=== PATIENT | female | born 2000 | race Caucasian/White ===

== ENCOUNTER 2023-08-15 10:13 | Outpatient (RCR) | payer OTHER, SELFPAY ==
[2023-08-15 11:24] LABS: HCG Quantitative 1177 mIU/mL
[2023-08-17 12:42] LABS: HCG Quantitative 2185 mIU/mL
== END 2023-08-19 08:01 | disposition home or self-care (01) ==
LOC: LAB 10:13
PROVIDERS: PCP Family Medicine; Visit Provider Obstetrics & Gynecology
DX: N92.6 Irregular menstruation, unspecified (principal)
CPT/HCPCS: 36415; 84702

== ENCOUNTER 2023-08-31 17:44 | Emergency (ER) | payer OTHER, SELFPAY ==
[2023-08-31 17:49] VITALS: BP 144/91; PULSE 115; RESP 18; TEMP 36.9; O2SAT 100; BMI 21.9
--- OUTSIDE RECORDS SUMMARY | 2023-08-31 17:55 | XMS_ITS | CCD ---
Author Name Unknown Address [address] [place] [address] Organization [facility] Care Team Providers Care Residential Treatment Counselor Name Role Phone DR IVAN MARINELLI Admitting Unavailable DR IVAN MARINELLI Attending Unavailable DR IVAN MARINELLI Primary Care Unavailable DR IVAN MARINELLI Consulting Unavailable Radha Galdamez Unavailable ANA Galdamez Attending Provider [phone] NO FAMILY, PHYSICIAN Primary Care Provider Unava ilable Joseline Cr Unavailable Medications Completed/Discontinued Medications Medication Drug Class(es) Dates Sig (Normalized) Sig (Original) amoxicillin 500 mg oral capsule (1 source) Penicillin-class Antibacterial take 1 capsule by mouth three times daily as needed Amoxicillin 500 MG take 1 capsule by mouth three times a day Oral for 10 Days Not-Taking/PRN cefuroxime 500 mg oral tablet (2 sources) Cephalosporin Antibacterial Start: 03-20-2022 take 1 tablet by mouth every twelve hours Cefuroxime Axetil 500 MG 1 tablet Orally every 12 hrs for 7 days Mar, Not-Taking/PRN norgestimate-eth estradiol 0.25-35 mg-mcg tablet (1 source) Progestin, Estrogen Norgestimate -Eth Estradiol 0.25-35 MG-MCG Oral for 28 Days Not-Taking/PRN Norgestrel-Ethinyl Estradiol (2 sources) Norgestrel-Ethin y l Estradiol Not-Taking/PRN Norgestrel-Ethin yl Estradiol Active ondansetron 4 mg oral tablet (2 sources) Serotonin-3 Receptor Antagonist Start: 03-20-2022 take 1 tablet by mouth every eight hours as needed Zofran ODT 4 MG 1 tablet on the tongue and allow to dissolve Orally every 8 hrs as needed for 4 days Mar, Not-Taking/PRN phenazopyridine hydrochloride 200 mg oral tablet (2 sources) Start: 03-20-2022 take 1 tablet by mouth every eight hours Pyridium 200 MG 1 tablet after meals Orally Three times a day for 2 day(s) Mar, Not-Taking/PRN Problems Active Problems Problem Classification Problem Date Documented Da te Episodic/Chronic Abdominal pain (3 sources) Abdominal pain; Translations: [Unspecified abdominal pain] Onset: 03-20-2022 Resolved: 03-20-2022 Episodic Nausea and vomiting (3 sources) Nausea; Translations: [Nausea] Onset: 03-20-2022 Resolved: 03-20-2022 Episodic Other gastrointestinal disorders (4 sources) Diarrhea, unspecified; Translations: [DIARRHEA UNSPECIFIED] Onset: 10-22-2021 Episodic Other upper respiratory infections (1 source) Acute upper respiratory infection, unspecified Episodic Past or Other Problems Problem Classification Problem Date Documented Da te Episodic/Chronic Unclassified (1 source) Contact with and (suspected) exposure to covid-19 Z20.822 Urinary tract infections (1 source) Acute cystitis with hematuria Onset: 03-20-2022 Resolved: 03-20-2022 Episodic Results Test Name Value Interpretation Reference Range Facility COVID + FLU Quick Testingon 08-05-2023 SARS-CoV-2 (COVID-19) RNA SAL+probe Ql (Unsp spec) Negative [employer] Other COVID + FLU Quick Testing Negative [employer] Other Urine culture routineOrdered By: RADHA GALDAMEZ on 03-22-2022 Bacteria identified Cx Nom (U) Escherichia coli [facility] Test, Urineon Beta HCG ( test) Ql (U) Inconclusive [employer] Other SARS-CoV-2 (COVID-19) RNA NA A+probe Ql (Resp)on 03-20-2022 SARS-CoV-2 (COVID-19) RNA SAL+probe Ql (Unsp spec) Negative [employer] Other Urinalysis - AUTOMATEDon Appearance (U) [facility] Other Bilirubin Ql (U) Negative [employer] Other Color (U) rust-yellow [employer] Other Glucose Ql (U) Negative [employer] Other Hemoglobin Ql (U) TRACE-INTACT [employer] Other Ketones Ql (U) Negative [employer] Other Leukocyte esterase Test strip Ql (U) TRACE [employer] Other Nitrite Ql (U) Positive [employer] Other pH (U) 7.0 [pH] [employer] Other Protein Ql (U) Negative [employer] Other Specific gravity (U) [Rel density] 1.020 [employer] Other Urobilinogen (U) [Mass/Vol] 0.2 mg/dL [employer] Other Urinalysis - AUTOMATED [employer] Other Urine Cultureon 03-20-2022 Bacteria identified Cx Nom (U) ORGANISM: Escherichia coli (O:ESCCOL) [place] Count >100,000 Aerobic MAUREEN Charge (NUC86) ---- SUSCEPTIBILITY --- ORGANISM: O:ESCCOL ANTIBIOTIC INTERPRETATION MAUREEN Amikacin S <16 Ampicillin R >16 Ampicillin/Sulbactam R >16/8 Aztreonam S <4 Cefazolin S 4 Cefepime S <2 Ceftazidime S <1 Ceftazidime/Avibactam S <8 Ceftriaxone S <1 Ciprofloxacin R >2 Ertapenem S <0.5 Gentamicin R >8 Levofloxacin R >4 Meropenem S <1 Nitrofurantoin R >64 Piperacillin/Tazobact am S <16 Tetracycline S <4 Tigecycline S <2 Tobramycin I 8 Trimethoprim/Sulfamet hoxazole S <2/38 S = SUSCEPTIBLE I = INTERMEDIATE R = RESISTANT BLANK = DATA NOT AVAILABLE, OR DRUG NOT ADVISABLE OR TESTED R* = RESISTANCE DUE TO EXTENDED SPECTRUM BETA-LACTAMASES ESBL = EXTENDED SPECTRUM BETA-LACTAMASE TFG = THYMIDINE-DEPENDENT STRAIN RONA = BETA-LACTAMASE POSITIVE IB = INDUCIBLE BETA-LACTAMASE. APPEARS IN PLACE OF 'S' WITH SPECIES KNOWN TO POSSESS INDUCIBLE BETA-LACTAMASES. POTENTIALLY THEY MAY BECOME RESISTANT TO ALL B-LACTAM DRUGS. PERFORMED BY: [place] [address] PATHOLOGIST UTILIZATION SUPERVISOR DEDE OSMAN M.D. Normal [facility] Comment on above: Performed By: #### C UU #### [address] GI PANEL (PCR)on 10-22-2021 Adenovirus F 40/41 Not detected Normal NOT DETECTED [facility] Comment on above: Performed By: #### G IPANEL #### [facility] [address] [place] [address] Dr. Elenita Talamantes Astrovirus Not detected Normal NOT DETECTED [facility] Comment on above: Performed By: #### G IPANEL #### [facility] [address] [place] [address] Dr. Elenita Chavez Diff toxin A/B Not detected Normal NOT DETECTED [facility] Comment on above: Performed By: #### G IPANEL #### [facility] [address] [place] [address] Dr. Elenita Talamantes Campylobacter Not detected Normal NOT DETECTED [facility] Comment on above: Performed By: #### G IPANEL #### [facility] [address] [address] [address] Elenita Talamantes Cryptosporidium Not detected Normal NOT DETECTED [facility] Comment on above: Performed By: #### G IPANEL #### [facility] [address] [place] [address] Dr. Elenita Talamantes Cyclos. Cayetanensis Not detected Normal NOT DETECTED [facility] Comment on above: Performed By: #### G IPANEL #### [facility] [address] [place] [address] Dr. Elenita Talamantes E. Coli O157 Not Applicable Normal Not Applicable [facility] Comment on above: Performed By: #### G IPANEL #### [facility] [address] [address] [address] Elenita Talamantes E. histolytica Not detected Normal NOT DETECTED [facility] Comment on above: Performed By: #### G IPANEL #### [facility] [address] [place] [address] Dr. Elenita Talamantes EAEC Detected Abnormal NOT DETECTED [facility] Comment on above: Performed By: #### G IPANEL #### [facility] [address] [place] [address] Dr. Elenita Talamantes EIEC Not detected Normal NOT DETECTED [facility] Comment on above: Performed By: #### G IPANEL #### [facility] [address] [place] [address] Dr. Elenita Talamantes EPEC Detected Abnormal NOT DETECTED [facility] Comment on above: Performed By: #### G IPANEL #### [facility] [address] [place] [address] Dr. Elenita Talamantes ETEC Detected Abnormal NOT DETECTED [facility] Comment on above: Performed By: #### G IPANEL #### [facility] [address] [place] [address] Dr. Elenita Chin. Lamblia Not detected Normal NOT DETECTED [facility] Comment on above: Performed By: #### G IPANEL #### [facility] [address] [place] [address] Dr. Elenita PEREIRAANEL CONTROLS PASSED Normal [facility] Comment on above: Performed By: #### G IPANEL #### [facility] [address] [place] [address] Dr. Elenita EDMONDS ROCKY HEADER GI PANEL BACTERIA Normal [facility] Comment on above: Performed By: #### G IPANEL #### [facility] [address] [place] [address] Dr. Elenita BERMEO ECOLI GI PANEL DIARRHEAGENIC E.COLI / SHIGELLA Normal [facility] Comment on above: Performed By: #### G IPANEL #### [facility] [address] [address] [address] Elenita BERMEO INFO SEE BELOW Normal [facility] Comment on above: Result Comment: EAEC - Enteroaggregative E. Coli EPEC- Enteropathogenic E. Coli ETEC- Enterotoxigenic E. Coli lt/st STEC- Shigella-like toxin-producing E. Coli stx1/stx2 EIEC- Shigella/Enteroinvasive E. Coli Performed By: #### G IPANEL #### [facility] [address] [address] [address] Elenita BERMEO PARASITES GI PANEL PARASITES Normal [facility] Comment on above: Performed By: #### G IPANEL #### [facility] [address] [place] [address] Dr. Elenita BERMEO VIRUS GI PANEL VIRUSES Normal [facility] Comment on above: Performed By: #### G IPANEL #### [facility] [address] [place] [address] Dr. Elenita Talamantes Norovirus GI/GII Not detected Normal NOT DETECTED [facility] Comment on above: Performed By: #### G IPANEL #### [facility] [address] [address] [address] Elenita Talamantes P. Shigelloides Not detected Normal NOT DETECTED [facility] Comment on above: Performed By: #### G IPANEL #### [facility] [address] [address] [address] Elenita Talamantes Rotavirus A Not detected Normal NOT DETECTED [facility] Comment on above: Performed By: #### G IPANEL #### [facility] [address] [place] [address] Dr. Elenita Talamantes Salmonella Not detected Normal NOT DETECTED [facility] Comment on above: Performed By: #### G IPANEL #### [facility] [address] [address] [address] Elenita Talamantes Sapovirus Not detected Normal NOT DETECTED [facility] Comment on above: Performed By: #### G IPANEL #### [facility] [address] [address] [address] Elenita Talamantes STEC Not detected Normal NOT DETECTED [facility] Comment on above: Performed By: #### G IPANEL #### [facility] [address] [address] [address] Elenita Talamantes Vibrio Not detected Normal NOT DETECTED [facility] Comment on above: Performed By: #### G IPANEL #### [facility] [address] [address] [address] Elenita Talamantes Vibrio Cholera Not detected Normal NOT DETECTED [facility] Comment on above: Performed By: #### G IPANEL #### [facility] [address] [address] [address] Elenita Talamantes Y. Enterocolitica Not detected Normal NOT DETECTED [facility] Comment on above: Performed By: #### G IPANEL #### [facility] [address] [address] [address] Elenita Talamantes Ambulatory Clinical Summaryo n 02-28-2021 Ambulatory Clinical Summary {[id number] Normal [facility] Urology Office/Clinic Noteon 02-28-2021 Urology Office/Clinic Note Chief Complaint 5 mnth from cysto/ud HPI Staff Pt is here for a 3 month to Cysto/UD. Pt denies any infections since the Cysto/UD. Pt states that she has not had an infection since the procedure. Pt states that today she was voiding every 2 hours. PVR today is 0ml. Dysuria: no pain or burning Incomplete bladder emptying: believes she is emptying Hematuria: denies any blood Frequency: voiding every 2 hours Urgency: mild to none Nocturia: none Stream: varies from strong to average stream, no hesitation, intermittent stream at the end Post void dripping: none Wearing pads/ Depends: _ Urge incontinence: none Stress incontinence: none Incontinence without Sensory Awareness: none History of Present Illness Reviewed UA and pvr. There have been no associated fever, chills, flank pain or blood in the urine. Pt. denies any pain/burning with urination at this time. Review of Systems PHQ Score Initial Depression Screen Score: 0 ROS - Provider Constitutional: denies weight loss, denies hot flashes. Eyes: denies eye problems. Gastrointestinal: denies nausea, denies vomiting. Cardiovascular: denies chest pain or angina. Integumentary: no dryness Musculoskeletal: denies musculoskeletal symptoms. ENMT: denies otolaryngeal symptoms. Respiratory: no shortness of breath. Heme/Lymph: denies easy bleeding tendency, denies easy bruising tendency. Psychiatric: no confusion, no anxiety. Genitourinary: denies vaginal discharge, denies incontinence, denies dysuria, denies hematuria, denies urinary frequency, denies amenorrhea, denies menorrhagia, denies abnormal bleeding, denies pelvic pain, denies genital sores, and denies decreased libido. Physical Exam Vitals & Measurements HR: 75(Peripheral) RR: 18 BP: 123/81 HT: 176 cm HT: 176.0 cm WT: 72 kg WT: 72.0 kg BMI: 23.24 General Appearance: alert , no acute distress, well nourished, well developed female. Genitourinary: bladder nonpalpable, no flank pain. Assessment/Plan 1. Recurrent UTI (N39.0: Urinary tract infection, site not specified) Pt. denies any infections since the UD. UA today - neg. Recommended pt. to increase fluid intake to ten to twelve 16oz bottles a day; preferably water, clear pop, and sugar free lemonade. Pt. to start timed voids q2-3hr during waking hours whether the urge to void is present or not. All questions/concerns were discussed. Pt. to call the office if sheencounters any issues prior. Pt. acknowledges understanding. Nuclear renal scan done 10/19/20 shows that the left kidney is smaller than the right w/ 39% function on the left and 61% on the right. Will repeat this study in 1yr. 2. Urge incontinence (N39.41: Urge incontinence) Improved since UD. 3. Incomplete bladder emptying (R33.9: Retention of urine, unspecified) PVR today 0ml. vs. 99ml. previously. 4. Other urethral stricture, female (N35.82: Other urethral stricture, female) S/p Cysto/UD 10/12/20. she is voiding much better now. I have reviewed the previous health record information and history for this pt. from Dr. Gonzalez. Follow-up With When Contact Information PANCHITO AGUIRRE, Lewis Kent, URL [address] [place] [address] [place] [address]- [phone] Additional Instructions: 6mos. f/u Patient Education I, Lyn Willis , personally scribed for Dr. Gonzalez on 02/28/2021 16:26:03. . Documentation recorded by the scribe, Lyn Willis, accurately reflects the services(s) I performed and decisions made by me. Authenticated by Dr. Gonzalez on 02/28/2021 16:30:11. Problem List/Past Medical History Ongoing No qualifying data Historical No qualifying data Procedure/Surgical History Procedure on back. Medications Multi Vitamin+ Probiotic Formula (Bacillus Coagulans), Oral, Daily Vitamin D, Oral, Daily Allergies No Known Allergies Social History Tobacco Former smoker, quit more than 30 days ago Tobacco Use:., 10/04/2020 Family History Alcoholism: Uncle. Arthritis: Grandparent. Asthma: Mother. Heart disease: Grandparent. High cholesterol: Father and Grandparent. Hypertension: Grandparent. Kidney stone: Uncle. Lung cancer: Uncle. Mental illness: Mother and Uncle. Ovarian cancer: Grandparent. Stroke: Grandparent. Lab Results Ambulatory Point of Care Results Blood Urine Dipstick: Negative (02/28/21 15:30:00) Glucose Urine Dipstick: Negative (02/28/21 15:30:00) Ketones Urine Dipstick: Negative (02/28/21 15:30:00) Leukocytes Urine Dipstick: Trace (02/28/21 15:30:00) Protein Urine Dipstick: Negative (02/28/21 15:30:00) Specific [place] Urine Dipstick: 1.020 (02/28/21 15:30:00) Urine Appearance Urine Dipstick: Clear (02/28/21 15:30:00) Urine Color Urine Dipstick: Yellow (02/28/21 15:30:00) Urobilinogen Urine Dipstick: Normal 0.2-1 EU/dl (02/28/21 15:30:00) pH Urine Dipstick: 5 (02/28/21 15:30:00) [facility] Comment on above: Result Comment: Elec tronically Signed By: Lewis GONZALEZ MD\.br\Date and Time Signed: 02/28/21 16:30 EDT\.br\Electronically Co-Signed By: Lyn Willis MA\.br\Date and Time Co-Signed: 02/28/21 16:26 EDT Coding Summary.on 10-27-2020 Coding Summary. CODING DATE: 10/27/2020 FINAL [facility] STATUS: Home (Routine DC) PAYOR: Commercial Insurance APC DESCRIPTION 5592 Level 2 Nuclear Medicine and Related Services ADMIT DX: REASON FOR VISIT DX: R33.9 Retention of urine, unspecified FINAL DX: PRINCIPAL: R33.9 Retention of urine, unspecified SECONDARY: N39.0 Urinary tract infection, site not specified N39.41 Urge incontinence N27.0 Small kidney, unilateral PYMT PROC APC STAT DESCRIPTION DOCTOR NAME DATE NOTE: The code number assigned matches the documented diagnosis and / or procedure in the patient's chart. However, the narrative phrase printed from the coding software may appear abbreviated, or result in slightly different terminology. Coded By: Kendra Orr CphT Date Saved: 10/27/2020 09:40 am [facility] Coding Summary. CODING DATE: 10/27/2020 FINAL [facility] STATUS: Home (Routine DC) PAYOR: Commercial Insurance APC DESCRIPTION 5592 Level 2 Nuclear Medicine and Related Services ADMIT DX: REASON FOR VISIT DX: R33.9 Retention of urine, unspecified FINAL DX: PRINCIPAL: R33.9 Retention of urine, unspecified SECONDARY: N39.0 Urinary tract infection, site not specified N39.41 Urge incontinence PYMT PROC APC STAT DESCRIPTION DOCTOR NAME DATE NOTE: The code number assigned matches the documented diagnosis and / or procedure in the patient's chart. However, the narrative phrase printed from the coding software may appear abbreviated, or result in slightly different terminology. Coded By: Kendra Orr CphT Date Saved: 10/27/2020 09:39 am [facility] Discharge Instructionson Discharge Instructions [id number]# 1.00CD:127 Normal [facility] NM Kidney Imaging w/ Flow w/ Pharmon 10-20-2020 NM Kidney Imaging w/ Flow w/ Pharm Exam Date/Time: 10/19/2020 16:32 EST Reason for Exam: Other (please specify) Report IMPRESSION: GOOD ACCUMULATION, EXCRETION AND CLEARANCE RADIONUCLIDE FROM BOTH KIDNEYS. THE LEFT KIDNEY IS SMALLER THAN THE RIGHT, SEE BELOW. CLINICAL HISTORY: Lower abdominal and low back pain. Pt was unable to complete the entire duration on test after Lasix was administered due to having to use the restroom pt also stated she had left sided back pain after emptying her bladder COMPARISON: Ultrasound abdomen: 09/07/2020 TECHNIQUE: 6.6 mCi of technetium -99m MAG3 were given intravenously. 20 minutes later 40 mg Lasix were given intravenously. FINDINGS: There is prompt symmetrical perfusion of both kidneys. There is approximately 39 % uptake in the left kidney and 61% in the right kidney. The time for peak cortical activity in right kidney is approximately 4.1 minutes. The time for peak cortical activity in left kidney is approximately 5.1 minutes. Radionuclide is excreted in right kidney at 4 minutes postinjection. Radionuclide is excreted in left kidney at 4 minutes postinjection. There is good clearance of radionuclide from both kidneys. FINAL REPORT Dictated: 10/20/2020 3:28 pm Pallavi Ghotra MD Signed (Electronic Signature): 10/20/2020 3:28 pm Signed by: Pallavi Ghotra MD Transcribed by: ROYAL Technologist: JENNIFER Technical Comments Dose: (mCi Tc99m Mag3) 6.6 Dose Furosemide (mg): 40 Right Peak (min): 4.1 Right T1/2 (min): 7.4 Right 20 Minutes (%): 16 Right Uptake (%): 61.1 Left Peak (min): 5.2 Left T1/2 (min): 7.7 Left 20 Minutes (%): 14 Left Uptake (%): 38.9 Normal [facility] Consent for Procedure/Surger yon 10-19-2020 Consent for Procedure/Surgery [id number]# 1.00CD:127 [facility] Consent for Treatmenton -0 Consent for Treatment [id number] .00CD:127 [facility] IntraOperative Documentson 0 10-19-2020 IntraOperative Documents [id number]# 1.00CD:127 [facility] Coding Summary.on 10-18-2020 Coding Summary. CODING DATE: 10/18/2020 FINAL [facility]SC STATUS: Home (Routine DC) PAYOR: Commercial Insurance APC DESCRIPTION 5373 Level 3 Urology and Related Services ADMIT DX: REASON FOR VISIT DX: R35.0 Frequency of micturition FINAL DX: PRINCIPAL: R35.0 Frequency of micturition SECONDARY: R39.15 Urgency of urination Z87.440 Personal history of urinary (tract) infections R39.14 Feeling of incomplete bladder emptying N35.12 Postinfective urethral stricture, not elsewhere classified, female R33.9 Retention of urine, unspecified PYMT PROC APC STAT DESCRIPTION DOCTOR NAME DATE NOTE: The code number assigned matches the documented diagnosis and / or procedure in the patient's chart. However, the narrative phrase printed from the coding software may appear abbreviated, or result in slightly different terminology. Coded By: Charisse Rivers Date Saved: 10/18/2020 01:46 pm [facility] Consent for Treatmenton 09-21 Consent for Treatment [id number] .00CD:127 [facility] Main OR Intraoperative Recor don 10-12-2020 Main OR Intraoperative Record IntraOp Document Type FTURO Summary Primary Physician: Lewis GONZALEZ MD Finalized Date/Time: 10/12/20 10:01:33 Pt. Name: CHRIS GONZALEZ/Sex: 2000 Female Med Rec #: [id number] Physician: Lewis GONZALEZ MD Financial #: [id number] Pt. Type: O Room/Bed: / Admit/Disch: 10/12/20 08:26:15 - Institution: Case Times FTURO Entry 1 Patient Times In Room 10/12/20 09:52:00 Out Room 10/12/20 10:01:00 Procedure Times Start 10/12/20 09:54:00 Stop 10/12/20 09:59:00 Anesthesia Times Last Modified By: Jarrod RAMOS, Chyna Arredondo 10/12/20 09:59:52 Case Attendance FTURO Entry 1 Entry 2 Entry 3 Case Attendee PANCHITO AGUIRRE, Lewis Quezada RN, Verena Garay RN, Chyna Arredondo Role Performed Surgeon - Primary Vending Service Technician - Primary Vending Service Technician - Primary Time In 10/12/20 09:52:00 10/12/20 09:52:00 10/12/20 09:52:00 Time Out 10/12/20 10:01:00 10/12/20 10:01:00 10/12/20 10:01:00 Procedure CYSTOSCOPY LOCAL WITH CYSTOSCOPY LOCAL WITH CYSTOSCOPY LOCAL WITH URETHRAL DILATION(.) URETHRAL DILATION(.) URETHRAL DILATION(.) Comments orientation Last Modified By: Jarrod RN, Chyna Garay RN, Chyna Garay RN, Chyna Arredondo 10/12/20 09:59:54 10/12/20 09:59:54 10/12/20 09:59:54 Entry 4 Entry 5 Case Attendee Miguel BELT PUNCHER, Carole Alexander BELT PUNCHER, Millie Stover Role Performed Scrub - Primary Scrub - Primary Time In 10/12/20 09:52:00 10/12/20 09:52:00 Time Out 10/12/20 10:01:00 10/12/20 10:01:00 Procedure CYSTOSCOPY LOCAL WITH CYSTOSCOPY LOCAL WITH URETHRAL DILATION(.) URETHRAL DILATION(.) Comments orientation Last Modified By: Jarrod RN, Chyna Garay RN, Chyna Arredondo 10/12/20 09:59:54 10/12/20 09:59:54 Surgical Procedures FTURO Entry 1 Procedure Description Procedure CYSTOSCOPY LOCAL WITH Modifiers . URETHRAL DILATION Surgeon Description CYSTOSCOPY WITH URETHRAL DILATION Primary Procedure Yes Primary Surgeon Lewis GONZALEZ MD 10/12/20 09:54:00 Stop 10/12/20 09:59:00 Anesthesia Type Local Surgical Service Urology Wound Class 2 - Clean-Contaminated Last Modified By: Chyna Garay RN 10/12/20 09:59:58 General Case Data FTURO Pre-Care Text: Classifies surgical wound, implements aseptic technique, initiates traffic control Entry 1 Case Information OR URO 1 FT Case Level None Wound Class 2 - Clean-Contaminated Specialty Urology Preop Diagnosis RECURRENT UTI Postop Same As Preop No INCOMPLETE EMPTYING URGE INCONTINENCE Postop Diagnosis RECURRENT UTI Outcomes Met? Yes INCOMPLETE EMPTYING URGE INCONTINENCE, URETHRAL STRICTURE Last Modified By: Chyna Garay RN 10/12/20 09:56:40 Post-Care Text: The patient is free from signs and symptoms of infection EU IntraOp - FTURO Pre-Care Text: Implements protective measures prior to operative or invasive procedure, confirms identity before the operative or invasive procedure, verifies operative procedure, surgical site, and laterality Entry 1 EU Perioperative Protocols Procedure(s) CYSTOSCOPY LOCAL WITH Patient Identity Birthday, ID Band Check URETHRAL DILATION(.) Verified (select at least 2): Consents / H and P HandP, Surgery/Procedure Operative Site N/A Verified Consent Marking Verified Surgical Site Yes Laterality Verified n/a Verified Procedure Verified Yes Correct Patient Yes Position Verified Availability Equipment, Medication Time Out Lewis GONZALEZ MD, Verified (If Participants Damien RAMOS, Verena Price, Applicable) Chyna Garay RN, Miguel BELT PUNCHER, Benjamin Bolanos CST, Millie Stover Time Out Complete 10/12/20 09:54:00 Allergies Reviewed? Yes Allergies Reviewed Self/Patient With Body Position Frog Legged Prep Area PERINEUM Prep Agents Betadine Solution Skin. Condition Unable to Visualize Description CLOTHING ON Additional None Specimens Collected Vitals - EU Blood Pressure 105/61 Pulse 71 bpm Respirations 18 br/min SPO2 EBL 0 IandO - EU Total Intake 0 mL Total Output 0 mL Outcomes Met? Yes Last Modified By: Chyna Garay RN 10/12/20 09:56:03 Post-Care Text: The patient is free from signs and symptoms of injury caused by extraneous objects Case Comments Finalized By: Chyna Garay RN Document Signatures Signed By: Chyna Garay RN 10/12/20 10:01 Normal [facility] Main OR Preoperative Recordo n 10-12-2020 Main OR Preoperative Record Holding Area Document Type FTURO Summary Primary Physician: Lewis GONZALEZ MD Finalized Date/Time: 10/12/20 09:53:30 Pt. Name: CHRIS GONZALEZ /Sex: 2000 Female Med Rec #: [id number] Physician: Lewis GONZALEZ MD Financial #: [id number] Pt. Type: O Room/Bed: / Admit/Disch: 10/12/20 08:26:15 - Institution: Case Times Holding FTURO Pre-Care Text: Verifies consent for planned procedure, identifies individual values and wishes concerning care, includes family members in perioperative teaching Secures patient's records' belongings, and valuables, maintains patient's dignity and privacy, and maintains patient confidentiality Entry 1 In Holding 10/12/20 09:27:00 Outcomes Met? Yes Last Modified By: Halie Fu LPN 10/12/20 09:27:17 Post-Care Text: The patient participates in decisions affecting his or her perioperative plan of care The patient's right to privacy is maintained Surgery Checklist FTURO Entry 1 Patient Birthday, ID Band Procedure History and Physical, Identification: Check, Patient Verification: Surgical Consent, With Participation Patient NPO after Midnight: n/a Personal Items: Jewelry Personal Items earrings, necklace Complaints of Pain: Yes Comment: Pain Comment: 02/26 back Skin Integrity Unable to Visualize Vitals - EU Blood Pressure 105/61 Pulse 71 bpm Respirations 18 br/min SPO2 RN Reviewed Yes Last Modified By: Chyna Garay RN 10/12/20 09:53:28 General Comments: Temp. 36.6 Finalized By: Chyna Garay RN Document Signatures Signed By: Halie Fu LPN 10/12/20 09:30 Chyna Garay RN 10/12/20 09:53 Normal [facility] Operative Reporton Operative Report Patient: CHRIS GONZALEZ Age: 20 years Sex: Female : 2000 Associated Diagnoses: None Author: Lewis GONZALEZ MD Procedure Operative Information Details: Date/ Time: 10/12/2020 10:01:00. 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 Post-Op Dx: Same. Anesthesia Type: Local. Procedure: Local Cystoscopy with Urethral Dilation. Complications: None. Risks/Benefits/Inform ed Consent: Surgical risks, benefits, details of the procedure have been explained to the patient, Full informed consent has been obtained. Intraoperative Information Prepped: Patient is brought back to the endoscopy suite, Patient is placed in modified dorso/lithotomy position, Patient prepped in the usual fashion with Betadine solution, 2% Xylocaine Jelly is placed per Urethra, After waiting several minutes the Cystoscope is introduced. The Urethra is: Tight. The Bladder is: Abnormal, Trabeculated Moderate (2), no b.t.. The ureteral orifices: Show efflux of clear urine. The Urethra was dilated to: 30 Slovak w/ sounds. Devices Implanted: None. Removal: Cystoscope is removed, The patient tolerated it well. Postoperative Information Discharge: Patient is discharged home with antibiotic coverage, Follow up arranged. [facility] Comment on above: Result Comment: Elec tronically Signed By: PANCHITO AGUIRRE, Lewis Trent.br\Date and Time Signed: 10/12/20 10:02 EST Pre-Certification Formon Pre-Certification Form [id number]. 00CD:127 [facility] Physician Referralon 021 Physician Referral [id number] .00CD:127 [facility] Formson 10-05-2020 Forms [id number]. 00CD:127 [facility] Ambulatory Clinical Summaryo n 10-04-2020 Ambulatory Clinical Summary {[id number]}CD:[id number] [facility] Patient Educationon 10-04-19 21 Patient Education Urinary Tract Infection Urinary tract infections (UTIs) can develop anywhere along your urinary tract. Your urinary tract is your body's drainage system for removing wastes and extra water. Your urinary tract includes two kidneys, two ureters, a bladder, and a urethra. Your kidneys are a pair of macedo-shaped organs. Each kidney is about the size of your fist. They are located below your ribs, one on each side of your spine. CAUSES Infections are caused by microbes, which are microscopic organisms, including fungi, viruses, and bacteria. These organisms are so small that they can only be seen through a microscope. Bacteria are the microbes that most commonly cause UTIs. SYMPTOMS Symptoms of UTIs may vary by age and gender of the patient and by the location of the infection. Symptoms in young women typically include a frequent and intense urge to urinate and a painful, burning feeling in the bladder or urethra during urination. Older women and men are more likely to be tired, shaky, and weak and have muscle aches and abdominal pain. A fever may mean the infection is in your kidneys. Other symptoms of a kidney infection include pain in your back or sides below the ribs, nausea, and vomiting. DIAGNOSIS To diagnose a UTI, your caregiver will ask you about your symptoms. Your caregiver also will ask to provide a urine sample. The urine sample will be tested for bacteria and white blood cells. White blood cells are made by your body to help fight infection. TREATMENT Typically, UTIs can be treated with medication. Because most UTIs are caused by a bacterial infection, they usually can be treated with the use of antibiotics. The choice of antibiotic and length of treatment depend on your symptoms and the type of bacteria causing your infection. HOME CARE INSTRUCTIONS ? If you were prescribed antibiotics, take them exactly as your caregiver instructs you. Finish the medication even if you feel better after you have only taken some of the medication. ? Drink enough water and fluids to keep your urine clear or pale yellow. ? Avoid caffeine, tea, and carbonated beverages. They tend to irritate your bladder. ? Empty your bladder often. Avoid holding urine for long periods of time. ? Empty your bladder before and after sexual intercourse. ? After a bowel movement, women should cleanse from front to back. Use each tissue only once. SEEK MEDICAL CARE IF: ? You have back pain. ? You develop a fever. ? Your symptoms do not begin to resolve within 3 days. SEEK IMMEDIATE MEDICAL CARE IF: ? You have severe back pain or lower abdominal pain. ? You develop chills. ? You have nausea or vomiting. ? You have continued burning or discomfort with urination. MAKE SURE YOU: ? Understand these instructions. ? Will watch your condition. ? Will get help right away if you are not doing well or get worse. Document Released: 05/16/2006 Document Revised: 02/04/2013 Document Reviewed: 09/13/2012 ExitCare? Patient Information ?2013 [employer]. 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 Pt states that she has been having issues since she has been 6 yrs for BV, Kidney infections, UTI and yeast infections. Pt states that she has atleast 2 infections per month. She states that she has had recent pain intermittent pain with intercourse. Pt is currently taking metronidazole 500mg bid. Pt gets cloudy urine, smells, discharge, LLQ pain and lower left back pain with infections. Pt does have a FH of kidney stones. PVR 99ml. Renal US/bladder At [facility] 08/2020. Dysuria: not at this time Incomplete bladder emptying: pt states that she does feel emptying, pt states she is double voiding Hematuria: Pt is on Depo shot and only bleeds one week prior to her next shot, not during urination. UA is clear. Frequency: 2-3 hours in between, pt states since being on the Medication her frequency is back to normal Urgency: only with infections Nocturia: with infection she was getting up multiple times Stream: strong stream, no hesitation Post void dripping: none Wearing pads/ Depends: none Urge incontinence: yes, with mild/moderate urgency Stress incontinence: none Incontinence without Sensory Awareness: none Abdominal pain: LLQ pain with infection Flank pain/back : with infection Sexual complaints: pain with sexual intercourse recently History of Present Illness Reviewed urine, pv, referral papers, and new pt. paper works. There have been no associated fever, chills, flank pain or blood in the urine. Pt. denies any pain/burning with urination at this time. Review of Systems PHQ Score Initial Depression Screen Score: 1 ROS - Provider Constitutional: denies weight loss, denies hot flashes. Eyes: denies eye problems. Gastrointestinal: denies nausea, denies vomiting. Cardiovascular: denies chest pain or angina. Integumentary: no dryness Musculoskeletal: denies musculoskeletal symptoms. ENMT: denies otolaryngeal symptoms. Respiratory: no shortness of breath. Heme/Lymph: denies easy bleeding tendency, denies easy bruising tendency. Psychiatric: no confusion, no anxiety. Genitourinary: denies vaginal discharge, mild incontinence, denies dysuria, denies hematuria, denies urinary frequency, denies amenorrhea, denies menorrhagia, denies abnormal bleeding, denies pelvic pain, denies genital sores, and denies decreased libido. Physical Exam Vitals & Measurements HR: 108(Peripheral) RR: 18 BP: 140/89 HT: 176 cm HT: 176.0 cm WT: 72 kg WT: 72.0 kg BMI: 23.24 General Appearance: alert , no acute distress, well nourished, well developed female. Head: normocephalic . Eyes: normal orbit and globe. ENMT: normal examination of external ears. Chest: Lungs CTA, respirations non labored . Cardiovascular: regular rate and rhythm. Abdomen: soft, non distended, no tenderness, no mass or organomegaly, no hernia. Genitourinary: bladder nonpalpable, no flank tenderness. Lymph Nodes: unremarkable palpation of the cervical area. Skin: warm, dry, no bruising. Psychiatric: cooperative, affect appropriate for age, normal judgement, euthymic mood. Assessment/Plan 1. Recurrent UTI (N39.0: Urinary tract infection, site not specified) Pt. states having infections since a child and pt. continues to have UTIs at least 2x/month. Pt. has only been treated w/ ABX in the past along with x-rays. Retroperitoneal us done on 09/07/2020 is unremarkable. Pt. states that she always wipes from front to back which I informed pt. is the correct way. Will have pt. obtain nuclear renal scan. Will schedule Cysto with UD. The procedure risks, benefits, details, and treatment alternatives have been discussed with the patient. These include bleeding, infection, recurrent scar in over 50%, need for repeat dilation or other procedures, no symptom relief with dilation, among others. Full informed consent has been obtained. Will order Local anesthesia. 2. Urge incontinence (N39.41: Urge incontinence) Mild - moderate. daily bother for her. will start bladder med after her cysto/ud. 3. Incomplete bladder emptying (R33.9: Retention of urine, unspecified) PVR today - 99ml. I have reviewed the previous health record information and history for this pt. from Dr. Gonzalez. Follow-up With When Contact Information Lewis GONZALEZ MD [address] [place] [address]- [phone] Additional Instructions: scheduling Cysto/UD Patient Education Urinary Tract Infection I, Lyn Willis , personally scribed for Dr. Gonzalez on 10/04/2020 14:58:44. . Documentation recorded by the scribe, Lyn Willis, accurately reflects the services(s) I performed and decisions made by me. Authenticated by Dr. Gonzalez on 10/04/2020 15:03:51. Problem List/Past Medical History Ongoing No qualifying data Historical No qualifying data Procedure/Surgical History Procedure on back. Medications buPROPion, Oral met (more content not included)... [facility] Comment on above: Result Comment: Elec tronically Signed By: Lewis GONZALEZ MD\.br\Date and Time Signed: 10/04/20 15:03 EST\.br\Electronically Co-Signed By: Lyn Willis MA\.br\Date and Time Co-Signed: 10/04/20 14:59 EST Coding Summary.on 09-09-2020 Coding Summary. CODING DATE: 09/09/2020 FINAL [facility] STATUS: Home (Routine DC) PAYOR: Commercial Insurance APC DESCRIPTION 5522 Level 2 Imaging without Contrast ADMIT DX: REASON FOR VISIT DX: N12 Tubulo-interstitial nephritis, not specified as acute or chronic FINAL DX: PRINCIPAL: N12 Tubulo-interstitial nephritis, not specified as acute or chronic SECONDARY: N39.0 Urinary tract infection, site not specified PYMT PROC APC STAT DESCRIPTION DOCTOR NAME DATE NOTE: The code number assigned matches the documented diagnosis and / or procedure in the patient's chart. However, the narrative phrase printed from the coding software may appear abbreviated, or result in slightly different terminology. Coded By: Kendra Orr CphT Date Saved: 09/09/2020 06:00 pm [facility] US Retroperitoneal Completeo n 09-09-2020 US Retroperitoneal Complete Exam Date/Time: 09/07/2020 09:49 EST Reason for Exam: Tubulo-interstitial nephritis, not specified as acute or chronic Report IMPRESSION: NEGATIVE ULTRASOUND OF THE KIDNEYS. MINIMAL POST VOID RESIDUAL. CLINICAL HISTORY: Tubulo-interstitial nephritis, not specified as acute or chronic. COMMENT: The right kidney measures approximately 7.9 cm in length, with renal cortical thickness of approximately 1.2 cm. The left kidney measures approximately 9.5 cm in length, with renal cortical thickness of approximately 1.9 cm. Both kidneys have a normal sonographic appearance. No renal masses nor cysts are seen. There is no hydronephrosis. The urinary bladder filled with fluid measures approximately 6.1 x 4.3 x 7.6 cm, with an estimated volume of the 107 cc. On color flow Doppler images, there are bilateral ureteral jets in the urinary bladder. After voiding, the urinary bladder measures approximately 2.3 x 0.8 x 4.3 cm, with an estimated volume of 4.5 cc. FINAL REPORT Dictated: 09/09/2020 11:42 am Kevon De La O M.D. Signed (Electronic Signature): 09/09/2020 11:42 am Signed by: Kevon De La O M.D. Transcribed by: ROYAL Technologist: HW [facility] Consent for Treatmenton 08-20 Consent for Treatment [id number] .[id number]:127 [facility] Consent for Treatment [id number]:127 [facility] Physician Orderon 09-03-2020 Physician Order [id number] .00CD:127 [facility] Vital Signs Date Time Vital Sign Value Performing Clinician Facility 08-05-2023 14:35-0500 Body height 176.53 cm Joseline Shaye [facility] 08-05-2023 14:35-0500 Body mass index (BMI) [Ratio] 23.29 kg/m2 Joseline Shaye [facility] 08-05-2023 14:35-0500 Body temperature 98 [degF] Joseline Shaye [facility] 08-05-2023 14:35-0500 Body weight 72.58 kg Joseline Shaye [facility] 08-05-2023 14:35-0500 Respiratory rate 18 /min Joseline Shaye [facility] 08-05-2023 14:35-0500 SaO2% (BldA) [Mass fraction] 98 % Joseline Shaye [facility] 03-20-2022 18:20-0400 Body height 176.53 cm Radha Galdamez [facility] 03-20-2022 18:20-0400 Body mass index (BMI) [Ratio] 25.32 kg/m2 Radha Crow [facility] 03-20-2022 18:20-0400 Body temperature 98.4 [degF] Radha Crow [facility] 03-20-2022 18:20-0400 Body weight 78.93 kg Radha Denneyault Other [facility] Other 03-20-2022 18:20-0400 Respiratory rate 18 /min Radha Crow [facility] Other 03-20-2022 18:20-0400 SaO2% (BldA) [Mass fraction] 97 % Radha Galdamez [facility] Other Encounters Encounter Date Encounter Type Care Provider Facility Start: 08-05-2023 End: 08-05-2023 ambulatory Joseline Smithb [facility] Start: 08-05-2023 Office outpatient visit 15 minutes Joseline Cr [facility] Start: 03-20-2022 End: 03-20-2022 Departed Referred ANA Galdamez Work Phone: [facility] [place] Start: 03-20-2022 End: 03-20-2022 ambulatory Radha Galdamez [facility] Start: 03-20-2022 Office outpatient ne w 20 minutes Radha Galdamez [facility] Start: 10-22-2021 End: 10-23-[address] IVAN MARINELLI Facility:[facility]1 Procedures Date Procedure Procedure Detail Performing Clinician Urine culture ANA Hale Work Phone: Payers Date Payer Category Payer Unknown [id number] 1961 Unknown [id number] Unknown [id number] Unknown [id number] 2. [id number] Social History Date Type Detail Facility Sex Assigned At [facility] Work Phone: Start: 2000 Sex Assigned At Female [facility] Evaluation note 08-05-2023 Note Date & Type Note Facility 08-05-2023 Evaluation note Encounter Date Diagnosis Assessment Notes Jul, Contact with and (suspected) exposure to covid-19 (ICD-10 - Z20.822) Jul, Viral upper respiratory illness (ICD-10 - J06.9) You were seen here today for your complaints of cough, congestion, sinus pressure, sore throat for the past 5 days. You deny nausea, vomiting, diarrhea, fever, chills. You do endorse body aches. You state your spouse was diagnosed with covid and has had symptoms for 2 weeks. You were tested for covid, flu and tested negative. You are being diagnosed with a viral illness, likely covid due to contact with your spouse. You are being encouraged to rest. Drink lots of water. Avoid excess dairy products. Take Tylenol and Motrin for fever or discomfort. You may take over the counter cold and flu medication, follow ht box instructions. Follow up with your primary doctor if symptoms persist. Go to the ER if you develop chest pain, shortness of breath. [facility] Other Evaluation note 03-20-2022 Note Date & Type Note Facility 03-20-2022 Evaluation note Encounter Date Diagnosis Assessment Notes Mar, Nausea (ICD-10 - R11.0) Mar, Acute cystitis with hematuria (ICD-10 - N30.01) Take medication as directed. Urine analysis shows abnormalities today in office. Urine culture will be sent to lab. Will call with results if resistance present to antibiotic. Increase fluid intake. Follow hygiene guidelines such as wiping front to back, avoid using perfumed lotions, bath beads, bubble bath. Prevention tips inlcude urinating after sexual intercourse. Follow up with primary care provider or aquaculture director if no improvement of symptoms. Mar, Abdominal pain, unspecified abdominal location (ICD-10 - R10.9) Mar, Other Recommend Retested for in 1 week. Call family planning clinic at [facility] Other History and physical note 10-19-2020 Note Date & Type Note Facility 10-19-2020 Note [id number]#1.00CD:127 [facility] Clinical Note 10-12-2020 Note Date & Type Note Facility 10-12-2020 Note Custom Cystoscopy with Urethral Dilation ? Voiding after the procedure: there may be some pain, urethral bleeding, burning, urgency, frequency and blood tinged urine following the procedure. These symptoms usually resolve within 2-5 days. Drink the amount of fluid it takes to keep the urine pink to yellow or clear in color. Drinking enough water and fluids will help to ease any discomfort after your procedure. ? If you are having problems that seem out of the ordinary, please call. ? If unable to contact your physician and you feel it is an emergency, go to the nearest emergency room or call 911 ? Diet ? you may resume your normal diet. ? Activity ? you may resume your normal activities ? Call if you have a fever over 100 degrees [facility] Evaluation note Note Date & Type Note Facility Evaluation note No assessment information availa [facility] Work Phone: History general Narrative - Reported Note Date & Type Note Facility History general Narrative - Reported Type Surgical History Back Surgery 2006 Hospitalization History see above [facility] Other Summary Purpose Family History No Family History Records FoundNo Family History Records FoundNo Family History Records Found Advance Directives Advance Directive Response Recorded Date/ Time Advance Directives No March 24, 022 6:22am Chief Complaint and Reason for Visit Chief Complaint R10.9 Additional Source Comments INFORMATION SOURCE (unrecogn ized section and content) DATE CREATED AUTHOR 03/01/2021 [facility] DATE CREATED AUTHOR AUTHOR'S ORGANIZ ATION 12/07/2021 [facility] DATE CREATED AUTHOR AUTHOR'S ORGANIZ ATION 03/29/2022 [facility] REASON FOR VISIT (unrecogniz ed section and content) RED GMC, B/A, H/A, NAUSEACOV ID EXPO, RUNNY NOSE, HEADACHE Care Teams (unrecognized sec tion and content) Team Status: Inactive Member Role Status Dates ANA Galdamez Attending Provider Active PHYSICIAN NO FAMILY Primary Care Provider Active Team Status: Active Member Role Status Dates PHYSICIAN NO FAMILY Primary Care Provider Active Goals (unrecognized section and content) Goals may be documented in a n alternate section FOR RECORDS PERTAINING TO PATIENTS WHO ARE OR HAVE BEEN ENROLLED IN A CHEMICAL DEPENDENCY/SUBSTANCEABUSE PROGRAM, SOME INFORMATION MAY BE OMITTED. This clinical summary was aggregated from multiple sources. Caution should be exercised in using it in the provision of clinical care. This summary normalizes information from multiple sources, and as a consequence, information in this document may materially change the coding, format and clinical context of patient data. In addition, data may be omitted in some cases. CLINICAL DECISIONS SHOULD BE BASED ON THE PRIMARY CLINICAL RECORDS. [employer] [facility]. provides no warranty or guarantee of the accuracy or completeness of information in this document.
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
[2023-08-31 19:32] LABS: HCG Quantitative 73370 mIU/mL
== END 2023-08-31 18:54 | disposition home or self-care (01) ==
PROVIDERS: Emergency Provider Emergency Medicine Emergency Medical Services; PCP Family Medicine
DX: O9A.211 Injury, poisoning and certain other consequences of external causes complicating pregnancy, first trimester (principal); S80.01XA Contusion of right knee, initial encounter; Z3A.01 Less than 8 weeks gestation of pregnancy; V47.5XXA Car driver injured in collision with fixed or stationary object in traffic accident, initial encounter
CPT/HCPCS: 36415; 73562; 84702; 99284

== ENCOUNTER 2023-09-03 11:46 | Outpatient (OUT) | payer OTHER, SELFPAY ==
--- OUTSIDE RECORDS SUMMARY | 2023-09-03 11:52 | XMS_ITS | CCD ---
Author Name Unknown Address [address] [place] [address] Organization [facility] Care Team Providers Care Sales & Service Associate Name Role Phone DR IVAN MARINELLI Admitting Unavailable DR IVAN MARINELLI Attending Unavailable DR IVAN MARINELLI Primary Care Unavailable DR IVAN MARINELLI Consulting Unavailable Radha Galdamez Unavailable ANA Galdamez Attending Provider [phone] NO FAMILY, PHYSICIAN Primary Care Provider Unava [...] (COVID-19) RNA SAL+probe Ql (Unsp spec) Negative [facility] Other COVID + FLU Quick Testing Negative [facility] Other Urine culture routineOrdered By: RADHA GALDAMEZ on 03-22-2022 Bacteria identified Cx Nom (U) Escherichia coli [facility] Test, Urineon Beta HCG ( test) Ql (U) Inconclusive [facility] Other SARS-CoV-2 (COVID-19) RNA NA A+probe Ql (Resp)on 03-20-2022 SARS-CoV-2 (COVID-19) RNA SAL+probe Ql (Unsp spec) Negative [facility] Other Urinalysis - AUTOMATEDon Appearance (U) CLOU[facility] Other Bilirubin Ql (U) Negative [facility] Other Color (U) rust-yellow [facility] Other Glucose Ql (U) Negative [facility] Other Hemoglobin Ql (U) TRACE-INTACT [facility] Other Ketones Ql (U) Negative [facility] Other Leukocyte esterase Test strip Ql (U) TRACE [facility] Other Nitrite Ql (U) Positive [facility] Other pH (U) 7.0 [pH] [facility] Other Protein Ql (U) Negative [facility] Other Specific gravity (U) [Rel density] 1.020 [facility] Other Urobilinogen (U) [Mass/Vol] 0.2 mg/dL [facility] Other Urinalysis - AUTOMATED [facility] Other Urine Cultureon 03-20-2022 Bacteria identified Cx Nom (U) ORGANISM: Escherichia coli (O:ESCCOL) [place] Count >100,000 Aerobic MAUREEN Charge (NUC86) ---- [...] RESISTANT TO ALL B-LACTAM DRUGS. PERFORMED BY: [place] [address] PATHOLOGIST INSTALLMENT LOAN COLLECTOR DEDE OSMAN M.D. Normal [facility] Comment on above: Performed By: #### C UU #### [address] GI PANEL (PCR)on 10-22-2021 Adenovirus F 40/41 Not detected Normal NOT DETECTED [facility] Comment on above: Performed By: #### G IPANEL #### [facility] [address] [place] [address] Dr. Elenita Talamantes Astrovirus Not detected Normal NOT DETECTED [facility] Comment on above: Performed By: #### G IPANEL #### [facility] [address] [place] [address] Dr. Elenita Chavez Diff toxin A/B Not detected Normal NOT DETECTED The [facility] Comment on above: Performed By: #### G IPANEL #### [facility] [address] [place] [address] Dr. Elenita Talamantes Campylobacter Not detected Normal NOT DETECTED [facility] Comment on above: Performed By: #### G IPANEL #### [facility] [address] [address] [address] Elenita Talamantes Cryptosporidium Not detected Normal NOT DETECTED The [facility] Comment on above: Performed By: #### G IPANEL #### [facility] [address] [place] [address] Dr. Elenita Talamantes Cyclos. Cayetanensis Not detected Normal NOT DETECTED The [facility] Comment on above: Performed By: #### G IPANEL #### [facility] [address] [place] [address] Dr. Elenita Talamantes E. Coli O157 Not Applicable Normal Not Applicable The [facility] Comment on above: Performed By: #### G IPANEL #### [facility] [address] [address] [address] Elenita Talamantes E. histolytica Not detected Normal NOT DETECTED The [facility] Comment on above: Performed By: #### G IPANEL #### [facility] [address] [place] [address] Dr. Elenita Talamantes EAEC Detected Abnormal NOT DETECTED The [facility] Comment on above: Performed By: #### G IPANEL #### [facility] [address] [place] [address] Dr. Elenita Talamantes EIEC Not detected Normal NOT DETECTED [facility] Comment on above: Performed By: #### G IPANEL #### [facility] [address] [place] [address] Dr. Elenita Talamantes EPEC Detected Abnormal NOT DETECTED The [facility] Comment on above: Performed By: #### G IPANEL #### [facility] [address] [place] [address] Dr. Elenita Talamantes ETEC Detected Abnormal NOT DETECTED The [facility] Comment on above: Performed By: #### G IPANEL #### [facility] [address] [place] [address] Dr. Elenita Chin. Lamblia Not detected Normal NOT DETECTED [facility] Comment on above: Performed By: #### G IPANEL #### [facility] [address] [place] [address] Dr. Elenita PEREIRAANEL CONTROLS PASSED Normal The [facility] Comment on above: Performed By: #### G IPANEL #### [facility] [address] [place] [address] Dr. Elenita EDMONDS ROCKY HEADER GI PANEL BACTERIA Normal T [facility] Comment on above: Performed By: #### G IPANEL #### [facility] [address] [place] [address] Dr. Elenita BERMEO ECOLI GI PANEL DIARRHEAGENIC E.COLI / SHIGELLA Normal The [facility] Comment on above: Performed By: #### G IPANEL #### [facility] [address] [address] [address] Elenita BERMEO INFO SEE BELOW Normal The [facility] Comment on above: Result Comment: EAEC - Enteroaggregative E. Coli EPEC- Enteropathogenic E. Coli ETEC- Enterotoxigenic E. Coli lt/st STEC- Shigella-like toxin-producing E. Coli stx1/stx2 EIEC- Shigella/Enteroinvasive E. Coli Performed By: #### G IPANEL #### [facility] [address] [address] [address] Elenita BERMEO PARASITES GI PANEL PARASITES Normal The [facility] Comment on above: Performed By: #### G IPANEL #### [facility] [address] [place] [address] Dr. Elenita BERMEO VIRUS GI PANEL VIRUSES Normal The [facility] Comment on above: Performed By: #### G IPANEL #### [facility] [address] [place] [address] Dr. Elenita Talamantes Norovirus GI/GII Not detected Normal NOT DETECTED The [facility] Comment on above: Performed By: #### G IPANEL #### [facility] [address] [address] [address] Elenita Talamantes P. Shigelloides Not detected Normal NOT DETECTED [facility] Comment on above: Performed By: #### G IPANEL #### [facility] [address] [address] [address] Elenita Talamantes Rotavirus A Not detected Normal NOT DETECTED The [facility] Comment on above: Performed By: #### G IPANEL #### [facility] [address] [place] [address] Dr. Elenita Talamantes Salmonella Not detected Normal NOT DETECTED The [facility] Comment on above: Performed By: #### G IPANEL #### [facility] [address] [address] [address] Elenita Talamantes Sapovirus Not detected Normal NOT DETECTED [facility] Comment on above: Performed By: #### G IPANEL #### [facility] [address] [address] [address] Elenita Talamantes STEC Not detected Normal NOT DETECTED [facility] Comment on above: Performed By: #### G IPANEL #### [facility] [address] [address] [address] Elenita Talamantes Vibrio Not detected Normal NOT DETECTED [facility] Comment on above: Performed By: #### G IPANEL #### [facility] [address] [address] [address] Elenita Talamantes Vibrio Cholera Not detected Normal NOT DETECTED The [facility] Comment on above: Performed By: #### G IPANEL #### [facility] [address] [address] [address] Elenita Talamantes Y. Enterocolitica Not detected Normal NOT DETECTED The [facility] Comment on above: Performed By: #### G IPANEL #### [facility] [address] [address] [address] Elenita Talamantes Ambulatory Clinical Summaryo n 02-28-2021 Ambulatory Clinical Summary {[id number] Normal [facility] Urology Office/Clinic Noteon 02-28-2021 Urology Office/Clinic Note [...] [place], URL [address] [place] [address] [place] [address]- [phone] Additional Instructions: 6mos. f/u Patient Education I, [...] Protein Urine Dipstick: Negative (02/28/21 15:30:00) Specific [place] Urine Dipstick: 1.020 (02/28/21 15:30:00) Urine Appearance Urine Dipstick: Clear (02/28/21 15:30:00) Urine Color Urine Dipstick: Yellow (02/28/21 15:30:00) Urobilinogen Urine Dipstick: Normal 0.2-1 EU/dl (02/28/21 15:30:00) pH Urine Dipstick: 5 (02/28/21 15:30:00) [facility] Comment on above: Result Comment: Elec tronically Signed By: Lewis GONZALEZ MD\.br\Date and Time Signed: 02/28/21 16:30 EDT\.br\Electronically Co-Signed By: Lyn Willis MA\.br\Date and Time Co-Signed: 02/28/21 16:26 EDT Coding Summary.on 10-27-2020 Coding Summary. CODING DATE: 10/27/2020 FINAL [facility] STATUS: Home (Routine DC) PAYOR: Commercial Insurance [...] Orr CphT Date Saved: 10/27/2020 09:40 am [facility] Coding Summary. CODING DATE: 10/27/2020 FINAL [facility] STATUS: Home (Routine DC) PAYOR: Commercial Insurance [...] Orr CphT Date Saved: 10/27/2020 09:39 am [facility] Discharge Instructionson Discharge Instructions [id number]# 1.00CD:127 Normal [facility] NM Kidney Imaging w/ Flow w/ Pharmon [...] (%): 14 Left Uptake (%): 38.9 Normal [facility] Consent for Procedure/Surger yon 10-19-2020 Consent for Procedure/Surgery [id number]# 1.00CD:127 [facility] Consent for Treatmenton -0 Consent for Treatment [id number] .00CD:127 [facility] IntraOperative Documentson 0 10-19-2020 IntraOperative Documents [id number] 1.00CD:127 [facility] Coding Summary.on 10-18-2020 Coding Summary. CODING DATE: 10/18/2020 FINAL [facility] STATUS: Home (Routine DC) PAYOR: Commercial [...] Charisse Rivers Date Saved: 10/18/2020 01:46 pm [facility] Consent for Treatmenton 09-21 Consent for Treatment [id number] .00CD:127 [facility] Main OR Intraoperative Recor don 10-12-2020 Main OR Intraoperative Record IntraOp Document Type FTURO Summary Primary Physician: Lewis GONZALEZ MD Finalized Date/Time: 10/12/20 10:01:33 Pt. Name: CHRIS GONZALEZ/Sex: 2000 Female Med Rec #: [id number] Physician: Lewis GONZALEZ MD Financial #: [id number] Pt. Type: O Room/Bed: / Admit/Disch: 10/12/20 [...] Chyna Arredondo Role Performed Surgeon - Primary Editorial Manager - Primary Editorial Manager - Primary Time In 10/12/20 09:52:00 10/12/20 09:52:00 10/12/20 09:52:00 Time Out 10/12/20 10:01:00 10/12/20 10:01:00 10/12/20 10:01:00 Procedure CYSTOSCOPY LOCAL WITH CYSTOSCOPY LOCAL WITH CYSTOSCOPY LOCAL WITH URETHRAL DILATION(.) URETHRAL DILATION(.) URETHRAL DILATION(.) Comments orientation Last Modified By: Jarrod RN, Chyna Garay RN, Chyna Garay RN, Chyna Arredondo 10/12/20 09:59:54 10/12/20 09:59:54 10/12/20 09:59:54 Entry 4 Entry 5 Case Attendee Miguel CHIEF [employer], Carole Alexander [employer]IE[employer], Millie Stover Role Performed Scrub - Primary [...] Verena Price, Applicable) Chyna Garay RN, Miguel [employer], Benjamin Bolanos CST, Millie Stover Time Out [...] By: Chyna Garay RN 10/12/20 10:01 Normal [facility] Main OR Preoperative Recordo n 10-12-2020 Main OR Preoperative Record Holding Area Document Type FTURO Summary Primary Physician: Lewis GONZALEZ MD Finalized Date/Time: 10/12/20 09:53:30 Pt. Name: CHRIS GONZALEZ /Sex: 2000 Female Med Rec #: [id number] Physician: Lewis GONZALEZ MD Financial #: [id number] Pt. Type: O Room/Bed: / Admit/Disch: 10/12/20 [...] 09:30 Chyna Garay RN 10/12/20 09:53 Normal [facility] Operative Reporton Operative Report Patient: CHRIS GONZALEZ [...] urine. The Urethra was dilated to: 30 Thai w/ sounds. Devices Implanted: None. Removal: Cystoscope is removed, The patient tolerated it well. Postoperative Information Discharge: Patient is discharged home with antibiotic coverage, Follow up arranged. [facility] Comment on above: Result Comment: Elec tronically Signed By: PANCHITO AGUIRRE, Lewis Trent.br\Date and Time Signed: 10/12/20 10:02 EST Pre-Certification Formon Pre-Certification Form [id number]#1. 00CD:127 [facility] Physician Referralon 021 Physician Referral [id number] .00CD:127 [facility] Formson 10-05-2020 Forms [id number]#1. 00CD:127 [facility] Ambulatory Clinical Summaryo n 10-04-2020 Ambulatory Clinical Summary {[id number]}CD:[id number] [facility] Patient Educationon 10-04-19 21 Patient Education Urinary [...] Document Reviewed: 09/13/2012 ExitCare? Patient Information ?2013 [employer]. 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 Pt states that [...] kidney stones. PVR 99ml. Renal US/bladder At [facility] 08/2020. Dysuria: not at this time Incomplete [...] Information Lewis GONZALEZ MD [address] [place] [address]- [phone] Additional Instructions: scheduling Cysto/UD Patient Education Urinary [...] buPROPion, Oral met (more content not included)... [facility] Comment on above: Result Comment: Elec tronically Signed By: Lewis GONZALEZ MD\.br\Date and Time Signed: 10/04/20 15:03 EST\.br\Electronically Co-Signed By: Lyn Willis MA\.br\Date and Time Co-Signed: 10/04/20 14:59 EST Coding Summary.on 09-09-2020 Coding Summary. CODING DATE: 09/09/2020 FINAL [facility] STATUS: Home (Routine DC) PAYOR: Commercial Insurance [...] Orr CphT Date Saved: 09/09/2020 06:00 pm [facility] US Retroperitoneal Completeo n 09-09-2020 US Retroperitoneal [...] O M.D. Transcribed by: ROYAL Technologist: HW [facility] Consent for Treatmenton 08-20 Consent for Treatment [id number] .00CD:127 [facility] Consent for Treatment [id number]# 1.00CD:127 [facility] Physician Orderon 09-03-2020 Physician Order [id number] .00CD:127 [facility] Vital Signs Date Time Vital Sign Value Performing Clinician Facility 08-05-2023 14:35-0500 Body height 176.53 cm Joseline Shaye Other [facility] Other 08-05-2023 14:35-0500 Body mass index (BMI) [Ratio] 23.29 kg/m2 Joseline Shaye Other [facility] Other 08-05-2023 14:35-0500 Body temperature 98 [degF] Joseline Shaye Other [facility] Other 08-05-2023 14:35-0500 Body weight 72.58 kg Joseline Shaye Other [facility] Other 08-05-2023 14:35-0500 Respiratory rate 18 /min Joseline Shaye Other [facility] Other 08-05-2023 14:35-0500 SaO2% (BldA) [Mass fraction] 98 % Joseline Shaye Other [facility] Other 03-20-2022 18:20-0400 Body height 176.53 cm Radha Galdamez Other [facility] Other 03-20-2022 18:20-0400 Body mass index (BMI) [Ratio] 25.32 kg/m2 Radha Crow Other [facility] Other 03-20-2022 18:20-0400 Body temperature 98.4 [degF] Radha Crow Other [facility] Other 03-20-2022 18:20-0400 Body weight 78.93 kg Radha Denneyault Other [facility] Other 03-20-2022 18:20-0400 Respiratory rate 18 /min Radha Crow Other [facility] Other 03-20-2022 18:20-0400 SaO2% (BldA) [Mass fraction] 97 % Radha Galdamez Other [facility] Other Encounters Encounter Date Encounter Type Care Provider Facility Start: 08-05-2023 End: 08-05-2023 ambulatory Joseline Smithb Other [facility] Other Start: 08-05-2023 Office outpatient visit 15 minutes Joseline Cr [facility] Start: 03-20-2022 End: 03-20-2022 Departed Referred ANA Galdamez Work Phone: [facility] [place] Start: 03-20-2022 End: 03-20-2022 ambulatory Radha Galdamez Other [facility] Other Start: 03-20-2022 Office outpatient ne w 20 minutes Radha Galdamez [facility] Start: 10-22-2021 End: 10-23-[address] IVAN MARINELLI Facility:[facility]1 Procedures Date Procedure Procedure Detail Performing Clinician Urine culture ANA Hale Work Phone: Payers Date Payer Category Payer Unknown [id number] 1961 Unknown [id number] Unknown [id number] Unknown [id number] 2. [id number] Social History Date Type Detail Facility Sex Assigned At [facility] Work Phone: Start: 2000 Sex Assigned At Female F [facility] Evaluation note 08-05-2023 Note Date & Type [...] you develop chest pain, shortness of breath. [facility] Other Evaluation note 03-20-2022 Note Date & [...] Follow up with primary care provider or manufacturing development engineer if no improvement of symptoms. Mar, Abdominal pain, unspecified abdominal location (ICD-10 - R10.9) Mar, Other Recommend Retested for in 1 week. Call family planning clinic at [facility] Other History and physical note 10-19-2020 Note Date & Type Note Facility 10-19-2020 Note [id number]#1.00CD:127 [facility] Clinical Note 10-12-2020 Note Date & Type [...] you have a fever over 100 degrees [facility] Evaluation note Note Date & Type Note Facility Evaluation note No assessment information availa [facility] Work Phone: History general Narrative - Reported Note Date & Type Note Facility History general Narrative - Reported Type Surgical History Back Surgery 2006 Hospitalization History see above [facility] Other Summary Purpose Family History No Family History Records FoundNo Family History Records FoundNo Family History Records Found Advance Directives Advance Directive Response Recorded Date/ Time Advance Directives No March 24, 022 6:22am Chief Complaint and Reason for Visit Chief Complaint R10.9 Additional Source Comments INFORMATION SOURCE (unrecogn ized section and content) DATE CREATED AUTHOR 03/01/2021 [facility] DATE CREATED AUTHOR AUTHOR'S ORGANIZ ATION 12/07/2021 [facility] DATE CREATED AUTHOR AUTHOR'S ORGANIZ ATION 03/29/2022 [facility] REASON FOR VISIT (unrecogniz ed section and [...] BE BASED ON THE PRIMARY CLINICAL RECORDS. [facility]. provides no warranty or guarantee of the accuracy or completeness of information in this document.
[2023-09-03 13:45] LABS: HCG Quantitative 94564 mIU/mL
== END 2023-09-03 11:47 | disposition home or self-care (01) ==
LOC: LAB 11:48
PROVIDERS: PCP Family Medicine
DX: Z32.00 Encounter for pregnancy test, result unknown (principal)
CPT/HCPCS: 36415; 84702

== ENCOUNTER 2023-09-06 10:04 | Outpatient (OUT) | payer OTHER, SELFPAY ==
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
--- OUTSIDE RECORDS SUMMARY | 2023-09-06 10:10 | XMS_ITS | CCD ---
Author Name Unknown Address [address] [place] [address] Organization [facility] Care Team Providers Care Rail Switch Operator Name Role Phone DR IVAN MARINELLI Admitting Unavailable DR IVAN MARINELLI Attending Unavailable DR IVAN MARINELLI Primary Care Unavailable DR IVAN MARINELLI Consulting Unavailable Radha Galdamez Unavailable ANA Galdamez Attending Provider NO FAMILY, PHYSICIAN Primary Care Provider Unava [...] (COVID-19) RNA SAL+probe Ql (Unsp spec) Negative [facility] Other COVID + FLU Quick Testing Negative [facility] Other Urine culture routineOrdered By: RADHA GALDAMEZ on 03-22-2022 Bacteria identified Cx Nom (U) Escherichia coli [facility] Test, Urineon Beta HCG ( test) Ql (U) Inconclusive [facility] Other SARS-CoV-2 (COVID-19) RNA NA A+probe Ql (Resp)on 03-20-2022 SARS-CoV-2 (COVID-19) RNA SAL+probe Ql (Unsp spec) Negative [facility] Other Urinalysis - AUTOMATEDon Appearance (U) [facility] Other Bilirubin Ql (U) Negative [employer] Other Color (U) rust-yellow [facility] Other Glucose Ql (U) Negative [employer] Other Hemoglobin Ql (U) TRACE-INTACT [facility] Other Ketones Ql (U) Negative [employer] Other Leukocyte esterase Test strip Ql (U) TRACE [facility] Other Nitrite Ql (U) Positive [employer] Other pH (U) 7.0 [pH] [facility] Other Protein Ql (U) Negative [employer] Other Specific gravity (U) [Rel density] 1.020 [facility] Other Urobilinogen (U) [Mass/Vol] 0.2 mg/dL [facility] Other Urinalysis - AUTOMATED [facility] Other Urine Cultureon 03-20-2022 Bacteria identified Cx Nom (U) ORGANISM: Escherichia coli (O:ESCCOL) [place] Count >100,000 Aerobic MAUREEN Charge (NUC86) ---- [...] RESISTANT TO ALL B-LACTAM DRUGS. PERFORMED BY: [place] [address] PATHOLOGIST CHEMICAL MIXER DEDE OSMAN M.D. Normal [facility] Comment on above: Performed By: #### C UU #### [address] GI PANEL (PCR)on 10-22-2021 Adenovirus F 40/41 Not detected Normal NOT DETECTED [facility] Comment on above: Performed By: #### G IPANEL #### [facility] [address] [place] [address] Dr. Elenita Talamantes Astrovirus Not detected Normal NOT DETECTED [facility] Comment on above: Performed By: #### G IPANEL #### [facility] [address] [place] [address] Dr. Elenita Chavez Diff toxin A/B Not detected Normal NOT DETECTED [facility] Comment on above: Performed By: #### G IPANEL #### [facility] [address] [place] [address] Dr. Elenita Talamantes Campylobacter Not detected Normal NOT DETECTED The [facility] Comment on above: Performed By: #### G IPANEL #### [facility] [address] [address] [address] Elenita Talamantes Cryptosporidium Not detected Normal NOT DETECTED The [facility] Comment on above: Performed By: #### G IPANEL #### [facility] [address] [place] [address] Dr. Elenita Talamantes Cyclos. Cayetanensis Not detected Normal NOT DETECTED [facility] Comment on above: Performed By: #### G IPANEL #### [facility] [address] [place] [address] Dr. Elenita Talamantes E. Coli O157 Not Applicable Normal Not Applicable [facility] Comment on above: Performed By: #### G IPANEL #### [facility] [address] [address] [address] Elenita Talamantes E. histolytica Not detected Normal NOT DETECTED [facility] Comment on above: Performed By: #### G IPANEL #### [facility] [address] [place] [address] Dr. Elenita Talamantes EAEC Detected Abnormal NOT DETECTED [facility] Comment on above: Performed By: #### G IPANEL #### [facility] [address] [place] [address] Dr. Elenita Talamantes EIEC Not detected Normal NOT DETECTED [facility] Comment on above: Performed By: #### G IPANEL #### [facility] [address] [place] [address] Dr. Elenita Talamantes EPEC Detected Abnormal NOT DETECTED [facility] Comment on above: Performed By: #### G IPANEL #### [facility] [address] [place] [address] Dr. Elenita Talamantes ETEC Detected Abnormal NOT DETECTED [facility] Comment on above: Performed By: #### G IPANEL #### [facility] [address] [place] [address] Dr. Elenita Chin. Lamblia Not detected Normal NOT DETECTED [facility] Comment on above: Performed By: #### G IPANEL #### [facility] [address] [place] [address] Dr. Elenita PEREIRAANEL CONTROLS PASSED Normal The [facility] Comment on above: Performed By: #### G IPANEL #### [facility] [address] [place] [address] Dr. Elenita EDMONDS ROCKY HEADER GI PANEL BACTERIA Normal T [facility] Comment on above: Performed By: #### G IPANEL #### [facility] [address] [place] [address] Dr. Elenita BERMEO ECOLI GI PANEL DIARRHEAGENIC E.COLI / SHIGELLA Normal [facility] Comment on above: Performed By: #### G IPANEL #### [facility] [address] [address] [address] Elenita BERMEO INFO SEE BELOW Normal [facility] Comment on above: Result Comment: EAEC - Enteroaggregative E. Coli EPEC- Enteropathogenic E. Coli ETEC- Enterotoxigenic E. Coli lt/st STEC- Shigella-like toxin-producing E. Coli stx1/stx2 EIEC- Shigella/Enteroinvasive E. Coli Performed By: #### G IPANEL #### [facility] [address] [address] [address] Elenita BERMEO PARASITES GI PANEL PARASITES Normal [facility] Comment on above: Performed By: #### G IPANEL #### [facility] [address] [place] [address] Dr. Elenita BERMEO VIRUS GI PANEL VIRUSES Normal [facility] Comment on above: Performed By: #### G IPANEL #### [facility] [address] [place] [address] Dr. Elenita Talamantes Norovirus GI/GII Not detected Normal NOT DETECTED [facility] Comment on above: Performed By: #### G IPANEL #### [facility] [address] [address] [address] Elenita Talamantes P. Shigelloides Not detected Normal NOT DETECTED The [facility] Comment on above: Performed By: #### G IPANEL #### [facility] [address] [address] [address] Elenita Talamantes Rotavirus A Not detected Normal NOT DETECTED The [facility] Comment on above: Performed By: #### G IPANEL #### [facility] [address] [place] [address] Dr. Elenita Talamantes Salmonella Not detected Normal NOT DETECTED [facility] Comment on above: Performed By: #### G IPANEL #### [facility] [address] [address] [address] Elenita Talamantes Sapovirus Not detected Normal NOT DETECTED [facility] Comment on above: Performed By: #### G IPANEL #### [facility] [address] [address] [address] Elenita Talamantes STEC Not detected Normal NOT DETECTED [facility] Comment on above: Performed By: #### G IPANEL #### [facility] [address] [address] [address] Elenita Talamantes Vibrio Not detected Normal NOT DETECTED [facility] Comment on above: Performed By: #### G IPANEL #### [facility] [address] [address] [address] Elenita Talamantes Vibrio Cholera Not detected Normal NOT DETECTED [facility] Comment on above: Performed By: #### G IPANEL #### [facility] [address] [address] [address] Elenita Talamantes Y. Enterocolitica Not detected Normal NOT DETECTED [facility] Comment on above: Performed By: #### G IPANEL #### [facility] [address] [address] [address] Elenita Talamantes Ambulatory Clinical Summaryo n 02-28-2021 Ambulatory Clinical Summary {[id number] Normal [facility] Urology Office/Clinic Noteon 02-28-2021 Urology Office/Clinic [...] [place], URL [address] [place] [address] [place] [address]- [phone] Additional Instructions: 6mos. f/u Patient Education I, [...] Protein Urine Dipstick: Negative (02/28/21 15:30:00) Specific [place] Urine Dipstick: 1.020 (02/28/21 15:30:00) Urine Appearance Urine Dipstick: Clear (02/28/21 15:30:00) Urine Color Urine Dipstick: Yellow (02/28/21 15:30:00) Urobilinogen Urine Dipstick: Normal 0.2-1 EU/dl (02/28/21 15:30:00) pH Urine Dipstick: 5 (02/28/21 15:30:00) [facility] Comment on above: Result Comment: Elec tronically Signed By: Lewis GONZALEZ MD\.br\Date and Time Signed: 02/28/21 16:30 EDT\.br\Electronically Co-Signed By: Lyn Willis MA\.br\Date and Time Co-Signed: 02/28/21 16:26 EDT Coding Summary.on 10-27-2020 Coding Summary. CODING DATE: 10/27/2020 FINAL [facility] STATUS: Home (Routine DC) PAYOR: Commercial [...] Orr CphT Date Saved: 10/27/2020 09:40 am [facility] Coding Summary. CODING DATE: 10/27/2020 FINAL [facility] STATUS: Home (Routine DC) PAYOR: Commercial [...] Orr CphT Date Saved: 10/27/2020 09:39 am [facility] Discharge Instructionson Discharge Instructions [id number]# 1.00CD:127 Normal [facility] NM Kidney Imaging w/ Flow w/ [...] 14 Left Uptake (%): 38.9 Normal [facility] Consent for Procedure/Surger yon 10-19-2020 Consent for Procedure/Surgery [id number]# 1.00CD:127 [facility] Consent for Treatmenton -0 Consent for Treatment [id number]#1 .00CD:127 [facility] IntraOperative Documentson 0 10-19-2020 IntraOperative Documents [id number]# 1.00CD:127 [facility] Coding Summary.on 10-18-2020 Coding Summary. CODING DATE: 10/18/2020 FINAL [facility] STATUS: Home (Routine DC) PAYOR: [...] Charisse Rivers Date Saved: 10/18/2020 01:46 pm [facility] Consent for Treatmenton 09-21 Consent for Treatment [id number] .00CD:127 [facility] Main OR Intraoperative Recor don 10-12-2020 Main OR Intraoperative Record IntraOp Document Type FTURO Summary Primary Physician: Lewis GONZALEZ MD Finalized Date/Time: 10/12/20 10:01:33 Pt. Name: CHRIS GONZALEZ/Sex: 2000 Female Med Rec #: [id number] Physician: Lewis GONZALEZ MD Financial #: [id number] Pt. Type: O Room/Bed: / Admit/Disch: 10/12/20 [...] Chyna Arredondo Role Performed Surgeon - Primary Bricklayer - Primary Bricklayer - Primary Time In 10/12/20 09:52:00 10/12/20 09:52:00 10/12/20 09:52:00 Time Out 10/12/20 10:01:00 10/12/20 10:01:00 10/12/20 10:01:00 Procedure CYSTOSCOPY LOCAL WITH CYSTOSCOPY LOCAL WITH CYSTOSCOPY LOCAL WITH URETHRAL DILATION(.) URETHRAL DILATION(.) URETHRAL DILATION(.) Comments orientation Last Modified By: Jarrod RN, Chyna Garay RN, Chyna Garay RN, Chyna Arredondo 10/12/20 09:59:54 10/12/20 09:59:54 10/12/20 09:59:54 Entry 4 Entry 5 Case Attendee Miguel TUBE BUILDING MACHINE OPERATOR, Carole Alexander TUBE BUILDING MACHINE OPERATOR, Millie Stover Role Performed Scrub - Primary [...] Verena Price, Applicable) Chyna Garay RN, Miguel TUBE BUILDING MACHINE OPERATOR, Benjamin Bolanos CST, Millie Stover Time Out [...] Chyna Garay RN 10/12/20 10:01 Normal [facility] Main OR Preoperative Recordo n 10-12-2020 Main OR Preoperative Record Holding Area Document Type FTURO Summary Primary Physician: Lewis GONZALEZ MD Finalized Date/Time: 10/12/20 09:53:30 Pt. Name: CHRIS GONZALEZ /Sex: 2000 Female Med Rec #: [id number] Physician: Lewis GONZALEZ MD Financial #: [id number] Pt. Type: O Room/Bed: / Admit/Disch: 10/12/20 [...] SPO2 RN Reviewed Yes Last Modified By: Chyan Garay RN 10/12/20 09:53:28 General Comments: Temp. 36.6 Finalized By: Chyna Garay RN Document Signatures Signed By: Halie Fu LPN 10/12/20 09:30 Chyna Garay RN 10/12/20 09:53 Normal [facility] Operative Reporton Operative Report Patient: CHRIS [...] urine. The Urethra was dilated to: 30 Swedish w/ sounds. Devices Implanted: None. Removal: Cystoscope is removed, The patient tolerated it well. Postoperative Information Discharge: Patient is discharged home with antibiotic coverage, Follow up arranged. [facility] Comment on above: Result Comment: Elec tronically Signed By: PANCHITO AGUIRRE, Lewis Trent.br\Date and Time Signed: 10/12/20 10:02 EST Pre-Certification Formon Pre-Certification Form [id number]#1. 00CD:127 [facility] Physician Referralon 021 Physician Referral [id number]#1 .00CD:127 [facility] Formson 10-05-2020 Forms [id number]#1. 00CD:127 [facility] Ambulatory Clinical Summaryo n 10-04-2020 Ambulatory Clinical Summary {[id number]}CD:[id number] [facility] Patient Educationon 10-04-19 21 Patient Education Urinary [...] Document Reviewed: 09/13/2012 ExitCare? Patient Information ?2013 [employer]. 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 Pt states that [...] kidney stones. PVR 99ml. Renal US[facility]. Dysuria: not at this time Incomplete [...] Information Lewis GONZALEZ MD [address] [place] [address]- [phone] Additional Instructions: scheduling Cysto/UD Patient Education Urinary [...] buPROPion, Oral met (more content not included)... [facility] Comment on above: Result Comment: Elec tronically Signed By: Lewis GONZALEZ MD\.br\Date and Time Signed: 10/04/20 15:03 EST\.br\Electronically Co-Signed By: Lyn Willis MA\.br\Date and Time Co-Signed: 10/04/20 14:59 EST Coding Summary.on 09-09-2020 Coding Summary. CODING DATE: 09/09/2020 FINAL [facility] STATUS: Home (Routine DC) PAYOR: Commercial [...] Orr CphT Date Saved: 09/09/2020 06:00 pm [facility] US Retroperitoneal Completeo n 09-09-2020 US Retroperitoneal [...] O M.D. Transcribed by: ROYAL Technologist: HW [facility] Consent for Treatmenton 08-20 Consent for Treatment [id number] .00CD:127 [facility] Consent for Treatment [id number]# 1.00CD:127 [facility] Physician Orderon 09-03-2020 Physician Order [id number] .00CD:127 [facility] Vital Signs Date Time Vital Sign Value Performing Clinician Facility 08-05-2023 14:35-0500 Body height 176.53 cm Joseline Shaye Other [facility] Other 08-05-2023 14:35-0500 Body mass index (BMI) [Ratio] 23.29 kg/m2 Joseline Shaye Other [facility] Other 08-05-2023 14:35-0500 Body temperature 98 [degF] Joseline Shaye Other [facility] Other 08-05-2023 14:35-0500 Body weight 72.58 kg Joseline Shaye Other [facility] Other 08-05-2023 14:35-0500 Respiratory rate 18 /min Joseline Shaye Other [facility] Other 08-05-2023 14:35-0500 SaO2% (BldA) [Mass fraction] 98 % Joseline Shaye Other [facility] Other 03-20-2022 18:20-0400 Body height 176.53 cm Radha Galdamez Other [facility] Other 03-20-2022 18:20-0400 Body mass index (BMI) [Ratio] 25.32 kg/m2 Radha Crow Other [facility] Other 03-20-2022 18:20-0400 Body temperature 98.4 [degF] Radha Crow Other [facility] Other 03-20-2022 18:20-0400 Body weight 78.93 kg Radha Denneyault Other [facility] Other 03-20-2022 18:20-0400 Respiratory rate 18 /min Radha Crow Other [facility] Other 03-20-2022 18:20-0400 SaO2% (BldA) [Mass fraction] 97 % Radha Galdamez Other [facility] Other Encounters Encounter Date Encounter Type Care Provider Facility Start: 08-05-2023 End: 08-05-2023 ambulatory Joseline Smithb Other [facility] Other Start: 08-05-2023 Office outpatient visit 15 minutes Josleine Cr [facility] Start: 03-20-2022 End: 03-20-2022 Departed Referred ANA Galdamez Work Phone: [facility] Start: 03-20-2022 End: 03-20-2022 ambulatory Radha Galdamez Other [facility] Other Start: 03-20-2022 Office outpatient ne w 20 minutes Radha Galdamez [facility] Start: 10-22-2021 End: 10-23-[address] IVAN MARINELLI Facility:[facility]1 Procedures Date Procedure Procedure Detail Performing Clinician Urine culture ANA Hale Work Phone: Payers Date Payer Category Payer Unknown [id number] 1961 Unknown [id number] Unknown [id number] Unknown [id number] 2. [id number] Social History Date Type Detail Facility Sex Assigned At [facility] Work Phone: Start: 2000 Sex Assigned At Female F [facility] Evaluation note 08-05-2023 Note Date & [...] you develop chest pain, shortness of breath. [facility] Other Evaluation note 03-20-2022 Note Date & [...] Follow up with primary care provider or recooperer if no improvement of symptoms. Mar, Abdominal pain, unspecified abdominal location (ICD-10 - R10.9) Mar, Other Recommend Retested for in 1 week. Call family planning clinic at [facility] Other History and physical note 10-19-2020 Note Date & Type Note Facility 10-19-2020 Note [id number]#1.00CD:127 [facility] Clinical Note 10-12-2020 Note Date & [...] have a fever over 100 degrees [facility] Evaluation note Note Date & Type Note Facility Evaluation note No assessment information availa [facility] Work Phone: History general Narrative - Reported Note Date & Type Note Facility History general Narrative - Reported Type Surgical History Back Surgery 2006 Hospitalization History see above [facility] Other Summary Purpose Family History No Family History Records FoundNo Family History Records FoundNo Family History Records Found Advance Directives Advance Directive Response Recorded Date/ Time Advance Directives No March 24, 022 6:22am Chief Complaint and Reason for Visit Chief Complaint R10.9 Additional Source Comments INFORMATION SOURCE (unrecogn ized section and content) DATE CREATED AUTHOR 03/01/2021 [facility] DATE CREATED AUTHOR AUTHOR'S ORGANIZ ATION [facility]/20[facility] DATE CREATED AUTHOR AUTHOR'S ORGANIZ ATION 03/29/2022 [facility] REASON FOR VISIT (unrecogniz ed section and [...] BE BASED ON THE PRIMARY CLINICAL RECORDS. [facility]. provides no warranty or guarantee of the accuracy or completeness of information in this document.
== END 2023-09-06 10:05 | disposition home or self-care (01) ==
PROVIDERS: PCP Family Medicine; Visit Provider Obstetrics & Gynecology
DX: M79.604 Pain in right leg (principal)
CPT/HCPCS: 93971

== ENCOUNTER 2023-09-07 10:33 | Outpatient (OUT) | payer OTHER, SELFPAY ==
--- OUTSIDE RECORDS SUMMARY | 2023-09-07 10:36 | XMS_ITS | CCD ---
Author Name Unknown Address [address] [place] [address] Organization [facility] Care Team Providers Care Tool Crib Supervisor Name Role Phone DR IVAN MARINELLI Admitting [...] (COVID-19) RNA SAL+probe Ql (Unsp spec) Negative [facility] Other COVID + FLU Quick Testing Negative [facility] Other Urine culture routineOrdered By: RADHA GALDAMEZ on 03-22-2022 Bacteria identified Cx Nom (U) Escherichia coli [facility] Test, Urineon Beta HCG ( test) Ql (U) Inconclusive [facility] Other SARS-CoV-2 (COVID-19) RNA NA A+probe Ql (Resp)on 03-20-2022 SARS-CoV-2 (COVID-19) RNA SAL+probe Ql (Unsp spec) Negative [facility] Other Urinalysis - AUTOMATEDon Appearance (U) [facility] Other Bilirubin Ql (U) Negative [facility] Other Color (U) rust-yellow [facility] Other Glucose Ql (U) Negative [facility] Other Hemoglobin Ql (U) TRACE-INTACT [facility] Other Ketones Ql (U) Negative [facility] Other Leukocyte esterase Test strip Ql (U) TRACE [facility] Other Nitrite Ql (U) Positive [facility] Other pH (U) 7.0 [pH] [facility] Other Protein Ql (U) Negative [facility] Other Specific gravity (U) [Rel density] 1.020 [facility] Other Urobilinogen (U) [Mass/Vol] 0.2 mg/dL [facility] Other Urinalysis - AUTOMATED [facility] Other Urine Cultureon 03-20-2022 Bacteria identified Cx Nom (U) ORGANISM: Escherichia coli (O:ESCCOL) [place] Count >100,000 Aerobic MAUREEN Charge (NUC86) ---- [...] RESISTANT TO ALL B-LACTAM DRUGS. PERFORMED BY: [place] [address] PATHOLOGIST FLIGHT INFORMATION EXPEDITER DEDE OSMAN M.D. Normal [facility] Comment on above: Performed By: #### C UU #### [address] GI PANEL (PCR)on 10-22-2021 Adenovirus F 40/41 Not detected Normal NOT DETECTED [facility] Comment on above: Performed By: #### G IPANEL #### [facility] [address] [place] [address] Dr. Elenita Talamantes Astrovirus Not detected Normal NOT DETECTED [facility] Comment on above: Performed By: #### G IPANEL #### [facility] [address] [place] [address] Dr. Elenita Chavez Diff toxin A/B Not detected Normal NOT DETECTED The [facility] Comment on above: Performed By: #### G IPANEL #### [facility] [address] [place] [address] Dr. Elenita Talamantes Campylobacter Not detected Normal NOT DETECTED [facility] Comment on above: Performed By: #### G IPANEL #### [facility] [address] [address] [address] Elenita Talamantes Cryptosporidium Not detected Normal NOT DETECTED [facility] Comment on above: Performed By: #### G IPANEL #### [facility] [address] [place] [address] Dr. Elenita Talamantes Cyclos. Cayetanensis Not detected Normal NOT DETECTED The [facility] Comment on above: Performed By: #### G IPANEL #### [facility] [address] [place] [address] Dr. Elenita Talamantes E. Coli O157 Not Applicable Normal Not Applicable The [facility] Comment on above: Performed By: #### G IPANEL #### [facility] [address] [address] [address] Elenita Talamantes E. histolytica Not detected Normal NOT DETECTED [facility] Comment on above: Performed By: #### G IPANEL #### [facility] [address] [place] [address] Dr. Elenita Talamantes EAEC Detected Abnormal NOT DETECTED The [facility] Comment on above: Performed By: #### G IPANEL #### [facility] [address] [place] [address] Dr. Elenita Talamantes EIEC Not detected Normal NOT DETECTED [facility] Comment on above: Performed By: #### G IPANEL #### [facility] [address] [place] [address] Dr. Elenita Talamantes EPEC Detected Abnormal NOT DETECTED The [facility] Comment on above: Performed By: #### G IPANEL #### [facility] [address] [place] [address] Dr. Elenita Talamantes ETEC Detected Abnormal NOT DETECTED The [facility] Comment on above: Performed By: #### G IPANEL #### [facility] [address] [place] [address] Dr. Elenita Chin. Lamblia Not detected Normal NOT DETECTED [facility] Comment on above: Performed By: #### G IPANEL #### [facility] [address] [place] [address] Dr. Elenita PEREIRAANEL CONTROLS PASSED Normal [facility] Comment on above: Performed By: #### G IPANEL #### [facility] [address] [place] [address] Dr. Elenita EDMONDS ROCKY HEADER GI PANEL BACTERIA Normal [facility] Comment on above: Performed By: #### G IPANEL #### [facility] [address] [place] [address] Dr. Elenita BERMEO ECOLI GI PANEL DIARRHEAGENIC E.COLI / SHIGELLA Normal The [facility] Comment on above: Performed By: #### G IPANEL #### [facility] [address] [address] [address] Elenita BERMEO INFO SEE BELOW Normal The [facility] Comment on above: Result Comment: EAEC - Enteroaggregative E. Coli EPEC- Enteropathogenic E. Coli ETEC- Enterotoxigenic E. Coli lt/st STEC- Shigella-like toxin-producing E. Coli stx1/stx2 EIEC- Shigella/Enteroinvasive E. Coli Performed By: #### G IPANEL #### [facility] [address] [address] [address] Elenita BERMEO PARASITES GI PANEL PARASITES Normal The [facility] Comment on above: Performed By: #### G IPANEL #### [facility] [address] [place] [address] Dr. Elenita BERMEO VIRUS GI PANEL VIRUSES Normal [facility] Comment on above: Performed By: #### G IPANEL #### [facility] [address] [place] [address] Dr. Elenita Talamantes Norovirus GI/GII Not detected Normal NOT DETECTED The [facility] Comment on above: Performed By: #### G IPANEL #### [facility] [address] [address] [address] Elenita Talamantes P. Shigelloides Not detected Normal NOT DETECTED [facility] Comment on above: Performed By: #### G IPANEL #### [facility] [address] [address] [address] Elenita Talamantes Rotavirus A Not detected Normal NOT DETECTED [facility] Comment on above: Performed By: #### G IPANEL #### [facility] [address] [place] [address] Dr. Elenita Talamantes Salmonella Not detected Normal NOT DETECTED [facility] Comment on above: Performed By: #### G IPANEL #### [facility] [address] [address] [address] Elenita Talamantes Sapovirus Not detected Normal NOT DETECTED [facility] Comment on above: Performed By: #### G IPANEL #### [facility] [address] [address] [address] Elenita Talamantes STEC Not detected Normal NOT DETECTED [facility] Comment on above: Performed By: #### G IPANEL #### [facility] [address] [address] [address] Elenita Talamantes Vibrio Not detected Normal NOT DETECTED [facility] Comment on above: Performed By: #### G IPANEL #### [facility] [address] [address] [address] Elenita Talamantes Vibrio Cholera Not detected Normal NOT DETECTED [facility] Comment on above: Performed By: #### G IPANEL #### [facility] [address] [address] [address] Elenita Talamantes Y. Enterocolitica Not detected Normal NOT DETECTED The [facility] Comment on above: Performed By: #### G IPANEL #### [facility] [address] [address] [address] Elenita Talamantes Ambulatory Clinical Summaryo n 02-28-2021 Ambulatory Clinical Summary {[id number]}CD:[id number] Normal [facility] Urology Office/Clinic Noteon 02-28-2021 Urology Office/Clinic [...] [place], URL [address] [place] [address]- [phone] Additional Instructions: 6mos. f/u Patient Education I, [...] Protein Urine Dipstick: Negative (02/28/21 15:30:00) Specific [place] Urine Dipstick: 1.020 (02/28/21 15:30:00) Urine Appearance Urine Dipstick: Clear (02/28/21 15:30:00) Urine Color Urine Dipstick: Yellow (02/28/21 15:30:00) Urobilinogen Urine Dipstick: Normal 0.2-1 EU/dl (02/28/21 15:30:00) pH Urine Dipstick: 5 (02/28/21 15:30:00) [facility] Comment on above: Result Comment: Elec tronically Signed By: Lewis GONZALEZ MD\.br\Date and Time Signed: 02/28/21 16:30 EDT\.br\Electronically Co-Signed By: Lyn Willis MA\.br\Date and Time Co-Signed: 02/28/21 16:26 EDT Coding Summary.on 10-27-2020 Coding Summary. CODING DATE: 10/27/2020 FINAL [facility] STATUS: Home (Routine DC) PAYOR: Commercial [...] Date Saved: 10/27/2020 09:40 am [facility] Coding Summary. CODING DATE: 10/27/2020 FINAL [facility] STATUS: Home (Routine DC) PAYOR: Commercial [...] Date Saved: 10/27/2020 09:39 am [facility] Discharge Instructionson Discharge Instructions [id number]# 1.00CD:127 Normal [facility] NM Kidney Imaging w/ Flow w/ [...] 14 Left Uptake (%): 38.9 Normal [facility] Consent for Procedure/Surger yon 10-19-2020 Consent for Procedure/Surgery [id number]# 1.00CD:127 [facility] Consent for Treatmenton -0 Consent for Treatment [id number]#1 .00CD:127 [facility] IntraOperative Documentson 0 10-19-2020 IntraOperative Documents [id number]# 1.00CD:127 [facility] Coding Summary.on 10-18-2020 Coding Summary. CODING DATE: 10/18/2020 FINAL [facility] STATUS: Home (Routine DC) PAYOR: [...] Date Saved: 10/18/2020 01:46 pm [facility] Consent for Treatmenton 09-21 Consent for Treatment [id number] .00CD:127 [facility] Main OR Intraoperative Recor don 10-12-2020 Main OR Intraoperative Record IntraOp Document Type FTURO Summary Primary Physician: Lewis GONZALEZ MD Finalized Date/Time: 10/12/20 10:01:33 Pt. Name: CHRIS GONZALEZ/Sex: 2000 Female Med Rec #: [id number] Physician: Lewis GONZALEZ MD Financial #: [id number] Pt. Type: O Room/Bed: / Admit/Disch: 10/12/20 [...] Chyna Arredondo Role Performed Surgeon - Primary Reinforcer - Primary Reinforcer - Primary Time In 10/12/20 09:52:00 10/12/20 09:52:00 10/12/20 09:52:00 Time Out 10/12/20 10:01:00 10/12/20 10:01:00 10/12/20 10:01:00 Procedure CYSTOSCOPY LOCAL WITH CYSTOSCOPY LOCAL WITH CYSTOSCOPY LOCAL WITH URETHRAL DILATION(.) URETHRAL DILATION(.) URETHRAL DILATION(.) Comments orientation Last Modified By: Jarrod RN, Chyna Garay RN, Chyna Garay RN, Chyna Arredondo 10/12/20 09:59:54 10/12/20 09:59:54 10/12/20 09:59:54 Entry 4 Entry 5 Case Attendee Miguel HAZARDOUS MATERIALS DRIVER, Carole Alexander HAZARDOUS MATERIALS DRIVER, Millie Stover Role Performed Scrub - Primary [...] RAMOS, Verena Price, Applicable) Chyna Garay RN, iMguel HAZARDOUS MATERIALS DRIVER, Benjamin Bolanos CST, Millie Stover Time Out [...] Chyna Garay RN 10/12/20 10:01 Normal [facility] Main OR Preoperative Recordo n 10-12-2020 Main OR Preoperative Record Holding Area Document Type FTURO Summary Primary Physician: Lewis GONZALEZ MD Finalized Date/Time: 10/12/20 09:53:30 Pt. Name: CHRIS GONZALEZ /Sex: 2000 Female Med Rec #: [id number] Physician: Lewis GONZALEZ MD Financial #: [id number] Pt. Type: O Room/Bed: / Admit/Disch: 10/12/20 [...] Chyna Garay RN 10/12/20 09:53 Normal [facility] Operative Reporton Operative Report Patient: CHRIS [...] urine. The Urethra was dilated to: 30 German w/ sounds. Devices Implanted: None. Removal: Cystoscope is removed, The patient tolerated it well. Postoperative Information Discharge: Patient is discharged home with antibiotic coverage, Follow up arranged. [facility] Comment on above: Result Comment: Elec tronically Signed By: PANCHITO AGUIRRE, Lewis Trent.br\Date and Time Signed: 10/12/20 10:02 EST Pre-Certification Formon Pre-Certification Form [id number]#1. 00CD:127 [facility] Physician Referralon 021 Physician Referral [id number]#1 .00CD:127 [facility] Formson 10-05-2020 Forms [id number]#1. 00CD:127 [facility] Ambulatory Clinical Summaryo n 10-04-2020 Ambulatory Clinical Summary {[id number]}CD:[id number] [facility] Patient Educationon 10-04-19 21 Patient Education Urinary [...] Document Reviewed: 09/13/2012 ExitCare? Patient Information ?2013 Sp[employer]. 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 Pt states that [...] kidney stones. PVR 99ml. Renal US/bladder At [facility] 08/2020. Dysuria: not at this time Incomplete [...] Information Lewis GONZALEZ MD [address] [place] [address]- [phone] Additional Instructions: scheduling Cysto/UD Patient Education Urinary [...] met (more content not included)... [facility] Comment on above: Result Comment: Elec tronically Signed By: Lewis GONZALEZ MD\.br\Date and Time Signed: 10/04/20 15:03 EST\.br\Electronically Co-Signed By: Lyn Willis MA\.br\Date and Time Co-Signed: 10/04/20 14:59 EST Coding Summary.on 09-09-2020 Coding Summary. CODING DATE: 09/09/2020 FINAL [facility] STATUS: Home (Routine DC) PAYOR: Commercial [...] Date Saved: 09/09/2020 06:00 pm [facility] US Retroperitoneal Completeo n 09-09-2020 US Retroperitoneal [...] Transcribed by: ROYAL Technologist: HW [facility] Consent for Treatmenton 08-20 Consent for Treatment [id number]#1 .00CD:127 [facility] Consent for Treatment [id number]# 1.00CD:127 [facility] Physician Orderon 09-03-2020 Physician Order [id number]#1 .00CD:127 [facility] Vital Signs Date Time Vital Sign Value Performing Clinician Facility 08-05-2023 14:35-0500 Body height 176.53 cm Joseline Shaye Other [facility] Other 08-05-2023 14:35-0500 Body mass index (BMI) [Ratio] 23.29 kg/m2 Joseline Shaye Other [facility] Other 08-05-2023 14:35-0500 Body temperature 98 [degF] Joseline Shaye Other [facility] Other 08-05-2023 14:35-0500 Body weight 72.58 kg Joseline Shaye Other [facility] Other 08-05-2023 14:35-0500 Respiratory rate 18 /min Joseline Shaye Other [facility] Other 08-05-2023 14:35-0500 SaO2% (BldA) [Mass fraction] 98 % Joseline Shaye Other [facility] Other 03-20-2022 18:20-0400 Body height 176.53 cm Radha Galdamez Other [facility] Other 03-20-2022 18:20-0400 Body mass index (BMI) [Ratio] 25.32 kg/m2 Radha Crow Other [facility] Other 03-20-2022 18:20-0400 Body temperature 98.4 [degF] Radha Crow Other [facility] Other 03-20-2022 18:20-0400 Body weight 78.93 kg Radha Denneyault Other [facility] Other 03-20-2022 18:20-0400 Respiratory rate 18 /min Radha Crow Other [facility] Other 03-20-2022 18:20-0400 SaO2% (BldA) [Mass fraction] 97 % Radha Galdamez Other [facility] Other Encounters Encounter Date Encounter Type Care Provider Facility Start: 08-05-2023 End: 08-05-2023 ambulatory Joseline Smithb Other [facility] Other Start: 08-05-2023 Office outpatient visit 15 minutes Joseline Cr [facility] Start: 03-20-2022 End: 03-20-2022 Departed Referred ANA Galdamez Work Phone: [facility] [place] Start: 03-20-2022 End: 03-20-2022 ambulatory Radha Galdamez Other [facility] Other Start: 03-20-2022 Office outpatient ne w 20 minutes Radha Galdamez [facility] Start: 10-22-2021 End: 10-23-[address] IVAN MARINELLI Facility:[facility]1 Procedures Date Procedure Procedure Detail Performing Clinician Urine culture ANA Hale Work Phone: Payers Date Payer Category Payer Unknown [id number] 1961 Unknown [id number] Unknown [id number] Unknown [id number] Social History Date Type Detail Facility Sex Assigned At [facility] Work Phone: Start: 2000 Sex Assigned At Female F [facility] Evaluation note 08-05-2023 Note Date & [...] you develop chest pain, shortness of breath. [facility] Other Evaluation note 03-20-2022 Note Date & [...] Follow up with primary care provider or baccarat dealer if no improvement of symptoms. Mar, Abdominal pain, unspecified abdominal location (ICD-10 - R10.9) Mar, Other Recommend Retested for in 1 week. Call family planning clinic at [facility] Other History and physical note 10-19-2020 Note Date & Type Note Facility 10-19-2020 Note [id number]#1.00CD:127 [facility] Clinical Note 10-12-2020 Note Date & [...] have a fever over 100 degrees [facility] Evaluation note Note Date & Type Note Facility Evaluation note No assessment information availa [facility] Work Phone: History general Narrative - Reported Note Date & Type Note Facility History general Narrative - Reported Type Surgical History Back Surgery 2006 Hospitalization History see above [facility] Other Summary Purpose Family History No Family History Records FoundNo Family History Records FoundNo Family History Records Found Advance Directives Advance Directive Response Recorded Date/ Time Advance Directives No March 24, 022 6:22am Chief Complaint and Reason for Visit Chief Complaint R10.9 Additional Source Comments INFORMATION SOURCE (unrecogn ized section and content) DATE CREATED AUTHOR 03/01/2021 [facility] DATE CREATED AUTHOR AUTHOR'S ORGANIZ ATION [facility]/07/2021 [facility] DATE CREATED AUTHOR AUTHOR'S ORGANIZ ATION 03/29/2022 [facility] REASON FOR VISIT (unrecogniz ed section and [...] BE BASED ON THE PRIMARY CLINICAL RECORDS. [facility]. provides no warranty or guarantee of the accuracy or completeness of information in this document.
--- NOTE | 2023-09-07 10:39 | US_ITS ---
[address] [address] Patient Name: CHRIS EASON MRN: [id number] date: 2000 Sex: F Assigned Patient Location: US Current Patient Location: US Accession/Order Number: [id number] Exam Date: 09/07/2023 10:39 Report Date: 09/07/2023 11:40 At the request of: OLE YI Procedure: US OB transvaginal EXAMINATION: US OB transvaginal HISTORY: DATING COMPARISON: No relevant comparison available. FINDINGS: [place]oun intrauterine gestation Gestational sac: 3.12 cm, 8 weeks 0 days CRL: 1.4 cm, 7 weeks 6 days Yolk sac: 4.1 mm Heart rate: 155 beats minute Cervix: Closed, 3.4 cm The uterus is normal, anteverted, anteflexed The right ovary is not visualized Left ovary is normal Clinical age: Unknown Ultrasound age: 7 weeks 6 days Ultrasound BRAXTON: 04/19/2024 US/US OB transvaginal IMPRESSION: Viable calhoun intrauterine gestation measuring 7 weeks 6 days Electronically authenticated by: JAME AC Date: 09/07/2023 11:40
== END 2023-09-07 10:34 | disposition home or self-care (01) ==
LOC: US 10:33
PROVIDERS: PCP Family Medicine; Visit Provider Obstetrics & Gynecology
DX: Z34.91 Encounter for supervision of normal pregnancy, unspecified, first trimester (principal); Z3A.01 Less than 8 weeks gestation of pregnancy; N92.6 Irregular menstruation, unspecified
CPT/HCPCS: 76817

== ENCOUNTER 2023-09-25 12:00 | Outpatient (OUT) | payer OTHER, SELFPAY ==
--- OUTSIDE RECORDS SUMMARY | 2023-09-25 12:03 | XMS_ITS | CCD ---
Author Name Unknown Address [address] [place] [address] Organization [facility] Care Team Providers Care Tack Welder Name Role Phone DR IVAN MARINELLI Admitting Unavailable DR IVAN MARINELLI Attending Unavailable DR IVAN MARINELLI Primary Care Unavailable DR IVAN MARINELLI Consulting Unavailable Radha Galdamez Unavailable ANA Galdamez Attending Provider [phone] NO FAMILY, PHYSICIAN Primary Care Provider Unava [...] (COVID-19) RNA SAL+probe Ql (Unsp spec) Negative [facility] Other COVID + FLU Quick Testing Negative [facility] Other Urine culture routineOrdered By: RADHA GALDAMEZ on 03-22-2022 Bacteria identified Cx Nom (U) Escherichia coli [facility] Test, Urineon Beta HCG ( test) Ql (U) Inconclusive [facility] Other SARS-CoV-2 (COVID-19) RNA NA A+probe Ql (Resp)on 03-20-2022 SARS-CoV-2 (COVID-19) RNA SAL+probe Ql (Unsp spec) Negative [facility] Other Urinalysis - AUTOMATEDon Appearance (U) CLOUDY [email or web address] Other Bilirubin Ql (U) Negative [employer] Other Color (U) rust-yellow [facility] Other Glucose Ql (U) Negative [employer] Other Hemoglobin Ql (U) TRACE-INTACT [facility] Other Ketones Ql (U) Negative [employer] Other Leukocyte esterase Test strip Ql (U) TRACE [facility] Other Nitrite Ql (U) Positive [facility] Other pH (U) 7.0 [pH] [facility] Other Protein Ql (U) Negative [employer] Other Specific gravity (U) [Rel density] 1.020 [facility] Other Urobilinogen (U) [Mass/Vol] 0.2 mg/dL [facility] Other Urinalysis - AUTOMATED [facility] Other Urine Cultureon 03-20-2022 Bacteria identified Cx Nom (U) ORGANISM: Escherichia coli (O:ESCCOL) [place] Count >100,000 Aerobic MAUREEN Charge (NUC86) ---- [...] RESISTANT TO ALL B-LACTAM DRUGS. PERFORMED BY: [place] [address] PATHOLOGIST HOUSEHOLD PERSONAL ASSISTANT DEDE OSMAN M.D. Normal [facility] Comment on above: Performed By: #### C UU #### [address] GI PANEL (PCR)on 10-22-2021 Adenovirus F 40/41 Not detected Normal NOT DETECTED [facility] Comment on above: Performed By: #### G IPANEL #### [facility] [address] [place] [address] Dr. Elenita Talamantes Astrovirus Not detected Normal NOT DETECTED [facility] Comment on above: Performed By: #### G IPANEL #### [facility] [address] [place] [address] Dr. Elenita Chavez Diff toxin A/B Not detected Normal NOT DETECTED [facility] Comment on above: Performed By: #### G IPANEL #### [facility] [address] [place] [address] Dr. Elenita Talamantes Campylobacter Not detected Normal NOT DETECTED The [facility] Comment on above: Performed By: #### G IPANEL #### [facility] [address] [address] [address] Elenita Talamantes Cryptosporidium Not detected Normal NOT DETECTED The [facility] Comment on above: Performed By: #### G IPANEL #### [facility] [address] [place] [address] Dr. Elenita Talamantes Cyclos. Cayetanensis Not detected Normal NOT DETECTED [facility] Comment on above: Performed By: #### G IPANEL #### [facility] [address] [place] [address] Dr. Elentia Talamantes E. Coli O157 Not Applicable Normal Not Applicable [facility] Comment on above: Performed By: #### G IPANEL #### [facility] [address] [address] [address] Elenita Talamantes E. histolytica Not detected Normal NOT DETECTED The [facility] Comment on above: Performed By: #### G IPANEL #### [facility] [address] [place] [address] Dr. Elenita Talamantes EAEC Detected Abnormal NOT DETECTED [facility] Comment on above: Performed By: #### G IPANEL #### [facility] [address] [place] [address] Dr. Elenita Talamantes EIEC Not detected Normal NOT DETECTED [facility] Comment on above: Performed By: #### G IPANEL #### [facility] [address] [place] [address] Dr. Elenita Talamantes EPEC Detected Abnormal NOT DETECTED [facility] Comment on above: Performed By: #### G IPANEL #### [facility] [address] [place] [address] Dr. Elenita Talamantes ETEC Detected Abnormal NOT DETECTED [facility] Comment on above: Performed By: #### G IPANEL #### [facility] [address] [place] [address] Dr. Elenita Reyna Lamblia Not detected Normal NOT DETECTED [facility] Comment on above: Performed By: #### G IPANEL #### [facility] [address] [place] [address] Dr. Elenita PEREIRAANEL CONTROLS PASSED Normal The [facility] Comment on above: Performed By: #### G IPANEL #### [facility] [address] [place] [address] Dr. Elenita EDMONDS ROCKY HEADER GI PANEL BACTERIA Normal T [facility] Comment on above: Performed By: #### G IPANEL #### [facility] [address] [place] [address] DrCatrachito SHULTZLI GI PANEL DIARRHEAGENIC E.COLI / SHIGELLA Normal [facility] Comment on above: Performed By: #### G IPANEL #### [facility] [address] [address] [address] Elenita BERMEO INFO SEE BELOW Normal [facility] Comment on above: Result Comment: EAEC - Enteroaggregative E. Coli EPEC- Enteropathogenic E. Coli ETEC- Enterotoxigenic E. Coli lt/st STEC- Shigella-like toxin-producing E. Coli stx1/stx2 EIEC- Shigella/Enteroinvasive E. Coli Performed By: #### G IPANEL #### [facility] [address] [address] [address] Elenita BERMEO PARASITES GI PANEL PARASITES Normal [facility] Comment on above: Performed By: #### G IPANEL #### [facility] [address] [place] [address] Dr. Elenita BERMEO VIRUS GI PANEL VIRUSES Normal The [facility] Comment on above: Performed By: #### G IPANEL #### [facility] [address] [place] [address] Dr. Elenita Talamantes Norovirus GI/GII Not detected Normal NOT DETECTED The [facility] Comment on above: Performed By: #### G IPANEL #### [facility] [address] [place] [address] Dr. Elenita Talamantes P. Shigelloides Not detected Normal NOT DETECTED The [facility] Comment on above: Performed By: #### G IPANEL #### [facility] [address] [place] [address] Dr. Elenita Talamantes Rotavirus A Not detected Normal NOT DETECTED The [facility] Comment on above: Performed By: #### G IPANEL #### [facility] [address] [place] [address] Dr. Elenita Talamantes Salmonella Not detected Normal NOT DETECTED The [facility] Comment on above: Performed By: #### G IPANEL #### [facility] [address] [place] [address] Dr. Elenita Talamantes Sapovirus Not detected Normal NOT DETECTED The [facility] Comment on above: Performed By: #### G IPANEL #### [facility] [address] [address] [address] Elenita Talamantes STEC Not detected Normal NOT DETECTED [facility] Comment on above: Performed By: #### G IPANEL #### [facility] [address] [address] [address] Elenita Talamantes Vibrio Not detected Normal NOT DETECTED [facility] Comment on above: Performed By: #### G IPANEL #### [facility] [address] [address] [address] Elenita Talamantes Vibrio Cholera Not detected Normal NOT DETECTED The [facility] Comment on above: Performed By: #### G IPANEL #### [facility] [address] [address] [address] Elenita Talamantes Y. Enterocolitica Not detected Normal NOT DETECTED The [facility] Comment on above: Performed By: #### G IPANEL #### [facility] [address] [place] [address] Dr. Elenita Talamantes Ambulatory Clinical Summaryo n 02-28-2021 Ambulatory Clinical Summary {[id number] Normal [facility] Urology Office/Clinic Noteon 02-28-2021 Urology Office/Clinic Note [...] Lewis Kent, URL [address] [place] [address]- [phone] Additional Instructions: 6mos. f/u Patient Education I, [...] Protein Urine Dipstick: Negative (02/28/21 15:30:00) Specific [place] Urine Dipstick: 1.020 (02/28/21 15:30:00) Urine Appearance Urine Dipstick: Clear (02/28/21 15:30:00) Urine Color Urine Dipstick: Yellow (02/28/21 15:30:00) Urobilinogen Urine Dipstick: Normal 0.2-1 EU/dl (02/28/21 15:30:00) pH Urine Dipstick: 5 (02/28/21 15:30:00) [facility] Comment on above: Result Comment: Elec tronically Signed By: Lewis GONZALEZ MD\.br\Date and Time Signed: 02/28/21 16:30 EDT\.br\Electronically Co-Signed By: Lyn Willis MA\.br\Date and Time Co-Signed: 02/28/21 16:26 EDT Coding Summary.on 10-27-2020 Coding Summary. CODING DATE: 10/27/2020 [facility] STATUS: Home (Routine DC) PAYOR: Commercial [...] Orr CphT Date Saved: 10/27/2020 09:[address] [facility] Coding Summary. CODING DATE: 10/27/2020 FINAL [facility] STATUS: Home (Routine DC) PAYOR: Commercial [...] Orr CphT Date Saved: 10/27/2020 09:[address] [facility] Discharge Instructionson Discharge Instructions [id number]# 1.00CD:127 Normal [facility] [place] Kidney Imaging w/ Flow w/ Pharmon [...] kidneys. FINAL REPORT Dictated: 10/20/2020 3:28 pm aPllavi Ghotra MD Signed (Electronic Signature): 10/20/2020 3:28 [...] (%): 14 Left Uptake (%): 38.9 Normal [facility] Consent for Procedure/Surger yon 10-19-2020 Consent for Procedure/Surgery [id number]# 1.00CD:127 [facility] Consent for Treatmenton -0 Consent for Treatment [id number] .00CD:127 [facility] IntraOperative Documentson 0 10-19-2020 IntraOperative Documents [id number]# 1.00CD:127 [facility] Coding Summary.on 10-18-2020 Coding Summary. CODING DATE: 10/18/2020 FINAL [facility] STATUS: Home (Routine DC) PAYOR: [...] Charisse Rivers Date Saved: 10/18/2020 01:[address] [facility] Consent for Treatmenton 09-21 Consent for Treatment [id number] .00CD:127 [facility] Main OR Intraoperative Recor don 10-12-2020 Main OR Intraoperative Record IntraOp Document Type FTURO Summary Primary Physician: Lewis GONZALEZ MD Finalized Date/Time: 10/12/20 10:01:33 Pt. Name: CHRIS GONZALEZ/Sex: 2000 Female Med Rec #: [id number] Physician: Lewis GONZALEZ MD Financial #: [id number] Pt. Type: O Room/Bed: / Admit/Disch: 10/12/20 [...] Chyna Arredondo Role Performed Surgeon - Primary Oil Field Pipeline Supervisor - Primary Oil Field Pipeline Supervisor - Primary Time In 10/12/20 09:52:00 10/12/20 09:52:00 10/12/20 09:52:00 Time Out 10/12/20 10:01:00 10/12/20 10:01:00 10/12/20 10:01:00 Procedure CYSTOSCOPY LOCAL WITH CYSTOSCOPY LOCAL WITH CYSTOSCOPY LOCAL WITH URETHRAL DILATION(.) URETHRAL DILATION(.) URETHRAL DILATION(.) Comments orientation Last Modified By: Jarrod RN, Chyna Garay RN, Chyna Garay RN, Chyna Arredondo 10/12/20 09:59:54 10/12/20 09:59:54 10/12/20 09:59:54 Entry 4 Entry 5 Case Attendee Miguel FEDERAL APPELLATE LAW CLERK, Carole Alexander FEDERAL APPELLATE LAW CLERK, Millie Stover Role Performed Scrub - Primary [...] Verena Price, Applicable) Chyna Garay RN, Miguel FEDERAL APPELLATE LAW CLERK, Benjamin Bolanos CST, Millie Stover Time Out [...] By: Chyna Garay RN 10/12/20 10:01 Normal [facility] Main OR Preoperative Recordo n 10-12-2020 Main OR Preoperative Record Holding Area Document Type FTURO Summary Primary Physician: Lewis GONZALEZ MD Finalized Date/Time: 10/12/20 09:53:30 Pt. Name: CHRIS GONZALEZ /Sex: 2000 Female Med Rec #: [id number] Physician: Lewis GONZALEZ MD Financial #: [id number] Pt. Type: O Room/Bed: / Admit/Disch: 10/12/20 [...] 09:30 Chyna Garay RN 10/12/20 09:53 Normal [facility] Operative Reporton Operative Report Patient: CHRIS GONZALEZ [...] urine. The Urethra was dilated to: 30 Tanz[place] w/ sounds. Devices Implanted: None. Removal: Cystoscope is removed, The patient tolerated it well. Postoperative Information Discharge: Patient is discharged home with antibiotic coverage, Follow up arranged. [facility] Comment on above: Result Comment: Elec tronically Signed By: PANCHITO AGUIRRE, Lewis Trent.br\Date and Time Signed: 10/12/20 10:02 EST Pre-Certification Formon Pre-Certification Form [id number]#1. 00CD:127 [facility] Physician Referralon 021 Physician Referral [id number]#1 .00CD:127 [facility] Formson 10-05-2020 Forms [id number]#1. 00CD:127 [facility] Ambulatory Clinical Summaryo n 10-04-2020 Ambulatory Clinical Summary {[id number]}CD:[id number] [facility] Patient Educationon 10-04-19 21 Patient Education Urinary [...] Document Reviewed: 09/13/2012 ExitCare? Patient Information ?[address] 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 Pt states that [...] kidney stones. PVR 99ml. Renal US/bladder At [facility] 08/2020. Dysuria: not at this time Incomplete [...] Information Lewis GONZALEZ MD [address] [place] [address]- [phone] Additional Instructions: scheduling Cysto/UD Patient Education Urinary [...] buPROPion, Oral met (more content not included)... [facility] Comment on above: Result Comment: Elec tronically Signed By: Lewis GONZALEZ MD\.br\Date and Time Signed: 10/04/20 15:03 EST\.br\Electronically Co-Signed By: Lyn Willis MA\.br\Date and Time Co-Signed: 10/04/20 14:59 EST Coding Summary.on 09-09-2020 Coding Summary. CODING DATE: 09/09/2020 FINAL [facility] STATUS: Home (Routine DC) PAYOR: Commercial [...] result in slightly different terminology. Coded By: Knedra Orr CphT Date Saved: 09/09/2020 06:[address] [facility] US Retroperitoneal Completeo n 09-09-2020 US Retroperitoneal [...] O M.D. Transcribed by: ROYAL Technologist: HW [facility] Consent for Treatmenton 08-20 Consent for Treatment [id number] .00CD:127 [facility] Consent for Treatment [id number]# 1.00CD:127 [facility] Physician Orderon 09-03-2020 Physician Order [id number]#1 .00CD:127 [facility] Vital Signs Date Time Vital Sign Value Performing Clinician Facility 08-05-2023 14:35-0500 Body height 176.53 cm Joselinemakayla Smithb Other [facility] Other 08-05-2023 14:35-0500 Body mass index (BMI) [Ratio] 23.29 kg/m2 Joseline Shaye Other [facility] Other 08-05-2023 14:35-0500 Body temperature 98 [degF] Joseline Shaye Other [facility] Other 08-05-2023 14:35-0500 Body weight 72.58 kg Joseline Shaye Other [facility] Other 08-05-2023 14:35-0500 Respiratory rate 18 /min Joseline Shaye Other [facility] Other 08-05-2023 14:35-0500 SaO2% (BldA) [Mass fraction] 98 % Joseline Shaye Other [facility] Other 03-20-2022 18:20-0400 Body height 176.53 cm Radha Denneyault Other [facility] Other 03-20-2022 18:20-0400 Body mass index (BMI) [Ratio] 25.32 kg/m2 Radha Crow Other [facility] Other 03-20-2022 18:20-0400 Body temperature 98.4 [degF] Radha Crow Other [facility] Other 03-20-2022 18:20-0400 Body weight 78.93 kg Radha Denneyault Other [facility] Other 03-20-2022 18:20-0400 Respiratory rate 18 /min Radha Crow Other [facility] Other 03-20-2022 18:20-0400 SaO2% (BldA) [Mass fraction] 97 % Radha Galdamez Other [facility] Other Encounters Encounter Date Encounter Type Care Provider Facility Start: 09-07-2023 End: 09-07-2023 ambulatory Not Available Start: 08-05-2023 End: 08-05-2023 ambulatory Joseline Shaye Other [facility] Other Start: 08-05-2023 Office outpatient visit 15 minutes Joselinemakayla Cr [facility] Start: 03-20-2022 End: 03-20-2022 Departed Referred ANA Galdamez Work Phone: [facility] [place] Start: 03-20-2022 End: 03-20-2022 ambulatory Radha Galdamez Other [facility] Other Start: 03-20-2022 Office outpatient ne w 20 minutes Radha Galdamez [facility] Start: 10-22-2021 End: 10-23-[address] IVAN MARINELLI Facility:[facility]1 Procedures Date Procedure Procedure Detail Performing Clinician Urine culture ANA Hale Work Phone: Payers Date Payer Category Payer Unknown [id number] 2022 Unknown [id number] 2000 Unknown [id number] 2000 Unknown [id number] 1961 Unknown [id number] Unknown [id number] 2. [id number] Social History Date Type Detail Facility Sex Assigned At [facility] Work Phone: Start: 2000 Sex Assigned At Female F [facility] Evaluation note 08-05-2023 Note Date & [...] you develop chest pain, shortness of breath. 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 Mar, Abdominal pain, unspecified abdominal location (ICD-10 - R10.9) Mar, Other Recommend Retested for in 1 week. Call family planning clinic at [facility] Other History and physical note 10-19-2020 Note Date & Type Note Facility 10-19-2020 Note [id number]#1.00CD:127 [facility] Clinical Note 10-12-2020 Note Date & Type [...] you have a fever over 100 degrees [facility] Evaluation note Note Date & Type Note Facility Evaluation note No assessment information availa [facility] Work Phone: History general Narrative - Reported Note Date & Type Note Facility History general Narrative - Reported Type Surgical History Back Surgery 2006 Hospitalization History see above [facility] Other Summary Purpose Family History No Family History Records FoundNo Family History Records FoundNo Family History Records FoundNo Family History Records Found Advance Directives No Advanced Directives Records Found Advance Directive Response Recorded Date/ Time Advance Directives No March 24, 2 022 6:22am Chief Complaint and Reason for Visit Chief Complaint R10.9 Additional Source Comments INFORMATION SOURCE (unrecogn ized section and content) DATE CREATED AUTHOR 03/01/2021 [facility] DATE CREATED AUTHOR AUTHOR'S ORGANIZ ATION [facility]/07/2021 [facility] DATE CREATED AUTHOR AUTHOR'S ORGANIZ ATION 03/29/2022 [facility] DATE CREATED AUTHOR AUTHOR'S ORGANIZ ATION 09/08/2023 [facility] dical Specialists EPIC REASON FOR VISIT (unrecogniz ed section and [...] BE BASED ON THE PRIMARY CLINICAL RECORDS. [facility] [employer] provides no warranty or guarantee of the accuracy or completeness of information in this document.
[2023-09-25 12:21] LABS: Basophils Absolute Auto 0.1 10^3/uL (0.0-0.1); Basophils Percent Auto 0.5 % (0.2-2.0); Eosinophils Percent Auto 0.4 % (0.9-7.0); Hematocrit 39.6 % (36.0-48.0); Hemoglobin 13.6 g/dL (12.0-16.0); Immature Granulocytes Abs Auto 0.02 10^3/uL (0.00-0.03); Immature Granulocytes Pct Auto 0.2 % (0.0-0.5); Lymphocytes Absolute Auto 2.5 10^3/uL (1.2-3.8); Lymphocytes Percent Auto 24.2 % (20.5-60.0); Mean Corpuscular HGB Conc 34.3 g/dL (29.9-35.2); Mean Corpuscular Hemoglobin 31.6 pg (26.7-34.0); Mean Corpuscular Volume 91.9 fL (81.0-99.0); Mean Platelet Volume 10.3 fL (9.5-13.5); Monocytes Absolute Auto 0.6 10^3/uL (0.3-0.8); Monocytes Percent Auto 5.8 % (1.7-12.0); Neutrophils Absolute Auto 7.1 10^3/uL (1.4-6.5); Neutrophils Percent Auto 68.9 % (43.0-75.0); Platelet Count 283 10^3/uL (150-450); Red Blood Count 4.31 10^6/uL (4.20-5.40); Red Cell Distribution Width 11.8 % (11.0-15.0); White Blood Count 10.3 10^3/uL (4.0-11.0)
[2023-09-25 12:44] LABS: Estimated Average Glucose 91 mg/dL; Glycohemoglobin A1C 4.8 % (4.5-6.2)
[2023-09-25 12:52] LABS: BOX Test Sent Out Y
[2023-09-25 13:17] LABS: Thyroid Stimulating Hormone 1.454 uIU/mL (0.358-3.740)
[2023-09-26 11:09] LABS: Rapid Plasma Reagin, Quant Non Reactive titer (NonRea<1:1)
[2023-09-27 04:08] LABS: HBsAg Screen Negative (Negative); HCV Ab Non Reactive (Non Reactive)
[2023-09-27 06:09] LABS: HIV Ab/p24 Ag Screen Non Reactive (Non Reactive)
== END 2023-09-25 12:01 | disposition home or self-care (01) ==
LOC: LAB 12:00
PROVIDERS: PCP Family Medicine; Visit Provider Obstetrics & Gynecology
DX: N92.6 Irregular menstruation, unspecified (principal)
CPT/HCPCS: 36415; 83036; 84443; 85025; 86592; 86762; 86803; 86850; 86900; 86901; 87086; 87150; 87186; 87340; 87389

== ENCOUNTER 2023-11-05 20:56 | Outpatient (REF) | payer OTHER, SELFPAY ==
--- OUTSIDE RECORDS SUMMARY | 2023-11-05 21:02 | XMS_ITS | CCD ---
Author Name Unknown Address [address] [place] [address] Organization [facility] Care Team Providers Care Senior Core Java Developer Name Role Phone DR IVAN HYDE Admitting Unavailable DR IVAN HYDE Attending Unavailable DR IVAN HYDE Primary Care Unavailable DR IVAN HYDE Consulting Unavailable Radha Galdamez Unavailable ANA Galdamez Attending Provider [phone] NO FAMILY, PHYSICIAN Primary Care Provider Unava ilable Joseline Cr Unavailable Ivan Hyde MD Primary Care Provider [phone] OLE OSMAN Attending Unavailable Medications Current Medications Medication Drug Class(es) Dates Sig (Normalized) Sig (Original) Vit-Fe Fumarate-FA (PNV Plus Multivitamin) 27-1 MG tablet (2 sources) Start: 09-07-2023 End: 09-06-2024 take 1 tablet by mouth in the morning Vit-Fe Fumarate-FA (PNV Plus Multivitamin) 27-1 MG tablet Indications: care, antepartum Take 1 tablet by mouth in the morning. 30 tablet 11 09/07/2023 09/06/2024 Active Completed/Discontinued Medications Medication Drug Class(es) Dates Sig [...] Translations: [DIARRHEA UNSPECIFIED] Onset: 10-22-2021 Episodic Other and delivery including normal (2 sources) First trimester ; Translations: [Encounter for supervision of normal , unspecified, first trimester] 10-02-2023 Episodic Other upper respiratory infections (1 source) Acute upper respiratory infection, unspecified Episodic Past or Other Problems Problem Classification Problem Date Documented Da te Episodic/Chronic Unclassified (1 source) Contact with and (suspected) exposure to covid-19 Z20.822 Urinary tract infections (1 source) Acute cystitis with hematuria Onset: 03-20-2022 Resolved: 03-20-2022 Episodic Results Test Name Value Interpretation Reference Range Facility Urinalysis macro (dipstick) panel (U)Ordered By: Eugenia Boucher on 10-04-2023 Bilirubin, UA Negative Negative - 4(70) +++ mg/dL [facility] Blood, UA Negative Negative - 50 Christiano/mcL [facility] Clarity, UA Clear [facility] Color, UA Yellow [facility] Glucose, UA Negative Negative - 1999(110) ++++ mg/dL [facility] Interpretation and review of laboratory results Abnormal [facility] Ketones, UA Negative Negative - 160(16) ++++ mg/dL [facility] Leukocytes, UA Trace Negative - 500+++ Shaquille/mcL [facility] Nitrite, UA Negative Negative - Positive [facility] pH, UA 6.0 5 - 9 [facility] Protein, UA Negative Negative - 1999(20) ++++ mg/dL [facility] Spec Grav, UA 1.025 1 - 1.03 [facility] Urobilinogen, UA 0.2 0.2 - 12 mg/dL [facility] COVID + FLU Quick Testingon 08-05-2023 SARS-CoV-2 (COVID-19) RNA SAL+probe Ql (Unsp spec) Negative [facility] Other COVID + FLU Quick Testing Negative [facility] Other Urine culture routineOrdered By: RADHA GALDAMEZ on 03-22-2022 Bacteria identified Cx Nom (U) Escherichia coli [facility] Test, Urineon Beta HCG ( test) Ql (U) Inconclusive [facility] Other SARS-CoV-2 (COVID-19) RNA NA A+probe Ql (Resp)on 03-20-2022 SARS-CoV-2 (COVID-19) RNA SAL+probe Ql (Unsp spec) Negative [facility] Other Urinalysis - AUTOMATEDon Appearance (U) CLOUDY [employer] Other Bilirubin Ql (U) Negative [employer] Other Color (U) rust-yellow [facility] Other Glucose Ql (U) Negative [employer] Other Hemoglobin Ql (U) TRACE-INTACT [facility] Other Ketones Ql (U) Negative [employer] Other Leukocyte esterase Test strip Ql (U) TRACE [facility] Other Nitrite Ql (U) Positive [employer] Other pH (U) 7.0 [pH] [facility] Other Protein Ql (U) Negative [employer] Other Specific gravity (U) [Rel density] 1.020 [facility] Other Urobilinogen (U) [Mass/Vol] 0.2 mg/dL [facility] Other Urinalysis - AUTOMATED [facility] Other Urine Cultureon 03-20-2022 Bacteria identified Cx Nom (U) ORGANISM: Escherichia coli (O:ESCCOL) [place] Count >100,000 Aerobic MAUREEN Charge (NUC86) ---- [...] RESISTANT TO ALL B-LACTAM DRUGS. PERFORMED BY: [place] [address] PATHOLOGIST TALENT ACQUISITION LEAD DEDE OSMAN M.D. Normal [facility] Comment on above: Performed By: #### C UU #### [address] GI PANEL (PCR)on 10-22-2021 Adenovirus F 40/41 Not detected Normal NOT DETECTED [facility] Comment on above: Performed By: #### G IPANEL #### [facility] [address] [place] [address] Dr. Elenita Talamantes Astrovirus Not detected Normal NOT DETECTED [facility] Comment on above: Performed By: #### G IPANEL #### [facility] [address] [place] [address] Dr. Elenita Talamantes C. Diff toxin A/B Not detected Normal NOT DETECTED [facility] Comment on above: Performed By: #### G IPANEL #### [facility] [address] [place] [address] Dr. Elenita Talamantes Campylobacter Not detected Normal NOT DETECTED [facility] Comment on above: Performed By: #### G IPANEL #### [facility] [address] [place] [address] Dr. Elenita Talamantes Cryptosporidium Not detected Normal NOT DETECTED [facility] Comment on above: Performed By: #### G IPANEL #### [facility] [address] [place] [address] Dr. Elenita Talamantes Cyclos. Cayetanensis Not detected Normal NOT DETECTED [facility] Comment on above: Performed By: #### G IPANEL #### [facility] [address] [place] [address] Dr. Elenita Talamantes E. Coli O157 Not Applicable Normal Not Applicable [facility] Comment on above: Performed By: #### G IPANEL #### [facility] [address] [place] [address] Dr. Elenita Talamantes ECatrachito histolytica Not detected Normal NOT DETECTED [facility] Comment on above: Performed By: #### G IPANEL #### [facility] [address] [place] [address] Dr. Elenita Talamantes EAEC Detected Abnormal NOT DETECTED [facility] Comment on above: Performed By: #### G IPANEL #### [facility] [address] [place] [address] Dr. Elenita Talamantes EIEC Not detected Normal NOT DETECTED [facility] Comment on above: Performed By: #### G IPANEL #### [facility] [address] [place] [address] Dr. Elenita Talamantes EPEC Detected Abnormal NOT DETECTED [facility] Comment on above: Performed By: #### G IPANEL #### [facility] [address] [place] [address] Dr. Elenita Talamantes ETEC Detected Abnormal NOT DETECTED [facility] Comment on above: Performed By: #### G IPANEL #### [facility] [address] [place] [address] Dr. Elenita Reyna Lamblia Not detected Normal NOT DETECTED [facility] Comment on above: Performed By: #### G IPANEL #### [facility] [address] [place] [address] Dr. Elenita RODRÍGUEZ CONTROLS PASSED Normal [facility] Comment on above: Performed By: #### G IPANEL #### [facility] [address] [place] [address] Dr. Elenita EDMONDS ROCKY HEADER GI PANEL BACTERIA Normal [facility] Comment on above: Performed By: #### G IPANEL #### [facility] [address] [place] [address] Dr. Elenita BERMEO ECOLI GI PANEL DIARRHEAGENIC E.COLI / SHIGELLA Normal [facility] Comment on above: Performed By: #### G IPANEL #### [facility] [address] [place] [address] Dr. Elenita BERMEO INFO SEE BELOW Normal [facility] Comment on above: Result Comment: EAEC - Enteroaggregative E. Coli EPEC- Enteropathogenic E. Coli ETEC- Enterotoxigenic E. Coli lt/st STEC- Shigella-like toxin-producing E. Coli stx1/stx2 EIEC- Shigella/Enteroinvasive E. Coli Performed By: #### G IPANEL #### [facility] [address] [address] [address] Elenita BERMEO PARASITES GI PANEL PARASITES Normal [facility] Comment on above: Performed By: #### G IPANEL #### [facility] [address] [address] [address] Elenita BERMEO VIRUS GI PANEL VIRUSES Normal [facility] Comment on above: Performed By: #### G IPANEL #### [facility] [address] [place] [address] Dr. Elenita Talamantes Norovirus GI/GII Not detected Normal NOT DETECTED [facility] Comment on above: Performed By: #### G IPANEL #### [facility] [address] [place] [address] Dr. Elenita Talamantes P. Shigelloides Not detected Normal NOT DETECTED [facility] Comment on above: Performed By: #### G IPANEL #### [facility] [address] [place] [address] Dr. Elenita Talamantes Rotavirus A Not detected Normal NOT DETECTED [facility] Comment on above: Performed By: #### G IPANEL #### [facility] [address] [place] [address] Dr. Elenita Talamantes Salmonella Not detected Normal NOT DETECTED [facility] Comment on above: Performed By: #### G IPANEL #### [facility] [address] [address] [address] Elenita Talamantes Sapovirus Not detected Normal NOT DETECTED [facility] Comment on above: Performed By: #### G IPANEL #### [facility] [address] [place] [address] Dr. Elenita Talamantes STEC Not detected Normal NOT DETECTED [facility] Comment on above: Performed By: #### G IPANEL #### [facility] [address] [address] [address] Elenita Talamantes Vibrio Not detected Normal NOT DETECTED [facility] Comment on above: Performed By: #### G IPANEL #### [facility] [address] [address] [address] Elenita Talamantes Vibrio Cholera Not detected Normal NOT DETECTED [facility] Comment on above: Performed By: #### G IPANEL #### [facility] [address] [address] [address] Elenita Talamantes Y. Enterocolitica Not detected Normal NOT DETECTED [facility] Comment on above: Performed By: #### G IPANEL #### [facility] [address] [address] [address] Elenita Talamantes Ambulatory Clinical Summaryo n 02-28-2021 Ambulatory Clinical Summary {[id number] Normal [facility] Urology Office/Clinic Noteon 02-28-2021 Urology [...] Lewis Kent, URL [address] [place] [address]- [phone] Additional Instructions: 6mos. f/u Patient Education I, [...] Protein Urine Dipstick: Negative (02/28/21 15:30:00) Specific [place] Urine Dipstick: 1.020 (02/28/21 15:30:00) Urine Appearance Urine Dipstick: Clear (02/28/21 15:30:00) Urine Color Urine Dipstick: Yellow (02/28/21 15:30:00) Urobilinogen Urine Dipstick: Normal 0.2-1 EU/dl (02/28/21 15:30:00) pH Urine Dipstick: 5 (02/28/21 15:30:00) Normal [facility] Comment on above: Result Comment: Elec tronically Signed By: PANCHITO AGUIRRE, Lewis R\.br\Date and Time Signed: 02/28/21 16:30 EDT\.br\Electronically Co-Signed By: Lyn Willis MA\.br\Date and Time Co-Signed: 02/28/21 16:26 EDT Coding Summary.on 10-27-2020 Coding Summary. CODING DATE: 10/27/2020 [facility] STATUS: Home (Routine DC) PAYOR: Commercial Insurance [...] Orr CphT Date Saved: 10/27/2020 09:40 am [facility] Coding Summary. CODING DATE: 10/27/2020 [facility] STATUS: Home (Routine DC) PAYOR: Commercial Insurance [...] Orr CphT Date Saved: 10/27/2020 09:39 am [facility] Discharge Instructionson Discharge Instructions [id number]# 1.00CD:127 [facility] NM Kidney Imaging w/ Flow w/ [...] (%): 14 Left Uptake (%): 38.9 Normal [facility] Consent for Procedure/Surger yon 10-19-2020 Consent for Procedure/Surgery [id number]# 1.00CD:127 Normal [facility] Consent for Treatmenton Consent for Treatment [id number] .00CD:127 [facility] IntraOperative Documentson 0 10-19-2020 IntraOperative Documents [id number]# 1.00CD:127 Normal [facility] Coding Summary.on 10-18-2020 Coding Summary. CODING DATE: 10/18/2020 FINAL [facility] STATUS: Home (Routine DC) PAYOR: Commercial [...] Charisse Rivers Date Saved: 10/18/2020 01:46 pm [facility] Consent for Treatmenton 09-21 Consent for Treatment [id number] .00CD:127 [facility] Main OR Intraoperative Recor don 10-12-2020 Main OR Intraoperative Record IntraOp Document Type FTURO Summary Primary Physician: Lewis GONZALEZ MD Finalized Date/Time: 10/12/20 10:01:33 Pt. Name: JACKIE GONZALEZ/Sex: 2000 Female Med Rec #: [id number] Physician: Lewis GONZALEZ MD Financial #: [id number] Pt. Type: O Room/Bed: / Admit/Disch: 10/12/20 08:26:15 - Institution: Case Times FTURO Entry 1 Patient Times In Room 10/12/20 09:52:00 Out Room 10/12/20 10:01:00 Procedure Times Start 10/12/20 09:54:00 Stop 10/12/20 09:59:00 Anesthesia Times Last Modified By: Chyna Garay RN 10/12/20 09:59:52 Case Attendance FTURO Entry 1 Entry 2 Entry 3 Case Attendee PANCHITO AGUIRRE, Lewis Quezada RN, Verena Garay RN, Chyna Arredondo Role Performed Surgeon - Primary Etiquette Teacher - Primary Etiquette Teacher - Primary Time In 10/12/20 09:52:00 10/12/20 09:52:00 10/12/20 09:52:00 Time Out 10/12/20 10:01:00 10/12/20 10:01:00 10/12/20 10:01:00 Procedure CYSTOSCOPY LOCAL WITH CYSTOSCOPY LOCAL WITH CYSTOSCOPY LOCAL WITH URETHRAL DILATION(.) URETHRAL DILATION(.) URETHRAL DILATION(.) Comments orientation Last Modified By: Jarrod RAMOS, Chyna Garay RN, Chyna Francisco RN 10/12/20 09:59:54 10/12/20 09:59:54 10/12/20 09:59:54 Entry 4 Entry 5 Case Attendee Miguel GLOBAL SALES DIRECTOR, Carole Alexander GLOBAL SALES DIRECTOR, Millie Stover Role Performed Scrub - Primary Scrub - Primary Time In 10/12/20 09:52:00 10/12/20 09:52:00 Time Out 10/12/20 10:01:00 10/12/20 10:01:00 Procedure CYSTOSCOPY LOCAL WITH CYSTOSCOPY LOCAL WITH URETHRAL DILATION(.) URETHRAL DILATION(.) Comments orientation Last Modified By: Jarrod RAMOS, Chyna Francisco RN 10/12/20 09:59:54 10/12/20 09:59:54 Surgical Procedures FTURO Entry 1 Procedure Description Procedure CYSTOSCOPY LOCAL WITH Modifiers . URETHRAL DILATION Surgeon Description CYSTOSCOPY WITH URETHRAL DILATION Primary Procedure Yes Primary Surgeon PANCHITO AGUIRRE, Lewis Kent Start 10/12/20 09:54:00 Stop 10/12/20 09:59:00 Anesthesia Type [...] Verena Price, Applicable) Chyna Garay RN, Miguel MORELAND, Benjamin Bolanos CST, Millie Stover Time Out [...] By: Chyna Garay RN 10/12/20 10:01 Normal [facility] Main OR Preoperative Recordo n 10-12-2020 Main OR Preoperative Record Holding Area Document Type FTURO Summary Primary Physician: Lewis GONZALEZ MD Finalized Date/Time: 10/12/20 09:53:30 Pt. Name: JACKIE GONZALEZ/Sex: 2000 Female Med Rec #: [id number] Physician: Lewis GONZALEZ MD Financial #: [id number] Pt. Type: O Room/Bed: / Admit/Disch: 10/12/20 [...] 09:30 Chyna Garay RN 10/12/20 09:53 Normal [facility] Operative Reporton Operative Report Patient: JACKIE GONZALEZ Age: 20 years Sex: Female : [...] urine. The Urethra was dilated to: 30 Icelandic w/ sounds. Devices Implanted: None. Removal: Cystoscope is removed, The patient tolerated it well. Postoperative Information Discharge: Patient is discharged home with antibiotic coverage, Follow up arranged. [facility] Comment on above: Result Comment: Elec tronically Signed By: PANCHITO AGUIRRE, Lweis Trent.savi\Date and Time Signed: 10/12/20 10:02 EST Pre-Certification Formon Pre-Certification Form [id number]#1. 00CD:127 [facility] Physician Referralon 021 Physician Referral [id number]#1 .00CD:127 [facility] Formson 10-05-2020 Forms [id number]. 00CD:127 [facility] Ambulatory Clinical Summaryo n 10-04-2020 Ambulatory Clinical Summary {[id number]}CD:[id number] [facility] Patient Educationon 10-04-19 21 Patient Education [...] 02/04/2013 Document Reviewed: 09/13/2012 ExitCare? Patient Information ?2014 [employer] Suman Gottlieb [facility] Urology Office/Clinic Noteon 10-04-2020 Urology Office/Clinic Note Chief Complaint STEM SHAPER due to recurrent UTI HPI Staff STEM SHAPER due to recurrent UTI. Pt states that [...] kidney stones. PVR 99ml. [facility]al [facility]bladder [facility]2020. Dysuria: not at this time Incomplete [...] With When Contact Information PANCHITO AGUIRRE, Lewis Kent [address] [place] [address] [place] [address]- [phone] Additional Instructions: scheduling Cysto/UD Patient Education Urinary [...] buPROPion, Oral met (more content not included)... [facility] Comment on above: Result Comment: Elec tronically Signed By: Lewis GONZALEZ MD\.br\Date and Time Signed: 10/04/20 15:03 EST\.br\Electronically Co-Signed By: Lyn Willis MA\.br\Date and Time Co-Signed: 10/04/20 14:59 EST Coding Summary.on 09-09-2020 Coding Summary. CODING DATE: 09/09/2020 FINAL [facility] STATUS: Home (Routine DC) PAYOR: Commercial [...] Orr CphT Date Saved: 09/09/2020 06:00 pm [facility] US Retroperitoneal Completeo n 09-09-2020 US [...] La O M.D. Transcribed by: ROYAL Technologist: [facility] Consent for Treatmenton 08-20 Consent for Treatment [id number] .00CD:127 [facility] Consent for Treatment [id number]# 1.00CD:127 [facility] Physician Orderon 09-03-2020 Physician Order [id number] .00CD:127 [facility] Vital Signs Date Time Vital Sign Value Performing Clinician Facility 10-04-2023 10:19-0500 Body weight 71.22 kg [employer] DO Work Phone: [facility] 10-04-2023 10:19-0500 Diastolic blood pressure 78 mm[Hg] Ole Dawson DO Work Phone: [facility] 10-04-2023 10:19-0500 Systolic blood pressure 124 mm[Hg] [employer] Dawson DO Work Phone: [facility] 08-05-2023 14:35-0500 Body height 176.53 cm Joseline Shaye Other [facility] Other 08-05-2023 14:35-0500 Body mass index (BMI) [Ratio] 23.29 kg/m2 Joseline Shaye Other [facility] Other 08-05-2023 14:35-0500 Body temperature 98 [degF] Joseline Shaye Other [facility] Other 08-05-2023 14:35-0500 Body weight 72.58 kg Joseline Shaye Other [facility] Other 08-05-2023 14:35-0500 Respiratory rate 18 /min Joseline Shaye Other [facility] Other 08-05-2023 14:35-0500 SaO2% (BldA) [Mass fraction] 98 % Joseline Shaye Other [facility] Other 03-20-2022 18:20-0400 Body height 176.53 cm Radha Denneyault Other [facility] Other 03-20-2022 18:20-0400 Body mass index (BMI) [Ratio] 25.32 kg/m2 Radha Crow Other [facility] Other 03-20-2022 18:20-0400 Body temperature 98.4 [degF] Radha Crow Other [facility] Other 03-20-2022 18:20-0400 Body weight 78.93 kg Radha Crow Other [facility] Other 03-20-2022 18:20-0400 Respiratory rate 18 /min Radha Crow Other [facility] Other 03-20-2022 18:20-0400 SaO2% (BldA) [Mass fraction] 97 % Radha Crow Other [facility] Other Encounters Encounter Date Encounter Type Care Provider Facility Start: 10-04-2023 End: 10-04-2023 ambulatory OLE DAWSON Not Available Start: 10-04-2023 End: 10-04-2023 flow sheet Ole Dawson DO Work Phone: [facility] Comment on above: First trimester preg arnaldo Start: 09-07-2023 End: 09-07-2023 ambulatory OLE DAWSON Not Available Start: 08-05-2023 End: 08-05-2023 ambulatory Joseline Shaye Other [facility] Other Start: 08-05-2023 Office outpatient visit 15 minutes Joseline Shaye [facility] Start: 03-20-2022 End: 03-20-2022 Departed Referred [facility] Radha Galdamez Work Phone: [facility] [place] Start: 03-20-2022 End: 03-20-2022 ambulatory Radha Galdamez Other [facility] Other Start: 03-20-2022 Office outpatient ne w 20 minutes Radha Galdamez [facility] Start: 10-22-2021 End: 10-23-[address] IVAN HYDE Facility:[facility]1 Procedures Date Procedure Procedure Detail Performing Clinician Start: 10-04-2023 Urnls dip stick/tabl et rgnt non-auto w/o micrscp Ole Dawson DO Work Phone: Urine culture [facility] Greta Galdamez Work Phone: Plan of Treatment Date Care Activity Detail Author Start: 11-05-2023 End: 11-05-2023 Patient encounter procedure 11/05/2023 3:30 PM EDT Routine [facility] [address] [place] [address] Chyna Burroughs PA [address] [place] [address] [facility] Payers Date Payer Category Payer Unknown [id number] 2022 Unknown [id number] 2022 Unknown [id number] 2000 Unknown [id number] [id number] 2000 Unknown [id number] [id number] [id number] 2000 Unknown [id number] [id number] [id number] 1959 Unknown [id number] Unknown [id number] Social History Date Type Detail Facility Sex Assigned At [facility] Work Phone: Start: 2000 Sex Assigned At Female F [facility] Tobacco smoking status NHIS Tobacco smoking consumption unknown [facility] Start: 07-28-2023 [facility] Start: 2000 Sex Assigned At Not on file [facility] History of Present illness Narrative 10-04-2023 URSULA Talbert - 10/04/2023 10:10 AM EST Note Date & Type Note Facility 10-04-2023 History of Presen t illness Narrative Reason for Appointment: Patient ID: Jackie Eason is a 23 y.o. female who presents for Routine Visit Patient presents today for Return OB appointment. Current Medications: has a current medication list which includes the following prescription(s): pnv plus multivitamin. Medical History: Active Ambulatory Problems Diagnosis Date Noted No Active Ambulatory Problems Resolved Ambulatory Problems Diagnosis Date Noted No Resolved Ambulatory Problems No Additional Past Medical History No family history on file. Social History Tobacco Use Smoking status: Not on file Smokeless tobacco: Not on file Substance Use Topics Alcohol use: Not on file Drug use: Not on file History reviewed. No pertinent surgical history. No Known Allergies Review of Systems: Review of Systems Constitutional: Negative. HENT: Negative. Eyes: Negative. Respiratory: Negative. Cardiovascular: Negative. Gastrointestinal: Negative. Musculoskeletal: Negative. Skin: Negative. Neurological: Negative. Psychiatric/Behavioral: Negative. All other systems reviewed and are negative. Hematological: Negative. Endocrine: Negative. Objective Physical Exam Constitutional: Appearance: Normal appearance. She is normal weight. HENT: Head: Normocephalic. Cardiovascular: Rate and Rhythm: Normal rate. Pulses: Normal pulses. Pulmonary: Effort: Pulmonary effort is normal. Breath sounds: Normal breath sounds. Abdominal: Palpations: Abdomen is soft. Musculoskeletal: General: Normal range of motion. Neurological: General: No focal deficit present. Mental Status: She is alert and oriented to person, place, and time. Psychiatric: Mood and Affect: Mood normal. Behavior: Behavior normal. Thought Content: Thought content normal. Judgment: Judgment normal. Vitals and nursing note reviewed. Vitals: There is no height or weight on file to calculate BMI. BP: 124/78 No LMP recorded. Patient is . Assessment/Plan Encounter Diagnosis Name Primary? First trimester Patient presents today for a routine obstetrics appointment. Patient is currently 11w5d with a Estimated Date of Delivery: 04/19/24. Patient presents today for a routine obstetrics appointment. Patient is currently 11w5d . Patient states she is doing well but has complaints of being tired due to current . Patient has verbalizes frequent movement. labor precautions was discussed/given Follow Up: Patient is to return to office in 4week for routine OB appointment. Documented by URSULA Talbert on behalf of: Ole Osman DO documented in this encounter [facility] Evaluation note 08-05-2023 Note Date & Type [...] you develop chest pain, shortness of breath. [facility] Other Evaluation note 03-20-2022 Note Date & [...] Follow up with primary care provider or hadoop consultant if no improvement of symptoms. Mar, Abdominal pain, unspecified abdominal location (ICD-10 - R10.9) Mar, Other Recommend Retested for in 1 week. Call family planning clinic at [facility] Other History and physical note 10-19-2020 Note Date & Type Note Facility 10-19-2020 Note [id number] [facility] Clinical Note 10-12-2020 Note Date [...] you have a fever over 100 degrees [facility] Evaluation note Note Date & Type Note Facility Evaluation note No assessment information availa [facility] Work Phone: Evaluation note Note Date & Type Note Facility Evaluation note Diagnosis First trimester state, incidental documented in this encounter [facility] History general Narrative - Reported Note Date & Type Note Facility History general Narrative - Reported Type Surgical History Back Surgery 2006 Hospitalization History see above [facility] Other Summary Purpose Family History No Family [...] section and content) DATE CREATED AUTHOR 03/01/2021 [facility] DATE CREATED AUTHOR AUTHOR'S ORGANIZ ATION 12/07/2021 [facility] DATE CREATED AUTHOR AUTHOR'S ORGANIZ ATION 03/29/2022 [facility] DATE CREATED AUTHOR AUTHOR'S ORGANIZ ATION 10/06/2023 [facility] EPIC REASON FOR VISIT (unrecogniz ed section and content) Reason Comments Routine Visit Care Teams (unrecognized sec tion and content) Team Status: Inactive Member Role Status Dates ANA Galdamez Attending Provider Active PHYSICIAN NO FAMILY Primary Care Provider Active Team Status: Active Member Role Status Dates PHYSICIAN NO FAMILY Primary Care Provider Active Senior Core Java Developer Relationship Specialty Start Date End Date Ivan Hyde MD [address] [place] [id number] PCP - General Family Medicine 09/07/23 Goals (unrecognized section and content) Goals may [...] BE BASED ON THE PRIMARY CLINICAL RECORDS. [email or web address] [facility]. provides no warranty or guarantee of the accuracy or completeness of information in this document.
[2023-11-09 10:13] LABS: Age Gdln ACOG Testing Note (.); IGP, rfx Aptima HPV ASCU Note (.)
== END 2023-11-05 20:57 | disposition home or self-care (01) ==
LOC: LAB 20:56
PROVIDERS: PCP Family Medicine; Visit Provider Physician Assistant
DX: Z01.419 Encounter for gynecological examination (general) (routine) without abnormal findings (principal)
CPT/HCPCS: G0145

== ENCOUNTER 2023-12-03 07:30 | Outpatient (OUT) | payer OTHER, SELFPAY ==
--- OUTSIDE RECORDS SUMMARY | 2023-12-03 12:28 | XMS_ITS | CCD ---
Author Organization [facility] Care Team Providers Care Auto Body Mechanic Apprentice Name Role Phone DR IVAN HYDE Admitting Unavailable DR IVAN HYDE Attending Unavailable DR IVAN HYDE Primary Care Unavailable DR IVAN HYDE Consulting Unavailable Radha Galdamez Unavailable ANA Galdamez Attending Provider NO FAMILY, PHYSICIAN Primary Care Provider Unava ilJoseline Bell Unavailable Ivan Hyde MD Primary Care Provider [phone] OLE OSMAN Attending Unavailable CHYNA OWENS Attending Unavailable Medications Current Medications Medication Drug [...] UA Negative Negative - 4(70) +++ mg/dL [facility] Blood, UA Negative Negative - 50 Christiano/mcL [facility] Clarity, UA Clear [facility] Color, UA Yellow [facility] Healthcar e Glucose, UA Negative Negative - 1999(110) ++++ mg/dL [facility] Interpretation and review of laboratory results Abnormal [facility] Healthwv re Ketones, UA Negative Negative - 160(16) ++++ mg/dL [facility] Leukocytes, UA Trace Negative - 500+++ Shaquille/mcL [facility] Nitrite, UA Negative Negative - Positive [facility] pH, UA 6.0 5 - [address] [facility] Health[facility] Protein, UA Negative Negative - 1999(20) ++++ mg/dL [facility] Spec Grav, UA 1.025 1 - 1.03 [facility] Urobilinogen, UA 0.2 0.2 - 12 mg/dL [facility] Health[facility] COVID + FLU Quick Testingon 08-05-2023 SARS-CoV-2 (COVID-19) RNA SAL+probe Ql (Unsp spec) Negative [facility] Other COVID + FLU Quick Testing Negative [facility] Other Urine culture routineOrdered By: RADHA GALDAMEZ on 03-22-2022 Bacteria identified Cx Nom (U) Escherichia coli [facility] Test, Urineon Beta HCG ( test) Ql (U) Inconclusive [facility] Other SARS-CoV-2 (COVID-19) RNA NA A+probe Ql (Resp)on 03-20-2022 SARS-CoV-2 (COVID-19) RNA SAL+probe Ql (Unsp spec) Negative [facility] Other Urinalysis - AUTOMATEDon Appearance (U) CLOUDY [facility] Other Bilirubin Ql (U) Negative [facility] Other Color (U) rust-yellow [facility] Other Glucose Ql (U) Negative [facility] Other Hemoglobin Ql (U) TRACE-INTACT [facility] Other Ketones Ql (U) Negative [facility] Other Leukocyte esterase Test strip Ql (U) TRACE [facility] Other Nitrite Ql (U) Positive [facility] Other pH (U) 7.0 [pH] [facility] Other Protein Ql (U) Negative [facility] Other Specific gravity (U) [Rel density] 1.020 [facility] Other Urobilinogen (U) [Mass/Vol] 0.2 mg/dL [facility] Other Urinalysis - AUTOMATED [facility] Other Urine Cultureon 03-20-2022 Bacteria identified Cx Nom (U) ORGANISM: Escherichia coli (O:ESCCOL) [place] Count >100,000 Aerobic MAUREEN Charge (NUC86) ---- [...] RESISTANT TO ALL B-LACTAM DRUGS. PERFORMED BY: [place] [address] PATHOLOGIST HEATING OPERATORS ENGINEER DEDE OSMAN M.D. Normal [facility] Comment on above: Performed By: #### C UU #### [address] GI PANEL (PCR)on 10-22-2021 Adenovirus F 40/41 Not detected Normal NOT DETECTED [facility] Comment on above: Performed By: #### G IPANEL #### [facility] [address] [place] [address] Dr. Elenita Talamantes Astrovirus Not detected Normal NOT DETECTED [facility] Comment on above: Performed By: #### G IPANEL #### [facility] [address] [place] [address] Dr. Elenita Talamantes C. Diff toxin A/B Not detected Normal NOT DETECTED [facility] Comment on above: Performed By: #### G IPANEL #### [facility] [address] [address] [address] Elenita Talamantes Campylobacter Not detected Normal NOT DETECTED [facility] Comment on above: Performed By: #### G IPANEL #### [facility] [address] [place] [address] Dr. Elenita Talamantes Cryptosporidium Not detected Normal NOT DETECTED [facility] Comment on above: Performed By: #### G IPANEL #### [facility] [address] [address] [address] Elenita Talamantes Cyclos. Cayetanensis Not detected Normal NOT DETECTED [facility] Comment on above: Performed By: #### G IPANEL #### [facility] [address] [place] [address] Dr. Elenita Talamantes E. Coli O157 Not Applicable Normal Not Applicable [facility] Comment on above: Performed By: #### G IPANEL #### [facility] [address] [place] [address] Dr. Elenita Talamantes E. histolytica Not detected Normal NOT DETECTED [facility] Comment on above: Performed By: #### G IPANEL #### [facility] [address] [address] [address] Elenita Talamantes EAEC Detected Abnormal NOT DETECTED [facility] Comment on above: Performed By: #### G IPANEL #### [facility] [address] [place] [address] Dr. Elenita Talamantes EIEC Not detected Normal NOT DETECTED [facility] Comment on above: Performed By: #### G IPANEL #### [facility] [address] [address] [address] Elenita Talamantes EPEC Detected Abnormal NOT DETECTED [facility] Comment on above: Performed By: #### G IPANEL #### [facility] [address] [place] [address] Dr. Elenita Talamantes ETEC Detected Abnormal NOT DETECTED [facility] Comment on above: Performed By: #### G IPANEL #### [facility] [address] [place] [address] Dr. Elenita Reyna Lamblia Not detected Normal NOT DETECTED [facility] Comment on above: Performed By: #### G IPANEL #### [facility] [address] [place] [address] Dr. Elenita RODRÍGUEZ CONTROLS PASSED Normal [facility] Comment on above: Performed By: #### G IPANEL #### [facility] [address] [place] [address] Dr. Elenita [facility] HEADER GI PANEL BACTERIA Normal T [facility] Comment on above: Performed By: #### G IPANEL #### [facility] [address] [place] [address] Dr. Elenita BERMEO ECOLI GI PANEL DIARRHEAGENIC E.COLI / SHIGELLA Normal [facility] Comment on above: Performed By: #### G IPANEL #### [facility] [address] [place] [address] Dr. Elenita BERMEO INFO SEE BELOW Normal [facility] Comment on above: Result Comment: EAEC - Enteroaggregative E. Coli EPEC- Enteropathogenic E. Coli ETEC- Enterotoxigenic E. Coli lt/st STEC- Shigella-like toxin-producing E. Coli stx1/stx2 EIEC- Shigella/Enteroinvasive E. Coli Performed By: #### G IPANEL #### [facility] [address] [place] [address] Dr. Elenita BERMEO PARASITES GI PANEL PARASITES Normal [facility] Comment on above: Performed By: #### G IPANEL #### [facility] [address] [address] [address] Elenita BERMEO VIRUS GI PANEL VIRUSES Normal [facility] Comment on above: Performed By: #### G IPANEL #### [facility] [address] [place] [address] Dr. Elenita Talamantes Norovirus GI/GII Not detected Normal NOT DETECTED [facility] Comment on above: Performed By: #### G IPANEL #### [facility] [address] [place] [address] Dr. Elenita Talamantes P. Shigelloides Not detected Normal NOT DETECTED [facility] Comment on above: Performed By: #### G IPANEL #### [facility] [address] [place] [address] Dr. Elenita Talamantes Rotavirus A Not detected Normal NOT DETECTED [facility] Comment on above: Performed By: #### G IPANEL #### [facility] [address] [place] [address] Dr. Elenita Talamantes Salmonella Not detected Normal NOT DETECTED [facility] Comment on above: Performed By: #### G IPANEL #### [facility] [address] [place] [address] Dr. Elenita Talamantes Sapovirus Not detected Normal NOT DETECTED [facility] Comment on above: Performed By: #### G IPANEL #### [facility] [address] [place] [address] Dr. Elenita Talamantes STEC Not detected Normal NOT DETECTED [facility] Comment on above: Performed By: #### G IPANEL #### [facility] [address] [place] [address] Dr. Elenita Talamantes Vibrio Not detected Normal NOT DETECTED [facility] Comment on above: Performed By: #### G IPANEL #### [facility] [address] [address] [address] Elenita Talamantes Vibrio Cholera Not detected Normal NOT DETECTED [facility] Comment on above: Performed By: #### G IPANEL #### [facility] [address] [place], [place] [address] Dr. Elenita Talamantes Y. Enterocolitica Not detected Normal NOT DETECTED [facility] Comment on above: Performed By: #### G IPANEL #### [facility] [address] [address] [address] Elenita Talamantes Ambulatory Clinical Summaryo n 02-28-2021 Ambulatory Clinical Summary {[id number] Normal [facility] Urology Office/Clinic Noteon 02-28-2021 Urology Office/Clinic [...] Lewis Kent, URL [address] [place] [address]- [phone] Additional Instructions: 6mos. f/u Patient Education I, [...] Protein Urine Dipstick: Negative (02/28/21 15:30:00) Specific [place] Urine Dipstick: 1.020 (02/28/21 15:30:00) Urine Appearance Urine Dipstick: Clear (02/28/21 15:30:00) Urine Color Urine Dipstick: Yellow (02/28/21 15:30:00) Urobilinogen Urine Dipstick: Normal 0.2-1 EU/dl (02/28/21 15:30:00) pH Urine Dipstick: 5 (02/28/21 15:30:00) Normal [facility] Comment on above: Result Comment: Elec tronically Signed By: PANCHITO AGUIRRE, Lewis Kent\.savi\Date and Time Signed: 02/28/21 16:30 EDT\.br\Electronically Co-Signed By: Lyn Willis MA\.br\Date and Time Co-Signed: 02/28/21 16:26 EDT Coding Summary.on 10-27-2020 Coding Summary. CODING DATE: 10/27/2020 [facility] STATUS: Home (Routine DC) PAYOR: Commercial [...] Orr CphT Date Saved: 10/27/2020 09:40 am [facility] Coding Summary. CODING DATE: 10/27/2020 [facility] STATUS: Home (Routine DC) PAYOR: Commercial [...] Orr CphT Date Saved: 10/27/2020 09:39 am [facility] Discharge Instructionson Discharge Instructions [id number]# 1.00CD:127 [facility] NM Kidney Imaging w/ Flow w/ Pharmon [...] (%): 14 Left Uptake (%): 38.9 Normal [facility] Consent for Procedure/Surger yon 10-19-2020 Consent for Procedure/Surgery [id number]# 1.00CD:127 Normal [facility] Consent for Treatmenton Consent for Treatment [id number] .00CD:127 Normal [facility] IntraOperative Documentson 0 10-19-2020 IntraOperative Documents [id number]# 1.00CD:127 Normal [facility] Coding Summary.on 10-18-2020 Coding Summary. CODING DATE: 10/18/2020 FINAL [facility] STATUS: Home (Routine DC) PAYOR: Commercial [...] Charisse Rivers Date Saved: 10/18/2020 01:46 pm [facility] Consent for Treatmenton 09-21 Consent for Treatment [id number] .00CD:127 [facility] Main OR Intraoperative Recor don 10-12-2020 Main OR Intraoperative Record IntraOp Document Type FTURO Summary Primary Physician: Lewis GONZALEZ MD Finalized Date/Time: 10/12/20 10:01:33 Pt. Name: JACKIE GONZALEZ/Sex: 2000 Female Med Rec #: [id number] Physician: Lewis GONZALEZ MD Financial #: [id number] Pt. Type: O Room/Bed: / Admit/Disch: 10/12/20 [...] Chyna Arredondo Role Performed Surgeon - Primary [employer] Team Leader - Primary [employer] Team Leader - Primary Time In 10/12/20 09:52:00 10/12/20 09:52:00 10/12/20 09:52:00 Time Out 10/12/20 10:01:00 10/12/20 10:01:00 10/12/20 10:01:00 Procedure CYSTOSCOPY LOCAL WITH CYSTOSCOPY LOCAL WITH CYSTOSCOPY LOCAL WITH URETHRAL DILATION(.) URETHRAL DILATION(.) URETHRAL DILATION(.) Comments orientation Last Modified By: Jarrod RN, Chyna Garay RN, Chyna Francisco RN 10/12/20 09:59:54 10/12/20 09:59:54 10/12/20 09:59:54 Entry 4 Entry 5 Case Attendee Miguel [employer]PER[employer]ENDENT [employer]CHO[employer], Carole Alexander [employer]PERINT[employer]CHO[employer], Millie Stover Role Performed Scrub - Primary [...] By: Chyna Garay RN 10/12/20 10:01 Normal [facility] Main OR Preoperative Recordo n 10-12-2020 Main OR Preoperative Record Holding Area Document Type FTURO Summary Primary Physician: Lewis GONZALEZ MD Finalized Date/Time: 10/12/20 09:53:30 Pt. Name: JACKIE GONZALEZ/Sex: 2000 Female Med Rec #: [id number] Physician: Lewis GONZALEZ MD Financial #: [id number] Pt. Type: O Room/Bed: / Admit/Disch: 10/12/20 [...] 09:30 Chyna Garay RN 10/12/20 09:53 Normal [facility] Operative Reporton Operative Report Patient: JACKIE GONZALEZ [...] urine. The Urethra was dilated to: 30 Urdu w/ sounds. Devices Implanted: None. Removal: Cystoscope is removed, The patient tolerated it well. Postoperative Information Discharge: Patient is discharged home with antibiotic coverage, Follow up arranged. [facility] Comment on above: Result Comment: Elec tronically Signed By: PANCHITO AGUIRRE, Lewis Trent.br\Date and Time Signed: 10/12/20 10:02 EST Pre-Certification Formon Pre-Certification Form [id number]#1. 00CD:127 [facility] Physician Referralon 021 Physician Referral [id number] .00CD:127 [facility] Formson 10-05-2020 Forms [id number]#1. 00CD:127 [facility] Ambulatory Clinical Summaryo n 10-04-2020 Ambulatory Clinical Summary {[id number]}CD:[id number] [facility] Patient Educationon 10-04-19 21 Patient [...] Document Reviewed: 09/13/2012 ExitCare? Patient Information ?2013 [employer]. 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 Pt states that [...] kidney stones. PVR 99ml. [place] [facility] [place] Dysuria: not at this time [...] With When Contact Information PANCHITO AGUIRRE, Lewis Knet [address] [place] [phone]- [phone] Additional Instructions: scheduling Cysto/UD Patient Education Urinary Tract Infection ILyn , personally scribed for Dr. Gonzalez on 10/04/2020 14:58:44. . Documentation recorded by the scribe, Lyn Willis, accurately reflects the services(s) I performed and decisions made by me. Authenticated by Dr. Gonzalez on 10/04/2020 15:03:51. Problem List/Past Medical History Ongoing No qualifying data Historical No qualifying data Procedure/Surgical History Procedure on back. Medications buPROPion, Oral met (more content not included)... Normal [facility] Comment on above: Result Comment: Elec tronically Signed By: PANCHITO AGUIRRE, Lewis Kent\.br\Date and Time Signed: 10/04/20 15:03 EST\.br\Electronically Co-Signed By: Lyn Willis MA\.br\Date and Time Co-Signed: 10/04/20 14:59 EST Coding Summary.on 09-09-2020 Coding Summary. CODING DATE: 09/09/2020 FINAL [facility] STATUS: Home (Routine DC) PAYOR: Commercial [...] Orr CphT Date Saved: 09/09/2020 06:00 pm [facility] US Retroperitoneal Completeo n 09-09-2020 [...] O M.D. Transcribed by: ROYAL Technologist: HW [facility] Consent for Treatmenton 08-20 Consent for Treatment [id number] .00CD:127 [facility] Consent for Treatment [id number]# 1.00CD:127 [facility] Physician Orderon 09-03-2020 Physician Order [id number] .00CD:127 [facility] Vital Signs Date Time Vital Sign Value Performing Clinician Facility 10-04-2023 10:19-0500 Body weight 71.22 kg [employer] Dawson DO Work Phone: [facility] 10-04-2023 10:19-0500 Diastolic blood pressure 78 mm[Hg] Ole Dawson DO Work Phone: [facility] 10-04-2023 10:19-0500 Systolic blood pressure 124 mm[Hg] Ole Dawson DO Work Phone: [facility] 08-05-2023 14:35-0500 Body height 176.53 cm Josleine Shaye Other [facility] Other 08-05-2023 14:35-0500 Body mass index (BMI) [Ratio] 23.29 kg/m2 Joseline Shaye Other [facility] Other 08-05-2023 14:35-0500 Body temperature 98 [degF] Joseline Shaye Other [facility] Other 08-05-2023 14:35-0500 Body weight 72.58 kg Joseline Shaye Other [facility] Other 08-05-2023 14:35-0500 Respiratory rate 18 /min Joseline Shaye Other [facility] Other 08-05-2023 14:35-0500 SaO2% (BldA) [Mass fraction] 98 % Joseline Shaye Other [facility] Other 03-20-2022 18:20-0400 Body height 176.53 cm Radha Denneyault Other [facility] Other 03-20-2022 18:20-0400 Body mass index (BMI) [Ratio] 25.32 kg/m2 Radha Crow Other [facility] Other 03-20-2022 18:20-0400 Body temperature 98.4 [degF] Radha Crow Other [facility] Other 03-20-2022 18:20-0400 Body weight 78.93 kg Radha Crow Other [facility] Other 03-20-2022 18:20-0400 Respiratory rate 18 /min Radha Crow Other [facility] Other 03-20-2022 18:20-0400 SaO2% (BldA) [Mass fraction] 97 % Radha Galdamez Other [facility] Other Encounters Encounter Date Encounter Type Care Provider Facility Start: 11-05-2023 End: 11-05-2023 ambulatory CHYNA OWENS Not Available Start: 10-04-2023 End: 10-04-2023 ambulatory OLE DAWSON Not Available Start: 10-04-2023 End: 10-04-2023 flow sheet Ole Dawson DO Work Phone: [facility] Comment on above: First trimester preg arnaldo Start: 09-07-2023 End: 09-07-2023 ambulatory OLE DAWSON Not Available Start: 08-05-2023 End: 08-05-2023 ambulatory Joseline Shaye Other [employer] [employer] Other Start: 08-05-2023 Office outpatient visit 15 minutes Joselinemakayla Smithb [facility] Start: 03-20-2022 End: 03-20-2022 Departed Referred PEDIATRIC IMMUNOLOGIST-C Radha Galdamez Work Phone: [facility] [place] Start: 03-20-2022 End: 03-20-2022 ambulatory Radha Galdamez Other [employer] Other Start: 03-20-2022 Office outpatient ne w 20 minutes Radha Galdamez [facility] Start: 10-22-2021 End: 10-23-[address] IVAN HYDE Facility:[facility]1 Procedures Date Procedure Procedure Detail Performing Clinician Start: 10-04-2023 Urnls dip stick/tabl et rgnt non-auto w/o micrscp Ole Dawson DO Work Phone: Urine culture PEDIATRIC IMMUNOLOGIST-C Greta Galdamez Work Phone: Plan of Treatment Date Care Activity Detail Author Start: 11-05-2023 End: 11-05-2023 Patient encounter procedure 11/05/2023 3:30 PM EDT Routine [facility] [address] [place] [address] Chyna Owens PA [address] [address] [facility] Payers Date Payer Category Payer Unknown [id number] 2022 Unknown [id number] 2022 Unknown [id number] 2000 Unknown [id number] 2.16.84 [id number] 2000 Unknown [id number] [id number] 2000 Unknown [id number] 2.16.84 [id number] 2000 Unknown [id number] 2.16.84 [id number] 1961 Unknown [id number] Unknown [id number] Social History Date Type Detail Facility Sex Assigned At [facility] Work Phone: Start: 2000 Sex Assigned At Female [facility] Tobacco smoking status NHIS Tobacco smoking consumption unknown [facility] Start: 07-28-2023 [facility] Start: 2000 Sex Assigned At Not on file [facility] History of Present illness Narrative 10-04-2023 URSULA Talbert - 10/04/2023 10:10 AM EST Note Date & Type Note Facility 10-04-2023 History of Presen t illness Narrative Reason for Appointment: Patient ID: Jackie Aponte is a 23 y.o. female who presents [...] Ole Osman DO documented in this encounter [facility] Evaluation note 08-05-2023 Note Date & [...] you develop chest pain, shortness of breath. [facility] Other Evaluation note 03-20-2022 Note Date & [...] Follow up with primary care provider or saw tailer if no improvement of symptoms. Mar, Abdominal pain, unspecified abdominal location (ICD-10 - R10.9) Mar, Other Recommend Retested for in 1 week. Call family planning clinic at [facility] Other History and physical note 10-19-2020 Note Date & Type Note Facility 10-19-2020 Note [id number]#1.00CD:127 [facility] Clinical Note 10-12-2020 Note Date & [...] you have a fever over 100 degrees [facility] Evaluation note Note Date & Type Note Facility Evaluation note No assessment information availa [facility] Work Phone: Evaluation note Note Date & Type Note Facility Evaluation note Diagnosis First trimester state, incidental documented in this encounter [facility] History general Narrative - Reported Note Date & Type Note Facility History general Narrative - Reported Type Surgical History Back Surgery 2006 Hospitalization History see above [facility] Other Summary Purpose Family History No Family History Records FoundNo Family History Records FoundNo Family History Records FoundNo Family History Records Found Advance Directives No Advanced Directives Records Found Advance Directive Response Recorded Date/ Time Advance Directives No March 24 022 6:22am Chief Complaint and Reason for Visit Chief Complaint R10.9 Additional Source Comments INFORMATION SOURCE (unrecogn ized section and content) DATE CREATED AUTHOR 03/01/2021 [facility] DATE CREATED AUTHOR AUTHOR'S ORGANIZ ATION 12/07/2021 [facility] DATE CREATED AUTHOR AUTHOR'S ORGANIZ ATION 03/29/2022 [facility] DATE CREATED AUTHOR AUTHOR'S ORGANIZ ATION 11/06/2023 [facility] dical Specialists EPIC REASON FOR VISIT (unrecogniz ed section and content) Reason Comments Routine Visit Care Teams (unrecognized sec tion and content) Team Status: Inactive Member Role Status Dates ANA Galdamez Attending Provider Active PHYSICIAN NO FAMILY Primary Care Provider Active Team Status: Active Member Role Status Dates PHYSICIAN NO FAMILY Primary Care Provider 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 [employer] provides no warranty or guarantee of the accuracy or completeness of information in this document.
--- OUTSIDE RECORDS SUMMARY | 2023-12-04 07:32 | XMS_ITS | CCD ---
Author Organization [facility] Care Team Providers Care Eyeglass Lens Grinder Name Role Phone DR IVAN HYDE Admitting Unavailable DR IVAN HYDE Attending Unavailable DR IVAN HYDE Primary Care Unavailable DR IVAN HYDE Consulting Unavailable Radha Galdamez Unavailable ANA Galdamez Attending Provider NO FAMILY, PHYSICIAN Primary Care Provider Unava ilJoseline Bell Unavailable Ivan Hyde MD Primary Care Provider [phone] OLE OSMAN Attending Unavailable CHYNA OWENS Attending [...] UA Negative Negative - 4(70) +++ mg/dL [facility] Blood, UA Negative Negative - 50 Christiano/mcL [facility] Clarity, UA Clear [facility] Color, UA Yellow [facility] Glucose, UA Negative Negative - 1999(110) ++++ mg/dL [facility] Interpretation and review of laboratory results Abnormal [facility] Health[facility] re Ketones, UA Negative Negative - 160(16) ++++ mg/dL [facility] Leukocytes, UA Trace Negative - 500+++ Shaquille/mcL [facility] Nitrite, UA Negative Negative - Positive [facility] pH, UA 6.0 5 - 9 [facility] Protein, UA Negative Negative - 1999(20) ++++ mg/dL [facility] Spec Grav, UA 1.025 1 - 1.03 [facility] Urobilinogen, UA 0.2 0.2 - 12 mg/dL [facility] Health[facility] COVID + FLU Quick Testingon 08-05-2023 SARS-CoV-2 (COVID-19) RNA SAL+probe Ql (Unsp spec) Negative [facility] Other COVID + FLU Quick Testing Negative [facility] Other Urine culture routineOrdered By: RADHA GALDAMEZ on 03-22-2022 Bacteria identified Cx Nom (U) Escherichia coli [facility] Test, Urineon Beta HCG ( test) Ql (U) Inconclusive [facility] Other SARS-CoV-2 (COVID-19) RNA NA A+probe Ql (Resp)on 03-20-2022 SARS-CoV-2 (COVID-19) RNA SAL+probe Ql (Unsp spec) Negative [facility] Other Urinalysis - AUTOMATEDon Appearance (U) CLOUDY [facility] Other Bilirubin Ql (U) Negative [facility] Other Color (U) rust-yellow [facility] Other Glucose Ql (U) Negative [facility] Other Hemoglobin Ql (U) TRACE-INTACT [facility] Other Ketones Ql (U) Negative [facility] Other Leukocyte esterase Test strip Ql (U) TRACE [facility] Other Nitrite Ql (U) Positive [facility] Other pH (U) 7.0 [pH] [facility] Other Protein Ql (U) Negative [facility] Other Specific gravity (U) [Rel density] 1.020 [facility] Other Urobilinogen (U) [Mass/Vol] 0.2 mg/dL [facility] Other Urinalysis - AUTOMATED [facility] Other Urine Cultureon 03-20-2022 Bacteria identified Cx Nom (U) ORGANISM: Escherichia coli (O:ESCCOL) Dewey Count >100,000 Aerobic MAUREEN Charge (NUC86) ---- [...] RESISTANT TO ALL B-LACTAM DRUGS. PERFORMED BY: [place] [address] PATHOLOGIST STABILIZING MACHINE OPERATOR DEDE OSMAN M.D. Normal [facility] Comment on above: Performed By: #### C UU #### [address] GI PANEL (PCR)on 10-22-2021 Adenovirus F 40/41 Not detected Normal NOT DETECTED [facility] Comment on above: Performed By: #### G IPANEL #### [facility] [address] [place] [address] Dr. Elenita Talamantes Astrovirus Not detected Normal NOT DETECTED [facility] Comment on above: Performed By: #### G IPANEL #### [facility] [address] [place] [address] Dr. Elenita Talamantes C. Diff toxin A/B Not detected Normal NOT DETECTED [facility] Comment on above: Performed By: #### G IPANEL #### [facility] [address] [address] [address] Elenita Talamantes Campylobacter Not detected Normal NOT DETECTED [facility] Comment on above: Performed By: #### G IPANEL #### [facility] [address] [place] [address] Dr. Elenita Talamantes Cryptosporidium Not detected Normal NOT DETECTED [facility] Comment on above: Performed By: #### G IPANEL #### [facility] [address] [address] [address] Elenita Talamantes Cyclos. Cayetanensis Not detected Normal NOT DETECTED [facility] Comment on above: Performed By: #### G IPANEL #### [facility] [address] [place] [address] Dr. Elenita Talamantes E. Coli O157 Not Applicable Normal Not Applicable [facility] Comment on above: Performed By: #### G IPANEL #### [facility] [address] [place] [address] Dr. Elenita Talamantes E. histolytica Not detected Normal NOT DETECTED [facility] Comment on above: Performed By: #### G IPANEL #### [facility] [address] [address] [address] Elenita Talamantes EAEC Detected Abnormal NOT DETECTED [facility] Comment on above: Performed By: #### G IPANEL #### [facility] [address] [place] [address] Dr. Elenita Talamantes EIEC Not detected Normal NOT DETECTED [facility] Comment on above: Performed By: #### G IPANEL #### [facility] [address] [address] [address] Elenita Talamantes EPEC Detected Abnormal NOT DETECTED [facility] Comment on above: Performed By: #### G IPANEL #### [facility] [address] [place] [address] Dr. Elenita Talamantes ETEC Detected Abnormal NOT DETECTED [facility] Comment on above: Performed By: #### G IPANEL #### [facility] [address] [place] [address] Dr. Elenita Reyna Lamblia Not detected Normal NOT DETECTED [facility] Comment on above: Performed By: #### G IPANEL #### [facility] [address] [place] [address] Dr. Elenita RODRÍGUEZ CONTROLS PASSED Normal [facility] Comment on above: Performed By: #### G IPANEL #### [facility] [address] [place] [address] Dr. Elenita EDMONDS [facility] HEADER GI PANEL BACTERIA Normal T [facility] Comment on above: Performed By: #### G IPANEL #### [facility] [address] [place] [address] Dr. Elenita BERMEO ECOLI GI PANEL DIARRHEAGENIC E.COLI / SHIGELLA Normal [facility] Comment on above: Performed By: #### G IPANEL #### [facility] [address] [place] [address] Dr. Elenita BERMEO INFO SEE BELOW Normal [facility] Comment on above: Result Comment: EAEC - Enteroaggregative E. Coli EPEC- Enteropathogenic E. Coli ETEC- Enterotoxigenic E. Coli lt/st STEC- Shigella-like toxin-producing E. Coli stx1/stx2 EIEC- Shigella/Enteroinvasive E. Coli Performed By: #### G IPANEL #### [facility] [address] [place] [address] Dr. Elenita BERMEO PARASITES GI PANEL PARASITES Normal [facility] Comment on above: Performed By: #### G IPANEL #### [facility] [address] [address] [address] Elenita BERMEO VIRUS GI PANEL VIRUSES Normal [facility] Comment on above: Performed By: #### G IPANEL #### [facility] [address] [place] [address] Dr. Elenita Talamantes Norovirus GI/GII Not detected Normal NOT DETECTED [facility] Comment on above: Performed By: #### G IPANEL #### [facility] [address] [place] [address] Dr. Elenita Talamantes P. Shigelloides Not detected Normal NOT DETECTED [facility] Comment on above: Performed By: #### G IPANEL #### [facility] [address] [place] [address] Dr. Elenita Talamantes Rotavirus A Not detected Normal NOT DETECTED [facility] Comment on above: Performed By: #### G IPANEL #### [facility] [address] [place] [address] Dr. Elenita Talamantes Salmonella Not detected Normal NOT DETECTED [facility] Comment on above: Performed By: #### G IPANEL #### [facility] [address] [place] [address] Dr. Elenita Talamantes Sapovirus Not detected Normal NOT DETECTED [facility] Comment on above: Performed By: #### G IPANEL #### [facility] [address] [place] [address] Dr. Elenita Talamantes STEC Not detected Normal NOT DETECTED [facility] Comment on above: Performed By: #### G IPANEL #### [facility] [address] [place] [address] Dr. Elenita Talamantes Vibrio Not detected Normal NOT DETECTED [facility] Comment on above: Performed By: #### G IPANEL #### [facility] [address] [address] [address] Elenita Talamantes Vibrio Cholera Not detected Normal NOT DETECTED [facility] Comment on above: Performed By: #### G IPANEL #### [facility] [address] [place], [place] [address] Dr. Elenita Talamantes Y. Enterocolitica Not detected Normal NOT DETECTED [facility] Comment on above: Performed By: #### G IPANEL #### [facility] [address] [address] [address] Elenita Talamantes Ambulatory Clinical Summaryo n 02-28-2021 Ambulatory Clinical Summary {[id number] Normal [facility] Urology Office/Clinic Noteon 02-28-2021 Urology Office/Clinic [...] Lewis Kent, URL [address] [place] [address]- [phone] Additional Instructions: 6mos. f/u Patient Education I, [...] Protein Urine Dipstick: Negative (02/28/21 15:30:00) Specific [place] Urine Dipstick: 1.020 (02/28/21 15:30:00) Urine Appearance Urine Dipstick: Clear (02/28/21 15:30:00) Urine Color Urine Dipstick: Yellow (02/28/21 15:30:00) Urobilinogen Urine Dipstick: Normal 0.2-1 EU/dl (02/28/21 15:30:00) pH Urine Dipstick: 5 (02/28/21 15:30:00) Normal [facility] Comment on above: Result Comment: Elec tronically Signed By: PANCHITO AGUIRRE, Lewis Kent\.savi\Date and Time Signed: 02/28/21 16:30 EDT\.br\Electronically Co-Signed By: Lyn Willis MA\.br\Date and Time Co-Signed: 02/28/21 16:26 EDT Coding Summary.on 10-27-2020 Coding Summary. CODING DATE: 10/27/2020 [facility] STATUS: Home (Routine DC) PAYOR: Commercial [...] Orr CphT Date Saved: 10/27/2020 09:40 am [facility] Coding Summary. CODING DATE: 10/27/2020 [facility] STATUS: Home (Routine DC) PAYOR: Commercial [...] Orr CphT Date Saved: 10/27/2020 09:39 am [facility] Discharge Instructionson Discharge Instructions [id number]# 1.00CD:127 [facility] NM Kidney Imaging w/ Flow w/ [...] (%): 14 Left Uptake (%): 38.9 Normal [facility] Consent for Procedure/Surger yon 10-19-2020 Consent for Procedure/Surgery [id number]# 1.00CD:127 Normal [facility] Consent for Treatmenton Consent for Treatment [id number]#1 .00CD:127 Normal [facility] IntraOperative Documentson 0 10-19-2020 IntraOperative Documents [id number]# 1.00CD:127 Normal [facility] Coding Summary.on 10-18-2020 Coding Summary. CODING DATE: 10/18/2020 FINAL [facility] STATUS: Home (Routine DC) PAYOR: Commercial [...] Charisse Rivers Date Saved: 10/18/2020 01:46 pm [facility] Consent for Treatmenton 09-21 Consent for Treatment [id number]#1 .00CD:127 [facility] Main OR Intraoperative Recor don 10-12-2020 Main OR Intraoperative Record IntraOp Document Type FTURO Summary Primary Physician: Lewis GONZALEZ MD Finalized Date/Time: 10/12/20 10:01:33 Pt. Name: JACKIE GONZALEZ/Sex: 2000 Female Med Rec #: [id number] Physician: Lewis GONZALEZ MD Financial #: [id number] Pt. Type: O Room/Bed: / Admit/Disch: 10/12/20 [...] Chyna Arredondo Role Performed Surgeon - Primary Gas Line Installer - Primary Gas Line Installer - Primary Time In 10/12/20 09:52:00 10/12/20 09:52:00 10/12/20 09:52:00 Time Out 10/12/20 10:01:00 10/12/20 10:01:00 10/12/20 10:01:00 Procedure CYSTOSCOPY LOCAL WITH CYSTOSCOPY LOCAL WITH CYSTOSCOPY LOCAL WITH URETHRAL DILATION(.) URETHRAL DILATION(.) URETHRAL DILATION(.) Comments orientation Last Modified By: Jarrod RN, Chyna Garay RN, Chyna Francisco RN 10/12/20 09:59:54 10/12/20 09:59:54 10/12/20 09:59:54 Entry 4 Entry 5 Case Attendee Miguel LOFTSMAN, Carole Alexander LOFTSMAN, Millie Stover Role Performed Scrub - Primary [...] By: Chyna Garay RN 10/12/20 10:01 Normal [facility] Main OR Preoperative Recordo n 10-12-2020 Main OR Preoperative Record Holding Area Document Type FTURO Summary Primary Physician: Lewis GONZALEZ MD Finalized Date/Time: 10/12/20 09:53:30 Pt. Name: JACKIE GONZALEZ/Sex: 2000 Female Med Rec #: [id number] Physician: Lewis GONZALEZ MD Financial #: [id number] Pt. Type: O Room/Bed: / Admit/Disch: 10/12/20 [...] 09:30 Chyna Garay RN 10/12/20 09:53 Normal [facility] Operative Reporton Operative Report Patient: JACKIE [...] urine. The Urethra was dilated to: 30 Irish w/ sounds. Devices Implanted: None. Removal: Cystoscope is removed, The patient tolerated it well. Postoperative Information Discharge: Patient is discharged home with antibiotic coverage, Follow up arranged. [facility] Comment on above: Result Comment: Elec tronically Signed By: PANCHITO AGUIRRE, Lewis Trent.br\Date and Time Signed: 10/12/20 10:02 EST Pre-Certification Formon Pre-Certification Form [id number]#1. 00CD:127 [facility] Physician Referralon 021 Physician Referral [id number]#1 .00CD:127 [facility] Formson 10-05-2020 Forms [id number]#1. 00CD:127 [facility] Ambulatory Clinical Summaryo n 10-04-2020 Ambulatory Clinical Summary {[id number]}CD:[id number] [facility] Patient Educationon 10-04-19 21 Patient Education [...] Document Reviewed: 09/13/2012 ExitCare? Patient Information ?2013 [facility]. 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 Pt states that [...] kidney stones. PVR 99ml. [place] [facility] [place] [...] When Contact Information PANCHITO AGUIRRE, Lewis Kent [address] [place] [phone] Additional Instructions: scheduling Cysto/UD Patient Education Urinary [...] Oral met (more content not included)... Normal [facility] Comment on above: Result Comment: Elec tronically Signed By: PANCHITO AGUIRRE, Lewis Kent\.br\Date and Time Signed: 10/04/20 15:03 EST\.br\Electronically Co-Signed By: Lyn Willis MA\.br\Date and Time Co-Signed: 10/04/20 14:59 EST Coding Summary.on 09-09-2020 Coding Summary. CODING DATE: 09/09/2020 FINAL [facility] STATUS: Home (Routine DC) PAYOR: Commercial [...] Orr CphT Date Saved: 09/09/2020 06:00 pm [facility] US Retroperitoneal Completeo n 09-09-2020 US [...] O M.D. Transcribed by: ROYAL Technologist: HW [facility] Consent for Treatmenton 08-20 Consent for Treatment [id number] .00CD:127 [facility] Consent for Treatment [id number]# 1.00CD:127 [facility] Physician Orderon 09-03-2020 Physician Order [id number]#1 .00CD:127 [facility] Vital Signs Date Time Vital Sign Value Performing Clinician Facility 10-04-2023 10:19-0500 Body weight 71.22 kg Hoppit Dawson DO Work Phone: [facility] 10-04-2023 10:19-0500 Diastolic blood pressure 78 mm[Hg] Ole Dawson DO Work Phone: [facility] 10-04-2023 10:19-0500 Systolic blood pressure 124 mm[Hg] Ole Dawson DO Work Phone: [facility] 08-05-2023 14:35-0500 Body height 176.53 cm Joseline Shaye Other [facility] Other 08-05-2023 14:35-0500 Body mass index (BMI) [Ratio] 23.29 kg/m2 Joseline Shaye Other [facility] Other 08-05-2023 14:35-0500 Body temperature 98 [degF] Joseline Shaye Other [facility] Other 08-05-2023 14:35-0500 Body weight 72.58 kg Joseline Shaye Other [facility] Other 08-05-2023 14:35-0500 Respiratory rate 18 /min Joseline Shaye Other [facility] Other 08-05-2023 14:35-0500 SaO2% (BldA) [Mass fraction] 98 % Joseline Shaye Other [facility] Other 03-20-2022 18:20-0400 Body height 176.53 cm Radha Denneyault Other [facility] Other 03-20-2022 18:20-0400 Body mass index (BMI) [Ratio] 25.32 kg/m2 Radha Crow Other [facility] Other 03-20-2022 18:20-0400 Body temperature 98.4 [degF] Radha Crow Other [facility] Other 03-20-2022 18:20-0400 Body weight 78.93 kg Radha Crow Other [facility] Other 03-20-2022 18:20-0400 Respiratory rate 18 /min Radha Crow Other [facility] Other 03-20-2022 18:20-0400 SaO2% (BldA) [Mass fraction] 97 % Radha Galdamez Other [facility] Other Encounters Encounter Date Encounter Type Care [...] 08-05-2023 End: 08-05-2023 ambulatory Joseline Shaye Other [facility] Other Start: 08-05-2023 Office outpatient visit 15 minutes Joselinemakayla Smithb [facility] Start: 03-20-2022 End: 03-20-2022 Departed Referred CROOK OPERATOR-C Radha Galdamez Work Phone: [facility] [place] Start: 03-20-2022 End: 03-20-2022 ambulatory Radha Galdamez Other [facility] Other Start: 03-20-2022 Office outpatient ne w 20 minutes Radha Galdamez [facility] Start: 10-22-2021 End: 10-23-[address] IVAN HYDE Facility:[facility] Procedures Date Procedure Procedure Detail Performing Clinician Start: 10-04-2023 Urnls dip stick/tabl et rgnt non-auto w/o micrscp Ole Dawson DO Work Phone: Urine culture CROOK OPERATOR-C Greta Galdamez Work Phone: Plan of Treatment Date Care Activity Detail Author Start: 11-05-2023 End: 11-05-2023 Patient encounter procedure 11/05/2023 3:30 PM EDT Routine [facility] [address] [place] [address] Chyna Owens PA [address] [place] [address] [facility] Payers Date Payer Category Payer Unknown [id number] 2022 Unknown [id number]. [id number] 2022 Unknown [id number] 2000 Unknown [id number] [id number] [id number] 2000 Unknown [id number] 2.16.84 [id number] 2000 Unknown [id number] 2.16.84 [id number] 2000 Unknown [id number] 2.16.84 [id number] 1959 Unknown [id number] Unknown [id number]. [id number] Social History Date Type Detail Facility Sex Assigned At [facility] Work Phone: Start: 2000 Sex Assigned At Female F [facility] Tobacco smoking status NHIS Tobacco smoking [...] Ole Osman DO documented in this encounter [facility] Evaluation note 08-05-2023 Note Date [...] you develop chest pain, shortness of breath. [facility] Other Evaluation note 03-20-2022 Note Date & [...] Follow up with primary care provider or charge operator if no improvement of symptoms. Mar, Abdominal pain, unspecified abdominal location (ICD-10 - R10.9) Mar, Other Recommend Retested for in 1 week. Call family planning clinic at [facility] Other History and physical note 10-19-2020 Note Date & Type Note Facility 10-19-2020 Note [id number]#1.00CD:127 [facility] Clinical Note 10-12-2020 Note Date & [...] you have a fever over 100 degrees [facility] Evaluation note Note Date & Type Note Facility Evaluation note No assessment information availa [facility] Work Phone: Evaluation note Note Date & Type Note Facility Evaluation note Diagnosis First trimester state, incidental documented in this encounter [facility] History general Narrative - Reported Note Date & Type Note Facility History general Narrative - Reported Type Surgical History Back Surgery 2006 Hospitalization History see above [facility] Other Summary Purpose Family History No Family [...] section and content) DATE CREATED AUTHOR 03/01/2021 [facility] DATE CREATED AUTHOR AUTHOR'S ORGANIZ ATION 12/07/2021 [facility] DATE CREATED AUTHOR AUTHOR'S ORGANIZ ATION 03/29/2022 [facility] DATE CREATED AUTHOR AUTHOR'S ORGANIZ ATION 11/06/2023 [facility] EPIC REASON FOR VISIT (unrecogniz ed section and content) Reason Comments Routine Visit Care Teams (unrecognized sec tion and content) Team Status: Inactive Member Role Status Dates ANA Galdamez Attending Provider Active PHYSICIAN NO FAMILY Primary Care Provider Active Team Status: Active Member Role Status Dates PHYSICIAN NO FAMILY Primary Care Provider Active Eyeglass Lens Grinder Relationship Specialty Start Date End Date Ivan Hyde MD [address] [place] [address] PCP - General Family Medicine 09/07/23 Goals [...] BE BASED ON THE PRIMARY CLINICAL RECORDS. [employer] provides no warranty or guarantee of the accuracy or completeness of information in this document.
[2023-12-06 02:07] LABS: AFP Value 81.5 ng/mL (.); Gest. Age on Collection Date 20.3 weeks (.); Gestat. Age Based On Ultrasound (.); Insulin Dep Diabetes No (.); OSBR Risk 1 IN 3501 (.); Results Report (.)
== END 2023-12-03 07:31 | disposition home or self-care (01) ==
LOC: LAB 12-04 07:30
PROVIDERS: PCP Family Medicine; Visit Provider Obstetrics & Gynecology
DX: Z34.92 Encounter for supervision of normal pregnancy, unspecified, second trimester (principal)
CPT/HCPCS: 36415; 82105

== ENCOUNTER 2023-12-18 14:05 | Outpatient (OUT) | payer OTHER, SELFPAY ==
--- NOTE | 2023-12-18 14:08 | US_ITS ---
[address] [address] Patient Name: CHRIS EASON MRN: [id number] date: 2000 Sex: F Assigned Patient Location: [facility] Current Patient Location: [facility] Accession/Order Number: [id number] Exam Date: 12/18/2023 14:08 Report Date: 12/18/2023 15:31 At the request of: OLE YI Procedure: US OB cervical length EXAMINATION: US OB anatomy, US OB cervical length HISTORY: ANATOMY COMPARISON: No relevant comparison available. TECHNIQUE: Transabdominal sonographic examination was performed for obstetrical and evaluation. FINDINGS: Number: 1 Heart Rate: 157.0 bpm H.B. /min Amniotic Fluid Volume: Subjectively normal position: Breech presentation, longitudinal lie Placental Location: Posterior, placental edge 4.2 cm from the internal os Cervix Length: 3.7 cm, closed Normal anatomy: Lateral ventricles, cerebellum, posterior fossa, nose, lips, orbits, four-chamber heart, RVOT, LVOT, diaphragm, stomach, kidneys, abdominal cord insertion, bladder, umbilical arteries, three-vessel cord, spine, extremities BIOMETRY: BPD: 4.7 cm 20 weeks 0 days , <3% HC: 19.3 cm 21 weeks 4 days, 9% AC: 18.8 cm 23 weeks 4 days, 77% FL: 4.2 cm 23 weeks 4 days , 78% EFW:572.1 grams; 1 lb. 4 oz., 81% FL/AC: 22.3 FL/BPD: 90.1 HC/AC: 1.0 GESTATIONAL AGE: Age by EDC: 22 weeks 3 days BRAXTON by EDC: 04/19/2024 Age by current US: 22 weeks 1 days BRAXTON by current US: 04/21/2024 US/US OB cervical length IMPRESSION: BPD less than the 3rd percentile Closed cervix measuring 3.7 cm in length *Reference: [employer] Practice Guideline for the performance of Obstetric Ultrasound Examinations, May 20, 2007. Electronically authenticated by: JAME AC Date: 12/18/2023 15:31
--- NOTE | 2023-12-18 14:08 | US_ITS ---
[address] [address] Patient Name: CHRIS EASON MRN: [id number] date: 2000 Sex: F Assigned Patient Location: [facility] Current Patient Location: [facility] Accession/Order Number: [id number] Exam Date: 12/18/2023 14:08 Report Date: 12/18/2023 15:31 At the request of: OLE YI Procedure: US OB anatomy EXAMINATION: US OB anatomy, US OB cervical length HISTORY: ANATOMY COMPARISON: No relevant comparison available. TECHNIQUE: Transabdominal sonographic examination was performed for obstetrical and evaluation. FINDINGS: Number: 1 Heart Rate: 157.0 bpm H.B. /min Amniotic Fluid Volume: Subjectively normal position: Breech presentation, longitudinal lie Placental Location: Posterior, placental edge 4.2 cm from the internal os Cervix Length: 3.7 cm, closed Normal anatomy: Lateral ventricles, cerebellum, posterior fossa, nose, lips, orbits, four-chamber heart, RVOT, LVOT, diaphragm, stomach, kidneys, abdominal cord insertion, bladder, umbilical arteries, three-vessel cord, spine, extremities BIOMETRY: BPD: 4.7 cm 20 weeks 0 days , <3% HC: 19.3 cm 21 weeks 4 days, 9% AC: 18.8 cm 23 weeks 4 days, 77% FL: 4.2 cm 23 weeks 4 days , 78% EFW:572.1 grams; 1 lb. 4 oz., 81% FL/AC: 22.3 FL/BPD: 90.1 HC/AC: 1.0 GESTATIONAL AGE: Age by EDC: 22 weeks 3 days BRAXTON by EDC: 04/19/2024 Age by current US: 22 weeks 1 days BRAXTON by current US: 04/21/2024 US/US OB anatomy IMPRESSION: BPD less than the 3rd percentile Closed cervix measuring 3.7 cm in length *Reference: [facility] Practice Guideline for the performance of Obstetric Ultrasound Examinations, May 20, 2007. Electronically authenticated by: JAME AC Date: 12/18/2023 15:31
== END 2023-12-18 14:06 | disposition home or self-care (01) ==
LOC: NOMS 14:05
PROVIDERS: PCP Family Medicine; Visit Provider Obstetrics & Gynecology
DX: Z36.89 Encounter for other specified antenatal screening (principal); Z3A.22 22 weeks gestation of pregnancy
CPT/HCPCS: 76805; 76817

== ENCOUNTER 2024-01-17 16:38 | Observation (INO) | payer OTHER, SELFPAY ==
--- OUTSIDE RECORDS SUMMARY | 2024-01-17 16:48 | XMS_ITS | CCD ---
Author Organization [facility] Inform ion Partnership [facility] Care Team Providers Care Keying Machine Operator Name Role Phone DR IVAN HYDE Admitting Unavailable DR IVAN HYDE Attending Unavailable DR IVAN HYDE Primary Care Unavailable DR IVAN HYDE Consulting Unavailable Radha Galdamez Unavailable ANA Galdamez Attending Provider NO FAMILY, PHYSICIAN Primary Care Provider Unava ilable Joseline Cr Unavailable Ivan Hyde MD Primary Care Provider [phone] OLE OSMAN Attending Unavailable CHYNA OWENS Attending Unavailable OLE OSMAN Attending Unavailable CHYNA OWENS Attending [...] UA Negative Negative - 4(70) +++ mg/dL [facility] Blood, UA Negative Negative - 50 Christiano/mcL [facility] Clarity, UA Clear [facility] Color, UA Yellow [facility] Glucose, UA Negative Negative - 1999(110) ++++ mg/dL [facility] Interpretation and review of laboratory results Abnormal [facility] Ketones, UA Negative Negative - 160(16) ++++ mg/dL [facility] Leukocytes, UA Trace Negative - 500+++ Shaquille/mcL [facility] Nitrite, UA Negative Negative - Positive [facility] pH, UA 6.0 5 - 9 [facility] Protein, UA Negative Negative - 1999(20) ++++ mg/dL [facility] Spec Grav, UA 1.025 1 - 1.03 [facility] Urobilinogen, UA 0.2 0.2 - 12 mg/dL [facility] COVID + FLU Quick Testingon 08-05-2023 SARS-CoV-2 (COVID-19) RNA SAL+probe Ql (Unsp spec) Negative [facility] Other COVID + FLU Quick Testing Negative [facility] Other Urine culture routineOrdered By: RADHA GALDAMEZ on 03-22-2022 Bacteria identified Cx Nom (U) Escherichia coli [facility] Test, Urineon Beta HCG ( test) Ql (U) Inconclusive [facility] Other SARS-CoV-2 (COVID-19) RNA NA A+probe Ql (Resp)on 03-20-2022 SARS-CoV-2 (COVID-19) RNA SAL+probe Ql (Unsp spec) Negative [facility] Other Urinalysis - AUTOMATEDon Appearance (U) CLOUDY Sx[facility] Other Bilirubin Ql (U) Negative [place] Other Color (U) rust-yellow [facility] Other Glucose Ql (U) Negative [facility] Other Hemoglobin Ql (U) TRACE-INTACT [facility] Other Ketones Ql (U) Negative [facility] Other Leukocyte esterase Test strip Ql (U) TRACE [facility] Other Nitrite Ql (U) Positive Sx[facility] Other pH (U) 7.0 [pH] [facility] Other Protein Ql (U) Negative S[facility] Other Specific gravity (U) [Rel density] 1.020 [facility] Other Urobilinogen (U) [Mass/Vol] 0.2 mg/dL [facility] Other Urinalysis - AUTOMATED [facility] Other Urine Cultureon 03-20-2022 Bacteria identified Cx Nom (U) ORGANISM: Escherichia coli (O:ESCCOL) Welcome Count >100,000 Aerobic MAUREEN Charge (NUC86) ---- [...] RESISTANT TO ALL B-LACTAM DRUGS. PERFORMED BY: [place] [address] PATHOLOGIST CAP LINING MACHINE OPERATOR DEDE OSMAN M.D. Normal [facility] Comment on above: Performed By: #### C UU #### [address] GI PANEL (PCR)on 10-22-2021 Adenovirus F 40/41 Not detected Normal NOT DETECTED [facility] Comment on above: Performed By: #### G IPANEL #### [facility] [address] [place] [address] Dr. Elenita Talamantes Astrovirus Not detected Normal NOT DETECTED [facility] Comment on above: Performed By: #### G IPANEL #### [facility] [address] [place] [address] Dr. Elenita Talamantes C. Diff toxin A/B Not detected Normal NOT DETECTED The [facility] Comment on above: Performed By: #### G IPANEL #### [facility] [address] [place] [address] Dr. Elenita Talamantes Campylobacter Not detected Normal NOT DETECTED The [facility] Comment on above: Performed By: #### G IPANEL #### [facility] [address] [place] [address] Dr. Elenita Talamantes Cryptosporidium Not detected Normal NOT DETECTED The [facility] Comment on above: Performed By: #### G IPANEL #### [facility] [address] [place] [address] Dr. Elenita Talamantes Cyclos. Cayetanensis Not detected Normal NOT DETECTED The [facility] Comment on above: Performed By: #### G IPANEL #### [facility] [address] [place] [address] Dr. Elenita Talamantes E. Coli O157 Not Applicable Normal Not Applicable The [facility] Comment on above: Performed By: #### G IPANEL #### [facility] [address] [address] [address] Elenita Talamantes E. histolytica Not detected Normal NOT DETECTED [facility] Comment on above: Performed By: #### G IPANEL #### [facility] [address] [place] [address] Dr. Elenita Talamantes EAEC Detected Abnormal NOT DETECTED The [facility] Comment on above: Performed By: #### G IPANEL #### [facility] [address] [place] [address] Dr. Elenita Talamantes EIEC Not detected Normal NOT DETECTED [facility] Comment on above: Performed By: #### G IPANEL #### [facility] [address] [place] [address] Dr. Elenita Talamantes EPEC Detected Abnormal NOT DETECTED The [facility] Comment on above: Performed By: #### G IPANEL #### [facility] [address] [place] [address] Dr. Elenita Talamantes ETEC Detected Abnormal NOT DETECTED The [facility] Comment on above: Performed By: #### G IPANEL #### [facility] [address] [place] [address] Dr. Elenita Reyna Lamblia Not detected Normal NOT DETECTED [facility] Comment on above: Performed By: #### G IPANEL #### [facility] [address] [place] [address] Dr. Elenita RODRÍGUEZ CONTROLS PASSED Normal The [facility] Comment on above: Performed By: #### G IPANEL #### [facility] [address] [place] [address] Dr. Elenita EDMONDS ROCKY HEADER GI PANEL BACTERIA Normal [facility] Comment on above: Performed By: #### G IPANEL #### [facility] [address] [place] [address] Dr. Elenita BERMEO ECOLI GI PANEL DIARRHEAGENIC E.COLI / SHIGELLA Normal [facility] Comment on above: Performed By: #### G IPANEL #### [facility] [address] [place] [address] Dr. Elenita BERMEO INFO SEE BELOW Normal [facility] Comment on above: Result Comment: EAEC - Enteroaggregative E. Coli EPEC- Enteropathogenic E. Coli ETEC- Enterotoxigenic E. Coli lt/st STEC- Shigella-like toxin-producing E. Coli stx1/stx2 EIEC- Shigella/Enteroinvasive E. Coli Performed By: #### G IPANEL #### [facility] [address] [address] [address] Elenita BERMEO PARASITES GI PANEL PARASITES Normal The [facility] Comment on above: Performed By: #### G IPANEL #### [facility] [address] [address] [address] Elenita BERMEO VIRUS GI PANEL VIRUSES Normal The [facility] Comment on above: Performed By: #### G IPANEL #### [facility] [address] [place] [address] Dr. Elenita Talamantes Norovirus GI/GII Not detected Normal NOT DETECTED The [facility] Comment on above: Performed By: #### G IPANEL #### [facility] [address] [address] [address] Elenita Talamantse P. Shigelloides Not detected Normal NOT DETECTED The [facility] Comment on above: Performed By: #### G IPANEL #### [facility] [address] [address] [address] Elenita Talamantes Rotavirus A Not detected Normal NOT DETECTED The [facility] Comment on above: Performed By: #### G IPANEL #### [facility] [address] [address] [address] Elenita Talamantes Salmonella Not detected Normal NOT DETECTED [facility] Comment on above: Performed By: #### G IPANEL #### [facility] [address] [address] [address] Elenita Talamantes Sapovirus Not detected Normal NOT DETECTED [facility] Comment on above: Performed By: #### G IPANEL #### [facility] [address] [place] [address] Dr. Elenita Talamantes STEC Not detected Normal NOT DETECTED [facility] Comment on above: Performed By: #### G IPANEL #### [facility] [address] [address] [address] Elenita Talamantes Vibrio Not detected Normal NOT DETECTED [facility] Comment on above: Performed By: #### G IPANEL #### [facility] [address] [address] [address] Elenita Talamantes Vibrio Cholera Not detected Normal NOT DETECTED The [facility] Comment on above: Performed By: #### G IPANEL #### [facility] [address] [address] [address] Elenita Talamantes Y. Enterocolitica Not detected Normal NOT DETECTED The [facility] Comment on above: Performed By: #### G IPANEL #### [facility] [address] [address] [address] Elenita Talamantes Ambulatory Clinical Summaryo n 02-28-2021 Ambulatory Clinical Summary {[id number] Normal [facility] Urology Office/Clinic Noteon 02-28-2021 Urology Office/Clinic [...] Information PANCHITO AGUIRRE, Lewis Kent, URL [address] [address]- [phone] Additional Instructions: 6mos. f/u Patient Education I, [...] Protein Urine Dipstick: Negative (02/28/21 15:30:00) Specific [place] Urine Dipstick: 1.020 (02/28/21 15:30:00) Urine Appearance Urine Dipstick: Clear (02/28/21 15:30:00) Urine Color Urine Dipstick: Yellow (02/28/21 15:30:00) Urobilinogen Urine Dipstick: Normal 0.2-1 EU/dl (02/28/21 15:30:00) pH Urine Dipstick: 5 (02/28/21 15:30:00) Normal [facility] Comment on above: Result Comment: Elec tronically Signed By: PANCHITO AGUIRRE, Lewis R\.br\Date and Time Signed: 02/28/21 16:30 EDT\.br\Electronically Co-Signed By: Lyn Willis MA\.br\Date and Time Co-Signed: 02/28/21 16:26 EDT Coding Summary.on 10-27-2020 Coding Summary. CODING DATE: 10/27/2020 [facility] STATUS: Home (Routine DC) PAYOR: Commercial [...] Orr CphT Date Saved: 10/27/2020 09:40 am Normal [facility] Coding Summary. CODING DATE: 10/27/2020 [facility] STATUS: Home (Routine DC) PAYOR: Commercial [...] Orr CphT Date Saved: 10/27/2020 09:39 am [facility] Discharge Instructionson Discharge Instructions [id number] 1.00CD:127 [facility] NM Kidney Imaging w/ Flow w/ [...] (%): 14 Left Uptake (%): 38.9 Normal [facility] Consent for Procedure/Surger yon 10-19-2020 Consent for Procedure/Surgery [id number]# 1.00CD:127 Normal [facility] Consent for Treatmenton Consent for Treatment [id number] .00CD:127 Normal [facility] IntraOperative Documentson 0 10-19-2020 IntraOperative Documents [id number] 1.00CD:127 Normal [facility] Coding Summary.on 10-18-2020 Coding Summary. CODING DATE: 10/18/2020 FINAL [facility] STATUS: Home (Routine DC) PAYOR: Commercial Insurance [...] Charisse Rivers Date Saved: 10/18/2020 01:46 pm [facility] Consent for Treatmenton 09-21 Consent for Treatment [id number] .00CD:127 [facility] Main OR Intraoperative Recor don 10-12-2020 Main OR Intraoperative Record IntraOp Document Type FTURO Summary Primary Physician: Lewis GONZALEZ MD Finalized Date/Time: 10/12/20 10:01:33 Pt. Name: JACKIE GONZALEZ/Sex: 2000 Female Med Rec #: [id number] Physician: Lewis GONZALEZ MD Financial #: [id number] Pt. Type: O Room/Bed: / Admit/Disch: 10/12/20 [...] Chyna Arredondo Role Performed Surgeon - Primary Hide And Skin Processing Worker - Primary Hide And Skin Processing Worker - Primary Time In 10/12/20 09:52:00 10/12/20 09:52:00 10/12/20 09:52:00 Time Out 10/12/20 10:01:00 10/12/20 10:01:00 10/12/20 10:01:00 Procedure CYSTOSCOPY LOCAL WITH CYSTOSCOPY LOCAL WITH CYSTOSCOPY LOCAL WITH URETHRAL DILATION(.) URETHRAL DILATION(.) URETHRAL DILATION(.) Comments orientation Last Modified By: Jarrod RAMOS, Chyna Garay RN, Chyna Francisco RN 10/12/20 09:59:54 10/12/20 09:59:54 10/12/20 09:59:54 Entry 4 Entry 5 Case Attendee Miguel PROGRAM ANALYST, Carole Alexander PROGRAM ANALYST, Millie Stover Role Performed Scrub - Primary [...] By: Chyna Garay RN 10/12/20 10:01 Normal [facility] Main OR Preoperative Recordo n 10-12-2020 Main OR Preoperative Record Holding Area Document Type FTURO Summary Primary Physician: Lewis GONZALEZ MD Finalized Date/Time: 10/12/20 09:53:30 Pt. Name: GONZALEZJACKIE/Sex: 2000 Female Med Rec #: [id number] Physician: Lewis GONZALEZ MD Financial #: [id number] Pt. Type: O Room/Bed: / Admit/Disch: 10/12/20 [...] 09:30 Chyna Garay RN 10/12/20 09:53 Normal [facility] Operative Reporton Operative Report Patient: JACKIE [...] urine. The Urethra was dilated to: 30 Trinid[place] w/ sounds. Devices Implanted: None. Removal: Cystoscope is removed, The patient tolerated it well. Postoperative Information Discharge: Patient is discharged home with antibiotic coverage, Follow up arranged. [facility] Comment on above: Result Comment: Elec tronically Signed By: PANCHITO AGUIRRE, Lewis Trent.br\Date and Time Signed: 10/12/20 10:02 EST Pre-Certification Formon Pre-Certification Form [id number]. 00CD:127 [facility] Physician Referralon 021 Physician Referral [id number] .00CD:127 [facility] Formson 10-05-2020 Forms [id number]#1. 00CD:127 [facility] Ambulatory Clinical Summaryo n 10-04-2020 Ambulatory Clinical Summary {[id number] [facility] Patient Educationon 10-04-19 21 Patient Education [...] Document Reviewed: 09/13/2012 ExitCare? Patient Information ?2013 [employer] 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 Pt states that [...] kidney stones. PVR 99ml. Renal US/bladder At [facility] 08/2020. Dysuria: not at this time Incomplete [...] When Contact Information PANCHITO AGUIRRE, Lewis Kent [address] [place] [address] [phone] Additional Instructions: scheduling Cysto/UD Patient Education Urinary [...] buPROPion, Oral met (more content not included)... [facility] Comment on above: Result Comment: Elec tronically Signed By: Lewis GONZALEZ MD\.br\Date and Time Signed: 10/04/20 15:03 EST\.br\Electronically Co-Signed By: Lyn Willis MA\.br\Date and Time Co-Signed: 10/04/20 14:59 EST Coding Summary.on 09-09-2020 Coding Summary. CODING DATE: 09/09/2020 FINAL [facility] STATUS: Home (Routine DC) PAYOR: Commercial Insurance [...] Orr CphT Date Saved: 09/09/2020 06:00 pm [facility] US Retroperitoneal Completeo n 09-09-2020 US [...] O M.D. Transcribed by: ROYAL Technologist: HW [facility] Consent for Treatmenton 08-20 Consent for Treatment [id number] .00CD:127 [facility] Consent for Treatment [id number]# 1.00CD:127 [facility] Physician Orderon 09-03-2020 Physician Order [id number] .00CD:127 [facility] Vital Signs Date Time Vital Sign Value Performing Clinician Facility 10-04-2023 10:19-0500 Body weight 71.22 kg Lumenz DO Work Phone: [facility] 10-04-2023 10:19-0500 Diastolic blood pressure 78 mm[Hg] [employer] DO Work Phone: [facility] 10-04-2023 10:19-0500 Systolic blood pressure 124 mm[Hg] [employer] DO Work Phone: [facility] 08-05-2023 14:35-0500 Body height 176.53 cm Joseline Shaye Other [facility] Other 08-05-2023 14:35-0500 Body mass index (BMI) [Ratio] 23.29 kg/m2 Joseline Shaye Other [facility] Other 08-05-2023 14:35-0500 Body temperature 98 [degF] Joseline Shaye Other [facility] Other 08-05-2023 14:35-0500 Body weight 72.58 kg Joseline Shaye Other [facility] Other 08-05-2023 14:35-0500 Respiratory rate 18 /min Joseline Shaye Other [facility] Other 08-05-2023 14:35-0500 SaO2% (BldA) [Mass fraction] 98 % Joseline Shaye Other [facility] Other 03-20-2022 18:20-0400 Body height 176.53 cm Radha Crow Other [facility] Other 03-20-2022 18:20-0400 Body mass index (BMI) [Ratio] 25.32 kg/m2 Radha Crow Other [facility] Other 03-20-2022 18:20-0400 Body temperature 98.4 [degF] Radha Crow Other [facility] Other 03-20-2022 18:20-0400 Body weight 78.93 kg Radha Crow Other [facility] Other 03-20-2022 18:20-0400 Respiratory rate 18 /min Radha Denneyault Other [facility] Other 03-20-2022 18:20-0400 SaO2% (BldA) [Mass fraction] 97 % Radha Galdamez Other [facility] Other Encounters Encounter Date Encounter Type Care Provider Facility Start: 01-02-2024 End: 01-02-2024 ambulatory CHYNA OWENS Not Available Start: 12-05-2023 End: 12-05-2023 ambulatory OLE DAWSON Not Available Start: 11-05-2023 End: 11-05-2023 ambulatory CHYNA OWENS Not Available Start: 10-04-2023 End: 10-04-2023 ambulatory OLE DAWSON Not Available Start: 10-04-2023 End: 10-04-2023 flow sheet Ole Dawson DO Work Phone: [facility] Comment on above: First trimester preg arnaldo Start: 09-07-2023 End: 09-07-2023 ambulatory OLE DAWSON Not Available Start: 08-05-2023 End: 08-05-2023 ambulatory Joseline Shaye Other [facility] Other Start: 08-05-2023 Office outpatient visit 15 minutes Joselinemakayla Smithb [facility] Start: 03-20-2022 End: 03-20-2022 Departed Referred PORTRAIT PHOTOGRAPHER-C Radha Galdamez Work Phone: [facility] [place] Start: 03-20-2022 End: 03-20-2022 ambulatory Radha Galdamez Other [facility] Other Start: 03-20-2022 Office outpatient ne w 20 minutes Radha Galdamez [facility] Start: 10-22-2021 End: 10-23-[address] IVAN HYDE Facility:[facility]1 Procedures Date Procedure Procedure Detail Performing Clinician Start: 10-04-2023 Urnls dip stick/tabl et rgnt non-auto w/o micrscp Ole Osman DO Work Phone: Urine culture ANA Hale Work Phone: Plan of Treatment Date Care Activity Detail Author Start: 11-05-2023 End: 11-05-2023 Patient encounter procedure 11/05/2023 3:30 PM EDT Routine [facility] [address] [place] [address] Chyna Owens PA [address] [address] [facility] Payers Date Payer Category Payer Unknown [id number] 2022 Unknown [id number]. [id number] 2022 Unknown [id number] 2000 Unknown [id number] 2.16.84 [id number] 2000 Unknown [id number] 2.16.84 [id number] 2000 Unknown [id number] 2.16.84 [id number] 2000 Unknown [id number] 2.16.84 [id number] 2000 Unknown [id number] 2.16.84 [id number] 2000 Unknown [id number] 2.16.84 [id number] 1961 Unknown [id number] Unknown [id number]. [id number] Social History Date Type Detail Facility Sex Assigned At [facility] Work Phone: Start: 2000 Sex Assigned At Female F [facility] Tobacco smoking status NHIS Tobacco smoking [...] you develop chest pain, shortness of breath. [facility] Other Evaluation note 03-20-2022 Note Date & [...] Follow up with primary care provider or independent crop consultant if no improvement of symptoms. Mar, Abdominal pain, unspecified abdominal location (ICD-10 - R10.9) Mar, Other Recommend Retested for in 1 week. Call family planning clinic at [facility] Other History and physical note 10-19-2020 Note Date & Type Note Facility 10-19-2020 Note [id number]#1.00CD:127 [facility] Clinical Note 10-12-2020 Note Date & [...] you have a fever over 100 degrees [facility] Evaluation note Note Date & Type Note Facility Evaluation note No assessment information availa [facility] Work Phone: Evaluation note Note Date & Type Note Facility Evaluation note Diagnosis First trimester state, incidental documented in this encounter [facility] History general Narrative - Reported Note Date & Type Note Facility History general Narrative - Reported Type Surgical History Back Surgery 2006 Hospitalization History see above [facility] Other Summary Purpose Family History No Family [...] section and content) DATE CREATED AUTHOR 03/01/2021 [facility] DATE CREATED AUTHOR AUTHOR'S ORGANIZ ATION 12/07/2021 [facility] DATE CREATED AUTHOR AUTHOR'S ORGANIZ ATION 03/29/[address] [facility] DATE CREATED AUTHOR AUTHOR'S ORGANIZ ATION 01/05/2024 [facility] Specialists EPIC REASON FOR VISIT (unrecogniz ed section and content) Reason Comments Routine Visit Care Teams (unrecognized sec tion and content) Team Status: Inactive Member Role Status Dates ANA Galdamez Attending Provider Active PHYSICIAN NO FAMILY Primary Care Provider Active Team Status: Active Member Role Status Dates PHYSICIAN NO FAMILY Primary Care Provider Active Keying Machine Operator Relationship Specialty Start Date End Date Ivan Hyde MD [address] [place] [id number] PCP - General Family Medicine 09/07/23 Goals [...] BE BASED ON THE PRIMARY CLINICAL RECORDS. [employer] provides no warranty or guarantee of the accuracy or completeness of information in this document.
[2024-01-17 17:04] VITALS: BP 133/74; PULSE 82; TEMP 37.1
[2024-01-17 17:41] LABS: Bilirubin Urine NEGATIVE (NEGATIVE); Blood Urine NEGATIVE (NEGATIVE); Clarity Urine CLEAR (CLEAR); Color Urine LT. YELLOW (YELLOW); Glucose Urine UA NEGATIVE (NEGATIVE); Ketones Urine NEGATIVE (NEGATIVE); Leukocyte Esterase Urine LARGE (NEGATIVE); Nitrite Urine NEGATIVE (NEGATIVE); Protein Urine NEGATIVE (NEG/TRACE); Specific Gravity Urine 1.015 (1.005-1.025); Urobilinogen Urine 0.2 EU/dL (0.2-1.0); pH Urine 6.5 (5.0-9.0)
[2024-01-17 17:45] LABS: Urine Microscopic Indicated YES
[2024-01-17 17:53] LABS: Bacteria Urine TRACE #/HPF (NONE SEEN); Cast Seen? NONE SEEN #/LPF (NONE SEEN); Crystals Seen? None Seen #/HPF (None Seen); Mucus Urine SMALL (NONE SEEN); RBC Urine NONE SEEN #/HPF (0-2); Squamous Epithelial Cell Urine RARE #/LPF (NONE/RARE)
== END 2024-01-17 18:16 | disposition home or self-care (01) ==
LOC: FBC 16:40
PROVIDERS: Admitting Provider Obstetrics & Gynecology; PCP Family Medicine; Visit Provider Obstetrics & Gynecology
DX: O26.892 Other specified pregnancy related conditions, second trimester (principal); M54.9 Dorsalgia, unspecified; R14.0 Abdominal distension (gaseous); Z3A.26 26 weeks gestation of pregnancy; Z87.440 Personal history of urinary (tract) infections
CPT/HCPCS: 81001; G0378; G0379

== ENCOUNTER 2024-01-25 09:48 | Outpatient (OUT) | payer OTHER, SELFPAY ==
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
[2024-01-25 11:06] LABS: Basophils Percent Auto 0.4 % (0.2-2.0); Eosinophils Percent Auto 0.2 % (0.9-7.0); Hematocrit 33.7 % (36.0-48.0); Hemoglobin 11.4 g/dL (12.0-16.0); Immature Granulocytes Abs Auto 0.04 10^3/uL (0.00-0.03); Immature Granulocytes Pct Auto 0.4 % (0.0-0.5); Lymphocytes Absolute Auto 2.1 10^3/uL (1.2-3.8); Lymphocytes Percent Auto 18.9 % (20.5-60.0); Mean Corpuscular HGB Conc 33.8 g/dL (29.9-35.2); Mean Corpuscular Hemoglobin 32.2 pg (26.7-34.0); Mean Corpuscular Volume 95.2 fL (81.0-99.0); Mean Platelet Volume 10.7 fL (9.5-13.5); Monocytes Absolute Auto 0.6 10^3/uL (0.3-0.8); Monocytes Percent Auto 5.4 % (1.7-12.0); Neutrophils Absolute Auto 8.1 10^3/uL (1.4-6.5); Neutrophils Percent Auto 74.7 % (43.0-75.0); Platelet Count 284 10^3/uL (150-450); Red Blood Count 3.54 10^6/uL (4.20-5.40); White Blood Count 10.8 10^3/uL (4.0-11.0)
[2024-01-25 12:28] LABS: Glucose 1 Hour 131 mg/dL (<130)
== END 2024-01-25 09:49 | disposition home or self-care (01) ==
LOC: LAB 09:50
PROVIDERS: PCP Family Medicine; Visit Provider Physician Assistant
DX: Z13.1 Encounter for screening for diabetes mellitus (principal)
CPT/HCPCS: 36415; 82950; 85025

== ENCOUNTER 2024-02-27 14:03 | Outpatient (OUT) | payer OTHER, SELFPAY ==
--- NOTE | 2024-02-27 14:05 | US_ITS ---
[address] [address] Patient Name: CHRIS EASON MRN: [id number] date: 2000 Sex: F Assigned Patient Location: [facility] Current Patient Location: Accession/Order Number: [id number] Exam Date: 02/27/2024 14:06 Report Date: 02/28/2024 07:17 At the request of: OLE YI Procedure: US OB growth EXAMINATION: US OB growth HISTORY: LARGE FOR GESTATIONAL AGE COMPARISON: No relevant comparison available. FINDINGS: Heart Rate: 143 bpm Amniotic Fluid Volume: 11.5 cm Largest fluid pocket: 3.7 cm Number: 1 Position: Breech presentation, longitudinal lie BIOMETRY: BPD: 7.54 cm cm; 212 Day; 3 %% HC: 30.55 cm cm; 238 Day; 50.90 %% AC: 30.16 cm cm; 239 Day; 88.50 %% FL: 6.70 cm cm; 241 Day; 84.80 %% EFW: 1941.26 g; 78.80 %, 5 lbs. 1 oz. FL/AC: 22.21 FL/BPD: 88.86 HC/AC: 1.01 GESTATIONAL AGE: Age by EDC: 32 weeks 4 days BRAXTON by EDC: 2024-04-19 Age by US: 33 weeks 2 days BRAXTON by US: 2024-04-14 US/US OB growth IMPRESSION: Normal interval growth Electronically authenticated by: JAME AC Date: 02/28/2024 07:17
== END 2024-02-27 14:04 | disposition home or self-care (01) ==
LOC: NOMS 14:04
PROVIDERS: PCP Family Medicine; Visit Provider Obstetrics & Gynecology
DX: O36.63X0 Maternal care for excessive fetal growth, third trimester, not applicable or unspecified (principal); Z3A.32 32 weeks gestation of pregnancy
CPT/HCPCS: 76816

== ENCOUNTER 2024-03-26 15:21 | Inpatient (IN) | payer OTHER, SELFPAY ==
[2024-03-26] VITALS (14 sets, daily range): BP systolic 101–140; BP diastolic 57–81; PULSE 109–133; TEMP 37.8
--- OUTSIDE RECORDS SUMMARY | 2024-03-26 15:33 | XMS_ITS | CCD ---
Author Organization [facility] Care Team Providers Care Vice President Marketing & Development Name Role Phone DR IVAN HYDE Admitting Unavailable YVES, DR LOVE Attending Unavailable YVES, DR LOVE Primary Care Unavailable YVES, DR LOVE Consulting Unavailable Radha Galdamez Unavailable ANA Galdamez Attending Provider [phone] NO FAMILY, PHYSICIAN Primary Care Provider Unava iljhonathan Joseline Cr Unavailable Ivan Hyde MD Primary Care Provider [phone] OLE OSMAN Attending Unavailable CHYNA OWENS Attending Unavailable OLE OSMAN Attending Unavailable CHYNA OWENS Attending Unavailable OLE OSMAN Attending Unavailable OLE OSMNA Attending Unavailable OLE OSMAN Attending Unavailable Medications Current Medications [...] UA Negative Negative - 4(70) +++ mg/dL [facility] Blood, UA Negative Negative - 50 Christiano/mcL [facility] Clarity, UA Clear [facility] Color, UA Yellow [facility] Glucose, UA Negative Negative - 1999(110) ++++ mg/dL [facility] Interpretation and review of laboratory results Abnormal [facility] Ketones, UA Negative Negative - 160(16) ++++ mg/dL [facility] Leukocytes, UA Trace Negative - 500+++ Shaquille/mcL [facility] Nitrite, UA Negative Negative - Positive [facility] pH, UA 6.0 5 - 9 [facility] e Protein, UA Negative Negative - 1999(20) ++++ mg/dL [facility] Spec Grav, UA 1.025 1 - 1.[address] [facility] Urobilinogen, UA 0.2 0.2 - 12 mg/dL [facility] COVID + FLU Quick Testingon 08-05-2023 SARS-CoV-2 (COVID-19) RNA SAL+probe Ql (Unsp spec) Negative [employer] Other COVID + FLU Quick Testing Negative [employer] Other Urine culture routineOrdered By: RADHA GALDAMEZ on 03-22-2022 Bacteria identified Cx Nom (U) Escherichia coli [facility] Test, Urineon Beta HCG ( test) Ql (U) Inconclusive [employer] Other SARS-CoV-2 (COVID-19) RNA NA A+probe Ql (Resp)on 03-20-2022 SARS-CoV-2 (COVID-19) RNA SAL+probe Ql (Unsp spec) Negative [facility] Other Urinalysis - AUTOMATEDon Appearance (U) CLOUDY [employer] Other Bilirubin Ql (U) Negative [employer] Other Color (U) rust-yellow [employer] Other Glucose Ql (U) Negative [employer] Other Hemoglobin Ql (U) TRACE-INTACT [employer] Other Ketones Ql (U) Negative [employer] Other Leukocyte esterase Test strip Ql (U) TRACE [employer] Other Nitrite Ql (U) Positive [employer] Other pH (U) 7.0 [pH] [employer] Other Protein Ql (U) Negative [employer] Other Specific gravity (U) [Rel density] 1.020 [employer] Other Urobilinogen (U) [Mass/Vol] 0.2 mg/dL [employer] Other Urinalysis - AUTOMATED [employer] Other Urine Cultureon 03-20-2022 Bacteria identified Cx Nom (U) ORGANISM: Escherichia coli (O:ESCCOL) [place] Count >100,000 Aerobic MAUREEN Charge (NUC86) ---- [...] RESISTANT TO ALL B-LACTAM DRUGS. PERFORMED BY: [place] [address] PATHOLOGIST MANNEQUIN COLORING ARTIST DEDE OSMAN M.D. Normal [facility] Comment on above: Performed By: #### C UU #### [address] GI PANEL (PCR)on 10-22-2021 Adenovirus F 40/41 Not detected Normal NOT DETECTED [facility] Comment on above: Performed By: #### G IPANEL #### [facility] [address] [place] [address] Dr. Elenita Talamantes Astrovirus Not detected Normal NOT DETECTED [facility] Comment on above: Performed By: #### G IPANEL #### [facility] [address] [place] [address] Dr. Elenita Talamantes C. Diff toxin A/B Not detected Normal NOT DETECTED [facility] Comment on above: Performed By: #### G IPANEL #### [facility] [address] [place] [address] Dr. Elenita Talamantes Campylobacter Not detected Normal NOT DETECTED The [facility] Comment on above: Performed By: #### G IPANEL #### [facility] [address] [place] [address] Dr. Elenita Talamantes Cryptosporidium Not detected Normal NOT DETECTED The [facility] Comment on above: Performed By: #### G IPANEL #### [facility] [address] [address] [address] Elenita Talamantes Cyclos. Cayetanensis Not detected Normal NOT DETECTED [facility] Comment on above: Performed By: #### G IPANEL #### [facility] [address] [place] [address] Dr. Elenita Talamantes E. Coli O157 Not Applicable Normal Not Applicable [facility] Comment on above: Performed By: #### G IPANEL #### [facility] [address] [place] [address] Dr. Elenita Talamantes ECatrachito histolytica Not detected Normal NOT DETECTED The [facility] Comment on above: Performed By: #### G IPANEL #### [facility] [address] [place] [address] Dr. Elenita Talamantes EAEC Detected Abnormal NOT DETECTED [facility] Comment on above: Performed By: #### G IPANEL #### [facility] [address] [address] [address] Elenita Talamantes EIEC Not detected Normal NOT DETECTED [facility] Comment on above: Performed By: #### G IPANEL #### [facility] [address] [place] [address] Dr. Elenita Talamantes EPEC Detected Abnormal NOT DETECTED The [facility] Comment on above: Performed By: #### G IPANEL #### [facility] [address] [place] [address] Dr. Elenita Talamantes ETEC Detected Abnormal NOT DETECTED The [facility] Comment on above: Performed By: #### G IPANEL #### [facility] [address] [place] [address] Dr. Elenita Reyna Lamblia Not detected Normal NOT DETECTED [facility] Comment on above: Performed By: #### G IPANEL #### [facility] [address] [place] [address] Dr. Elenita RODRÍGUEZ CONTROLS PASSED Normal [facility] Comment on above: Performed By: #### G IPANEL #### [facility] [address] [place] [address] Dr. Elenita EDMONDS [facility] GI PANEL BACTERIA Normal [facility] Comment on above: Performed By: #### G IPANEL #### [facility] [address] [place] [address] Dr. Elenita BERMEO ECOLI GI PANEL DIARRHEAGENIC E.COLI / SHIGELLA Normal [facility] Comment on above: Performed By: #### G IPANEL #### [facility] [address] [place] [address] Dr. Elenita BERMEO INFO SEE BELOW Normal [facility] Comment on above: Result Comment: EAEC - Enteroaggregative E. Coli EPEC- Enteropathogenic E. Coli ETEC- Enterotoxigenic E. Coli lt/st STEC- Shigella-like toxin-producing E. Coli stx1/stx2 EIEC- Shigella/Enteroinvasive E. Coli Performed By: #### G IPANEL #### [facility] [address] [address] [address] Elenita BERMEO PARASITES GI PANEL PARASITES Normal [facility] Comment on above: Performed By: #### G IPANEL #### [facility] [address] [address] [address] Elenita BERMEO VIRUS GI PANEL VIRUSES Normal [facility] Comment on above: Performed By: #### G IPANEL #### [facility] [address] [place] [address] Dr. Elenita Talamantes Norovirus GI/GII Not detected Normal NOT DETECTED [facility] Comment on above: Performed By: #### G IPANEL #### [facility] [address] [place] [address] Dr. Elenita Talamantes P. Shigelloides Not detected Normal NOT DETECTED [facility] Comment on above: Performed By: #### G IPANEL #### [facility] [address] [place] [address] Dr. Elenita Talamantes Rotavirus A Not detected Normal NOT DETECTED The [facility] Comment on above: Performed By: #### G IPANEL #### [facility] [address] [address] [address] Elenita Talamantes Salmonella Not detected Normal NOT DETECTED [facility] Comment on above: Performed By: #### G IPANEL #### [facility] [address] [place] [address] Dr. Elenita Talaamntes Sapovirus Not detected Normal NOT DETECTED [facility] Comment on above: Performed By: #### G IPANEL #### [facility] [address] [place] [address] Dr. Elenita Talamantes STEC Not detected Normal NOT DETECTED [facility] Comment on above: Performed By: #### G IPANEL #### [facility] [address] [address] [address] Elenita Talamantes Vibrio Not detected Normal NOT DETECTED [facility] Comment on above: Performed By: #### G IPANEL #### [facility] [address] [address] [address] Elenita Talamantes Vibrio Cholera Not detected Normal NOT DETECTED The [facility] Comment on above: Performed By: #### G IPANEL #### [facility] [address] [address] [address] Elenita Talamantes Y. Enterocolitica Not detected Normal NOT DETECTED [facility] Comment on above: Performed By: #### G IPANEL #### [facility] [address] [address] [address] Elenita Talamantes Ambulatory Clinical Summaryo n 02-28-2021 Ambulatory Clinical Summary {[id number]}CD:[id number] Normal [facility] Urology Office/Clinic Noteon 02-28-2021 Urology Office/Clinic [...] Information PANCHITO AGUIRRE, Lewis Kent, URL [address] [place] [address] [phone] Additional Instructions: 6mos. f/u Patient Education I, [...] Protein Urine Dipstick: Negative (02/28/21 15:30:00) Specific [place] Urine Dipstick: 1.020 (02/28/21 15:30:00) Urine Appearance Urine Dipstick: Clear (02/28/21 15:30:00) Urine Color Urine Dipstick: Yellow (02/28/21 15:30:00) Urobilinogen Urine Dipstick: Normal 0.2-1 EU/dl (02/28/21 15:30:00) pH Urine Dipstick: 5 (02/28/21 15:30:00) Normal [facility] Comment on above: Result Comment: Elec tronically Signed By: Lewis GONZALEZ MD\.br\Date and Time Signed: 02/28/21 16:30 EDT\.br\Electronically Co-Signed By: Lyn Willis MA\.br\Date and Time Co-Signed: 02/28/21 16:26 EDT Coding Summary.on 10-27-2020 Coding Summary. CODING DATE: 10/27/2020 [facility] STATUS: Home [...] Orr CphT Date Saved: 10/27/2020 09:40 am [facility] Coding Summary. CODING DATE: 10/27/2020 [facility] STATUS: Home [...] Orr CphT Date Saved: 10/27/2020 09:39 am [facility] Discharge Instructionson Discharge Instructions [id number]# 1.00CD:127 [facility] NM Kidney Imaging w/ Flow w/ [...] (%): 14 Left Uptake (%): 38.9 Normal [facility] Consent for Procedure/Surger yon 10-19-2020 Consent for Procedure/Surgery [id number]# 1.00CD:127 Normal [facility] Consent for Treatmenton Consent for Treatment [id number]#1 .00CD:127 Normal [facility] IntraOperative Documentson 0 10-19-2020 IntraOperative Documents [id number]# 1.00CD:127 Normal [facility] Coding Summary.on 10-18-2020 Coding Summary. CODING DATE: 10/18/2020 FINAL [facility] STATUS: Home (Routine DC) PAYOR: Commercial Insurance [...] Charisse Rivers Date Saved: 10/18/2020 01:46 pm [facility] Consent for Treatmenton 09-21 Consent for Treatment [id number]#1 .00CD:127 [facility] Main OR Intraoperative Recor don 10-12-2020 Main OR Intraoperative Record IntraOp Document Type FTURO Summary Primary Physician: Lewis GONZALEZ MD Finalized Date/Time: 10/12/20 10:01:33 Pt. Name: JACKIE GONZALEZ/Sex: 2000 Female Med Rec #: [id number] Physician: Lewis GONZALEZ MD Financial #: [id number] Pt. Type: O Room/Bed: / Admit/Disch: 10/12/20 [...] Chyna Arredondo Role Performed Surgeon - Primary Veterinary Epidemiologist - Primary Veterinary Epidemiologist - Primary Time In 10/12/20 09:52:00 10/12/20 09:52:00 10/12/20 09:52:00 Time Out 10/12/20 10:01:00 10/12/20 10:01:00 10/12/20 10:01:00 Procedure CYSTOSCOPY LOCAL WITH CYSTOSCOPY LOCAL WITH CYSTOSCOPY LOCAL WITH URETHRAL DILATION(.) URETHRAL DILATION(.) URETHRAL DILATION(.) Comments orientation Last Modified By: Jarrod RN, Chyna Garay RN, Chyna Garay RN, Chyna Arredondo 10/12/20 09:59:54 10/12/20 09:59:54 10/12/20 09:59:54 Entry 4 Entry 5 Case Attendee Miguel BILLET INSPECTOR, Carole Alexander BILLET INSPECTOR, Millie Stover Role Performed Scrub - Primary Scrub - Primary Time In 10/12/20 09:52:00 10/12/20 09:52:00 Time Out 10/12/20 10:01:00 10/12/20 10:01:00 Procedure CYSTOSCOPY LOCAL WITH CYSTOSCOPY LOCAL WITH URETHRAL DILATION(.) URETHRAL DILATION(.) Comments orientation Last Modified By: Jarrod RAMOS, Chyna Garay RN, Chyna Arredondo 10/12/20 09:59:54 [...] By: Chyna Garay RN 10/12/20 10:01 Normal [facility] Main OR Preoperative Recordo n 10-12-2020 Main OR Preoperative Record Holding Area Document Type FTURO Summary Primary Physician: Lewis GONZALEZ MD Finalized Date/Time: 10/12/20 09:53:30 Pt. Name: JACKIE GONZALEZ/Sex: 2000 Female Med Rec #: [id number] Physician: Lewis GONZALEZ MD Financial #: [id number] Pt. Type: O Room/Bed: / Admit/Disch: 10/12/20 [...] 09:30 Chyna Garay RN 10/12/20 09:53 Normal [facility] Operative Reporton Operative Report Patient: JACKIE [...] urine. The Urethra was dilated to: 30 Mongolian w/ sounds. Devices Implanted: None. Removal: Cystoscope is removed, The patient tolerated it well. Postoperative Information Discharge: Patient is discharged home with antibiotic coverage, Follow up arranged. [facility] Comment on above: Result Comment: Elec tronically Signed By: PANCHITO AGUIRRE, Lewis Trent.savi\Date and Time Signed: 10/12/20 10:02 EST Pre-Certification Formon Pre-Certification Form [id number]#1. 00CD:127 [facility] Physician Referralon 021 Physician Referral [id number]#1 .00CD:127 [facility] Formson 10-05-2020 Forms [id number]#1. 00CD:127 [facility] Ambulatory Clinical Summaryo n 10-04-2020 Ambulatory Clinical Summary {[id number] [facility] Patient Educationon 10-04-19 21 Patient Education [...] Document Reviewed: 09/13/2012 ExitCare? Patient Information ?2013 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 Pt states that [...] kidney stones. PVR 99ml. [place] [facility] Dysuria: not at this [...] When Contact Information PANCHITO AGUIRRE, Lewis [place] [address] [place] [address]- [phone] Additional Instructions: scheduling Cysto/UD Patient Education Urinary [...] buPROPion, Oral met (more content not included)... [facility] Comment on above: Result Comment: Elec tronically Signed By: Lewis GONZALEZ MD\.br\Date and Time Signed: 10/04/20 15:03 EST\.br\Electronically Co-Signed By: Lyn Willis MA\.br\Date and Time Co-Signed: 10/04/20 14:59 EST Coding Summary.on 09-09-2020 Coding Summary. CODING DATE: 09/09/2020 FINAL [facility] STATUS: Home (Routine DC) PAYOR: Commercial Insurance [...] Orr CphT Date Saved: 09/09/2020 06:00 pm [facility] US Retroperitoneal Completeo n 09-09-2020 US [...] O M.D. Transcribed by: ROYAL Technologist: HW [facility] Consent for Treatmenton 08-20 Consent for Treatment [id number] .00CD:127 [facility] Consent for Treatment [id number]# 1.00CD:127 [facility] Physician Orderon 09-03-2020 Physician Order [id number]#1 .00CD:127 [facility] Vital Signs Date Time Vital Sign Value Performing Clinician Facility 10-04-2023 10:19-0500 Body weight 71.22 kg [employer] DO Work Phone: [facility] 10-04-2023 10:19-0500 Diastolic blood pressure 78 mm[Hg] [employer] Work Phone: [facility] 10-04-2023 10:19-0500 Systolic blood pressure 124 mm[Hg] [employer] Work Phone: [facility] 08-05-2023 14:35-0500 Body height 176.53 cm Joseline Shaye Other [facility] Other 08-05-2023 14:35-0500 Body mass index (BMI) [Ratio] 23.29 kg/m2 Joseline Shaye Other [facility] Other 08-05-2023 14:35-0500 Body temperature 98 [degF] Joseline Shaye Other [facility] Other 08-05-2023 14:35-0500 Body weight 72.58 kg Joseline Shaye Other [facility] Other 08-05-2023 14:35-0500 Respiratory rate 18 /min Joseline Shaye Other [facility] Other 08-05-2023 14:35-0500 SaO2% (BldA) [Mass fraction] 98 % Joseline Shaye Other [facility] Other 03-20-2022 18:20-0400 Body height 176.53 cm Radha Denneyault Other [facility] Other 03-20-2022 18:20-0400 Body mass index (BMI) [Ratio] 25.32 kg/m2 Radha Crow Other [facility] Other 03-20-2022 18:20-0400 Body temperature 98.4 [degF] Radha Crow Other [facility] Other 03-20-2022 18:20-0400 Body weight 78.93 kg Radha Crow Other [facility] Other 03-20-2022 18:20-0400 Respiratory rate 18 /min Radha Crow Other [facility] Other 03-20-2022 18:20-0400 SaO2% (BldA) [Mass fraction] 97 % Radha Crow Other [facility] Other Encounters Encounter Date Encounter Type Care Provider Facility Start: 02-27-2024 End: 02-27-2024 ambulatory OLE DAWSON Not Available Start: 02-12-2024 End: 02-12-2024 ambulatory OLE DAWSON Not Available Start: 01-29-2024 End: 01-29-2024 ambulatory OLE DAWSON Not Available Start: 01-02-2024 End: 01-02-2024 ambulatory CHYNA GRACIELA Not Available Start: 12-05-2023 End: 12-05-2023 ambulatory OLE DAWSON Not Available Start: 11-05-2023 End: 11-05-2023 ambulatory CHYNA GRACIELA Not Available Start: 10-04-2023 End: 10-04-2023 flow sheet Ole Dawson DO Work Phone: [facility] Comment on above: First trimester preg arnaldo Start: 10-04-2023 End: 10-04-2023 ambulatory OLE DAWSON Not Available Start: 09-07-2023 End: 09-07-2023 ambulatory OLE DAWSON Not Available Start: 08-05-2023 End: 08-05-2023 ambulatory Joselinemakayla Cr Other [facility] Other Start: 08-05-2023 Office outpatient visit 15 minutes Joseline Cr [facility] Start: 03-20-2022 End: 03-20-[address] [employer] Radha Galdamez Work Phone: [facility] [place] Start: 03-20-2022 End: 03-20-2022 ambulatory Radha Galdamez Other [facility] Other Start: 03-20-2022 Office outpatient ne w 20 minutes Radha Galdamez [facility] Start: 10-22-2021 End: 10-23-[address] IVAN HYDE Facility:[facility]1 Procedures Date Procedure Procedure Detail Performing Clinician Start: 10-04-2023 Urnls dip stick/tabl et rgnt non-auto w/o micrscp Ole Dawson DO Work Phone: Urine culture [address] [employer] Greta Galdamez Work Phone: Plan of Treatment Date Care Activity Detail Author Start: 11-05-2023 End: 11-05-2023 Patient encounter procedure 11/05/2023 3:30 PM EDT Routine [facility] [address] [address] Chyna Owens PA [address] [place], [place] [id number] [facility] Payers Date Payer Category Payer Unknown [id number] 2022 Unknown [id number] 2022 Unknown [id number]. [id number] 2000 Unknown [id number] 2.16.84 [id number] 2000 Unknown [id number] 2.16.84 [id number] 2000 Unknown [id number] 2.16.84 0.1.835784.3.579.2.1259 2000 Unknown [id number] 2.16.84 0.1.146634.3.579.2.1259 1998 Unknown [id number] 2.16.84 0.1.844487.3.579.2.1259 2000 Unknown [id number] 2.16.84 0.1.808963.3.579.2.9 2000 Unknown [id number] 2.16.84 0.1.900705.3.579.2.9 2000 Unknown [id number] 2.16.84 0.1.772038.3.579.2.9 2000 Unknown [id number] 2.16.84 [id number] 1959 Unknown [id number] Unknown [id number] 2.16. [id number] Social History Date Type Detail Facility Sex Assigned At [facility] Work Phone: Start: 2000 Sex Assigned At Female [facility] Tobacco smoking status NHIS Tobacco smoking consumption unknown [facility] Start: 07-28-2023 [facility] Start: 2000 Sex Assigned At Not on file [facility] History of Present illness Narrative 10-04-2023 [...] you develop chest pain, shortness of breath. 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 Mar, Abdominal pain, unspecified abdominal location (ICD-10 - R10.9) Mar, Other Recommend Retested for in 1 week. Call family planning clinic at [facility] Other History and physical note 10-19-2020 Note Date & Type Note Facility 10-19-2020 Note [id number]#1.00CD:127 [facility] Clinical Note 10-12-2020 Note Date & [...] you have a fever over 100 degrees [facility] Evaluation note Note Date & Type Note Facility Evaluation note No assessment information availa emerson [facility] Work Phone: Evaluation note Note Date & Type Note Facility Evaluation note Diagnosis First trimester state, incidental documented in this encounter [facility] History general Narrative - Reported Note Date & Type Note Facility History general Narrative - Reported Type Surgical History Back Surgery 2006 Hospitalization History see above [facility] Other Summary Purpose Family History No Family [...] section and content) DATE CREATED AUTHOR 03/01/2021 [facility] DATE CREATED AUTHOR AUTHOR'S ORGANIZ ATION 12/07/2021 [facility] DATE CREATED AUTHOR AUTHOR'S ORGANIZ ATION 03/29/2022 [facility] DATE CREATED AUTHOR AUTHOR'S ORGANIZ ATION 03/05/2024 [facility] EPIC REASON FOR VISIT (unrecogniz ed section and content) Reason Comments Routine Visit Care Teams (unrecognized sec tion and content) Team Status: Inactive Member Role Status Dates ANA Galdamez Attending Provider Active PHYSICIAN NO FAMILY Primary Care Provider Active Team Status: Active Member Role Status Dates PHYSICIAN NO FAMILY Primary Care Provider Active Vice President Marketing & Development Relationship Specialty Start Date End Date Ivan Hyde MD [address] [place] [address] PCP - General Family Medicine 09/07/23 Goals [...] BE BASED ON THE PRIMARY CLINICAL RECORDS. [employer] [facility]. provides no warranty or guarantee of the accuracy or completeness of information in this document.
[2024-03-26 15:52] LABS: Bilirubin Urine NEGATIVE (NEGATIVE); Blood Urine NEGATIVE (NEGATIVE); Clarity Urine SL CLOUDY (CLEAR); Color Urine YELLOW (YELLOW); Glucose Urine UA NEGATIVE (NEGATIVE); Ketones Urine >=80 mg/dL (NEGATIVE); Leukocyte Esterase Urine MODERATE (NEGATIVE); Nitrite Urine NEGATIVE (NEGATIVE); Protein Urine TRACE mg/dL (NEG/TRACE); Urine Microscopic Indicated YES
[2024-03-26 16:04] LABS: Bacteria Urine MODERATE #/HPF (NONE SEEN); Cast Seen? NONE SEEN #/LPF (NONE SEEN); Crystals Seen? None Seen #/HPF (None Seen); Mucus Urine TRACE (NONE SEEN); Squamous Epithelial Cell Urine MODERATE #/LPF (NONE/RARE); Urine Culture Indicated YES; WBC Urine 20-50 #/HPF (NONE SEEN)
[2024-03-26] MEDS: 0.9 % SODIUM CHLORIDE 500 ML 1000 ML IV (16:15)
[2024-03-26 16:43] LABS: Basophils Percent Auto 0.2 % (0.2-2.0); Hematocrit 31.7 % (36.0-48.0); Immature Granulocytes Abs Auto 0.08 10^3/uL (0.00-0.03); Immature Granulocytes Pct Auto 0.5 % (0.0-0.5); Lymphocytes Percent Auto 6.4 % (20.5-60.0); Mean Corpuscular HGB Conc 34.7 g/dL (29.9-35.2); Mean Corpuscular Hemoglobin 32.4 pg (26.7-34.0); Mean Corpuscular Volume 93.2 fL (81.0-99.0); Mean Platelet Volume 10.9 fL (9.5-13.5); Monocytes Absolute Auto 1.4 10^3/uL (0.3-0.8); Monocytes Percent Auto 8.9 % (1.7-12.0); Neutrophils Absolute Auto 13.3 10^3/uL (1.4-6.5); Platelet Count 243 10^3/uL (150-450); Red Cell Distribution Width 12.1 % (11.0-15.0); White Blood Count 15.8 10^3/uL (4.0-11.0)
--- NOTE | 2024-03-26 16:45 | US_ITS ---
The [address] [address] Patient Name: CHRIS EASON MRN: [id number] date: 2000 Sex: F Assigned Patient Location: [facility] Current Patient Location: [facility] Accession/Order Number: [id number] Exam Date: 03/26/2024 18:04 Report Date: 03/26/2024 21:13 At the request of: OLE YI Procedure: US renal BI US renal BI 03/26/2024 5:04 PM CDT History: severe back pain . Renal failure. Comparison: None Technique: Transabdominal grayscale and color Doppler imaging of the kidneys and bladder. Findings: The kidneys are normal in size with the right kidney measuring 11.6 centimeters and the left kidney measuring 8.5 centimeters in length. There is mild right hydronephrosis. There is a 19 mm left lower pole renal calculus. The urinary bladder is distended and within normal limits. US/US renal BI Impression: 1. Minimal right hydronephrosis. 2. Nonobstructive left nephrolithiasis. Electronically authenticated by: VISHAL DA SILVA Date: 03/26/2024 21:13
[2024-03-26 16:52] LABS: Amylase 42 U/L (25-115); BUN Creatinine Ratio 4.5; Calcium 9.1 mg/dL (8.5-10.1); Carbon Dioxide 24.5 mmol/L (21.0-32.0); Chloride 98 mmol/L (98-107); Estimated GFR (African America >60 (>=60); Estimated GFR (Non-African Ame >60 (>=60); Glucose 77 mg/dL (74-106); Potassium 3.5 mmol/L (3.5-5.1); Sodium 134 mmol/L (136-145)
[2024-03-26 17:00] LABS: Alanine Aminotransferase 13 U/L (14-59); Aspartate Amino Transferase 17 U/L (15-37)
[2024-03-26] MEDS: CEFAZOLIN SODIUM/DEXTROSE,ISO 2 GM/50 ML PIGGYBACK IV (17:11)
--- OUTSIDE RECORDS SUMMARY | 2024-03-26 21:11 | XMS_ITS | CCD ---
Author Organization [facility] Care Team Providers Care Transitions Manager Name Role Phone DR IVAN HYDE Admitting Unavailable YVES, DR LOVE Attending Unavailable YVES, DR LOVE Primary Care Unavailable YVES, DR LOVE Consulting Unavailable Radha Galdamez Unavailable ANA Galdamez Attending Provider NO FAMILY, PHYSICIAN Primary Care Provider Unava iljhonathan Joseline Cr Unavailable Ivan Hyde MD Primary Care Provider [phone] OLE OSMAN Attending Unavailable CHYNA OWENS Attending Unavailable OLE OSMAN Attending Unavailable CHYNA OWENS Attending Unavailable OLE OSMAN Attending Unavailable OLE OSMAN Attending Unavailable OEL OSMAN Attending Unavailable Medications Current Medications Medication [...] UA Negative Negative - 4(70) +++ mg/dL [facility] Blood, UA Negative Negative - 50 Christiano/mcL [facility] Clarity, UA Clear [facility] Color, UA Yellow [facility] Glucose, UA Negative Negative - 1999(110) ++++ mg/dL [facility] Interpretation and review of laboratory results Abnormal [facility] Ketones, UA Negative Negative - 160(16) ++++ mg/dL [facility] Leukocytes, UA Trace Negative - 500+++ Shaquille/mcL [facility] Nitrite, UA Negative Negative - Positive [facility] pH, UA 6.0 5 - 9 [facility] e Protein, UA Negative Negative - 1999(20) ++++ mg/dL [facility] Spec Grav, UA 1.025 1 - 1.03 [facility] Urobilinogen, UA 0.2 0.2 - 12 mg/dL [facility] Health[facility] e COVID + FLU Quick Testingon 08-05-2023 SARS-CoV-2 (COVID-19) RNA SAL+probe Ql (Unsp spec) Negative [facility] Other COVID + FLU Quick Testing Negative [facility] Other Urine culture routineOrdered By: RADHA GALDAMEZ on 03-22-2022 Bacteria identified Cx Nom (U) Escherichia coli [facility] Test, Urineon Beta HCG ( test) Ql (U) Inconclusive [facility] Other SARS-CoV-2 (COVID-19) RNA NA A+probe Ql (Resp)on 03-20-2022 SARS-CoV-2 (COVID-19) RNA SAL+probe Ql (Unsp spec) Negative [facility] Other Urinalysis - AUTOMATEDon Appearance (U) CLOUDY [facility] Other Bilirubin Ql (U) Negative mobile [facility] Other Color (U) rust-yellow [facility] Other Glucose Ql (U) Negative [facility] Other Hemoglobin Ql (U) TRACE-INTACT [facility] Other Ketones Ql (U) Negative [facility] Other Leukocyte esterase Test strip Ql (U) TRACE [facility] Other Nitrite Ql (U) Positive [facility] Other pH (U) 7.0 [pH] [facility] Other Protein Ql (U) Negative [facility] Other Specific gravity (U) [Rel density] 1.020 [facility] Other Urobilinogen (U) [Mass/Vol] 0.2 mg/dL [facility] Other Urinalysis - AUTOMATED [facility] Other Urine Cultureon 03-20-2022 Bacteria identified Cx Nom (U) ORGANISM: Escherichia coli (O:ESCCOL) [place] Count >100,000 Aerobic MAUREEN Charge (NUC86) ---- [...] RESISTANT TO ALL B-LACTAM DRUGS. PERFORMED BY: [place] [address] PATHOLOGIST PATTERN CARRIER DEDE OSMAN M.D. Normal [facility] Comment on above: Performed By: #### C UU #### [address] GI PANEL (PCR)on 10-22-2021 Adenovirus F 40/41 Not detected Normal NOT DETECTED [facility] Comment on above: Performed By: #### G IPANEL #### [facility] [address] [place] [address] Dr. Elenita Talamantes Astrovirus Not detected Normal NOT DETECTED [facility] Comment on above: Performed By: #### G IPANEL #### [facility] [address] [place] [address] Dr. Elenita Talamantes C. Diff toxin A/B Not detected Normal NOT DETECTED [facility] Comment on above: Performed By: #### G IPANEL #### [facility] [address] [place] [address] Dr. Elenita Talamantes Campylobacter Not detected Normal NOT DETECTED The [facility] Comment on above: Performed By: #### G IPANEL #### [facility] [address] [place] [address] Dr. Elenita Talamantes Cryptosporidium Not detected Normal NOT DETECTED [facility] Comment on above: Performed By: #### G IPANEL #### [facility] [address] [address] [address] Elenita Talamantes Cyclos. Cayetanensis Not detected Normal NOT DETECTED [facility] Comment on above: Performed By: #### G IPANEL #### [facility] [address] [place] [address] Dr. Elenita Talamantes E. Coli O157 Not Applicable Normal Not Applicable [facility] Comment on above: Performed By: #### G IPANEL #### [facility] [address] [place] [address] Dr. Elenita Talamantes ECatrachito histolytica Not detected Normal NOT DETECTED [facility] Comment on above: Performed By: #### G IPANEL #### [facility] [address] [place] [address] Dr. Elenita Talamantes EAEC Detected Abnormal NOT DETECTED [facility] Comment on above: Performed By: #### G IPANEL #### [facility] [address] [address] [address] Elenita Talamantes EIEC Not detected Normal NOT DETECTED [facility] Comment on above: Performed By: #### G IPANEL #### [facility] [address] [place] [address] Dr. Elenita Talamantes EPEC Detected Abnormal NOT DETECTED [facility] Comment on above: Performed By: #### G IPANEL #### [facility] [address] [place] [address] Dr. Elenita Talamantes ETEC Detected Abnormal NOT DETECTED [facility] Comment on above: Performed By: #### G IPANEL #### [facility] [address] [place] [address] Dr. Elenita Reyna Lamblia Not detected Normal NOT DETECTED [facility] Comment on above: Performed By: #### G IPANEL #### [facility] [address] [place] [address] Dr. Elenita RODRÍGUEZ CONTROLS PASSED Normal The [facility] Comment on above: Performed By: #### G IPANEL #### [facility] [address] [place] [address] Dr. Elenita EDMONDS [facility] HEADER GI PANEL BACTERIA Normal T [facility] Comment on above: Performed By: #### G IPANEL #### [facility] [address] [place] [address] Dr. Elenita BERMEO ECOLI GI PANEL DIARRHEAGENIC E.COLI / SHIGELLA Normal [facility] Comment on above: Performed By: #### G IPANEL #### [facility] [address] [place] [address] Dr. Elenita BERMEO INFO SEE BELOW Normal [facility] Comment on above: Result Comment: EAEC - Enteroaggregative E. Coli EPEC- Enteropathogenic E. Coli ETEC- Enterotoxigenic E. Coli lt/st STEC- Shigella-like toxin-producing E. Coli stx1/stx2 EIEC- Shigella/Enteroinvasive E. Coli Performed By: #### G IPANEL #### [facility] [address] [address] [address] Elenita BERMEO PARASITES GI PANEL PARASITES Normal [facility] Comment on above: Performed By: #### G IPANEL #### [facility] [address] [address] [address] Elenita BERMEO VIRUS GI PANEL VIRUSES Normal [facility] Comment on above: Performed By: #### G IPANEL #### [facility] [address] [place] [address] Dr. Elenita Talamantes Norovirus GI/GII Not detected Normal NOT DETECTED [facility] Comment on above: Performed By: #### G IPANEL #### [facility] [address] [place] [address] Dr. Elenita Talamantes P. Shigelloides Not detected Normal NOT DETECTED [facility] Comment on above: Performed By: #### G IPANEL #### [facility] [address] [place] [address] Dr. Elenita Talamantes Rotavirus A Not detected Normal NOT DETECTED [facility] Comment on above: Performed By: #### G IPANEL #### [facility] [address] [address] [address] Elenita Talamantes Salmonella Not detected Normal NOT DETECTED [facility] Comment on above: Performed By: #### G IPANEL #### [facility] [address] [place] [address] Dr. Elenita Talamantes Sapovirus Not detected Normal NOT DETECTED [facility] Comment on above: Performed By: #### G IPANEL #### [facility] [address] [place] [address] Dr. Elenita Talamantes STEC Not detected Normal NOT DETECTED [facility] Comment on above: Performed By: #### G IPANEL #### [facility] [address] [address] [address] Elenita Talamantes Vibrio Not detected Normal NOT DETECTED [facility] Comment on above: Performed By: #### G IPANEL #### [facility] [address] [address] [address] Elenita Talamantes Vibrio Cholera Not detected Normal NOT DETECTED [facility] Comment on above: Performed By: #### G IPANEL #### [facility] [address] [address] [address] Elenita Talamantes Y. Enterocolitica Not detected Normal NOT DETECTED [facility] Comment on above: Performed By: #### G IPANEL #### [facility] [address] [address] [address] Elenita Talamantes Ambulatory Clinical Summaryo n 02-28-2021 Ambulatory Clinical Summary {[id number] Normal [facility] Urology Office/Clinic Noteon 02-28-2021 Urology Office/Clinic [...] Information PANCHITO AGUIRRE, Lewis Kent, URL [address] [place] [address] [phone] Additional Instructions: 6mos. f/u Patient Education I, [...] Protein Urine Dipstick: Negative (02/28/21 15:30:00) Specific Alliance Urine Dipstick: 1.020 (02/28/21 15:30:00) Urine Appearance Urine Dipstick: Clear (02/28/21 15:30:00) Urine Color Urine Dipstick: Yellow (02/28/21 15:30:00) Urobilinogen Urine Dipstick: Normal 0.2-1 EU/dl (02/28/21 15:30:00) pH Urine Dipstick: 5 (02/28/21 15:30:00) Normal [facility] Comment on above: Result Comment: Elec tronically Signed By: Lewis GONZALEZ MD\.br\Date and Time Signed: 02/28/21 16:30 EDT\.br\Electronically Co-Signed By: Lyn Willis MA\.br\Date and Time Co-Signed: 02/28/21 16:26 EDT Coding Summary.on 10-27-2020 Coding Summary. CODING DATE: 10/27/2020 [facility] STATUS: Home (Routine DC) PAYOR: Commercial [...] Orr CphT Date Saved: 10/27/2020 09:40 am [facility] Coding Summary. CODING DATE: 10/27/2020 [facility] STATUS: Home (Routine DC) PAYOR: Commercial [...] Orr CphT Date Saved: 10/27/2020 09:39 am [facility] Discharge Instructionson Discharge Instructions [id number]# 1.00CD:127 [facility] NM Kidney Imaging w/ Flow w/ [...] 14 Left Uptake (%): 38.9 Normal [facility] Consent for Procedure/Surger yon 10-19-2020 Consent for Procedure/Surgery [id number]# 1.00CD:127 Normal [facility] Consent for Treatmenton Consent for Treatment [id number] .00CD:127 Normal [facility] IntraOperative Documentson 0 10-19-2020 IntraOperative Documents [id number] 1.00CD:127 Normal [facility] Coding Summary.on 10-18-2020 Coding Summary. CODING DATE: 10/18/[address] [facility] STATUS: Home (Routine DC) PAYOR: [...] Charisse Rivers Date Saved: 10/18/2020 01:46 pm [facility] Consent for Treatmenton 09-21 Consent for Treatment [id number] .00CD:127 [facility] Main OR Intraoperative Recor don 10-12-2020 Main OR Intraoperative Record IntraOp Document Type FTURO Summary Primary Physician: Lewis GONZALEZ MD Finalized Date/Time: 10/12/20 10:01:33 Pt. Name: JACKIE GONZALEZ/Sex: 2000 Female Med Rec #: [id number] Physician: Lewis GONZALEZ MD Financial #: [id number] Pt. Type: O Room/Bed: / Admit/Disch: 10/12/20 [...] Chyna Arredondo Role Performed Surgeon - Primary Structural Steel Ironworker - Primary Structural Steel Ironworker - Primary Time In 10/12/20 09:52:00 10/12/20 09:52:00 10/12/20 09:52:00 Time Out 10/12/20 10:01:00 10/12/20 10:01:00 10/12/20 10:01:00 Procedure CYSTOSCOPY LOCAL WITH CYSTOSCOPY LOCAL WITH CYSTOSCOPY LOCAL WITH URETHRAL DILATION(.) URETHRAL DILATION(.) URETHRAL DILATION(.) Comments orientation Last Modified By: Jarrod RN, Chyna Garay RN, Chyna Garay RN, Chyna Arredondo 10/12/20 09:59:54 10/12/20 09:59:54 10/12/20 09:59:54 Entry 4 Entry 5 Case Attendee Miguel OPERATING ROOM MANAGER, Carole Alexander OPERATING ROOM MANAGER, Millie Stover Role Performed Scrub - Primary [...] Chyna Garay RN 10/12/20 10:01 Normal [facility] Main OR Preoperative Recordo n 10-12-2020 Main OR Preoperative Record Holding Area Document Type FTURO Summary Primary Physician: Lewis GONZALEZ MD Finalized Date/Time: 10/12/20 09:53:30 Pt. Name: JACKIE GONZALEZ/Sex: 2000 Female Med Rec #: [id number] Physician: Lewis GONZALEZ MD Financial #: [id number] Pt. Type: O Room/Bed: / Admit/Disch: 10/12/20 [...] Chyna Garay RN 10/12/20 09:53 Normal [facility] Operative Reporton Operative Report Patient: JACKIE [...] urine. The Urethra was dilated to: 30 Hungarian w/ sounds. Devices Implanted: None. Removal: Cystoscope is removed, The patient tolerated it well. Postoperative Information Discharge: Patient is discharged home with antibiotic coverage, Follow up arranged. [facility] Comment on above: Result Comment: Elec tronically Signed By: PANCHITO AGUIRRE, Lewis Trent.savi\Date and Time Signed: 10/12/20 10:02 EST Pre-Certification Formon Pre-Certification Form [id number]#1. 00CD:127 [facility] Physician Referralon 021 Physician Referral [id number]#1 .00CD:127 [facility] Formson 10-05-2020 Forms [id number]#1. 00CD:127 [facility] Ambulatory Clinical Summaryo n 10-04-2020 Ambulatory Clinical Summary {[id number]}CD:[id number] [facility] Patient Educationon 10-04-19 21 Patient Education [...] Document Reviewed: 09/13/2012 ExitCare? Patient Information ?2013 [employer]. 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 Pt states that [...] kidney stones. PVR 99ml. Renal US/bladder At [facility] 08/2020. Dysuria: not at [...] Contact Information PANCHITO AGUIRRE, Lewis Kent [address] [place] [address]- [phone] Additional Instructions: scheduling Cysto/UD Patient Education Urinary Tract Infection I, Lyn Willis , personally scribed for Dr. Gonzalez on 10/04/2020 14:58:44. . Documentation recorded by the scribe, Lyn Willis, accurately reflects the services(s) I performed and decisions made by me. Authenticated by Dr. Gonzaelz on 10/04/2020 15:03:51. Problem List/Past Medical History Ongoing No qualifying data Historical No qualifying data Procedure/Surgical History Procedure on back. Medications buPROPion, Oral met (more content not included)... [facility] Comment on above: Result Comment: Elec tronically Signed By: Lewis GONZALEZ MD\.br\Date and Time Signed: 10/04/20 15:03 EST\.br\Electronically Co-Signed By: Lyn Willis MA\.br\Date and Time Co-Signed: 10/04/20 14:59 EST Coding Summary.on 09-09-2020 Coding Summary. CODING DATE: 09/09/[address] [facility] STATUS: Home (Routine DC) PAYOR: [...] Orr CphT Date Saved: 09/09/2020 06:00 pm [facility] US Retroperitoneal Completeo n 09-09-2020 US [...] O M.D. Transcribed by: ROYAL Technologist: HW [facility] Consent for Treatmenton 08-20 Consent for Treatment [id number] .00CD:127 [facility] Consent for Treatment [id number]# 1.00CD:127 [facility] Physician Orderon 09-03-2020 Physician Order [id number]#1 .00CD:127 [facility] Vital Signs Date Time Vital Sign Value Performing Clinician Facility 10-04-2023 10:19-0500 Body weight 71.22 kg Dialogic DO Work Phone: [facility] 10-04-2023 10:19-0500 Diastolic blood pressure 78 mm[Hg] [employer] Work Phone: [facility] 10-04-2023 10:19-0500 Systolic blood pressure 124 mm[Hg] [employer] Work Phone: [facility] 08-05-2023 14:35-0500 Body height 176.53 cm Joseline Shaye Other [facility] Other 08-05-2023 14:35-0500 Body mass index (BMI) [Ratio] 23.29 kg/m2 Joseline Shaye Other [facility] Other 08-05-2023 14:35-0500 Body temperature 98 [degF] Joseline Shaye Other [facility] Other 08-05-2023 14:35-0500 Body weight 72.58 kg Joseline Shaye Other [facility] Other 08-05-2023 14:35-0500 Respiratory rate 18 /min Joseline Shaye Other [facility] Other 08-05-2023 14:35-0500 SaO2% (BldA) [Mass fraction] 98 % Joseline Shaye Other [facility] Other 03-20-2022 18:20-0400 Body height 176.53 cm Radha Denneyault Other [facility] Other 03-20-2022 18:20-0400 Body mass index (BMI) [Ratio] 25.32 kg/m2 Radha Crow Other [facility] Other 03-20-2022 18:20-0400 Body temperature 98.4 [degF] Radha Crow Other [facility] Other 03-20-2022 18:20-0400 Body weight 78.93 kg Radha Crow Other [facility] Other 03-20-2022 18:20-0400 Respiratory rate 18 /min Radha Crow Other [facility] Other 03-20-2022 18:20-0400 SaO2% (BldA) [Mass fraction] 97 % Radha Crow Other [facility] Other Encounters Encounter Date Encounter Type Care [...] 08-05-2023 End: 08-05-2023 ambulatory Joselinemakayla Cr Other [facility] Other Start: 08-05-2023 Office outpatient visit 15 minutes Joseline Cr [facility] Start: 03-20-2022 End: 03-20-2022 Departed Referred [facility] Radha Galdamez Work Phone: [facility] [place] Start: 03-20-2022 End: 03-20-2022 ambulatory Radha Galdamez Other [facility] Other Start: 03-20-2022 Office outpatient ne w 20 minutes Radha Galdamez [facility] Start: 10-22-2021 End: 10-23-[address] IVAN HYDE Facility:[facility] Procedures Date Procedure Procedure Detail Performing Clinician Start: 10-04-2023 Urnls dip stick/tabl et rgnt non-auto w/o micrscp Ole Dawson DO Work Phone: Urine culture [facility] Greta Galdamez Work Phone: Plan of Treatment Date Care Activity Detail Author Start: 11-05-2023 End: 11-05-2023 Patient encounter procedure 11/05/2023 3:30 PM EDT Routine [facility] [address] [place] [address] Chyna Owens PA [address] [place], [place] [id number] [facility] Payers Date Payer Category Payer Unknown [id number] 2022 Unknown [id number] 2022 Unknown [id number]. [id number] 2000 Unknown [id number] 2.16.84 [id number] 2000 Unknown [id number] 2.16.84 [id number] 2000 Unknown [id number] 2.16.84 0.1.961972.3.579.2.1259 2000 Unknown [id number] 2.16.84 0.1.257273.3.579.2.1259 2000 Unknown [id number] 2.16.84 0.1.074849.3.579.2.1259 2000 Unknown [id number] 2.16.84 0.1.682274.3.579.2.9 2000 Unknown [id number] 2.16.84 0.1.362894.3.579.2.9 2000 Unknown [id number] 2.16.84 0.1.792151.3.579.2.9 2000 Unknown [id number] 2.16.84 0.1.965812.3.579.2.1259 1959 Unknown [id number] Unknown [id number] 2.16. [id number] Social History Date Type Detail Facility Sex Assigned At [facility] Work Phone: Start: 2000 Sex Assigned At Female F [facility] Tobacco smoking status NHIS Tobacco smoking [...] Ole Osman DO documented in this encounter [facility] Healthcare Evaluation note 08-05-2023 Note Date [...] you develop chest pain, shortness of breath. [facility] Other Evaluation note 03-20-2022 Note Date & [...] Follow up with primary care provider or fixed income portfolio manager if no improvement of symptoms. Mar, Abdominal pain, unspecified abdominal location (ICD-10 - R10.9) Mar, Other Recommend Retested for in 1 week. Call family planning clinic at [facility] Other History and physical note 10-19-2020 Note Date & Type Note Facility 10-19-2020 Note [id number]#1.00CD:127 [facility] Clinical Note 10-12-2020 Note Date & [...] have a fever over 100 degrees [facility] Evaluation note Note Date & Type Note Facility Evaluation note No assessment information availa [facility] Work Phone: Evaluation note Note Date & Type Note Facility Evaluation note Diagnosis First trimester state, incidental documented in this encounter [facility] History general Narrative - Reported Note Date & Type Note Facility History general Narrative - Reported Type Surgical History Back Surgery 2006 Hospitalization History see above [facility] Other Summary Purpose Family History No Family [...] section and content) DATE CREATED AUTHOR 03/01/2021 [facility] DATE CREATED AUTHOR AUTHOR'S ORGANIZ ATION 12/07/2021 [facility] DATE CREATED AUTHOR AUTHOR'S ORGANIZ ATION 03/29/2022 [facility] DATE CREATED AUTHOR AUTHOR'S ORGANIZ ATION 03/05/2024 [facility] dical Specialists EPIC REASON FOR VISIT (unrecogniz ed section and content) Reason Comments Routine Visit Care Teams (unrecognized sec tion and content) Team Status: Inactive Member Role Status Dates ANA Galdamez Attending Provider Active PHYSICIAN NO FAMILY Primary Care Provider Active Team Status: Active Member Role Status Dates PHYSICIAN NO FAMILY Primary Care Provider Active Transitions Manager Relationship Specialty Start Date End Date Ivan Hyde MD [address] [place] [address] PCP - General Family Medicine 09/07/23 Goals [...] BE BASED ON THE PRIMARY CLINICAL RECORDS. [employer] [facility]. provides no warranty or guarantee of the accuracy or completeness of information in this document.
[2024-03-26] MEDS: NALBUPHINE HCL 10 MG/ML AMPULE IV (21:48)
[2024-03-26] MEDS: 0.9 % SODIUM CHLORIDE 1,000 ML 1000 ML IV (23:43)
[2024-03-27] VITALS (72 sets, daily range): BP systolic 104–137; BP diastolic 52–85; PULSE 77–133; TEMP 36.3–37.7; O2SAT 93–98
--- NOTE | 2024-03-27 | XR_ITS ---
The [address] [address] Patient Name: CHRIS EASON MRN: [id number] date: 2000 Sex: F Assigned Patient Location: [facility] Current Patient Location: [facility] Accession/Order Number: [id number] Exam Date: 03/27/2024 08:30 Report Date: 03/27/2024 08:56 At the request of: OLE YI Procedure: XR abdomen 1V EXAMINATION: XR abdomen 1V HISTORY: emergency , rule out foreign body. COMPARISON: No relevant comparison available. FINDINGS: BOWEL GAS PATTERN: No abnormal dilation or deviation. CALCIFICATIONS: Calcifications project over the left kidney, suspect nephroliths OTHER: Negative. No abnormal gaseous collections. XR/XR abdomen 1V IMPRESSION: No radiopaque foreign body observed Electronically authenticated by: JAME AC Date: 03/27/2024 08:56
[2024-03-27] MEDS: CEFAZOLIN SODIUM/DEXTROSE,ISO 1 GM/50 ML PREMIX IV ×2 (00:47→07:36)
[2024-03-27] MEDS: NALBUPHINE HCL 10 MG/ML AMPULE IV (01:18)
[2024-03-27] MEDS: 0.9 % SODIUM CHLORIDE 1,000 ML 125 ML IV (03:50)
[2024-03-27] MEDS: ROPIVACAINE HCL/PF 400 MG/200 ML PREMIX 10 MG EPIDURAL (03:51)
--- NOTE | 2024-03-27 07:53 | PC.NURSE ---
unable to get fht as magazine writer was holding presenting part off cord with sve
--- NOTE | 2024-03-27 08:31 | PC.NURSE ---
flat plate of abdomen done too verify abd is clear
--- NOTE | 2024-03-27 09:07 | PC.NURSE ---
LI JIANG EXPLAINED NARCOTICS AND BLOCKS FOR PAIN TO PATIENT. PATIENT STATES SHE WANTS TO BREAST FEED AND WILL TAKE TYLENOL FIRST THEN MAYBE GET THE BLOCK LATER.
[2024-03-27] MEDS: ACETAMINOPHEN 500 MG TABLET 1000 MG PO (09:11)
--- NOTE | 2024-03-27 09:26 | PC.NURSE ---
TYLENOL GIVEN FOR PAIN AT 0910 MAY DECIDE TO GET TAP BLOCK LATER
[2024-03-27] MEDS: OXYTOCIN/0.9 % SODIUM CHLORIDE 20 UNITS/1,000 ML PLAST..BAG 125 UNIT IV (09:32)
[2024-03-27] MEDS: CEFAZOLIN SODIUM/DEXTROSE,ISO 2 GM/50 ML PIGGYBACK IV (13:58)
[2024-03-27] MEDS: KETOROLAC TROMETHAMINE 30 MG/ML VIAL IVP ×2 (13:58→19:53)
--- NOTE | 2024-03-27 15:54 | P.ON_ITS ---
Brief Operative Note Date of procedure: 03/27/24 Pre-op diagnosis general: iup at 36+ wks, active labor, asynclitic presentation, bulging bag of cakerman, arom, cord prolapse Post-op diagnosis: same as pre-op Procedure: NAME OF PROCEDURE: [ section ] PROCEDURE: Patient was taken back to the Operating Room where she was given a spinal anesthesia with Duramorph without difficulty. She was prepped and draped in the normal sterile fashion. A Pfannenstiel skin incision was then made 2 cm above the symphysis pubis and carried down to underlying rectus fascia using a Bovie. The fascia was incised in the midline and extended laterally using Santos scissors. Two Sirisha clamps were placed on the superior aspect of the fascia and dissected off the underlying rectus muscles. The same was performed on the inferior aspect as well. The muscles were then in the midline. Peritoneum was identified and entered bluntly. The peritoneum was then extended superiorly and inferiorly with good visualization of the bladder. The bladder blade was inserted. A low transverse incision was made on the patient's uterus and extended laterally digitally. The was then delivered atraumatically after the bladder blade was removed in the cephalic position. The cord was clamped and cut. Cord blood was obtained. The was handed off to awaiting team. The patient's placenta was spontaneously delivered. The uterus was then exteriorized. The uterus was cleared of all clots and debris. The bladder blade was reinserted. The patient's uterine incision was closed using #0 Vicryl in a running lock fashion. Excellent hemostasis was assured. The uterus was then returned to the patient's abdomen. The patient's abdomen was copiously irrigated using warm saline. Peritoneal gutters were cleared of all clots and debris. Again excellent hemostasis was assured. The patient's peritoneum was closed using 3-0 Vicryl in a running fashion. The patient's fascia was closed using #0 Vicryl in a running fashion. The patient's skin was closed using 4-0 Vicryl subcuticularly. The patient tolerated the procedure well. Sponge, lap, and needle counts were correct x2. The patient was taken to the Recovery Room in stable condition. Anesthesia: GETA and epidural Surgeon: Antwan Osmna Tank Car Reconditioner: Yane Peña Estimated blood loss (mL): 575 Pathology: none sent Condition: stable Disposition: PACU Urinary Catheter Management Urinary Catheter Management Urethral: Cath placed during this visit: yes Urethral indwelling: No Insertion date: 03/27/24 Insertion time: 04:35
--- NOTE | 2024-03-27 15:56 | PM.OBPRCCS ---
Procedure Pre-op/Post-op diagnoses: Pre-Op/Post-Op Diagnoses Operation Date: 03/27/24 07:45 <No data on this case meets the specified criteria> Procedure: Procedures Operation Date: 03/27/24 07:45 Actual Procedure Side Surgeon p Not Applicable Antwan Osman DO Director Of Rehabilitative Services: Yane Peña Estimated blood loss (mL): 575 Disposition: PACU Anesthesia type: general
[2024-03-27] MEDS: ENOXAPARIN SODIUM 40 MG/0.4 ML SYRINGE SUBQ (19:53)
[2024-03-28 00:25] VITALS: BP 109/71; PULSE 79; TEMP 36.7
[2024-03-28] MEDS: KETOROLAC TROMETHAMINE 30 MG/ML VIAL IVP ×4 (02:58→20:47)
[2024-03-28 04:47] VITALS: TEMP 36.4
[2024-03-28 04:48] VITALS: BP 107/52; PULSE 82
[2024-03-28 07:36] LABS: Hematocrit 27.1 % (36.0-48.0); Hemoglobin 9.3 g/dL (12.0-16.0); Mean Corpuscular HGB Conc 34.3 g/dL (29.9-35.2); Mean Corpuscular Hemoglobin 32.4 pg (26.7-34.0); Mean Corpuscular Volume 94.4 fL (81.0-99.0); Mean Platelet Volume 11.2 fL (9.5-13.5); Platelet Count 262 10^3/uL (150-450); Red Blood Count 2.87 10^6/uL (4.20-5.40); Red Cell Distribution Width 12.2 % (11.0-15.0); White Blood Count 16.3 10^3/uL (4.0-11.0)
[2024-03-28 07:58] VITALS: BP 104/55; PULSE 76; TEMP 36.7
--- NOTE | 2024-03-28 08:06 | P.OBPN_ITS ---
OB - PN: Subj Subjective Patient comments: no complaints [place] status: doing well [place] feeding status: breast and bottle feeding Exam Constitutional Vital Signs, click to edit/add: Last Vital Signs Temp 97.6 F 03/28/24 04:47 Pulse 76 03/28/24 07:58 Resp 14 03/28/24 04:47 BP 104/55 03/28/24 07:58 Pulse Ox 96 03/27/24 09:55 O2 Del Method Room Air 03/28/24 04:47 Documenting provider has reviewed patient's vital signs: yes Common normals: no apparent distress, average body habitus, oriented x3, no limitations, healthy appearing, alert and well nourished Exam limitations: altered mental status General appearance: cooperative HENMT Common normals: normocephalic Eye Common normals: EOMs intact bilaterally General eye: normal appearance of both eyes Neck & C-Spine Common normals: full ROM and no lymphadenopathy Lymph Lymphatic: no lymphadenopathy noted Chest Common normals: inspection of chest normal Chest: abnormal inspection of the chest Respiratory Common normals: normal respiratory effort Effort & inspection: able to speak in complete sentences Auscultation: clear to auscultation bilaterally Cardio Common normals: regular rate and regular rhythm Rate: regular rate Rhythm: regular rhythm GI Common normals: Normal to inspection, nondistended, normoactive bowel sounds present Inspection: normal to inspection Auscultation: normoactive bowel sounds Palpation: soft Common normals: no CVA tenderness Back & Pelvis Common normals: no CVA tenderness General back: CVA tenderness Thoracic spine/upper back: normal to inspection Extremity Common normals: normal to inspection General: normal exam except as noted Neuro Common normals: oriented x3 Sensorium/orientation: awake, alert, oriented to person, oriented to place and oriented to time Psych Common normals: mental status grossly normal, thought process normal, cooperative, affect normal, speech normal, activity/motor behavior normal, denies hallucinations, denies homicidal ideation and denies suicidal ideation Attitude: calm Activity/motor behavior: appropriate eye contact Speech: normal speech Thought process: normal thought process Results Labs Labs: Short CBC 03/28/24 Range/Units 07:21 WBC 16.3 H (4.0-11.0) 10^3/uL Hgb 9.3 L (12.0-16.0) g/dL Hct 27.1 L (36.0-48.0) % Plt Count 262 (150-450) 10^3/uL Urinary Catheter Management Urinary Catheter Management Urethral: Cath placed during this visit: yes Urethral indwelling: No Insertion date: 03/27/24 Insertion time: 04:35 OB - PN: A/P Plan - day: 1 Plan: routine postop care Time Spent with Patient Time: Total time spent is greater than 50% in coordination of care (as documented) at patient's floor/unit and/or counseling patient: Total time spent with greater than 50% in coordination of care (as documented) at patient's floor/unit and/or counseling patient: less than 15 minutes
[2024-03-28 09:06] LABS: Lymphocytes Absolute Manual 2.28 10^3/uL (1.20-3.80); Monocytes Absolute Manual 0.97 10^3/uL (0.30-0.80); Segmented Neut Absolute Manual 13.04 10^3/uL (1.4-6.5)
[2024-03-28] MEDS: DOCUSATE SODIUM 100 MG CAPSULE PO ×2 (10:15→20:48)
[2024-03-28 17:34] VITALS: BP 115/73; PULSE 105; TEMP 36.9
[2024-03-28 17:45] VITALS: O2SAT 96
[2024-03-28] MEDS: ENOXAPARIN SODIUM 40 MG/0.4 ML SYRINGE SUBQ (20:48)
[2024-03-29 00:13] VITALS: BP 109/56; PULSE 92; TEMP 36.9
[2024-03-29] MEDS: KETOROLAC TROMETHAMINE 30 MG/ML VIAL IVP (06:18)
--- NOTE | 2024-03-29 07:24 | PC.NURSE ---
Report given to Windy Rogers RN
[2024-03-29 08:00] VITALS: TEMP 36.7
[2024-03-29 08:42] VITALS: BP 118/65; PULSE 75
--- NOTE | 2024-03-29 09:11 | P.OBPN_ITS ---
OB - PN: Subj Subjective Patient comments: no complaints and pain well controlled [place] status: doing well Exam Constitutional Vital Signs, click to edit/add: Last Vital Signs Temp 98.4 F 03/29/24 00:13 Pulse 75 03/29/24 08:42 Resp 16 03/29/24 00:13 BP 118/65 03/29/24 08:42 Pulse Ox 96 03/28/24 17:45 O2 Del Method Room Air 03/29/24 00:13 Documenting provider has reviewed patient's vital signs: yes Common normals: no apparent distress Respiratory Common normals: normal respiratory effort and clear to auscultation bilaterally Cardio Common normals: regular rate and regular rhythm GI Common normals: Normal to inspection, nondistended, normoactive bowel sounds present Extremity Common normals: normal to inspection and no clubbing, cyanosis or edema Urinary Catheter Management Urinary Catheter Management Urethral: Cath placed during this visit: yes Urethral indwelling: No Insertion date: 03/27/24 Insertion time: 04:35 OB - PN: A/P Plan - day: 2 Plan: routine postop care, discharge home and other (fu 1wk) Time Spent with Patient Time: Total time spent is greater than 50% in coordination of care (as documented) at patient's floor/unit and/or counseling patient: Total time spent with greater than 50% in coordination of care (as documented) at patient's floor/unit and/or counseling patient: less than 15 minutes
[2024-03-29] MEDS: DOCUSATE SODIUM 100 MG CAPSULE PO (10:03)
== END 2024-03-29 12:42 | disposition home or self-care (01) | DRG 788 ==
PROVIDERS: Admitting Provider Obstetrics & Gynecology; PCP Family Medicine; Visit Provider Obstetrics & Gynecology
PROC: 10D00Z1 Extraction of Products of Conception, Low, Open Approach (ICD-10-PCS; CPT 59514; principal; 2024-03-27 07:45)
DX: O60.14X0 Preterm labor third trimester with preterm delivery third trimester, not applicable or unspecified (principal); O69.0XX0 Labor and delivery complicated by prolapse of cord, not applicable or unspecified; O32.8XX0 Maternal care for other malpresentation of fetus, not applicable or unspecified; Z3A.36 36 weeks gestation of pregnancy; Z37.0 Single live birth; Z87.440 Personal history of urinary (tract) infections
CPT/HCPCS: 36415; 51702; 59050; 74018; 76775; 80048; 81001; 82150; 82570; 83690; 84450; 84460; 85007; 85025; 85027; 86850; 86900; 86901; 87086; 94667; 94668; 96365; 96366; 96372; 96375; 96376; J0330; J0690; J1100; J1650; J1885; J2274; J2300; J2405; J2590; J2704; J2795; J3010

== ENCOUNTER 2024-04-14 07:57 | Outpatient (OUT) | payer OTHER, SELFPAY ==
--- OUTSIDE RECORDS SUMMARY | 2024-04-14 08:18 | XMS_ITS | CCD ---
Author Organization [facility] Care Team Providers Care Spring Layer Name Role Phone DR IVAN HYDE Admitting Unavailable YVES, DR LOVE Attending Unavailable YVES, DR LOVE Primary Care Unavailable YVES, DR LOVE Consulting Unavailable Radha Galdamez Unavailable ANA Galdamez Attending Provider NO FAMILY, PHYSICIAN Primary Care Provider Unava iljhonathan Joseline Cr Unavailable Ivan Hyde MD Primary Care Provider [phone] OLE OSMAN Attending Unavailable CHYNA OWENS Attending Unavailable DAWSON, OLE Attending Unavailable CHYNA OWENS Attending Unavailable DAWSON, OLE Attending Unavailable DAWSON, OLE Attending Unavailable DAWSON, OLE Attending Unavailable CHYNA OWENS Attending Unavailable CHYNA OWENS Attending Unavailable Medications [...] UA Negative Negative - 4(70) +++ mg/dL [facility] Blood, UA Negative Negative - 50 Christiano/mcL [facility] Clarity, UA Clear [facility] Color, UA Yellow [facility] Glucose, UA Negative Negative - 1999(110) ++++ mg/dL [facility] Interpretation and review of laboratory results Abnormal [facility] Ketones, UA Negative Negative - 160(16) ++++ mg/dL [facility] Leukocytes, UA Trace Negative - 500+++ Shaquille/mcL [facility] Nitrite, UA Negative Negative - Positive [facility] pH, UA 6.0 5 - 9 [facility] Protein, UA Negative Negative - 1999(20) ++++ mg/dL [facility] Spec Grav, UA 1.025 1 - 1.03 [facility] Urobilinogen, UA 0.2 0.2 - 12 mg/dL [facility] COVID + FLU Quick Testingon 08-05-2023 SARS-CoV-2 (COVID-19) RNA SAL+probe Ql (Unsp spec) Negative [facility] Other COVID + FLU Quick Testing Negative [facility] Other Urine culture routineOrdered By: RADHA GALDAMEZ on 03-22-2022 Bacteria identified Cx Nom (U) Escherichia coli [facility] Test, Urineon Beta HCG ( test) Ql (U) Inconclusive [facility] Other SARS-CoV-2 (COVID-19) RNA NA A+probe Ql (Resp)on 03-20-2022 SARS-CoV-2 (COVID-19) RNA SAL+probe Ql (Unsp spec) Negative [facility] Other Urinalysis - AUTOMATEDon Appearance (U) CLOUDY [employer] Other Bilirubin Ql (U) Negative [facility] Other Color (U) rust-yellow [facility] Other Glucose Ql (U) Negative [employer] Other Hemoglobin Ql (U) TRACE-INTACT [facility] Other Ketones Ql (U) Negative [employer] Other Leukocyte esterase Test strip Ql (U) TRACE [facility] Other Nitrite Ql (U) Positive [employer] Other pH (U) 7.0 [pH] [facility] Other Protein Ql (U) Negative [employer] Other Specific gravity (U) [Rel density] 1.020 [facility] Other Urobilinogen (U) [Mass/Vol] 0.2 mg/dL [facility] Other Urinalysis - AUTOMATED [facility] Other Urine Cultureon 03-20-2022 Bacteria identified Cx Nom (U) ORGANISM: Escherichia coli (O:ESCCOL) [place] Count >100,000 Aerobic MAUREEN Charge (NUC86) ---- [...] RESISTANT TO ALL B-LACTAM DRUGS. PERFORMED BY: [place] [address] PATHOLOGIST SCRAP CARRIER DEDE OSMAN M.D. Normal [facility] Comment on above: Performed By: #### C UU #### [facility] [address] [place] [address] GI PANEL (PCR)on 10-22-2021 Adenovirus F 40/41 Not detected Normal NOT DETECTED [facility] Comment on above: Performed By: #### G IPANEL #### [facility] [address] [place] [address] Dr. Elenita Talamantes Astrovirus Not detected Normal NOT DETECTED [facility] Comment on above: Performed By: #### G IPANEL #### [facility] [address] [address] [address] Elenita Stover. Diff toxin A/B Not detected Normal NOT DETECTED The [facility] Comment on above: Performed By: #### G IPANEL #### [facility] [address] [place] [address] Dr. Elenita Talamantes Campylobacter Not detected Normal NOT DETECTED [facility] Comment on above: Performed By: #### G IPANEL #### [facility] [address] [place] [address] Dr. Elenita Talamantes Cryptosporidium Not detected Normal NOT DETECTED [facility] Comment on above: Performed By: #### G IPANEL #### [facility] [address] [place] [address] Dr. Elenita Talamantes Cyclos. Cayetanensis Not detected Normal NOT DETECTED The [facility] Comment on above: Performed By: #### G IPANEL #### [facility] [address] [place] [address] Dr. Elenita Talamantes E. Coli O157 Not Applicable Normal Not Applicable [facility] Comment on above: Performed By: #### G IPANEL #### [facility] [address] [address] [address] Elenita Talamantes E. histolytica Not detected Normal NOT DETECTED The [facility] Comment on above: Performed By: #### G IPANEL #### [facility] [address] [address] [address] Elenita Talamantes EAEC Detected Abnormal NOT DETECTED The [facility] Comment on above: Performed By: #### G IPANEL #### [facility] [address] [address] [address] Elenita Talamantes EIEC Not detected Normal NOT DETECTED [facility] Comment on above: Performed By: #### G IPANEL #### [facility] [address] [place] [address] Dr. Elenita Talamantes EPEC Detected Abnormal NOT DETECTED The [facility] Comment on above: Performed By: #### G IPANEL #### [facility] [address] [place] [address] Dr. Elenita Talamantes ETEC Detected Abnormal NOT DETECTED The [facility] Comment on above: Performed By: #### G IPANEL #### [facility] [address] [place] [address] Dr. Elenita Reyna Lamblia Not detected Normal NOT DETECTED [facility] Comment on above: Performed By: #### G IPANEL #### [facility] [address] [place] [address] Dr. Elenita RODRÍGUEZ CONTROLS PASSED Normal [facility] Comment on above: Performed By: #### G IPANEL #### [facility] [address] [place] [address] Dr. Elenita EDMONDS ROCKY HEADER GI PANEL BACTERIA Normal [facility] Comment on above: Performed By: #### G IPANEL #### [facility] [address] [place] [address] Dr. Elenita EDMONDSHD ECOLI GI PANEL DIARRHEAGENIC E.COLI / SHIGELLA Normal The [facility] Comment on above: Performed By: #### G IPANEL #### [facility] [address] [place] [address] Dr. Elenita BERMEO INFO SEE BELOW Normal The [facility] Comment on above: Result Comment: EAEC - Enteroaggregative E. Coli EPEC- Enteropathogenic E. Coli ETEC- Enterotoxigenic E. Coli lt/st STEC- Shigella-like toxin-producing E. Coli stx1/stx2 EIEC- Shigella/Enteroinvasive E. Coli Performed By: #### G IPANEL #### [facility] [address] [address] [address] Elenita BERMEO PARASITES GI PANEL PARASITES Normal The [facility] Comment on above: Performed By: #### G IPANEL #### [facility] [address] [address] [address] Elenita BERMEO VIRUS GI PANEL VIRUSES Normal [facility] Comment on above: Performed By: #### G IPANEL #### [facility] [address] [address] [address] Elenita Talamantes Norovirus GI/GII Not detected Normal NOT DETECTED The [facility] Comment on above: Performed By: #### G IPANEL #### [facility] [address] [address] [address] Elenita Talamantes P. Shigelloides Not detected Normal NOT DETECTED [facility] Comment on above: Performed By: #### G IPANEL #### [facility] [address] [address] [address] Elenita Talamantes Rotavirus A Not detected Normal NOT DETECTED The [facility] Comment on above: Performed By: #### G IPANEL #### [facility] [address] [address] [address] Elenita Talamantes Salmonella Not detected Normal NOT DETECTED [facility] Comment on above: Performed By: #### G IPANEL #### [facility] [address] [address] [address] Elenita Talamantes Sapovirus Not detected Normal NOT DETECTED [facility] Comment on above: Performed By: #### G IPANEL #### [facility] [address] [address] [address] Elenita Talamantes STEC Not detected Normal NOT DETECTED [facility] Comment on above: Performed By: #### G IPANEL #### [facility] [address] [address] [address] Elenita Talamantes Vibrio Not detected Normal NOT DETECTED [facility] Comment on above: Performed By: #### G IPANEL #### [facility] [address] [address] [address] Elenita Talamantes Vibrio Cholera Not detected Normal NOT DETECTED [facility] Comment on above: Performed By: #### G IPANEL #### [facility] [address] [address] [address] Elenita Talamantes Y. Enterocolitica Not detected Normal NOT DETECTED The [facility] Comment on above: Performed By: #### G IPANEL #### [facility] [address] [address] [address] Elenita Talamantes Ambulatory Clinical Summaryo n 02-28-2021 Ambulatory Clinical Summary {[id number]}CD:[id number] Normal [facility] Urology Office/Clinic Noteon 02-28-2021 Urology Office/Clinic [...] [place], URL [address] [place] [address] [place] [address]- [phone] Additional Instructions: 6mos. f/u Patient Education I, [...] Protein Urine Dipstick: Negative (02/28/21 15:30:00) Specific [place] Urine Dipstick: 1.020 (02/28/21 15:30:00) Urine Appearance Urine Dipstick: Clear (02/28/21 15:30:00) Urine Color Urine Dipstick: Yellow (02/28/21 15:30:00) Urobilinogen Urine Dipstick: Normal 0.2-1 EU/dl (02/28/21 15:30:00) pH Urine Dipstick: 5 (02/28/21 15:30:00) [facility] Comment on above: Result Comment: Elec tronically Signed By: Lewis GONZALEZ MD\.br\Date and Time Signed: 02/28/21 16:30 EDT\.br\Electronically Co-Signed By: Lyn Willis MA\.br\Date and Time Co-Signed: 02/28/21 16:26 EDT Coding Summary.on 10-27-2020 Coding Summary. CODING DATE: 10/27/2020 [facility] STATUS: Home (Routine DC) PAYOR: Commercial Insurance [...] CphT Date Saved: 10/27/2020 09:40 am [facility] Coding Summary. CODING DATE: 10/27/2020 [facility] STATUS: Home (Routine DC) PAYOR: Commercial Insurance [...] CphT Date Saved: 10/27/2020 09:39 am [facility] Discharge Instructionson Discharge Instructions [id number]# 1.00CD:127 [facility] NM Kidney Imaging w/ Flow [...] (%): 14 Left Uptake (%): 38.9 Normal [facility] Consent for Procedure/Surger yon 10-19-2020 Consent for Procedure/Surgery [id number]# 1.00CD:127 Normal [facility] Consent for Treatmenton Consent for Treatment [id number] .00CD:127 [facility] IntraOperative Documentson 0 10-19-2020 IntraOperative Documents [id number]# 1.00CD:127 [facility] Coding Summary.on 10-18-2020 Coding Summary. CODING DATE: 10/18/2020 FINAL [facility] STATUS: Home (Routine DC) PAYOR: Commercial [...] Rivers Date Saved: 10/18/2020 01:46 pm [facility] Consent for Treatmenton 09-21 Consent for Treatment [id number] .00CD:127 [facility] Main OR Intraoperative Recor don 10-12-2020 Main OR Intraoperative Record IntraOp Document Type FTURO Summary Primary Physician: Lewis GONZALEZ MD Finalized Date/Time: 10/12/20 10:01:33 Pt. Name: JACKIE GONZALEZ/Sex: 2000 Female Med Rec #: [id number] Physician: Lewis GONZALEZ MD Financial #: [id number] Pt. Type: O Room/Bed: / Admit/Disch: 10/12/20 [...] Chyna Arredondo Role Performed Surgeon - Primary Line Worker - Primary Line Worker - Primary Time In 10/12/20 09:52:00 10/12/20 09:52:00 10/12/20 09:52:00 Time Out 10/12/20 10:01:00 10/12/20 10:01:00 10/12/20 10:01:00 Procedure CYSTOSCOPY LOCAL WITH CYSTOSCOPY LOCAL WITH CYSTOSCOPY LOCAL WITH URETHRAL DILATION(.) URETHRAL DILATION(.) URETHRAL DILATION(.) Comments orientation Last Modified By: Jarrod RAMOS, Chyna Garay RN, Chyna Garay RN, Chyna Arredondo 10/12/20 09:59:54 10/12/20 09:59:54 10/12/20 09:59:54 Entry 4 Entry 5 Case Attendee Miguel MOHS SURGEON/GENERAL DERMATOLOGIST, Carole Alexander MOHS SURGEON/GENERAL DERMATOLOGIST, Millie Stover Role Performed Scrub - Primary [...] Verified Availability Equipment, Medication Time Out Lewis GONZAELZ MD, Verified (If Participants Damien RAMOS, Verena [...] By: Chyna Garay RN 10/12/20 10:01 Normal [facility] Main OR Preoperative Recordo n 10-12-2020 Main OR Preoperative Record Holding Area Document Type FTURO Summary Primary Physician: Lewis GONZALEZ MD Finalized Date/Time: 10/12/20 09:53:30 Pt. Name: LISAJACKIE D.O.B./Sex: 2000 Female Med Rec #: [id number] Physician: Lewis GONZALEZ MD Financial #: [id number] Pt. Type: O Room/Bed: / Admit/Disch: 10/12/20 [...] 09:30 Chyna Garay RN 10/12/20 09:53 Normal [facility] Operative Reporton Operative Report Patient: JACKIE [...] urine. The Urethra was dilated to: 30 Hebrew w/ sounds. Devices Implanted: None. Removal: Cystoscope is removed, The patient tolerated it well. Postoperative Information Discharge: Patient is discharged home with antibiotic coverage, Follow up arranged. [facility] Comment on above: Result Comment: Elec tronically Signed By: PANCHITO AGUIRRE, Lewis Trent.br\Date and Time Signed: 10/12/20 10:02 EST Pre-Certification Formon Pre-Certification Form [id number]#1. 00CD:127 [facility] Physician Referralon 021 Physician Referral [id number]#1 .00CD:127 [facility] Formson 10-05-2020 Forms [id number]#1. 00CD:127 [facility] Ambulatory Clinical Summaryo n 10-04-2020 Ambulatory Clinical Summary {[id number]}CD:[id number] [facility] Patient Educationon 10-04-19 21 Patient [...] Document Reviewed: 09/13/2012 ExitCare? Patient Information ?[address] [employer] 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 Pt states that [...] kidney stones. PVR 99ml. Renal US/bladder At [facility] 08/2020. Dysuria: not at this time Incomplete [...] Information Lewis GONZALEZ MD [address] [place] [address] [place] [phone] Additional Instructions: scheduling Cysto/UD Patient Education Urinary [...] Oral met (more content not included)... [facility] Comment on above: Result Comment: Elec tronically Signed By: Lewis GONZALEZ MD\.br\Date and Time Signed: 10/04/20 15:03 EST\.br\Electronically Co-Signed By: Lyn Willis MA\.br\Date and Time Co-Signed: 10/04/20 14:59 EST Coding Summary.on 09-09-2020 Coding Summary. CODING DATE: 09/09/2020 [facility] STATUS: Home (Routine DC) PAYOR: Commercial Insurance [...] CphT Date Saved: 09/09/2020 06:00 pm [facility] US Retroperitoneal Completeo n 09-09-2020 [...] M.D. Transcribed by: ROYAL Technologist: HW [facility] Consent for Treatmenton 08-20 Consent for Treatment [id number] .00CD:127 [facility] Consent for Treatment [id number]# 1.00CD:127 [facility] Physician Orderon 09-03-2020 Physician Order [id number]#1 .00CD:127 [facility] Vital Signs Date Time Vital Sign Value Performing Clinician Facility 10-04-2023 10:19050 Body weight 71.22 kg Cube Route DO Work Phone: [facility] 10-04-2023 10:19-050 Diastolic blood pressure 78 mm[Hg] KuponGid Work Phone: [facility] 10-04-2023 10:19-0500 Systolic blood pressure 124 mm[Hg] C[employer] DO Work Phone: [facility] 08-05-2023 14:35-0500 Body height 176.53 cm Joseline Shaye Other [facility] Other 08-05-2023 14:35-0500 Body mass index (BMI) [Ratio] 23.29 kg/m2 Joseline Shaye Other [facility] Other 08-05-2023 14:35-0500 Body temperature 98 [degF] Joseline Shaye Other [facility] Other 08-05-2023 14:35-0500 Body weight 72.58 kg Joseline Shaye Other [facility] Other 08-05-2023 14:35-0500 Respiratory rate 18 /min Joseline Shaye Other [facility] Other 08-05-2023 14:35-0500 SaO2% (BldA) [Mass fraction] 98 % Joseline Shaye Other [facility] Other 03-20-2022 18:20-0400 Body height 176.53 cm Radha Galdamez Other [facility] Other 03-20-2022 18:20-0400 Body mass index (BMI) [Ratio] 25.32 kg/m2 Radha Galdamez Other [facility] Other 03-20-2022 18:20-0400 Body temperature 98.4 [degF] Radha Galdamez Other [facility] Other 03-20-2022 18:20-0400 Body weight 78.93 kg Radha Crow Other [facility] Other 03-20-2022 18:20-0400 Respiratory rate 18 /min Radha Galdamez Other [facility] Other 03-20-2022 18:20-0400 SaO2% (BldA) [Mass fraction] 97 % Radha Galdamez Other [facility] Other Encounters Encounter Date Encounter Type Care Provider Facility Start: 04-03-2024 End: 04-03-2024 ambulatory CHYNA GRACIELA Not Available Start: 03-13-2024 End: 03-13-2024 ambulatory CHYNA GRACIEAL Not Available Start: 02-27-2024 End: 02-27-2024 ambulatory OLE DAWSON [...] 08-05-2023 End: 08-05-2023 ambulatory Joseline Shaye Other [facility] Other Start: 08-05-2023 Office outpatient visit 15 minutes Joseline Shaye [facility] Start: 03-20-2022 End: 03-20-2022 Departed Referred THEATER [employer]HER[employer]C Radha Crow Work Phone: [facility] [place] Start: 03-20-2022 End: 03-20-2022 ambulatory Radha Crow Other [facility] [employer] Other Start: 03-20-2022 Office outpatient ne w 20 minutes Radha Galdamez [facility] Start: 10-22-2021 End: 10-23-[address] IVAN HYDE Facility:[facility]1 Procedures Date Procedure Procedure Detail Performing Clinician Start: 10-04-2023 Urnls dip stick/tabl et rgnt non-auto w/o micrscp Ole Dawson DO Work Phone: Urine culture [employer]ATER [employer] Greta lev Crow Work Phone: Plan of Treatment Date Care Activity Detail Author Start: 11-05-2023 End: 11-05-2023 Patient encounter procedure 11/05/2023 3:30 PM EDT Routine [facility] [address] [id number] Chyna Owens PA [address] [place], [place] [id number] [facility] Payers Date Payer Category Payer Unknown [id number] 2022 Unknown [id number] 2022 Unknown [id number]. [id number] 2000 Unknown [id number] 2.16.84 0.1.150597.3.579.2.593 2000 Unknown [id number] 2.16.84 0.1.895793.3.579.2.1259 2000 Unknown [id number] 2.16.84 0.1.447089.3.579.2.1259 1998 Unknown [id number] 2.16.84 0.1.833317.3.579.2.9 1998 Unknown [id number] 2.16.84 0.1.218425.3.579.2.9 2000 Unknown [id number] 2.16.84 0.1.373469.3.579.2.9 2000 Unknown [id number] 2.16.84 0.1.961074.3.579.2.1258 2000 Unknown [id number] 2.16.84 0.1.639417.3.579.2.1258 2000 Unknown [id number] 2.16.84 0.1.074724.3.579.2.1258 1998 Unknown [id number] 2.16.84 0.1.273814.3.579.2.9 2000 Unknown [id number] 2.16.84 0.1.772720.3.579.2.1259 1959 Unknown [id number] Unknown [id number] 2.16. [id number] Social History Date Type Detail Facility Sex Assigned At [facility] Work Phone: Start: 2000 Sex Assigned At Female F [facility] Tobacco smoking status HIIS Tobacco smoking consumption unknown [facility] Start: 07-28-2023 [facility] Start: 2000 Sex Assigned At Not on file [facility] History of Present illness Narrative 10-04-2023 [...] Ole Osman DO documented in this encounter [facility] Evaluation note 08-05-2023 Note Date & [...] you develop chest pain, shortness of breath. [facility] Other Evaluation note 03-20-2022 Note Date & [...] Follow up with primary care provider or weed controller if no improvement of symptoms. Mar, Abdominal pain, unspecified abdominal location (ICD-10 - R10.9) Mar, Other Recommend Retested for in 1 week. Call family planning clinic at [facility] Other History and physical note 10-19-2020 Note Date & Type Note Facility 10-19-2020 Note [id number]#1.00CD:127 [facility] Clinical Note 10-12-2020 Note Date & [...] you have a fever over 100 degrees [facility] Evaluation note Note Date & Type Note Facility Evaluation note No assessment information availa [facility] Work Phone: Evaluation note Note Date & Type Note Facility Evaluation note Diagnosis First trimester state, incidental documented in this encounter [facility] History general Narrative - Reported Note Date & Type Note Facility History general Narrative - Reported Type Surgical History Back Surgery 2006 Hospitalization History see above [facility] Other Summary Purpose Family History No Family [...] content) DATE CREATED AUTHOR 03/01/2021 [facility] DATE CREATED AUTHOR AUTHOR'S ORGANIZ ATION 12/07/2021 [facility] DATE CREATED AUTHOR AUTHOR'S ORGANIZ ATION 03/29/2022 [facility] DATE CREATED AUTHOR AUTHOR'S ORGANIZ ATION 04/05/2024 [facility] EPIC REASON FOR VISIT (unrecogniz ed section and content) Reason Comments Routine Visit Care Teams (unrecognized sec tion and content) Team Status: Inactive Member Role Status Dates ANA Galdamez Attending Provider Active PHYSICIAN NO FAMILY Primary Care Provider Active Team Status: Active Member Role Status Dates PHYSICIAN NO FAMILY Primary Care Provider Active Spring Layer Relationship Specialty Start Date End Date Ivan Hyde MD [address] [place] [address] PCP - General Family Medicine 09/07/23 Goals [...] BE BASED ON THE PRIMARY CLINICAL RECORDS. [employer] provides no warranty or guarantee of the accuracy or completeness of information in this document.
--- NOTE | 2024-04-14 17:27 | PC.NURSE ---
Jackie and 2 week old Moon arrive for support. Mom reports thought everything was going well, but feeding hurts, she is gassy, fussy, hiccups and spits up all the time Reports that infant slides off nipple and needs re latched, making baby cry with feeds. weight obtained, returned to weight at 2 weeks old. Mom reports smears of yellow stool throughout day and maybe 1 larger stool noted. Reports 8 wets or more daily. She is hungry all the time . Notes that baby feeds every 2-3 hours but acts hungry immediately after coming off breast. Usually burps 2-3 times during the feed as baby becomes fussy while trying to feed. Mom mostly feeds one breast each feeding , not using both breasts. Baby to breast by mom, independent latch. Poor positioning noted, shallow latch achieved with clamping at breast. Demo of improved positioning , asymmetrical latching and deeper attachment achieved. Infant with audible gulps and swallows. Mom states only does that every once in a while Baby finished feed and independently to second breast per mom. Infant burps and spits mod amount breast milk X 2.Referral for evaluation of mouth discussed and information given for parents to review and decide. Dyad leaves for home, will call for next appointment when decides about evaluation/possible revision .
== END 2024-04-14 17:45 | disposition home or self-care (01) ==
LOC: FBCO 07:59
PROVIDERS: PCP Family Medicine; Visit Provider Obstetrics & Gynecology
DX: Z39.1 Encounter for care and examination of lactating mother (principal)
CPT/HCPCS: G0463

== ENCOUNTER 2024-04-23 08:30 | Outpatient (OUT) | payer OTHER, SELFPAY ==
--- OUTSIDE RECORDS SUMMARY | 2024-04-23 08:36 | XMS_ITS | CCD ---
Author Organization [facility] Care Team Providers Care Billboard Erector Helper Name Role Phone DR IVAN HYDE Admitting Unavailable YVES, DR LOVE Attending Unavailable YVES, DR LOVE Primary Care Unavailable YVES, DR LOVE Consulting Unavailable Radha Galdamez Unavailable ANA Galdaemz Attending Provider NO FAMILY, PHYSICIAN Primary Care Provider Unava iljhonathan Joseline Cr Unavailable Ivan Hyde MD Primary Care Provider [phone] OLE OSMAN Attending Unavailable CHYNA OWENS Attending [...] UA Negative Negative - 4(70) +++ mg/dL [facility] Blood, UA Negative Negative - 50 Christiano/mcL [facility] Clarity, UA Clear [facility] Color, UA Yellow [facility] Glucose, UA Negative Negative - 1999(110) ++++ mg/dL [facility] Interpretation and review of laboratory results Abnormal [facility] Ketones, UA Negative Negative - 160(16) ++++ mg/dL [facility] Leukocytes, UA Trace Negative - 500+++ Shaquille/mcL [facility] Nitrite, UA Negative Negative - Positive [facility] pH, UA 6.0 5 - 9 [facility] Protein, UA Negative Negative - 1999(20) ++++ mg/dL [facility] Spec Grav, UA 1.025 1 - 1.03 [facility] Urobilinogen, UA 0.2 0.2 - 12 mg/dL [facility] COVID + FLU Quick Testingon 08-05-2023 SARS-CoV-2 (COVID-19) RNA SAL+probe Ql (Unsp spec) Negative [facility] Other COVID + FLU Quick Testing Negative [facility] Other Urine culture routineOrdered By: RADHA GALDAMEZ on 03-22-2022 Bacteria identified Cx Nom (U) Escherichia coli [facility] Test, Urineon Beta HCG ( test) Ql (U) Inconclusive [facility] Other SARS-CoV-2 (COVID-19) RNA NA A+probe Ql (Resp)on 03-20-2022 SARS-CoV-2 (COVID-19) RNA SAL+probe Ql (Unsp spec) Negative [facility] Other Urinalysis - AUTOMATEDon Appearance (U) CLOUDY [facility] Other Bilirubin Ql (U) Negative [facility] Other Color (U) rust-yellow [facility] Other Glucose Ql (U) Negative [facility] Other Hemoglobin Ql (U) TRACE-INTACT [facility] Other Ketones Ql (U) Negative [facility] Other Leukocyte esterase Test strip Ql (U) TRACE [facility] Other Nitrite Ql (U) Positive [facility] Other pH (U) 7.0 [pH] [facility] Other Protein Ql (U) Negative [facility] Other Specific gravity (U) [Rel density] 1.020 [facility] Other Urobilinogen (U) [Mass/Vol] 0.2 mg/dL [facility] Other Urinalysis - AUTOMATED [facility] Other Urine Cultureon 03-20-2022 Bacteria identified Cx Nom (U) ORGANISM: Escherichia coli (O:ESCCOL) [place] Count >100,000 Aerobic MAUREEN Charge (NUC86) ---- [...] RESISTANT TO ALL B-LACTAM DRUGS. PERFORMED BY: [place] [address] PATHOLOGIST COMPOSITE LAYUP WORKER DEDE OSMAN M.D. Normal [facility] Comment on above: Performed By: #### C UU #### [facility] [address] [place] [address] GI PANEL (PCR)on 10-22-2021 Adenovirus F 40/41 Not detected Normal NOT DETECTED [facility] Comment on above: Performed By: #### G IPANEL #### [facility] [address] [place] [address] Dr. Elenita Talamantes Astrovirus Not detected Normal NOT DETECTED [facility] Comment on above: Performed By: #### G IPANEL #### [facility] [address] [address] [address] Elenita Stover. Diff toxin A/B Not detected Normal NOT DETECTED [facility] Comment on above: Performed By: #### G IPANEL #### [facility] [address] [place] [address] Dr. Elenita Talamantes Campylobacter Not detected Normal NOT DETECTED [facility] Comment on above: Performed By: #### G IPANEL #### [facility] [address] [place] [address] Dr. Elenita Talamantes Cryptosporidium Not detected Normal NOT DETECTED [facility] Comment on above: Performed By: #### G IPANEL #### [facility] [address] [place] [address] Dr. Elenita Talamantes Cyclos. Cayetanensis Not detected Normal NOT DETECTED [facility] Comment on above: Performed By: #### G IPANEL #### [facility] [address] [place] [address] Dr. Elenita Talamantes E. Coli O157 Not Applicable Normal Not Applicable [facility] Comment on above: Performed By: #### G IPANEL #### [facility] [address] [address] [address] Elenita Talamantes E. histolytica Not detected Normal NOT DETECTED [facility] Comment on above: Performed By: #### G IPANEL #### [facility] [address] [address] [address] Elenita Talamantes EAEC Detected Abnormal NOT DETECTED [facility] Comment on above: Performed By: #### G IPANEL #### [facility] [address] [address] [address] Elenita Talamantes EIEC Not detected Normal NOT DETECTED [facility] Comment on above: Performed By: #### G IPANEL #### [facility] [address] [place] [address] Dr. Elenita Talamantes EPEC Detected Abnormal NOT DETECTED [facility] Comment on above: Performed By: #### G IPANEL #### [facility] [address] [place] [address] Dr. Elenita Talamantes ETEC Detected Abnormal NOT DETECTED [facility] Comment on above: Performed By: #### G IPANEL #### [facility] [address] [place] [address] Dr. Elenita Reyna Lamblia Not detected Normal NOT DETECTED [facility] Comment on above: Performed By: #### G IPANEL #### [facility] [address] [place] [address] Dr. Elenita RODRÍGUEZ CONTROLS PASSED Normal [facility] Comment on above: Performed By: #### G IPANEL #### [facility] [address] [place] [address] Dr. Elenita EDMONDS ROCKY HEADER GI PANEL BACTERIA Normal T [facility] Comment on above: Performed By: #### G IPANEL #### [facility] [address] [place] [address] Dr. Elenita EDMONDSHD ECOLI GI PANEL DIARRHEAGENIC E.COLI / SHIGELLA Normal [facility] Comment on above: Performed By: #### G IPANEL #### [facility] [address] [place] [address] Dr. Elenita BERMEO INFO SEE BELOW Normal [facility] Comment on above: Result Comment: EAEC - Enteroaggregative E. Coli EPEC- Enteropathogenic E. Coli ETEC- Enterotoxigenic E. Coli lt/st STEC- Shigella-like toxin-producing E. Coli stx1/stx2 EIEC- Shigella/Enteroinvasive E. Coli Performed By: #### G IPANEL #### [facility] [address] [address] [address] Elenita BERMEO PARASITES GI PANEL PARASITES Normal [facility] Comment on above: Performed By: #### G IPANEL #### [facility] [address] [address] [address] Elenita BERMEO VIRUS GI PANEL VIRUSES Normal [facility] Comment on above: Performed By: #### G IPANEL #### [facility] [address] [address] [address] Elenita Talamantes Norovirus GI/GII Not detected Normal NOT DETECTED [facility] Comment on above: Performed By: #### G IPANEL #### [facility] [address] [address] [address] Elenita Talamantes P. Shigelloides Not detected Normal NOT DETECTED [facility] Comment on above: Performed By: #### G IPANEL #### [facility] [address] [address] [address] Elenita Talamantes Rotavirus A Not detected Normal NOT DETECTED [facility] Comment on above: Performed By: #### G IPANEL #### [facility] [address] [address] [address] Elenita Talamantes Salmonella Not detected Normal NOT DETECTED [facility] Comment on above: Performed By: #### G IPANEL #### [facility] [address] [address] [address] Elenita Talamantes Sapovirus Not detected Normal NOT DETECTED [facility] Comment on above: Performed By: #### G IPANEL #### [facility] [address] [address] [address] Elenita Talamantes STEC Not detected Normal NOT DETECTED [facility] Comment on above: Performed By: #### G IPANEL #### [facility] [address] [address] [address] Elenita Talamantes Vibrio Not detected Normal NOT DETECTED [facility] Comment on above: Performed By: #### G IPANEL #### [facility] [address] [address] [address] Elenita Talamantes Vibrio Cholera Not detected Normal NOT DETECTED [facility] Comment on above: Performed By: #### G IPANEL #### [facility] [address] [address] [address] Elenita Talamantes Y. Enterocolitica Not detected Normal NOT DETECTED [facility] Comment on above: Performed By: #### G IPANEL #### [facility] [address] [address] [address] Elenita Talamantes Ambulatory Clinical Summaryo n 02-28-2021 Ambulatory Clinical Summary {[id number]}CD:[id number] Normal [facility] Urology Office/Clinic Noteon 02-28-2021 Urology Office/Clinic [...] [place], URL [address] [place] [address] [place] [phone] Additional Instructions: 6mos. f/u Patient Education I, [...] Protein Urine Dipstick: Negative (02/28/21 15:30:00) Specific [place] Urine Dipstick: 1.020 (02/28/21 15:30:00) Urine Appearance Urine Dipstick: Clear (02/28/21 15:30:00) Urine Color Urine Dipstick: Yellow (02/28/21 15:30:00) Urobilinogen Urine Dipstick: Normal 0.2-1 EU/dl (02/28/21 15:30:00) pH Urine Dipstick: 5 (02/28/21 15:30:00) [facility] Comment on above: Result Comment: Elec tronically Signed By: Lewis GONZALEZ MD\.br\Date and Time Signed: 02/28/21 16:30 EDT\.br\Electronically Co-Signed By: Lyn Willis MA\.br\Date and Time Co-Signed: 02/28/21 16:26 EDT Coding Summary.on 10-27-2020 Coding Summary. CODING DATE: 10/27/2020 [facility] STATUS: Home (Routine DC) PAYOR: Commercial [...] Orr CphT Date Saved: 10/27/2020 09:40 am [facility] Coding Summary. CODING DATE: 10/27/2020 [facility] STATUS: Home (Routine DC) PAYOR: Commercial [...] Orr CphT Date Saved: 10/27/2020 09:39 am [facility] Discharge Instructionson Discharge Instructions [id number]# 1.00CD:127 [facility] NM Kidney Imaging w/ Flow [...] (%): 14 Left Uptake (%): 38.9 Normal [facility] Consent for Procedure/Surger yon 10-19-2020 Consent for Procedure/Surgery [id number]# 1.00CD:127 Normal [facility] Consent for Treatmenton Consent for Treatment [id number] .00CD:127 [facility] IntraOperative Documentson 0 10-19-2020 IntraOperative Documents [id number]# 1.00CD:127 [facility] Coding Summary.on 10-18-2020 Coding Summary. CODING DATE: 10/18/2020 [facility] STATUS: Home (Routine DC) PAYOR: Commercial [...] Charisse Rivers Date Saved: 10/18/2020 01:46 pm [facility] Consent for Treatmenton 09-21 Consent for Treatment [id number] .00CD:127 [facility] Main OR Intraoperative Recor don 10-12-2020 Main OR Intraoperative Record IntraOp Document Type FTURO Summary Primary Physician: Lewis GONZALEZ MD Finalized Date/Time: 10/12/20 10:01:33 Pt. Name: JACKIE GONZALEZ/Sex: 2000 Female Med Rec #: [id number] Physician: Lewis GONZALEZ MD Financial #: [id number] Pt. Type: O Room/Bed: / Admit/Disch: 10/12/20 [...] Chyna Arredondo Role Performed Surgeon - Primary Sleeve Ironer - Primary Sleeve Ironer - Primary Time In 10/12/20 09:52:00 10/12/20 09:52:00 10/12/20 09:52:00 Time Out 10/12/20 10:01:00 10/12/20 10:01:00 10/12/20 10:01:00 Procedure CYSTOSCOPY LOCAL WITH CYSTOSCOPY LOCAL WITH CYSTOSCOPY LOCAL WITH URETHRAL DILATION(.) URETHRAL DILATION(.) URETHRAL DILATION(.) Comments orientation Last Modified By: Jarrod RAMOS, Chyna Garay RN, Chyna Garay RN, Chyna Arredondo 10/12/20 09:59:54 10/12/20 09:59:54 10/12/20 09:59:54 Entry 4 Entry 5 Case Attendee Miguel SECONDARY SCHOOL TEACHER, Carole Alexander SECONDARY SCHOOL TEACHER, Millie Stover Role Performed Scrub - Primary [...] By: Chyna Garay RN 10/12/20 10:01 Normal [facility] Main OR Preoperative Recordo n 10-12-2020 Main OR Preoperative Record Holding Area Document Type FTURO Summary Primary Physician: Lewis GONZALEZ MD Finalized Date/Time: 10/12/20 09:53:30 Pt. Name: LISAJACKIE D.O.B./Sex: 2000 Female Med Rec #: [id number] Physician: Lewis GONZALEZ MD Financial #: [id number] Pt. Type: O Room/Bed: / Admit/Disch: 10/12/20 [...] 09:30 Chyna Garay RN 10/12/20 09:53 Normal [facility] Operative Reporton Operative Report Patient: JACKIE [...] urine. The Urethra was dilated to: 30 Amharic w/ sounds. Devices Implanted: None. Removal: Cystoscope is removed, The patient tolerated it well. Postoperative Information Discharge: Patient is discharged home with antibiotic coverage, Follow up arranged. [facility] Comment on above: Result Comment: Elec tronically Signed By: PANCHITO AGUIRRE, Lewis Trent.br\Date and Time Signed: 10/12/20 10:02 EST Pre-Certification Formon Pre-Certification Form [id number]. 00CD:127 [facility] Physician Referralon 021 Physician Referral [id number] .00CD:127 [facility] Formson 10-05-2020 Forms [id number]#1. 00CD:127 [facility] Ambulatory Clinical Summaryo n 10-04-2020 Ambulatory Clinical Summary {[id number]}CD:[id number] [facility] Patient Educationon 10-04-19 21 Patient [...] Document Reviewed: 09/13/2012 ExitCare? Patient Information ?2013 [employer]. 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 Pt states that [...] kidney stones. PVR 99ml. Renal US/bladder At [facility] 08/2020. Dysuria: not at this time Incomplete [...] GONZALEZ MD [address] [place] [address] [place] [phone] Additional Instructions: scheduling Cysto/UD Patient Education Urinary [...] buPROPion, Oral met (more content not included)... [facility] Comment on above: Result Comment: Elec tronically Signed By: Lewis GONZALEZ MD\.br\Date and Time Signed: 10/04/20 15:03 EST\.br\Electronically Co-Signed By: Lyn Willis MA\.br\Date and Time Co-Signed: 10/04/20 14:59 EST Coding Summary.on 09-09-2020 Coding Summary. CODING DATE: 09/09/2020 [facility] STATUS: Home (Routine DC) PAYOR: Commercial [...] Orr CphT Date Saved: 09/09/2020 06:00 pm [facility] US Retroperitoneal Completeo n 09-09-2020 [...] O M.D. Transcribed by: ROYAL Technologist: HW [facility] Consent for Treatmenton 08-20 Consent for Treatment [id number] .00CD:127 [facility] Consent for Treatment [id number]# 1.00CD:127 [facility] Physician Orderon 09-03-2020 Physician Order [id number] .00CD:127 [facility] Vital Signs Date Time Vital Sign Value Performing Clinician Facility 10-04-2023 10:19050 Body weight 71.22 kg Zimory DO Work Phone: [facility] 10-04-2023 10:19-050 Diastolic blood pressure 78 mm[Hg] [employer] Work Phone: [facility] 10-04-2023 10:19-0500 Systolic blood pressure 124 mm[Hg] Zimory DO Work Phone: [facility] 08-05-2023 14:35-0500 Body height 176.53 cm Joseline Shaye Other [facility] Other 08-05-2023 14:35-0500 Body mass index (BMI) [Ratio] 23.29 kg/m2 Joseline Shaye Other [facility] Other 08-05-2023 14:35-0500 Body temperature 98 [degF] Joseline Shaye Other [facility] Other 08-05-2023 14:35-0500 Body weight 72.58 kg Joseline Shaye Other [facility] Other 08-05-2023 14:35-0500 Respiratory rate 18 /min Joseline Shaye Other [facility] Other 08-05-2023 14:35-0500 SaO2% (BldA) [Mass fraction] 98 % Joseline Shaye Other [facility] Other 03-20-2022 18:20-0400 Body height 176.53 cm Radha Galdamez Other [facility] Other 03-20-2022 18:20-0400 Body mass index (BMI) [Ratio] 25.32 kg/m2 Radha Galdamez Other [facility] Other 03-20-2022 18:20-0400 Body temperature 98.4 [degF] Radha Galdamez Other [facility] Other 03-20-2022 18:20-0400 Body weight 78.93 kg Radha Crow Other [facility] Other 03-20-2022 18:20-0400 Respiratory rate 18 /min Radha Galdamez Other [facility] Other 03-20-2022 18:20-0400 SaO2% (BldA) [Mass fraction] 97 % Radha Galdamez Other [facility] Other Encounters Encounter Date Encounter Type Care Provider Facility Start: 04-03-2024 End: 04-03-2024 ambulatory CHYNA GRACIELA Not Available Start: 03-13-2024 End: 03-13-2024 ambulatory CHYNA GRACIELA Not Available Start: 02-27-2024 End: 02-27-2024 ambulatory [...] 08-05-2023 End: 08-05-2023 ambulatory Joseline Shaye Other [facility] Other Start: 08-05-2023 Office outpatient visit 15 minutes Joseline Shaye [facility] Start: 03-20-2022 End: 03-20-2022 Departed Referred STILL PUMP OPERATOR-C Radha Crow Work Phone: [facility] [place] Start: 03-20-2022 End: 03-20-2022 ambulatory Radha Crow Other [facility] Other Start: 03-20-2022 Office outpatient ne w 20 minutes Radha Galdamez [facility] Start: 10-22-2021 End: 10-23-[address] IVAN HYDE Facility:[facility] Procedures Date Procedure Procedure Detail Performing Clinician Start: 10-04-2023 Urnls dip stick/tabl et rgnt non-auto w/o micrscp Ole Dawson DO Work Phone: Urine culture STILL PUMP OPERATOR-C Greta lev Crow Work Phone: Plan of Treatment Date Care Activity Detail Author Start: 11-05-2023 End: 11-05-2023 Patient encounter procedure 11/05/2023 3:30 PM EDT Routine [facility] [address] [place] [phone] Chyna Owens PA [address] [place], [place] [id number] [facility] Payers Date Payer Category Payer Unknown [id number] 2022 Unknown [id number] 2022 Unknown [id number] 2. [id number] 2000 Unknown [id number] 2.16.84 0.1.904641.3.579.2.593 2000 Unknown [id number] 2.16.84 0.1.299194.3.579.2.1259 2000 Unknown [id number] 2.16.84 0.1.662836.3.579.2.1259 2000 Unknown [id number] 2.16.84 0.1.797485.3.579.2.9 2000 Unknown [id number] 2.16.84 0.1.772424.3.579.2.9 2000 Unknown [id number] 2.16.84 0.1.043929.3.579.2.9 2000 Unknown [id number] 2.16.84 0.1.736949.3.579.2.1258 2000 Unknown [id number] 2.16.84 0.1.013085.3.579.2.1258 2000 Unknown [id number] 2.16.84 0.1.385901.3.579.2.1258 2000 Unknown [id number] 2.16.84 0.1.594318.3.579.2.9 2000 Unknown [id number] 2.16.84 0.1.351622.3.579.2.1259 1959 Unknown [id number] Unknown [id number] 2.16. 840.1.845079.19 Social History Date Type Detail Facility Sex Assigned At [facility] Work Phone: Start: 2000 Sex Assigned At Female F [facility] Tobacco smoking status TNIS Tobacco smoking consumption unknown [facility] Start: 07-28-2023 [facility] Start: 2000 Sex Assigned At Not on file N [facility] History of Present illness Narrative 10-04-2023 [...] you develop chest pain, shortness of breath. [facility] Other Evaluation note 03-20-2022 Note Date & [...] Follow up with primary care provider or receptionist/telephone operator if no improvement of symptoms. Mar, Abdominal pain, unspecified abdominal location (ICD-10 - R10.9) Mar, Other Recommend Retested for in 1 week. Call family planning clinic at [facility] Other History and physical note 10-19-2020 Note Date & Type Note Facility 10-19-2020 Note [id number]#1.00CD:127 [facility] Clinical Note 10-12-2020 Note Date & [...] you have a fever over 100 degrees [facility] Evaluation note Note Date & Type Note Facility Evaluation note No assessment information availa [facility] Work Phone: Evaluation note Note Date & Type Note Facility Evaluation note Diagnosis First trimester state, incidental documented in this encounter [facility] History general Narrative - Reported Note Date & Type Note Facility History general Narrative - Reported Type Surgical History Back Surgery 2006 Hospitalization History see above [facility] Other Summary Purpose Family History No Family [...] section and content) DATE CREATED AUTHOR 03/01/2021 [facility] DATE CREATED AUTHOR AUTHOR'S ORGANIZ ATION 12/07/2021 [facility] DATE CREATED AUTHOR AUTHOR'S ORGANIZ ATION 03/29/2022 [facility] DATE CREATED AUTHOR AUTHOR'S ORGANIZ ATION 04/05/2024 [facility] EPIC REASON FOR VISIT (unrecogniz ed section and content) Reason Comments Routine Visit Care Teams (unrecognized sec tion and content) Team Status: Inactive Member Role Status Dates ANA Galdamez Attending Provider Active PHYSICIAN NO FAMILY Primary Care Provider Active Team Status: Active Member Role Status Dates PHYSICIAN NO FAMILY Primary Care Provider Active Billboard Erector Helper Relationship Specialty Start Date End Date Ivan Hyde MD [address] [place] [address] PCP - General Family Medicine 09/07/23 Goals [...] BE BASED ON THE PRIMARY CLINICAL RECORDS. [employer] provides no warranty or guarantee of the accuracy or completeness of information in this document.
== END 2024-04-23 10:10 | disposition home or self-care (01) ==
LOC: FBCO 08:32
PROVIDERS: PCP Family Medicine; Visit Provider Obstetrics & Gynecology
DX: Z39.1 Encounter for care and examination of lactating mother (principal)

== ENCOUNTER 2024-04-29 08:55 | Outpatient (OUT) | payer OTHER, SELFPAY ==
--- NOTE | 2024-04-29 12:51 | PC.NURSE ---
Jackie and 4 week old daughter, Moon arrive for support. Mom reports very fussy, gassy, and frantic at times during the last week. Tongue and lip revision healing well, states continues to spit up with burping, although maybe not as often . Is having irregular stools, where Dr Hyde advised Amie syrup and water in bottle, baby did stool after bottle but has not stooled again since, currently 2 days . Baby has piercing cry at times and draws knees up, frequently unsettled and continues to act hungry after feeds. Mom pumps 2 oz combined after each feed. Infant weight obtained, 7-12.5 today increased from 7-8 last visit. Infant gaining but on lower side of expected normal. Baby latches and deeply, latch improved significantly as well as suck pattern. audible swallows noted in bursts and pauses. Discussed switch nursing To keep milk flowing for baby. Jackie has memory care program director schedule for today. Will start offering pumped milk after each feed up to [address] Hyde for further concern on reflux. Jackie is agreeable to plan and will return 05/06/2024.
== END 2024-04-29 13:08 | disposition home or self-care (01) ==
LOC: FBCO 08:56
PROVIDERS: PCP Family Medicine; Visit Provider Obstetrics & Gynecology
DX: Z39.1 Encounter for care and examination of lactating mother (principal)

== ENCOUNTER 2024-05-06 08:09 | Outpatient (OUT) | payer OTHER, SELFPAY ==
--- NOTE | 2024-05-06 13:19 | PC.NURSE ---
Jackie and 4 week old Moon arrive for support. Jackie smiling and states things are going much better Relates that milk production increased after flange fitting last week to collecting 4 oz combined instead of [address] Hyde recommended medication for reflux symptoms in which mom noted significant improvement. No longer spitting up large amount with each feeding , crying and fussiness nearly completely gone. One concern of Jackie is that has now gone 5 days without stooling. Encouraged to speak with Dr Hyde as he recommended corn syrup in 1 bottle daily for easier stooling. Reviewed with Jackie Abdominal massage for infant and voiced understanding. States finally feel confident in my ability to care for this child will definately continue nursing and pumping when I go back to work in a few weeks . Aware to call for questions or concerns as needed. Leaves ambulatory with . No weight on as baby was sleeping soundly and gaining well at office visit per mom.
== END 2024-05-06 13:38 | disposition home or self-care (01) ==
LOC: FBCO 08:10
PROVIDERS: PCP Family Medicine; Visit Provider Obstetrics & Gynecology
DX: Z39.1 Encounter for care and examination of lactating mother (principal)

== ENCOUNTER 2025-01-08 15:15 | Outpatient (REF) | payer OTHER, SELFPAY ==
--- OUTSIDE RECORDS SUMMARY | 2023-09-06 06:46 | XMS_ITS ---
Author Organization [facility] in [place] Address [address] [place] [address] Care Team Providers Care Venetian Blind Tape Cutter Name Role Phone Chong Marinelli Primary Care Provider IVAN MARINELLI Unavailable [phone] REASON FOR VISIT US rt negative for DVT Encounters Encounter Location Date Provider Diagnosis [facility] [address] [place] [address] 09/06/2023 IVAN MARINELLI Plan Of Treatment No Information Progress Notes * Jackie APONTEDOB:2000 (23 yo F)Acc No.[id number]:09/06/2023 Patient: Jackie Ramires :2000 A ge:23 Y S ex:Female Address:[address] [place], [address] * true * Date: Generated for Odalys castro/Nora/eTransmitting on: 0 01/08/2025 03:17 PM EDT
--- OUTSIDE RECORDS SUMMARY | 2023-09-27 16:20 | XMS_ITS ---
Author Organization [facility] in [place] Address [address] [place] [address] Care Team Providers Care Pool Manager Name Role Phone Chong Hyde Primary Care Provider IVAN HYDE Unavailable [phone] Encounters Encounter Location Date Provider Diagnosis [facility] [address] [place] [address] 09/27/2023 IVAN HYDE Plan Of Treatment No Information Progress Notes * Jackie APONTEDOB:2000 (23 yo F)Acc No.[id number]:09/27/2023 Patient: Jackie Ramires :2000 A ge:23 Y S ex:Female Address:[address] [place] [address], [id number] * true * Date: Generated for Printi ng/Falelog/eTransmitting on: 0 01/08/2025 01:49 PM EDT
--- OUTSIDE RECORDS SUMMARY | 2024-09-08 05:15 | XMS_ITS ---
Author Organization [facility] in [place] Address [address] [place] [address] Care Team Providers Care Success Coach Name Role Phone Chong Hyde Primary Care Provider [phone] Allergies No Known Allergies Results Component Value Reference Range Notes UA DIP NONAUTO WO MICRO (810 02) - IN OFFICE (Not yet reviewed by provider) Interpretation: Performing Lab: Notes/Report: COLOR light yellow CLARITY clear GLUCOSE neg BILIRUBIN neg KETONE neg SPECIFIC GRAVITY 1.010 BLOOD neg PH 5 PROTEIN neg UROBILINOGEN neg NITRITE neg LEUKOCYTE ESTERASE neg REASON FOR VISIT Presents to office alone for c/o sore throat, sinus congestion and headache x1 day, C/o low and midback pain, pain with twisting and bending x1 week Medications Medication SIG (Take, Route, Frequency, Duration) Notes Start Date End Date Status Amoxicillin-Pot Clavulanate 875-125 MG 1 tablet Orally every 12 hrs for 10 days 09/08/2024 Active Social History Tobacco Use: Social History Observation Description Date Details (start date - stop date) Former Smoker 08/20/2013 - 08/20/2020 Tobacco Use/Smoking Question Answer Notes Patient is a former smoker When did you start smoking? 08/20/2013 When did you stop smoking? 08/20/2020 How long has it been since you last smoked? 1-5 years AUDIT-C (Standard) Question Answer Notes Did you have a drink containing alcohol in the p ast year? No Points 0 Interpretation Negative Vital Signs Blood pressure systolic 108 mm Hg 09/08/19 25 Blood pressure diastolic 60 mm Hg 025 Height 69.5 in 09/08/2024 Weight 157.8 lbs 09/08/2024 BMI 22.97 kg/m2 09/08/2024 Encounters Encounter Location Date Provider Diagnosis [facility] [address] [place] [address] 09/08/2024 Chong Hoy Flank pain R10.9 ; Acute non-recurrent sinusitis, unspecified location J01.90 and Nasal congestion R09.81 Assessments Encounter Date Diagnosis (ICD Code) Assessment Notes Treatment Notes Treatment Clinical Notes Section Notes 09/08/2024 Flank pain (ICD-10 - R10.9) 09/08/2024 Acute non-recurrent sinusitis, unspecified location (ICD-10 - J01.90) Rest and drink more liquids, especially water. You may use a humidifier or vaporizer to help keep the drainage moist. Ccdx-xtj-hmoycxq Nasal Saline may help the stuffy and runny nose. Use Ibuprofen and or Tylenol as needed for fever, chills, body aches or pain. Children 5 years old should not be given cyos-rmc-wdqywwm cough and cold medications such as guaifenesin and dextromethorphan. If you're over age 5, you may try moim-gwb-uxioucx cold medications such as guaifenesin and dextromethorphan, or multi-symptom cold reliever such as Dayquil to help reduce the symptoms. Antibiotics have been prescribed. You should take these until completed and follow the directions. Antibiotics can sometimes cause upset stomach, and in rare cases, serious allergic reactions or serious gastrointestinal problems. If you start having severe abdominal pain, severe vomiting, or bloody diarrhea, you should be reevaluated by your physician or urgent care immediately. Follow up with your Primary Care Provider or return to clinic if symptoms do not improve within 3-5 days 09/08/2024 Nasal congestion (ICD-10 - R09.81) Plan Of Treatment Medication Medication Name Sig Start Date Stop Date Notes Amoxicillin-Pot Clavulanate 875-125 MG 1 tablet Orally every 12 hrs for 10 days 09/08/2024 Treatment Notes Assessment Notes Acute non-recurrent sinusiti s, unspecified location Rest and drink more liquids, especially water. You may use a humidifier or vaporizer to help keep the drainage moist. Qqir-kpz-rhtqeny Nasal Saline may help the stuffy and runny nose. Use Ibuprofen and or Tylenol as needed for fever, chills, body aches or pain. Children 5 years old should not be given ewfh-jvz-okxzqen cough and cold medications such as guaifenesin and dextromethorphan. If you're over age 5, you may try nkul-trd-brxdwmj cold medications such as guaifenesin and dextromethorphan, or multi-symptom cold reliever such as Dayquil to help reduce the symptoms. Antibiotics have been prescribed. You should take these until completed and follow the directions. Antibiotics can sometimes cause upset stomach, and in rare cases, serious allergic reactions or serious gastrointestinal problems. If you start having severe abdominal pain, severe vomiting, or bloody diarrhea, you should be reevaluated by your physician or urgent care immediately. Follow up with your Primary Care Provider or return to clinic if symptoms do not improve within 3-5 days Pending Test Test Name Order Date UA DIP NONAUTO WO MICRO (86952) - IN OFF ICE 09/08/2024 Next Appt Details Follow Up: 3-5 days if not i mproving, Reason: Progress Notes * JENAROJackieDOB:2000 (24 yo F)Acc No.[id number]:09/08/2024 Progress Note Patient: Jackie THOMPSON Provider: Katty Hyde ([facility])MD :2000 A ge:24 Y S ex:Female Date:09/08/2024 Address:[address] [place] [address] [place], [place] [id number] Check In:09:08 AM ESTCheck O ut:09:31 AM EST Subjective: * Chief Complaints: * P resents to office alone for c/o sore throat, sinus congestion and headache x1 dayC/o low and mid back pain, pain with twisting and bending x1 week * HPI: D epression Screening: PHQ-2 (2015 Edition) L ittle interest or pleasure in doing things??Several days F eeling down, depressed, or hopeless? N ot at all T otal Score 1 some lw back - apain U/A is fine acute sinusitis - 2 days getting worse. S inusitis: The patient complains of symptoms of sinus infection. The symptoms have been present for 1-2 days. The symptoms are moderate. Symptomatic treatment has included OTC medication. Associated symptoms include headache, facial pain, runny nose, nasal congestion. * ROS: S kin: Rash d enies. E NT: Comments S [facility] for details. C ardiovascular: Edema d enies. P alpitations d enies. ? R espiratory: Chest pain d enies. C ough d enies. W heezing?denies. G astrointestinal: Abdominal pain d enies. N ausea d enies. V omiting d enies. * Active Problem List ?Problem List has not been verified* Medical History: * Surgical History: B ack Surgery * Hospitalization/Major Diagno stic Procedure: * Family History: F ather: alive, diagnosed with Diabetes mellitus without mention of complication, type II or unspecified type, not stated as uncontrolled, Unspecified essential hypertension. M other: alive, diagnosed with Other malignant neoplasm of unspecified site, Diabetes mellitus without mention of complication, type II or unspecified type, not stated as uncontrolled, Unspecified essential hypertension. M aternal Grandmother: alive, Uterine Cancer. * Social History: T obacco Use: T obacco Use/Smoking P atient is a f ormer smoker W hen did you start smoking? 0 08/20/2013 W hen did you stop smoking? 0 08/20/2020 H ow long has it been since you last smoked??1-5 years D rug/Alcohol: A LOLA-C (Standard) D id you have a drink containing alcohol in the past year? N o P oints 0 I nterpretation N egative * Medications: N one * Allergies: N .K.D.A.no[Allergies Verified] Objective: * Vitals: W t:157.8lbs, Ht: 69.5 in, BP:108/60mm Hg, BMI:22.97Index, Ht-cm: 176.53 cm, Wt- k.58 kg. * Examination: G eneral Examination: GENERAL APPEARANCE: in no acute distress, well developed, well nourished. ENT: ear and nose external appearance normal, tympanic membranes clear bilaterally, facial tenderness to palpation over sinuses. EYES: pupils equal, round, reactive to light and accomodations. ORAL CAVITY: mucosa moist. NECK: n [place] supple, full range of motion, no cervical lymphadenopathy. LUNGS: c lear to auscultation bilaterally. CARDIO: no murmurs, regular rate and rhythm, S1, S2 normal. ABDOMEN: soft, nontender , not distended, bowel sounds are active. SKIN: no suspicious lesions, warm and dry. EXTREMITIES: no clubbing, cyanosis, or edema. NEUROLOGIC: nonfocal, motor strength of upper/lower extremities intact , sensory exam intact. Assessment: * Assessment: 1. F lank pain - R10.9 (Primary) 2 . A cute non-recurrent sinusitis, unspecified location - J01.90 3 . N latasha congestion - R09.81 Plan: * Treatment: 2. A cute non-recurrent sinusitis, unspecified location Notes:Rest and drink more liquids, especially water. You may use a humidifier or vaporizer to help keep the drainage moist. Hgrj-jdt-ohwbffy Nasal Saline may help the stuffy and runny nose. Use Ibuprofen and or Tylenol as needed for fever, chills, body aches or pain. Children 5 years old should not be given jedv-ydl-ogfllqd cough and cold medications such as guaifenesin and dextromethorphan. If you're over age 5, you may try omwq-upt-pahprae cold medications such as guaifenesin and dextromethorphan, or multi-symptom cold reliever such as Dayquil to help reduce the symptoms. Antibiotics have been prescribed. You should take these until completed and follow the directions. Antibiotics can sometimes cause upset stomach, and in rare cases, serious allergic reactions or serious gastrointestinal problems. If you start having severe abdominal pain, severe vomiting, or bloody diarrhea, you should be reevaluated by your physician or urgent care immediately. Follow up with your Primary Care Provider or return to clinic if symptoms do not improve within 3-5 days * Labs: * L ab: UA DIP NONAUTO WO MICRO (10321) - IN OFFICE (Collection Date & Time - 09/08/2024) Value Reference Range C OLOR light yellow * C LARITY clear * G LUCOSE neg * B ILIRUBIN neg * K ETONE neg * S PECIFIC GRAVITY 1.010 * B LOOD neg * P H 5 * P ROTEIN neg * U ROBILINOGEN neg * N ITRITE neg * L EUKOCYTE ESTERASE neg * Procedure Codes: 8 1002 URINALYSIS WO MICRO * Follow Up: 3 -5 days if not improving * * Sign off status: Completed Visit Status: C HK (Check Out) true * Provider: Katty Hyde ([facility])MD Date: 0 09/08/2024 Generated for Printi ng/Faxing/eTransmitting on: 0 01/08/2025 01:49 PM EDT History and Physical Notes * HPI (History of Present Illness) Category Sub-Category Detail Notes Category Not es Depression Screening PHQ-2 (2015 Edition) Little interest or pleasure in doing things?: Several days some lw back - apain U/A is fine acute sinusitis - 2 days getting worse Feeling down, depressed, or hopeless?: N ot at all Total Score: 1 Examination Category Sub-Category Detail Notes Category Not es General Examination GENERAL APPEARANCE: in no ac minerva distress, well developed, well nourished ENT: ear and nose externa l appearance normal, tympanic membranes clear bilaterally, facial tenderness to palpation over sinuses EYES: pupils equal, round, reactive to light and accomodations NECK: neck supple, full ra nge of motion, no cervical lymphadenopathy CARDIO: no murmurs, regular rate and rhythm, S1, S2 normal LUNGS: clear to auscultatio n bilaterally ABDOMEN: soft, nontender , no t distended, bowel sounds are active NEUROLOGIC: nonfocal, motor stre ngth of upper/lower extremities intact , sensory exam intact SKIN: no suspicious lesion s, warm and dry EXTREMITIES: no clubbing, cyanosi s, or edema ORAL CAVITY: mucosa moist
--- OUTSIDE RECORDS SUMMARY | 2025-01-08 13:49 | XMS_ITS ---
Author Name Auto Generated Organization [facility] Care Team Providers Care Car Repairer Apprentice Name Role Phone KIMBERLY OWENS Attending Unavailable OLE YI Attending Unavailable OLE YI Attending Unavailable OLE YI Attending Unavailable KIMBERLY OWENS Attending Unavailable GRACIELAKIMBERLY SHARP Attending Unavailable GRACIELA, KIMBERLY Attending Unavailable PROBLEMS No Problem Records Found PROCEDURES No Procedure Records Found RESULTS No Result Records Found ALLERGIES No Allergies Records Found ENCOUNTERS ADMIT/DISCHARGE ACCOUNT NUMBER ADMITTING ENCOUNTER CLASS LOCATION SOURCE 01/08/2025/ 5 [id number] Ambulatory Building:[facility] 05/12/2024/ 4 [id number] Ambulatory Building:[facility] 04/03/2024/ 4 [id number] Ambulatory Building:[facility] 03/13/2024/ 4 [id number] Ambulatory Building:[facility] 02/27/2024/ 4 [id number] Ambulatory Building:[facility] 02/12/2024/ 4 [id number] Ambulatory Building:[facility] 01/29/2024/06/11 [id number] Ambulatory Building:[facility] EPIC PAYERS ENCOUNTER GUARANTOR PAYER SUBSCRIBER SOURCE 01/08/2025 CHRIS EASONDOB: [id number] [address] [address]Uhe: (HP) Primary Insurance:MEDICAL MUTUALPolicy Number: [id number] Date:2022-08-20 CHRIS MILLERLEYDOB: [id number] [address] [facility] 01/08/2025 Secondary Insurance:ROYAL BENEFITSPolicy Number: [id number] Date:2023-08-20 CHRIS MILLERLEYDOB: [id number] [address] [facility] 05/12/2024 CHRIS PAULLEYDOB: [id number] [place] [id number]: (HP) Primary Insurance:MEDICAL MUTUALPolicy Number: [id number] Date:2022-08-20 CHRIS MILLERLEYDOB: [id number] [place] [id number] [facility] EPIC 05/12/2024 Secondary Insurance:ROYAL BENEFITSPolicy Number: [id number] Date:2023-08-20 CHRIS BAILEYDOB: [id number] [place] [id number] [facility] EPIC 04/03/2024 CHRIS BAILEYDOB: [id number] [place] [id number]: (HP) Primary Insurance:MEDICAL MUTUALPolicy Number: [id number] Date:2022-08-20 CHRIS BAILEYDOB: [id number] [place] [id number] [facility] 04/03/2024 Secondary Insurance:ROYAL BENEFITSPolicy Number: [id number] Date:2023-08-20 CHRIS BAILEYDOB: [id number] [address] [address] [facility] 03/13/2024 CHRIS BAILEYDOB: [address] [address]Ryb: (HP) Primary Insurance:MEDICAL MUTUALPolicy Number: [id number] Date:2022-08-20 CHRIS BAILEYDOB: [id number] [place] [id number] [facility] 03/13/2024 Secondary Insurance:ROYAL BENEFITSPolicy Number: [id number] Date:2023-08-20 CHRIS BAILEYDOB: [id number] [place] [id number] [facility] 02/27/2024 CHRIS BAILEYDOB: [place] [id number]: (HP) Primary Insurance:MEDICAL MUTUALPolicy Number: [id number] Date:2022-08-20 CHRIS BAILEYDOB: [id number] [place] [id number] [facility] EPIC 02/27/2024 Secondary Insurance:ROYAL BENEFITSPolicy Number: [id number] Date:2023-08-20 CHRIS BAILEYDOB: [id number] [place] [id number] [facility] EP[facility] 02/12/2024 CHRIS BAILEYDOB: [place] [id number]: (HP) Primary Insurance:MEDICAL MUTUALPolicy Number: [id number] Date:2022-08-20 CHRIS BAILEYDOB: [id number] [place] [id number] [facility] EP[facility] 02/12/2024 Secondary Insurance:ROYAL BENEFITSPolicy Number: [id number] Date:2023-08-20 CHRIS BAILEYDOB: [id number] [place] [id number] [facility] 01/29/2024 CHRIS CERDA: [id number] [facility] [address] [place] [address]Iwf: () Primary Insurance:MEDICAL MUTUALPolicy Number: [id number] Date:2022-08-20 CHRIS OROZCOB: [id number] [address] [facility] 01/29/2024 Secondary Insurance:[place] BENEFITSPolicy Number: [id number] Date:2023-08-20 CHRIS OROZCOB: [id number] [place] [id number] [facility]
--- OUTSIDE RECORDS SUMMARY | 2025-01-08 14:00 | XMS_ITS | Encounter Summary ---
Author Organization [facility] Address [address] [facility] [place] [address] Care Team Providers Care Wire Stitcher Name Role Phone Jas Hyde MD Primary Care Provider [phone] Reason for Visit * Reason Comments Well Women Visit Encounter Details Date Type Department Care Team (Late Contact Info) Description 01/08/2025 2:00 PM EDT Office Visit [facility] [address] [place] [place] [id number] Chyna Burroughs, [place] [address] [place] [address] Dr Ruiz, [facility]11 Well woman exam with routine gynecological exam; Yeast infection Social History Tobacco Use Types Packs/Day Years Used Date Smoking Tobacco: Never Assessed Comments No Sex and Gender Information Value Date Recorded Sex Assigned at Not on file Legal Sex Female 9:27 AM EST Gender Identity Not on file Sexual Orientation Not on file documented as of this encounter Last Filed Vital Signs Vital Sign Reading Time Taken Comments Blood Pressure 120/66 01/08/2025 2:03 PM EDT Pulse - - Temperature - - Respiratory Rate - - Oxygen Saturation - - Inhaled Oxygen Concentration - - Weight 74.6 kg (164 lb 8 oz) 01/08/2025 2:03 PM EDT Height - - Body Mass Index - - documented in this encounter Plan of Treatment Upcoming Encounters Date Type Department Care Team (Late Contact Info) Description 01/12/2026 3:00 PM EDT Office Visit [facility] [address] [place] [id number] Chyna Burroughs, [place] [address] [place], [place] [address] [place] [address] [place]iz, [facility]11 Scheduled Orders Name Type Priority Associated Diagnoses Orde r Schedule Pap Smear Pathology and Cytology Routine Well woman exam with routine gynecological exam Ordered: 01/08/2025 Urine culture Microbiology Routine Well woman exam with routine gynecological exam Ordered: 01/08/2025 documented as of this encounter Procedures Procedure Name Priority Date/Time Associated Diagnosis Comments POCT URINALYSIS DIPSTICK Routine 01/08/2025 2:18 PM EDT Well woman exam with routine gynecological exam POCT , URINE Routine 01/08/2025 2:17 PM EDT Well woman exam with routine gynecological exam documented in this encounter Results * (ABNORMAL) POCT urinalysis dipstick manually resulted (01/08/2025 2:18 PM EDT) Color, UA Yellow Clarity, UA Clear Glucose, UA Negative Negative - 2000(110) ++++ mg/dL Bilirubin, UA Negative Negative - 4(70) +++ mg/dL Ketones, UA Negative Negative - 160(16) ++++ mg/dL Spec Grav, UA 1.030 1 - 1.03 Blood, UA Positive Negative - 50 Christiano/mcL Comment:Large pH, UA 6.0 5 - 9 Protein, UA Positive Negative - 2000(20) ++++ mg/dL Comment:30mg/dL Urobilinogen, UA 0.2 0.2 - 12 mg/dL Leukocytes, UA Trace Negative - 500+++ Shaquille/mcL Nitrite, UA Positive Negative - Positive Urine 01/08/2025 2:18 PM EDT us Chyna VERGARA POINT OF CARE TEST ENTER/EDIT OR DERABLES Final Result * POCT , urine manually resulted (01/08/2025 2:17 PM EDT) Preg Test, Ur Negative Negative Urine 01/08/2025 2:17 PM EDT us Chyna VERGARA POINT OF CARE TEST ENTER/EDIT OR DERABLES Final Result documented in this encounter Visit Diagnoses Diagnosis Well woman exam with routine gynecological exam Routine gynecological examination Yeast infection documented in this encounter Care Teams Wire Stitcher Relationship Specialty Start Date End Date Jas Hyde MD [address] [place] [address] PCP - General Family Medicine 09/07/23 documented as of this encounter
--- OUTSIDE RECORDS SUMMARY | 2025-01-08 15:17 | XMS_ITS | Clinical Summary ---
Author Organization [facility] Address [address] [place] [address] Care Team Providers Care Button Sewer Hand Name Role Phone Jas Hyde MD Primary Care Provider [phone] Allergies No known active allergies Medications cephalexin (Keflex) 500 MG capsuleIndication s:Yeast infection Take 1 capsule (500 mg) by mouth in the morning and 1 capsule (500 mg) in the evening and 1 capsule (500 mg) before bedtime. Do all this for 10 days. 30 capsule 01/09/20 25 025 Active fluconazole (Diflucan) 150 MG tabletIndications :Yeast infection Take 1 tablet (150 mg) by mouth 1 (one) time for 1 dose This is a 1 time dose, take single tablet by mouth. 1 tablet 1 01/09/20 25 025 Active norethindrone (Micronor) 0.35 MG tabletIndications :Encounter for initial prescription of contraceptive pills Take 1 tablet (0.35 mg) by mouth Daily for 28 days Take 1 tablet by mouth daily 28 tablet 11 05/12/20 24 025 Discontinued Encounters Date Type Department Care Team Description 01/08/2025 2:00 PM EDT Office Visit [facility] [address] [facility] [address] Chyna Burroughs PA Well woman exam with routine gynecological exam; Yeast infection 01/08/[address] [facility] [address] [place] [address] Chyna Burroughs PA from Last 3 Months Family History Relation Name Status Comments Other grandpa Lupus Social History Tobacco Use Types Packs/Day Years Used Date Smoking Tobacco: Never Assessed Comments No Sex and Gender Information Value Date Recorded Sex Assigned at Not on file Legal Sex Female 9:27 AM EST Gender Identity Not on file Sexual Orientation Not on file Last Filed Vital Signs Vital Sign Reading Time Taken Comments Blood Pressure 120/66 01/08/2025 2:03 PM EDT Pulse - - Temperature - - Respiratory Rate - - Oxygen Saturation - - Inhaled Oxygen Concentration - - Weight 74.6 kg (164 lb 8 oz) 01/08/2025 2:03 PM EDT Height - - Body Mass Index - - Plan of Treatment Upcoming Encounters Date Type Department Care Team (Late st Contact Info) Description 01/12/2026 3:00 PM EDT Office Visit [facility] [address] [facility] [place] [address] Chyna Burroughs PA [address] [facility] [address] [place], [place] [id number] Procedures Procedure Name Priority Date/Time Associated Diagnosis Comments POCT URINALYSIS DIPSTICK Routine 01/08/2025 2:18 PM EDT Well woman exam with routine gynecological exam POCT , URINE Routine 01/08/2025 2:17 PM EDT Well woman exam with routine gynecological exam from Last 3 Months Results * (ABNORMAL) POCT urinalysis dipstick manually resulted (01/08/2025 2:18 PM EDT) Color, UA Yellow Clarity, UA Clear Glucose, UA Negative Negative - 1999(110) ++++ mg/dL Bilirubin, UA Negative Negative - 4(70) +++ mg/dL Ketones, UA Negative Negative - 160(16) ++++ mg/dL Spec Grav, UA 1.030 1 - 1.03 Blood, UA Positive Negative - 50 Christiano/mcL Comment:Large pH, UA 6.0 5 - 9 Protein, UA Positive Negative - 1999(20) ++++ mg/dL Comment:30mg/dL Urobilinogen, UA 0.2 0.2 - 12 mg/dL Leukocytes, UA Trace Negative - 500+++ Shaquille/mcL Nitrite, UA Positive Negative - Positive Urine 01/08/2025 2:18 PM EDT Chyna VERGARA POINT OF CARE TEST ENTER/EDIT OR DERABLES Final Result * POCT , urine manually resulted (01/08/2025 2:17 PM EDT) Preg Test, Ur Negative Negative Urine 01/08/2025 2:17 PM EDT Chyna VERGARA POINT OF CARE TEST ENTER/EDIT OR DERABLES Final Result from Last 3 Months Insurance [employer] Care Teams Button Sewer Hand Relationship Specialty Start Date End Date Jas Hyde MD [address] [place] [address] PCP - General Family Medicine 09/07/23
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
--- OUTSIDE RECORDS SUMMARY | 2025-01-08 15:17 | XMS_ITS | Encounter Summary ---
Author Organization [facility] Address [address] [place] [address] Care Team Providers Care It Network Engineer Name Role Phone Jas Hyde MD Primary Care Provider [phone] Encounter Details Date Type Department Care Team (Late st Contact Info) Description 09/07/2023 Clinisync Result Encounter [facility] External Department Unsolicited Ole Osman DO [address] [facility] [place] [address] Social History Tobacco Use Types Packs/Day Years Used Date Smoking Tobacco: Never Assessed Comments Yes Sex and Gender Information Value Date Recorded Sex Assigned at Not on file Legal Sex Female 9:27 AM EST Gender Identity Not on file Sexual Orientation Not on file documented as of this encounter Plan of Treatment Upcoming Encounters Date Type Department Care Team (Late st Contact Info) Description 01/12/2026 3:00 PM EDT Office Visit [facility] [address] [facility] [place] [phone] Chyna Burroughs PA [address] [facility] [place] [address] documented as of this encounter Procedures Procedure Name Priority Date/Time Associated Diagnosis Comments US OB TRANSVAGINAL 09/07/2023 11 :40 AM EST documented in this encounter Results * US OB TRANSVAGINAL (09/07/2023 11:40 AM EST) Anatomical Region Laterality Modality Other 09/07/2023 11:4 0 AM EST Narrative 09/07/2023 11:42 [place] [address] Ultrasound Report Signed Patient: JACKIE APONTE MR#: [id number] : 2000 Acct:[id number] Age/Sex: 23 / F ADM Date: 09/07/23 Loc: US Attending Dr: Ole Osman D.O. Ordering Physician: Ole Osman D.O. Date of Service: 09/07/23 Procedure(s): US OB transvaginal Accession Number(s): [id number] cc: Ole Osman D.O.; Jas Hyde M.D. The [address] [address] Patient Name: JACKIE APONTE MRN: [id number] date: 2000 Sex: F Assigned Patient Location: US Current Patient Location: US Accession/Order Number: [id number] Exam Date: 09/07/2023 10:39 Report Date: 09/07/2023 11:40 At the request of: OLE OSMAN Procedure: US OB transvaginal EXAMINATION: US OB transvaginal HISTORY: DATING COMPARISON: No relevant comparison available. FINDINGS: Calhoun intrauterine gestation Gestational sac: 3.12 cm, 8 weeks 0 days CRL: 1.4 cm, 7 weeks 6 days Yolk sac: 4.1 mm Heart rate: 155 beats minute Cervix: Closed, 3.4 cm The uterus is normal, anteverted, anteflexed The right ovary is not visualized Left ovary is normal Clinical age: Unknown Ultrasound age: 7 weeks 6 days Ultrasound BRAXTON: 04/19/2024 US/US OB transvaginal IMPRESSION: Viable calhoun intrauterine gestation measuring 7 weeks 6 days Electronically authenticated by: JAME AC Date: 09/07/2023 11:40 Dictated By: Jame Ac M.D. Signed By: 09/07/23 1142 DD/ 1140 TD/TT: Inter Com Installer: Procedure Note Radiology, Radiologist, - 09/07/2023 The [place] [id number] Ultrasound Report Signed Patient: JACKIE APONTE LMR#: [id number] : 2000Acct:[id number] Age/Sex: 23 / FADM Date: 09/07/23 Loc: US Attending Dr: Ole Osman D.O. Ordering Physician: Ole Osman D.O. Date of Service: 09/07/23 Procedure(s): US OB transvaginal Accession Number(s): [id number] cc: Ole Osman D.O.; Jas Hyde M.D. [address] [address] Patient Name: JACKIE APONTE MRN: [id number] date: 2000 Sex: F Assigned Patient Location: US Current Patient Location: US Accession/Order Number: [id number] Exam Date: 09/07/2023 10:39 Report Date: 09/07/2023 11:40 At the request of: OLE OSMAN Procedure: US OB transvaginal EXAMINATION: US OB transvaginal HISTORY: DATING COMPARISON: No relevant comparison available. FINDINGS: Calhoun intrauterine gestation Gestational sac: 3.12 cm, 8 weeks 0 days CRL: 1.4 cm, 7 weeks 6 days Yolk sac: 4.1 mm Heart rate: 155 beats minute Cervix: Closed, 3.4 cm The uterus is normal, anteverted, anteflexed The right ovary is not visualized Left ovary is normal Clinical age: Unknown Ultrasound age: 7 weeks 6 days Ultrasound BRAX[place]: 04/19/2024 US/US OB transvaginal IMPRESSION: Viable calhoun intrauterine gestation measuring 7 weeks 6 days Electronically authenticated by: JAME AC Date: 09/07/2023 11:40 Dictated By: Jame Ac M.D. Signed By:09/07/23 1142 DD/ 1140 TD/TT: Inter Com Installer: us Ole Osman DO [facility] Final Result documented in this encounter Visit Diagnoses Not on filedocumented in this encounter Care Teams It Network Engineer Relationship Specialty Start Date End Date Jas Hyde MD [address] [place] [address] PCP - General Family Medicine 09/07/23 documented as of this encounter
--- OUTSIDE RECORDS SUMMARY | 2025-01-08 15:17 | XMS_ITS | Encounter Summary ---
Author Organization [facility] Address [address] [place] [address] Care Team Providers Care Digital Field Service Technician Name Role Phone Jas Hyde MD Primary Care Provider [phone] Encounter Details Date Type Department Care Team (Late Contact Info) Description 01/08/2025 Bamboo flowsheet [facility] OB [address] [facility] [place] [address] Chyna Burroughs PA [address] [place] [address] [place] [address] Social History Tobacco Use Types Packs/Day Years [...] EDT Office Visit [facility] [address] [facility] [place] [phone] Chyna Burroughs PA [address] [place] [address] [place] [address] documented as of this encounter Visit Diagnoses Not on filedocumented in this encounter Care Teams Digital Field Service Technician Relationship Specialty Start Date End Date Jas Hyde MD [address] [place] [place] [address] PCP - General Family Medicine 09/07/23 documented as of this encounter
--- OUTSIDE RECORDS SUMMARY | 2025-01-08 15:18 | XMS_ITS | Patient Health Record ---
Author Organization The [facility] [place] in [place] Address [address] [place] [address] Care Team Providers Care Aerologist Name Role Phone Chong Hyde Primary Care Provider Allergies No Known Allergies Results Component Value Reference Range Notes UA DIP NONAUTO WO MICRO (810 02) - IN OFFICE (Not yet reviewed by provider) Interpretation: Performing Lab: Notes/Report: COLOR light yellow CLARITY clear GLUCOSE neg BILIRUBIN neg KETONE neg SPECIFIC GRAVITY 1.010 BLOOD neg PH 5 PROTEIN neg UROBILINOGEN neg NITRITE neg LEUKOCYTE ESTERASE neg US OB growth Reviewed date:02/28/2024 08:41:11 PM Interpretation: Performing Lab: Notes/Report: Source Facility: [place] [address] Ultrasound Report Signed Patient: JACKIE APONTE MR#: [id number] : 2000 Acct:[id number] Age/Sex: 23 / F ADM Date: 02/27/24 Loc: [facility] Attending Dr: Ole Osman D.O. Ordering Physician: Ole Osman D.O. Date of Service: 02/27/24 Procedure(s): US OB growth Accession Number(s): [id number] cc: Ole Osman D.O.; Jas Hyde M.D. [place] [address] Patient Name: JACKIE APONTE MRN: [id number] date: 2000 Sex: F Assigned Patient Location: [facility] Current Patient Location: Accession/Order Number: [id number] Exam Date: 02/27/2024 14:06 Report Date: 02/28/2024 07:17 At the request of: OLE OSMAN Procedure: US OB growth EXAMINATION: US OB growth HISTORY: LARGE FOR GESTATIONAL AGE COMPARISON: No relevant comparison available. FINDINGS: Heart Rate: 143 bpm Amniotic Fluid Volume: 11.5 cm Largest fluid pocket: 3.7 cm Number: 1 Position: Breech presentation, longitudinal lie BIOMETRY: BPD: 7.54 cm cm; 212 Day; 3 %% HC: 30.55 cm cm; 238 Day; 50.90 %% AC: 30.16 cm cm; 239 Day; 88.50 %% FL: 6.70 cm cm; 241 Day; 84.80 %% EFW: 1941.26 g; 78.80 %, 5 lbs. 1 oz. FL/AC: 22.21 FL/BPD: 88.86 HC/AC: 1.01 GESTATIONAL AGE: Age by EDC: 32 weeks 4 days BRAXTON by EDC: 2024-04-19 Age by US: 33 weeks 2 days BRAXTON by US: 2024 US/US OB growth IMPRESSION: Normal interval growth Electronically authenticated by: JAME AC Date: 02/28/2024 07:17 Dictated By: Jame Ac M.D. Signed By: 02/28/24718 DD/ 6 TD/TT: Cdl A Driver: [place] [address] Ultrasound Report Signed Patient: ELODIA APONTE MR#: [id number] : 2000 Acct:[id number] Age/Sex: 23 / F ADM Date: 02/27/24 Loc: [facility] Attending Dr: Ole Osman D.O. Ordering Physician: Ole Osman D.O. Date of Service: 02/27/24 Procedure(s): US OB growth Accession Number(s): [id number] cc: Ole Osman D.O. ; Jas Hyde M.D. [place] [id number] Patient Name: JACKIE APONTE MRN: [id number] date: 2000 Sex: F Assigned Patient Location: [facility] Current Patient Location: Accession/Order Numb er: [id number] Exam Date: 02/27/2024 14:06 Report Date: 02/28/2024 07:17 At the request of: OLE OSMAN Procedure: US OB growth EXAMINATION: US OB growth HISTORY: LARGE FOR GESTATIONAL AGE COMPARISON: No relev ant comparison available. FINDINGS: Heart Rate: 14 3 bpm Amniotic Fluid Volum e: 11.5 cm Largest fluid pocket : 3.7 cm Number: 1 Position: Izabela ch presentation, longitudinal lie BIOMETRY: BPD: 7.54 cm cm; 212 Day; 3 %% HC: 30.55 cm cm; 238 Day; 50.90 %% AC: 30.16 cm cm; 239 Day; 88.50 %% FL: 6.70 cm cm; 241 Day; 84.80 %% EFW: 1941.26 g; 78.8 0 %, 5 lbs. 1 oz. FL/AC: 22.21 FL/BPD: 88.86 HC/AC: 1.01 GESTATIONAL AGE: Age by EDC: 32 weeks 4 days BRAXTON by EDC: 2024-04-19 Age by US: 33 weeks 2 days BRAXTON by US: 2024 US/US OB growth IMPRESSION: Normal interval growth Electronically authenticated by: JAME AC Date: 02/28/2024 07:17 Dictated By: Nash Ac M.D. Signed By: 02/28/24718 DD/ 6 TD/TT: Cdl A Driver: CBC AUTO DIFF Reviewed date:03/26/2024 08:16:38 PM Interpretation: Performing Lab: Notes/Report: [facility] , White Blood Count 15.8 4.0-11.0 10 3/uL Red Blood Count 3.40 4.20-5.40 10 6/uL Hemoglobin 11.0 12.0-16.0 g/dL Hematocrit 31.7 36.0-48.0 % Mean Corpuscular Volume 93.2 81.0-99.0 fL Mean Corpuscular Hemoglobin 32.4 26.7-34.0 pg Mean Corpuscular HGB Conc 34.7 29.9-35.2 g/dL Red Cell Distribution Width 12.1 11.0-15.0 % Platelet Count 243 150-450 10 3/uL Mean Platelet Volume 10.9 9.5-13.5 fL Neutrophils Percent Auto 84.0 43.0-75.0 % Lymphocytes Percent Auto 6.4 20.5-60.0 % Monocytes Percent Auto 8.9 1.7-12.0 % Eosinophils Percent Auto 0.0 0.9-7.0 % Basophils Percent Auto 0.2 0.2-2.0 % Immature Granulocytes Pct Auto 0.5 0.0-0.5 % Neutrophils Absolute Auto 13.3 1.4-6.5 10 3/uL Lymphocytes Absolute Auto 1.0 1.2-3.8 10 3/uL Monocytes Absolute Auto 1.4 0.3-0.8 10 3/uL Eosinophils Absolute Auto 0.0 0.0-0.7 10 3/uL Basophils Absolute Auto 0.0 0.0-0.1 10 3/uL Immature Granulocytes Abs Auto 0.08 0.00-0.03 10 3/uL Performing Lab: see note ML - [facility] LB CREATININE URINE Reviewed date:03/26/2024 08:16:38 PM Interpretation: Performing Lab: Notes/Report: [facility] , Creatinine Urine Random 82.10 20.00-300.00 mg/d L Performing Lab: see note - [facility] LB UA (CLEAN or CATCH) OPERATIONS REPRESENTATIVE or M ICRO IF IND. Reviewed date:03/26/2024 08:16:38 PM Interpretation: Performing Lab: Notes/Report: [facility] , Color Urine YELLOW YELLOW Clarity Urine SL CLOUDY CLEAR Specific [place] Urine 1.020 1.005-1.025 pH Urine 6.0 5.0-9.0 Protein Urine TRACE NEG/TRACE mg/dL Glucose Urine UA NEGATIVE NEGATIVE mg/dL Bilirubin Urine NEGATIVE NEGATIVE Ketones Urine >=80 NEGATIVE mg/dL Blood Urine NEGATIVE NEGATIVE Nitrite Urine NEGATIVE NEGATIVE Urobilinogen Urine 1.0 0.2-1.0 EU/dL Leukocyte Esterase Urine MODERATE NEGATIVE Urine Microscopic Indicated YES Performing Lab: see note ML - [facility] LB URINE MICROSCOPIC ONLY Reviewed date:03/26/2024 08:16:38 PM Interpretation: Performing Lab: Notes/Report: [facility] , WBC Urine 20-50 NONE SEEN #/HPF RBC Urine 2-5 0-2 #/HPF Bacteria Urine MODERATE NONE SEEN #/HPF Mucus Urine TRACE NONE SEEN Squamous Epithelial Cell Urine MODERATE NONE/RARE #/LPF Crystals Seen? None Seen None Seen #/HPF Cast Seen? NONE SEEN NONE SEEN #/LPF Urine Culture Indicated YES Performing Lab: see note ML - [facility] LB Type and Screen Reviewed date:03/27/2024 12:58:51 PM Interpretation: Performing Lab: Notes/Report: [facility] , Blood Type B Positive Antibody Screen NEGATIVE Urine Culture, Routine Reviewed date:03/31/2024 08:48:09 AM Interpretation: Performing Lab: Notes/Report: [facility] , Urine Culture, Routine See Below For Report Urine Culture, Routine Urine Culture, Routine No growth Urine Culture, Routine Urine Culture, Routine Performed at: [facility] [place] Urine Culture, Routine Urine Culture, Routine [address] [place] [id number] Urine Culture, Routine Urine Culture, Routine Cage Supervisor: Daniel Ramirez PhD, Phone: [phone] Urine Culture, Routine Performing Lab: see note LC - [facility] LB SEE REPORT - Roof Tiler Id information not found for OBX-specific queen producer legend US renal BI Reviewed date:03/27/2024 12:58:51 PM Interpretation: Performing Lab: Notes/Report: Source Facility: [place] [address] Ultrasound Report Signed Patient: JACKIE APONTE MR#: [id number] : 2000 Acct:[id number] Age/Sex: 23 / F ADM Date: Loc: [facility] 254-[address]: Ole Osman D.O. Ordering Physician: Ole Osman D.O. Date of Service: 03/26/24 Procedure(s): US renal BI Accession Number(s): [id number] cc: Ole Osman D.O.; Jas Hyde M.D. [place] [id number] Patient Name: JACKIE APONTE MRN: [id number] date: 2000 Sex: F Assigned Patient Location: [facility] Current Patient Location: [facility] Accession/Order Number: [id number] Exam Date: 03/26/2024 18:04 Report Date: 03/26/2024 21:13 At the request of: OLE OSMAN Procedure: US renal BI US renal BI 03/26/2024 5:04 PM CDT History: severe back pain . Renal failure. Comparison: None Technique: Transabdominal grayscale and color Doppler imaging of the kidneys and bladder. Findings: The kidneys are normal in size with the right kidney measuring 11.6 centimeters and the left kidney measuring 8.5 centimeters in length. There is mild right hydronephrosis. There is a 19 mm left lower pole renal calculus. The urinary bladder is distended and within normal limits. US/US renal BI Impression: 1. Minimal right hydronephrosis. 2. Nonobstructive left nephrolithiasis. Electronically authenticated by: VISHAL EDUARDO Date: 03/26/2024 21:13 Dictated By: Vishal Eduardo III, M.D. Signed By: 03/26/242114 DD/ 12 TD/TT: Cdl A Driver: [place] [address] Ultrasound Report Signed Patient: ELODIA APONTE MR#: [id number] : 2000 Acct:[id number] Age/Sex: 23 / F ADM Date: Loc: [facility] Attending Dr: Ole Osman D.O. Ordering Physician: Ole Osman D.O. Date of Service: 03/26/24 Procedure(s): US justin al BI Accession Number(s): [id number] cc: Ole Osman D.O. ; Jas Hyde M.D. [place] [id number] Patient Name: JACKIE APONTE MRN: [id number] date: 2000 Sex: F Assigned Patient Location: [facility] Current Patient Location: [facility] Accession/Order Numb er: [id number] Exam Date: 03/26/2024 18:04 Report Date: 03/26/2024 21:13 At the request of: OLE OSMAN Procedure: US renal BI US renal BI 03/26/2024 5:04 PM CDT History: severe back pain . Renal failure. Comparison: None Technique: Transabdominal grayscale and color Doppler imaging of the kidneys and bladder. Findings: The kidneys are norm al in size with the right kidney measuring 11.6 centimeters and the left kidney measuring 8.5 centimeters in length. There is mild right hydronephrosis. Ther e is a 19 mm left lower pole renal calculus. The urinary bladder is distended and within normal limits. US/US renal BI Impression: 1. Minimal right hydronephrosis. 2. Nonobstructive le ft nephrolithiasis. Electronically authenticated by: VISHAL EDUARDO Date: 03/26/2024 21:13 Dictated By: Vishal Eduardo III, M.D. Signed By: 03/26/242114 DD/ 12 TD/TT: Cdl A Driver: XR abdomen 1V Reviewed date:03/27/2024 12:58:51 PM Interpretation: Performing Lab: Notes/Report: Source Facility: [place] [address] XRay Report Signed Patient: JACKIE APONTE MR#: [id number] : 2000 Acct:[id number] Age/Sex: 23 / F ADM Date: Loc: [facility] [address]: Ole Osman D.O. Ordering Physician: Ole Osman D.O. Date of Service: 03/27/24 Procedure(s): XR abdomen 1V Accession Number(s): [id number] cc: Ole Osman D.O.; Jas Hyde M.D. [place] [address] Patient Name: JACKIE APONTE MRN: [id number] date: 2000 Sex: F Assigned Patient Location: [facility] Current Patient Location: [facility] Accession/Order Number: [id number] Exam Date: 03/27/2024 08:30 Report Date: 03/27/2024 08:56 At the request of: OLE OSMAN Procedure: XR abdomen 1V EXAMINATION: XR abdomen 1V HISTORY: emergency , rule out foreign body. COMPARISON: No relevant comparison available. FINDINGS: BOWEL GAS PATTERN: No abnormal dilation or deviation. CALCIFICATIONS: Calcifications project over the left kidney, suspect nephroliths OTHER: Negative. No abnormal gaseous collections. XR/XR abdomen 1V IMPRESSION: No radiopaque foreign body observed Electronically authenticated by: JAME AC Date: 03/27/2024 08:56 Dictated By: Jame Ac M.D. Signed By: 03/27/24857 DD/ 5 TD/TT: Cdl A Driver: [place] [address] XRay Report Signed Patient: ELODIA APONTE MR#: [id number] : 2000 Acct:[id number] Age/Sex: 23 / F ADM Date: Loc: [facility] 254-[address]: Ole Osman D.O. Ordering Physician: Ole Osman D.O. Date of Service: 03/27/24 Procedure(s): XR abdomen 1V Accession Number(s): [id number] cc: Ole Osman D.O. ; Jas Hyde M.D. [place] [id number] Patient Name: JACKIE APONTE MRN: [id number] date: 2000 Sex: F Assigned Patient Location: [facility] Current Patient Location: [facility] Accession/Order Numb er: [id number] Exam Date: 03/27/2024 08:30 Report Date: 03/27/2024 08:56 At the request of: OLE OSMAN Procedure: XR abdome n 1V EXAMINATION: XR abdo men 1V HISTORY: emergency , rule out foreign body. COMPARISON: No relev ant comparison available. FINDINGS: BOWEL GAS PATTERN: N o abnormal dilation or deviation. CALCIFICATIONS: Calcifications project over the left kidney, suspect nephroliths OTHER: Negative. No abnormal gaseous collections. XR/XR abdomen 1V IMPRESSION: No radiopaque foreig n body observed Electronically authenticated by: JAME AC Date: 03/27/2024 08:56 Dictated By: Nash Ac M.D. Signed By: 03/27/2458 DD/ 5 TD/TT: Cdl A Driver: CBC AUTO DIFF Reviewed date:03/28/2024 04:20:16 PM Interpretation: Performing Lab: Notes/Report: [facility] , White Blood Count 16.3 4.0-11.0 10 3/uL Red Blood Count 2.87 4.20-5.40 10 6/uL Hemoglobin 9.3 12.0-16.0 g/dL Hematocrit 27.1 36.0-48.0 % Mean Corpuscular Volume 94.4 81.0-99.0 fL Mean Corpuscular Hemoglobin 32.4 26.7-34.0 pg Mean Corpuscular HGB Conc 34.3 29.9-35.2 g/dL Red Cell Distribution Width 12.2 11.0-15.0 % Platelet Count 262 150-450 10 3/uL Mean Platelet Volume 11.2 9.5-13.5 fL Performing Lab: see note ML - [facility] LB SGPT Reviewed date:03/26/2024 08:16:38 PM Interpretation: Performing Lab: Notes/Report: [facility] , Alanine Aminotransferase 13 14-59 U/L Performing Lab: see note ML - [facility] LB SGOT Reviewed date:03/26/2024 08:16:38 PM Interpretation: Performing Lab: Notes/Report: [facility] , Aspartate Amino Transferase 17 15-37 U/L Performing Lab: see note - [facility] PROF CHEM 8 (BAS METB) Reviewed date:03/26/2024 08:16:38 PM Interpretation: Performing Lab: Notes/Report: [facility] , Sodium 134 136-145 mmol/L Potassium 3.5 3.5-5.1 mmol/L Chloride 98 98-107 mmol/L Carbon Dioxide 24.5 21.0-32.0 mmol/L Anion Gap 15.0 Glucose 77 74-106 mg/dL Blood Urea Nitrogen 3.0 7.0-18.0 mg/dL Creatinine 0.66 0.55-1.02 mg/dL Estimated GFR ( Grisel >60 >=60 Estimated GFR (Non- Priscilla >60 >=60 BUN Creatinine Ratio 4.5 Calcium 9.1 8.5-10.1 mg/dL Performing Lab: see note ML - [facility] LB LIPASE Reviewed date:03/26/2024 08:16:38 PM Interpretation: Performing Lab: Notes/Report: [facility] , Lipase 23.0 16.0-77.0 U/L Performing Lab: see note ML - [facility] LB AMYLASE Reviewed date:03/26/2024 08:16:38 PM Interpretation: Performing Lab: Notes/Report: [facility] , Amylase 42 25-115 U/L Performing Lab: see note ML - [facility] LB Glucose 1 Hour Reviewed date:01/26/2024 06:43:22 AM Interpretation: Performing Lab: Notes/Report: [facility] , Glucose 1 Hour 131 <130 mg/dL Performing Lab: see note ML - [facility] LB CBC AUTO DIFF Reviewed date:01/26/2024 06:43:22 AM Interpretation: Performing Lab: Notes/Report: [facility] , White Blood Count 10.8 4.0-11.0 10 3/uL Red Blood Count 3.54 4.20-5.40 10 6/uL Hemoglobin 11.4 12.0-16.0 g/dL Hematocrit 33.7 36.0-48.0 % Mean Corpuscular Volume 95.2 81.0-99.0 fL Mean Corpuscular Hemoglobin 32.2 26.7-34.0 pg Mean Corpuscular HGB Conc 33.8 29.9-35.2 g/dL Red Cell Distribution Width 12.0 11.0-15.0 % Platelet Count 284 150-450 10 3/uL Mean Platelet Volume 10.7 9.5-13.5 fL Neutrophils Percent Auto 74.7 43.0-75.0 % Lymphocytes Percent Auto 18.9 20.5-60.0 % Monocytes Percent Auto 5.4 1.7-12.0 % Eosinophils Percent Auto 0.2 0.9-7.0 % Basophils Percent Auto 0.4 0.2-2.0 % Immature Granulocytes Pct Auto 0.4 0.0-0.5 % Neutrophils Absolute Auto 8.1 1.4-6.5 10 3/uL Lymphocytes Absolute Auto 2.1 1.2-3.8 10 3/uL Monocytes Absolute Auto 0.6 0.3-0.8 10 3/uL Eosinophils Absolute Auto 0.0 0.0-0.7 10 3/uL Basophils Absolute Auto 0.0 0.0-0.1 10 3/uL Immature Granulocytes Abs Auto 0.04 0.00-0.03 10 3/uL Performing Lab: see note - [facility] LB URINE MICROSCOPIC ONLY Reviewed date:01/17/2024 09:59:25 PM Interpretation: Performing Lab: Notes/Report: [facility] , WBC Urine 5-10 NONE SEEN #/HPF RBC Urine NONE SEEN 0-2 #/HPF Bacteria Urine TRACE NONE SEEN #/HPF Mucus Urine SMALL NONE SEEN Squamous Epithelial Cell Urine RARE NONE/RARE #/LPF Crystals Seen? None Seen None Seen #/HPF Cast Seen? NONE SEEN NONE SEEN #/LPF Performing Lab: see note - [facility] LB UA (CLEAN or CATCH) OPERATIONS REPRESENTATIVE or M ICRO IF IND. Reviewed date:01/17/2024 09:59:25 PM Interpretation: Performing Lab: Notes/Report: [facility] , Color Urine LT. YELLOW YELLOW Clarity Urine CLEAR CLEAR Specific [place] Urine 1.015 1.005-1.025 pH Urine 6.5 5.0-9.0 Protein Urine NEGATIVE NEG/TRACE mg/dL Glucose Urine UA NEGATIVE NEGATIVE mg/dL Bilirubin Urine NEGATIVE NEGATIVE Ketones Urine NEGATIVE NEGATIVE mg/dL Blood Urine NEGATIVE NEGATIVE Nitrite Urine NEGATIVE NEGATIVE Urobilinogen Urine 0.2 0.2-1.0 EU/dL Leukocyte Esterase Urine LARGE NEGATIVE Urine Microscopic Indicated YES Performing Lab: see note - [facility] LB Manual Differential Reviewed date:03/28/2024 04:20:16 PM Interpretation: Performing Lab: Notes/Report: [facility] , Segmented Neutrophils % Manual 80.0 43.0-75.0 Lymphocytes Percent Manual 14.0 20.5-60.0 % Monocytes Percent Manual 6.0 1.7-12.0 % Eosinophils Percent Manual 0.0 0.9-7.0 % Basophils Percent Manual 0.0 0.2-2.0 % Segmented Neut Absolute Manual 13.04 1.4-6.5 10 3/uL Lymphocytes Absolute Manual 2.28 1.20-3.80 10 3/uL Monocytes Absolute Manual 0.97 0.30-0.80 10 3/ uL Eosinophils Absolute Manual 0.00 0.00-0.70 10 3/uL Basophils Abs Manual 0.00 0.00-0.10 10 3/uL Performing Lab: see note ML - [facility] Reason For Referral No Information Medications Medication SIG (Take, Route, Frequency, Duration) [...] been since you last smoked? 1-5 years Alcohol Screen (Audit-C) Question Answer Notes Did you have a drink containing alcohol in the p ast year? No Points 0 Interpretation Negative AUDIT-C (Standard) Question Answer Notes Did you have a drink containing alcohol in the p ast year? No Points 0 Interpretation Negative Vital Signs Blood pressure diastolic 60 mm Hg 09/08/2024 Height 69.5 in 09/08/2024 Blood pressure systolic 108 mm Hg 09/08/2024 Weight 157.8 lbs 09/08/2024 BMI 22.97 kg/m2 09/08/2024 Encounters Encounter Location Date Provider Diagnosis [facility] [address] [place] [address] 09/08/2024 Chong Hoy Flank pain R10.9 ; [...] vaporizer to help keep the drainage moist. Kvsy-zbe-wdaqqgt Nasal Saline may help the stuffy and runny nose. Use Ibuprofen and or Tylenol as needed for fever, chills, body aches or pain. Children 5 years old should not be given fyvr-zzh-tnundcm cough and cold medications such as guaifenesin and dextromethorphan. If you're over age 5, you may try gpel-sdl-uuynkgd cold medications such as guaifenesin and dextromethorphan, [...] congestion (ICD-10 - R09.81) Plan Of Treatment Pending Test Test Name Order Date US Lower Extremity RT 09/06/2023 UA DIP NONAUTO WO MICRO (48526) - IN OFF ICE 09/08/2024 Insurance Providers Payer Name Payer Address Payer Phone Subscriber Number Group Number Insured Name Patient Relationship to Insured Coverage Start Date Coverage End Date MMO [address] [place], [place] [id number] Jackie Aponte Self - patient is the insured 4 [employer] [address] [place] [id number] Jackie Aponte Self - patient is the insured Medical (General) History Medical History History ICD Code Anxiety with depression F41.8 Congenital spondylolisthesis Q76.2 Back pain, lumbosacral M54.50 Essential tremor G25.0 LA (lymphadenopathy) R59.1 Pyelonephritis N12 Surgical History Surgery Date(Month/Year) Back Surgery
--- OUTSIDE RECORDS SUMMARY | 2025-01-08 15:18 | XMS_ITS | Encounter Summary ---
Author Organization [facility] Address [address] [place] [address] Care Team Providers Care Crystal Syrup Maker Name Role Phone Jas Hyde MD Primary Care Provider [phone] Encounter Details Date Type Department Care Team (Late Contact Info) Description 04/04/2024 Abstract [facility] OB [address] [place] [address] Antwan Osman DO [address] [place], [place] [id number] Social History Tobacco Use Types Packs/Day Years [...] 01/12/2026 3:00 PM EDT Office Visit [facility] OB [address] [place] [address] Chyna Burroughs PA [address] [place] [address] documented as of this encounter Visit Diagnoses Not on filedocumented in this encounter Care Teams Crystal Syrup Maker Relationship Specialty Start Date End Date Jas Hyde MD [address] [facility] [place] [address] PCP - General Family Medicine 09/07/23 documented as of this encounter
--- OUTSIDE RECORDS SUMMARY | 2025-01-08 15:18 | XMS_ITS | Encounter Summary ---
Author Organization [facility] Address [address] [place] [address] Care Team Providers Care Jig Hand Name Role Phone Jas Hyde MD Primary Care Provider [phone] Encounter Details Date Type Department Care Team (Late st Contact Info) Description 12/18/2023 Clinisync Result Encounter [facility] External Department Unsolicited Ole Osman DO [address] [facility] [place] [address] Social History Tobacco Use Types Packs/Day Years [...] EDT Office Visit [facility] BCP OB [address] [facility] [place] [phone] Chyna Burroughs PA [address] [place] [address] documented as of this encounter Procedures Procedure Name Priority Date/Time Associated Diagnosis Comments US OB CERVICAL LENGTH 12/18/2023 3:31 PM EDT documented in this encounter Results * US OB CERVICAL LENGTH (12/18/2023 3:31 PM EDT) Anatomical Region Laterality Modality Other 12/18/2023 3:31 PM EDT Narrative 12/18/2023 3:33 PM EDT The [address] [address] Ultrasound Report Signed Patient: JACKIE APONTE MR#: [id number] : 2000 Acct:[id number] Age/Sex: 23 / F ADM Date: 12/18/23 Loc: [facility] Attending Dr: Ole Osman D.O. Ordering Physician: Ole Osman D.O. Date of Service: 12/18/23 Procedure(s): US OB cervical length Accession Number(s): [id number] cc: Ole Osman D.O.; Jas Hyde M.D. The [address] [address] Patient Name: JACIKE APONTE MRN: [id number] date: 2000 Sex: F Assigned Patient Location: [facility] Current Patient Location: [facility] Accession/Order Number: [id number] Exam Date: 12/18/2023 14:08 Report Date: 12/18/2023 15:31 At the request of: OLE OSMAN Procedure: US OB cervical length EXAMINATION: US OB anatomy, US OB cervical length HISTORY: ANATOMY COMPARISON: No relevant comparison available. TECHNIQUE: Transabdominal sonographic examination was performed for obstetrical and evaluation. FINDINGS: Number: 1 Heart Rate: 157.0 bpm H.B. /min Amniotic Fluid Volume: Subjectively normal position: Breech presentation, longitudinal lie Placental Location: Posterior, placental edge 4.2 cm from the internal os Cervix Length: 3.7 cm, closed Normal anatomy: Lateral ventricles, cerebellum, posterior fossa, nose, lips, orbits, four-chamber heart, RVOT, LVOT, diaphragm, stomach, kidneys, abdominal cord insertion, bladder, umbilical arteries, three-vessel cord, spine, extremities BIOMETRY: BPD: 4.7 cm 20 weeks 0 days , <3% HC: 19.3 cm 21 weeks 4 days, 9% AC: 18.8 cm 23 weeks 4 days, 77% FL: 4.2 cm 23 weeks 4 days , 78% EFW:572.1 grams; 1 lb. 4 oz., 81% FL/AC: 22.3 FL/BPD: 90.1 HC/AC: 1.0 GESTATIONAL AGE: Age by EDC: 22 weeks 3 days BRAXTON by EDC: 04/19/2024 Age by current US: 22 weeks 1 days BRAXTON by current US: 04/21/2024 US/US OB cervical length IMPRESSION: BPD less than the 3rd percentile Closed cervix measuring 3.7 cm in length *Reference: [employer]UM Practice Guideline for the performance of Obstetric Ultrasound Examinations, May 20, 2007. Electronically authenticated by: JAME AC Date: 12/18/2023 15:31 Dictated By: Jame Ac M.D. Signed By: 12/18/23 1533 DD/ 1531 TD/TT: Table Maker: Procedure Note Radiology, Radiologist, - 12/19/2023 [place] [address] Ultrasound Report Signed Patient: JACKIE APONTE LMR#: [id number] : 2000Acct:[id number] Age/Sex: 23 / FADM Date: 12/18/23 Loc: [facility] Attending Dr: Ole Osman D.O. Ordering Physician: Ole Osman D.O. Date of Service: 12/18/23 Procedure(s): US OB cervical length Accession Number(s): [id number] cc: Ole Osman D.O.; Jas Hyde M.D. The [place] [id number] Patient Name: JACKIE APONTE MRN: [facility]:[id number] date: 2000 Sex: F Assigned Patient Location: [facility] Current Patient Location: [facility] Accession/Order Number: [id number] Exam Date: 12/18/2023 14:08 Report Date: 12/18/2023 15:31 At the request of: OLE OSMAN Procedure: US OB cervical length EXAMINATION: US OB anatomy, US OB cervical length HISTORY: ANATOMY COMPARISON: No relevant comparison available. TECHNIQUE: Transabdominal sonographic examination was performed for obstetrical and evaluation. FINDINGS: Number: 1 Heart Rate: 157.0 bpm H.B. /min Amniotic Fluid Volume: Subjectively normal position: Breech presentation, longitudinal lie Placental Location: Posterior, placental edge 4.2 cm from the internal os Cervix Length: 3.7 cm, closed Normal anatomy: Lateral ventricles, cerebellum, posterior fossa, nose,lips, orbits, four-chamber heart, RVOT, LVOT, diaphragm, stomach, kidneys,abdominal cord insertion, bladder, umbilical arteries, three-vessel cord, spine, extremities BIOMETRY: BPD: 4.7 cm 20 weeks 0 days , <3% HC: 19.3 cm 21 weeks 4 days, 9% AC: 18.8 cm 23 weeks 4 days, 77% FL: 4.2 cm 23 weeks 4 days , 78% EFW:572.1 grams; 1 lb. 4 oz., 81% FL/AC: 22.3 FL/BPD: 90.1 HC/AC: 1.0 GESTATIONAL AGE: Age by EDC: 22 weeks 3 days BRAXTON by EDC: 04/19/2024 Age by current US: 22 weeks 1 days BRAXTON by current US: 04/21/2024 US/US OB cervical length IMPRESSION: BPD less than the 3rd percentile Closed cervix measuring 3.7 cm in length *Reference: AIUM Practice Guideline for the performance of Obstetric Ultrasound Examinations, May 20, 2007. Electronically authenticated by: JAME AC Date: 12/18/2023 15:31 Dictated By: Jame Ac M.D. Signed By:12/18/23 1533 DD/ 1531 TD/TT: Table Maker: us Ole Dawson DO [facility] Final Result documented in this encounter Visit Diagnoses Not on filedocumented in this encounter Care Teams Jig Hand Relationship Specialty Start Date End Date Jas Hyde MD [address] [place] [address] PCP - General Family Medicine 09/07/23 documented as of this encounter
--- OUTSIDE RECORDS SUMMARY | 2025-01-08 15:18 | XMS_ITS | Encounter Summary ---
Author Organization [facility] Address [address] [place] [address] Care Team Providers Care Chairman Emeritus Name Role Phone Jas Hyde MD Primary Care Provider [phone] Encounter Details Date Type Department Care Team (Late st Contact Info) Description 03/26/2024 Clinisync Result Encounter [facility] External Department Unsolicited Ole Osman DO [address] [facility] [place] [address] Social History Tobacco Use Types Packs/Day Years [...] EDT Office Visit [facility] BCP OB [address] [facility] [place] [phone] Chyna Burroughs PA [address] [place] [place] [address] documented as of this encounter Procedures Procedure Name Priority Date/Time Associated Diagnosis Comments US RENAL BI 03/26/2024 9:13 PM EDT documented in this encounter Results * US RENAL BI (03/26/2024 9:13 PM EDT) Anatomical Region Laterality Modality Other 03/26/2024 9:13 PM EDT Narrative 03/26/2024 9:15 [place] [address] Ultrasound Report Signed Patient: JACKIE APONTE MR#: [id number] : 2000 Acct:[id number] Age/Sex: 23 / F ADM Date: Loc: [facility] [address]: Ole Osman D.O. Ordering Physician: Ole Osman D.O. Date of Service: 03/26/24 Procedure(s): US renal BI Accession Number(s): [id number] cc: Ole Osman D.O.; Jas Hyde M.D. The [place] [id number] Patient Name: JACKIE APONTE MRN: [id number] date: 2000 Sex: F Assigned Patient Location: [facility] Current Patient Location: [facility] Accession/Order Number: [id number] Exam Date: 03/26/2024 18:04 Report Date: 03/26/2024 [...] M.D. Signed By: 03/26/242114 DD/ 12 TD/TT: Cuff Setter: Procedure Note Radiology, Radiologist, - 03/27/2024 The [place] [id number] Ultrasound Report Signed Patient: JACKIE APONTE LMR#: [id number] : 2000Acct:[id number] Age/Sex: 23 / FADM Date: Loc: [facility] 254-[address]: Ole Osman D.O. Ordering Physician: Ole Osman D.O. Date of Service: 03/26/24 Procedure(s): US renal BI Accession Number(s): [id number] cc: Ole Osman D.O.; Jas Hyde M.D. [place] [id number] Patient Name: JACKIE APONTE MRN: [id number] date: 2000 Sex: F Assigned Patient Location: [facility] Current Patient Location: [facility] Accession/Order Number: [id number] Exam Date: 03/26/2024 18:04 Report Date: 03/26/2024 21:13 At the request of: OLE OSMAN Procedure: US renal BI US renal BI 03/26/2024 5:04 PM CDT History: severe back pain . Renal failure. Comparison: None Technique: Transabdominal grayscale and color Doppler imaging of thekidneys and bladder. Findings: The kidneys are normal in size with the right kidney measuring 11.6 centimeters and the left kidney measuring 8.5 centimeters in length. There is mildright hydronephrosis. There is a 19 mm left lower pole renal calculus. Theurinary bladder is distended and within normal limits. US/US renal BI Impression: 1. Minimal right hydronephrosis. 2. Nonobstructive left nephrolithiasis. Electronically authenticated by: VISHAL EDUARDO Date: 03/26/2024 21:13 Dictated By: Vishal Eduardo III, M.D. Signed By:03/26/242114 DD/ 12 TD/TT: Cuff Setter: us Ole Osman DO [facility] Final Result documented in this encounter Visit Diagnoses Not on filedocumented in this encounter Care Teams Chairman Emeritus Relationship Specialty Start Date End Date Jas Hyde MD [address] [place] [address] PCP - General Family Medicine 09/07/23 documented as of this encounter
--- OUTSIDE RECORDS SUMMARY | 2025-01-08 15:18 | XMS_ITS | Encounter Summary ---
Author Organization [facility] Address [address] [place] [address] Care Team Providers Care Skoog Machine Operator Name Role Phone Jas Hyde MD Primary Care Provider [phone] Encounter Details Date Type Department Care Team (Late Contact Info) Description 02/13/2024 Abstract [facility] BCP OB [address] [facility] [place] [address] Melissa Roth LPN [address] [place] [address] Social History Tobacco Use Types Packs/Day Years [...] EDT Office Visit [facility] BCP OB [address] [facility] [place] [phone] Chyna Burroughs PA [address] [place] [address] documented as of this encounter Visit Diagnoses Not on filedocumented in this encounter Care Teams Skoog Machine Operator Relationship Specialty Start Date End Date Jas Hyde MD [address] [facility] [address] PCP - General Family Medicine 09/07/23 documented as of this encounter
--- OUTSIDE RECORDS SUMMARY | 2025-01-08 15:18 | XMS_ITS | Encounter Summary ---
Author Organization [facility] Address [address] [facility] [place] [address] Care Team Providers Care City Director Name Role Phone Jas Hyde MD Primary Care Provider [phone] Encounter Details Date Type Department Care Team (Late Contact Info) Description 02/13/2024 Abstract [facility] OB [address] [place] [address] Antwan Osman DO [address] [facility] [address] [place], [place] [phone] Social History Tobacco Use Types Packs/Day Years [...] 01/12/2026 3:00 PM EDT Office Visit [facility] OB [address] [place] [address] Chyna Burroughs PA [address] [facility] [place] [address] documented as of this encounter Visit Diagnoses Not on filedocumented in this encounter Care Teams City Director Relationship Specialty Start Date End Date Jas Hyde MD [address] [facility] [place] [address] PCP - General Family Medicine 09/07/23 documented as of this encounter
--- OUTSIDE RECORDS SUMMARY | 2025-01-08 15:18 | XMS_ITS | Encounter Summary ---
Author Organization [facility] Address [address] [facility] [place] [address] Care Team Providers Care Parachute Inspector Name Role Phone Jas Hyde MD Primary Care Provider [phone] Encounter Details Date Type Department Care Team (Late Contact Info) Description 04/22/2024 Abstract [facility] OB [address] [facility] [place] [address] Antwan Osman DO [address] [facility] [address] [place], [place] [address] Social History Tobacco Use Types Packs/Day Years [...] 01/12/2026 3:00 PM EDT Office Visit [facility] OB [address] [facility] [place] [place] [address] Chyna Burroughs PA [address] [facility] [place] [address] documented as of this encounter Visit Diagnoses Not on filedocumented in this encounter Care Teams Parachute Inspector Relationship Specialty Start Date End Date Jas Hyde MD [address] [facility] [place] [address] PCP - General Family Medicine 09/07/23 documented as of this encounter
--- OUTSIDE RECORDS SUMMARY | 2025-01-08 15:18 | XMS_ITS | Encounter Summary ---
Author Organization [facility] Address [address] [place] [address] Care Team Providers Care Guard Driver Name Role Phone Jas Hyde MD Primary Care Provider [phone] Encounter Details Date Type Department Care Team (Late st Contact Info) Description 02/28/2024 Clinisync Result Encounter [facility] External Department Unsolicited Ole Osman DO [address] [facility] [place] [address] Social History Tobacco Use Types Packs/Day Years [...] EDT Office Visit [facility] BCP OB [address] [facility] [phone] Chyna Burroughs PA [address] [place] [address] documented as of this encounter Procedures Procedure Name Priority Date/Time Associated Diagnosis Comments US OB GROWTH 02/28/2024 7:17 AM EDT documented in this encounter Results * US OB GROWTH (02/28/2024 7:17 AM EDT) Anatomical Region Laterality Modality Other 02/28/2024 7:17 AM EDT Narrative 02/28/2024 7:19 AM EDT The [address] [address] Ultrasound Report Signed Patient: JACKIE APONTE MR#: [id number] : 2000 Acct:[id number] Age/Sex: 23 / F ADM Date: 02/27/24 Loc: [facility] Attending Dr: Ole Osman D.O. Ordering Physician: Ole Osman D.O. Date of Service: 02/27/24 Procedure(s): US OB growth Accession Number(s): [id number] cc: Ole Osman D.O.; Jas Hyde M.D. [place] [id number] Patient Name: JACKIE APONTE MRN: [id number] date: 2000 Sex: F Assigned Patient Location: [facility] Current Patient Location: Accession/Order Number: [id number] Exam Date: 02/27/2024 14:06 Report Date: 02/28/2024 [...] M.D. Signed By: 02/28/24718 DD/ 6 TD/TT: Registrar Assistant: Procedure Note Radiology, Radiologist, - 02/28/2024 [place] [address] Ultrasound Report Signed Patient: JACKIE APONTE LMR#: [id number] : 2000Acct:[id number] Age/Sex: 23 / FADM Date: 02/27/24 Loc: [facility] Attending Dr: Ole Osman D.O. Ordering Physician: Ole Osman D.O. Date of Service: 02/27/24 Procedure(s): US OB growth Accession Number(s): [id number] cc: Ole Osman D.O.; Jas Hyde M.D. The [place] [id number] Patient Name: JACKIE APONTE MRN: [id number] date: 2000 Sex: F Assigned Patient Location: [facility] Current Patient Location: Accession/Order Number: [id number] Exam Date: 02/27/2024 14:06 Report Date: 02/28/2024 [...] 07:17 Dictated By: Jame Ac M.D. Signed By:02/28/24718 DD/ 6 TD/TT: Registrar Assistant: us Ole Dawson DO [facility] Final Result documented in this encounter Visit Diagnoses Not on filedocumented in this encounter Care Teams Guard Driver Relationship Specialty Start Date End Date Jas Hyde MD [address] [place] [address] PCP - General Family Medicine 09/07/23 documented as of this encounter
--- OUTSIDE RECORDS SUMMARY | 2025-01-08 15:18 | XMS_ITS | Encounter Summary ---
Author Organization [facility] Address [address] [facility] [place] [address] Care Team Providers Care Logistics Engineer Name Role Phone Jas Hyde MD Primary Care Provider [phone] Encounter Details Date Type Department Care Team (Late Contact Info) Description 04/10/2024 Abstract [facility] BCP OB [address] [facility] [address] Chyna Burroughs PA [address] [place] [address] [place] [address] Social History Tobacco Use Types Packs/Day Years [...] EDT Office Visit [facility] BCP OB [address] [facility] [place] [address] Chyna Burroughs PA [address] [place] [address] [place], [facility] documented as of this encounter Visit Diagnoses Not on filedocumented in this encounter Care Teams Logistics Engineer Relationship Specialty Start Date End Date Jas Hyde MD [address] [place] [address] PCP - General Family Medicine 09/07/23 documented as of this encounter
--- OUTSIDE RECORDS SUMMARY | 2025-01-08 15:18 | XMS_ITS | Encounter Summary ---
Author Organization [facility] Address [address] [facility] [place] [address] Care Team Providers Care Shampooer Name Role Phone Jas Hyde MD Primary Care Provider [phone] Encounter Details Date Type Department Care Team (Late Contact Info) Description 03/27/2024 Abstract [facility] OB [address] [facility] [place] [address] Antwan Osman DO [address] [facility] [address] [place], [place] [phone] Social History Tobacco Use Types Packs/Day Years [...] 01/12/2026 3:00 PM EDT Office Visit [facility] OB [address] [facility] [place] [address] Chyna Burroughs PA [address] [facility] [place] [address] documented as of this encounter Visit Diagnoses Not on filedocumented in this encounter Care Teams Shampooer Relationship Specialty Start Date End Date Jas Hyde MD [address] [facility] [place] [address] PCP - General Family Medicine 09/07/23 documented as of this encounter
--- OUTSIDE RECORDS SUMMARY | 2025-01-08 15:18 | XMS_ITS | Encounter Summary ---
Author Organization [facility] Address [address] [place] [address] Care Team Providers Care Senior Talent Management Consultant Name Role Phone Jas Hyde MD Primary Care Provider [phone] Encounter Details Date Type Department Care Team (Late st Contact Info) Description 12/18/2023 Clinisync Result Encounter [facility] External Department Unsolicited Ole Osman DO [address] [facility] [place] [address] Social History Tobacco Use Types Packs/Day Years [...] Office Visit [facility] BCP OB [address] [facility] [place] [phone] Chyna Burroughs PA [address] [facility] [place] [address] documented as of this encounter Procedures Procedure Name Priority Date/Time Associated Diagnosis Comments US OB ANATOMY 12/18/2023 3:31 PM EDT documented in this encounter Results * US OB ANATOMY (12/18/2023 3:31 PM EDT) Anatomical Region Laterality Modality Other 12/18/2023 3:31 PM EDT Narrative 12/18/2023 3:33 PM EDT [address] [address] Ultrasound Report Signed Patient: JACKIE APONTE MR#: [id number] : 2000 Acct:[id number] Age/Sex: 23 / F ADM Date: 12/18/23 Loc: [facility] Attending Dr: Ole Osman D.O. Ordering Physician: Ole Osman D.O. Date of Service: 12/18/23 Procedure(s): US OB anatomy Accession Number(s): [id number] cc: Ole Osman D.O.; Jas Hyde M.D. [place] [id number] Patient Name: JACKIE APONTE MRN: [id number] date: 2000 Sex: F Assigned Patient Location: [facility] Current Patient Location: [facility] Accession/Order Number: [id number] Exam Date: 12/18/2023 14:08 Report Date: 12/18/2023 15:31 At the request of: OLE OSMAN Procedure: US OB anatomy EXAMINATION: US OB anatomy, US OB cervical [...] BRAXTON by current US: 04/21/2024 US/US OB anatomy IMPRESSION: BPD less than the 3rd percentile Closed cervix measuring 3.7 cm in length *Reference: [employer]UM Practice Guideline for the performance of Obstetric Ultrasound Examinations, May 20, 2007. Electronically authenticated by: JAME AC Date: 12/18/2023 15:31 Dictated By: Jame Ac M.D. Signed By: 12/18/23 1533 DD/ 1531 TD/TT: Bench Assembler Operator: Procedure Note Radiology, Radiologist, - 12/19/2023 [place] [address] Ultrasound Report Signed Patient: JACKIE APONTE LMR#: [id number] : 2000Acct:[id number] Age/Sex: 23 / FADM Date: 12/18/23 Loc: [facility] Attending Dr: Ole Osman D.O. Ordering Physician: Ole Osman D.O. Date of Service: 12/18/23 Procedure(s): US OB anatomy Accession Number(s): [id number] cc: Ole Osman D.O.; Jas Hyde M.D. The [place] [address] Patient Name: JACKIE APONTE MRN: [facility]:[id number] date: 2000 Sex: F Assigned Patient Location: [facility] Current Patient Location: [facility] Accession/Order Number: [id number] Exam Date: 12/18/2023 14:08 Report Date: 12/18/2023 15:31 At the request of: OLE OSMAN Procedure: US OB anatomy EXAMINATION: US OB anatomy, US OB cervical [...] BRAXTON by current US: 04/21/2024 US/US OB anatomy IMPRESSION: BPD less than the 3rd percentile Closed cervix measuring 3.7 cm in length *Reference: [employer]UM Practice Guideline for the performance of Obstetric Ultrasound Examinations, May 20, 2007. Electronically authenticated by: JAME AC Date: 12/18/2023 15:31 Dictated By: Jame Ac M.D. Signed By:12/18/23 1533 DD/ 1531 TD/TT: Bench Assembler Operator: us Ole Dawson DO [facility] Final Result documented in this encounter Visit Diagnoses Not on filedocumented in this encounter Care Teams Senior Talent Management Consultant Relationship Specialty Start Date End Date Jas Hyde MD [address] [place] [address] PCP - General Family Medicine 09/07/23 documented as of this encounter
--- OUTSIDE RECORDS SUMMARY | 2025-01-08 15:18 | XMS_ITS | Encounter Summary ---
Author Organization [facility] Address [address] [facility] [place] [address] Care Team Providers Care Telemetry Rn Name Role Phone Jas Hyde MD Primary Care Provider [phone] Encounter Details Date Type Department Care Team (Late Contact Info) Description 2024 Abstract [facility] OB [address] [facility] [place] [address] Antwan Osman DO [address] [facility] [address] [place], [place] [address] Social History Tobacco Use Types Packs/Day Years [...] [place] OB [address] [facility] [place] [address] Chyna Burroughs PA [address] [facility] [place] [address] documented as of this encounter Visit Diagnoses Not on filedocumented in this encounter Care Teams Telemetry Rn Relationship Specialty Start Date End Date Jas Hyde MD [address] [facility] [place] [address] PCP - General Family Medicine 09/07/23 documented as of this encounter
--- OUTSIDE RECORDS SUMMARY | 2025-01-08 15:18 | XMS_ITS | Encounter Summary ---
Author Organization [facility] Address [address] [place] [address] Care Team Providers Care Hand Icer Name Role Phone Jas Hyde MD Primary Care Provider [phone] Encounter Details Date Type Department Care Team (Late Contact Info) Description 03/03/2024 Abstract [facility] BCP OB [address] [facility] [place] [address] Melissa Roth LPN [address] [place] [id number] Social History Tobacco Use Types Packs/Day Years [...] EDT Office Visit [facility] BCP OB [address] [facility] [place] [phone] Chyna Burroughs PA [address] [facility] [place] [address] documented as of this encounter Visit Diagnoses Not on filedocumented in this encounter Care Teams Hand Icer Relationship Specialty Start Date End Date Jas Hyde MD [address] [facility] [place] [address] PCP - General Family Medicine 09/07/23 documented as of this encounter
--- OUTSIDE RECORDS SUMMARY | 2025-01-08 15:18 | XMS_ITS | Encounter Summary ---
Author Organization [facility] Address [address] [facility] [[email or web address]] [place] [address] Care Team Providers Care Forging Operator Name Role Phone Jas Hyde MD Primary Care Provider [phone] Encounter Details Date Type Department Care Team (Late Contact Info) Description 03/28/2024 Abstract [facility] OB [address] [place] [address] Antwan Osman DO [address] [facility] [address] [place], [place] [phone] Social History Tobacco Use Types Packs/Day Years [...] 01/12/2026 3:00 PM EDT Office Visit [facility] OB [address] [place] [address] Chyna Burroughs PA [address] [facility] [place] [address] documented as of this encounter Visit Diagnoses Not on filedocumented in this encounter Care Teams Forging Operator Relationship Specialty Start Date End Date Jas Hyde MD [address] [facility] [place] [address] PCP - General Family Medicine 09/07/23 documented as of this encounter
--- OUTSIDE RECORDS SUMMARY | 2025-01-08 15:18 | XMS_ITS | Encounter Summary ---
Author Organization [facility] Address [address] [place] [address] Care Team Providers Care Pipe Supervisor Name Role Phone Jas Hyde MD Primary Care Provider [phone] Encounter Details Date Type Department Care Team (Late st Contact Info) Description 03/27/2024 Clinisync Result Encounter [facility] External Department Unsolicited Ole Osman DO [address] [facility] [place] [address] Social History Tobacco Use Types Packs/Day Years [...] EDT Office Visit [facility] OB [address] [place] [phone] Chyna Burroughs PA [address] [facility] [place] [address] documented as of this encounter Procedures Procedure Name Priority Date/Time Associated Diagnosis Comments XR ABDOMEN 1V 03/27/2024 8:56 AM EDT documented in this encounter Results * XR ABDOMEN 1V (03/27/2024 8:56 AM EDT) Anatomical Region Laterality Modality Other 03/27/2024 8:56 AM EDT Narrative 03/27/2024 8:58 [place] [address] XRay Report Signed Patient: JACKIE APONTE MR#: [id number] : 2000 Acct:[id number] Age/Sex: 23 / F ADM Date: Loc: [facility] Attending Dr: Ole Osman D.O. Ordering Physician: Ole Osman D.O. Date of Service: 03/27/24 Procedure(s): XR abdomen 1V Accession Number(s): [id number] cc: Ole Osman D.O.; Jas Hyde M.D. The [place] [address] Patient Name: JACKIE APONTE MRN: [id number] date: 2000 Sex: F Assigned Patient Location: [facility] Current Patient Location: [facility] Accession/Order Number: [id number] Exam Date: 03/27/2024 08:30 Report Date: 03/27/2024 [...] Dictated By: Jame Ac M.D. Signed By: 03/27/24 0858 DD/ TD/TT: Retail Bakery Manager: Procedure Note Radiology, Radiologist, - 03/27/2024 [place] [address] XRay Report Signed Patient: JACKIE APONTE LMR#: [id number] : 2000Acct:[id number] Age/Sex: 23 / FADM Date: Loc: [facility] Attending Dr: Ole Osman D.O. Ordering Physician: Ole Osman D.O. Date of Service: 03/27/24 Procedure(s): XR abdomen 1V Accession Number(s): [id number] cc: Ole Osman D.O.; Jas Hyde M.D. [address] [address] Patient Name: JACKIE APONTE MRN: [facility]:[id number] date: 2000 Sex: F Assigned Patient Location: [facility] Current Patient Location: [facility] Accession/Order Number: [id number] Exam Date: 03/27/2024 08:30 Report Date: 03/27/2024 [...] 08:56 Dictated By: Jame Ac M.D. Signed By:03/27/2458 DD/ TD/TT: Retail Bakery Manager: us Ole Osman DO [facility] Final Result documented in this encounter Visit Diagnoses Not on filedocumented in this encounter Care Teams Pipe Supervisor Relationship Specialty Start Date End Date Jas Hyde MD [address] [place] [address] PCP - General Family Medicine 09/07/23 documented as of this encounter
[2025-01-12 09:08] LABS: Age Gdln ACOG Testing Note (.); IGP, rfx Aptima HPV ASCU Note (.)
== END 2025-01-08 15:16 | disposition home or self-care (01) ==
LOC: LAB 15:15
PROVIDERS: PCP Family Medicine; Visit Provider Physician Assistant
DX: Z01.419 Encounter for gynecological examination (general) (routine) without abnormal findings (principal)
CPT/HCPCS: 88175

== ENCOUNTER 2025-05-21 12:53 | Outpatient (OUT) | payer OTHER, SELFPAY ==
--- OUTSIDE RECORDS SUMMARY | 2025-05-18 12:15 | XMS_ITS ---
Author Organization [facility] [place] Address [address] [place] [address] Care Team Providers Care Otolaryngology Nurse Name Role Phone Chong Hyde Primary Care Provider Allergies No Known Allergies REASON FOR VISIT ingrown hairs, groin area, possibly infected, very sore Medications Medication SIG (Take, Route, Frequency, Duration) Notes Start Date End Date Status Cefdinir 300 MG 2 capsule Orally onc e a day; Duration: 10 days 05/18/2025 Active Doxycycline Monohydrate 100 MG 1 tablet Orally bid; Duration: 10 days 05/18/2025 Active Mupirocin 2 % 1 application Heat Treating Bluer ally Twice a day; Duration: 5 days 05/18/2025 Active Social History Tobacco Use: Social History [...] ast year? No Points 0 Interpretation Negative Problems Problem Type SNOMED Code ICD Code Onset Dates Problem Status W/U Status Risk Notes Problem Folliculitis (86025910) Folliculitis (L73.9) Active confirmed Vital Signs Weight 161 lbs 05/18/2025 Height 69.5 in 05/18/2025 Blood pressure systolic 110 mm Hg 05/18/20 25 Blood pressure diastolic 68 mm Hg 025 BMI 23.43 kg/m2 05/18/2025 Encounters Encounter Location Date Provider Diagnosis [facility] [place] [address] [facility] [place] [address] 05/18/2025 Chong Hyde Folliculitis L73.9 Assessments Encounter Date Diagnosis (ICD Code) Assessment Notes Treatment Notes Treatment Clinical Notes Section Notes 05/18/2025 Folliculitis (ICD-10 - L73.9) Plan Of Treatment Medication Medication Name Sig Start Date Stop Date Notes Cefdinir 300 MG 2 capsule Orally onc e a day; Duration: 10 days 05/18/2025 Doxycycline Monohydrate 100 MG 1 tablet Orally bid; Duration: 10 days 05/18/2025 Mupirocin 2 % 1 application Heat Treating Bluer ally Twice a day; Duration: 5 days 05/18/2025 Progress Notes * Jackie APONTEDOB:2000 (25 yo F)Acc No.[id number]:05/18/2025 Progress Note Patient: Jackie THOMPSON Provider: Katty Hyde ([facility])MD :2000 A ge:25 Y S ex:Female Date:05/18/2025 Address:[address] [place] [address] [address] [facility], [facility] Check In:04:14 PM ESTCheck O ut:05:20 PM EST Subjective: * Chief Complaints: * I ngrown hairs, groin area, possibly infected, very sore * HPI: G eneral: Ingrown hairs - sore and pain wiht walking. * Active Problem List K58.9 IBS (irritable bowel syndrome) Modified On:03/10/2025W/U Status:confirmed L73.9 Folliculitis Modified On:05/18/2025W/U Status:confirmed * Medical History: * Surgical History: B ack Surgery 2023 * Hospitalization/Major Diagno stic Procedure: N o Hospitalization History. * Family History: F ather: alive, diagnosed with Hypertension, Diabetes. M other: alive, diagnosed with Cancer, Diabetes, Hypertension. D aughter(s): alive. M aternal Grandmother: alive, Uterine Cancer. 1 daughter(s) . . * Social History: T obacco Use: T [...] N .K.D.A.no[Allergies Verified] Objective: * Vitals: W t:161lbs, Ht: 69.5 in, BP:110/68mm Hg, BMI:23.43Index, Ht-cm: 176.53 cm, Wt-k.03 kg. * Examination: A bdomen Exam:: G roin with small pimple type rash. Assessment: * Assessment: 1. F raheem - L73.9 (Primary) Plan: * Treatment: * Procedure Codes: 3 078F DIAST BP < 80 MM [id number] SYST BP LT 130 MM HG * Preventive Medicine: Screenings/Counseling: B MT ACTION PLAN Above Normal BMI Follow-up D ietary management education, guidance, and counseling * * Sign off status: Completed Visit Status: C HK (Check Out) true * Provider: Katty Hyde ([facility])MD Date: 0 05/18/2025 Generated for Carlinei matthew/Nora/eTransmitting on: 1 12:56 PM EDT History and Physical Notes * HPI (History of Present Illness) Category Sub-Category Detail Notes Category Not es General Ingrown hairs - sore and pain wiht walking Examination Category Sub-Category Detail Notes Category Not es Abdomen Exam: Groin with sma ll pimple type rash
--- OUTSIDE RECORDS SUMMARY | 2025-05-21 12:56 | XMS_ITS | Clinical Summary ---
Author Organization [facility] Address [address] [place] [address] Care Team Providers Care Airport Operations Supervisor Name Role Phone Jas Hyde MD Primary Care Provider [phone] Allergies No known active allergies Medications No known medications Family History Relation Name Status Comments Other [...] Description 01/12/2026 3:00 PM EDT Office Visit [facility] TURNER [address] [facility] [place] [phone] Chyna Burroughs PA [address] [facility] [place] [address] Insurance [employer] Care Teams Airport Operations Supervisor Relationship Specialty Start Date End Date Jas Hyde MD [address] [place] [address] PCP - General Family Medicine 09/07/23
--- OUTSIDE RECORDS SUMMARY | 2025-05-21 12:56 | XMS_ITS | Encounter Summary ---
Author Organization [facility] Address [address] [place] [address] Care Team Providers Care Woodworking Belt Sander Name Role Phone Jas Hyde MD Primary Care Provider [phone] Encounter Details Date Type Department Care Team (Late st Contact Info) Description 09/07/2023 Clinisync Result Encounter [facility] External Department Unsolicited Ole Osman DO [address] [facility] [address] [place], [facility] Social History Tobacco Use Types Packs/Day Years [...] PM EDT Office Visit RADHA TURNER [address] [place] [place] [phone] Chyna Burroughs PA [address] [facility] [place] [address] documented as of this encounter Procedures Procedure Name Priority Date/Time Associated Diagnosis Comments US OB TRANSVAGINAL 09/07/2023 11 :40 AM EST documented in this encounter Results * US OB TRANSVAGINAL (09/07/2023 11:40 AM EST) Anatomical Region Laterality Modality Other 09/07/2023 11:4 0 AM EST Narrative 09/07/2023 11:42 [place] [address] Ultrasound Report Signed Patient: JACKIE APONTE MR#: [id number] : 2000 Acct:[id number] Age/Sex: 23 / F ADM Date: 09/07/23 Loc: US Attending Dr: Ole Osman D.O. Ordering Physician: Ole Osman D.O. Date of Service: 09/07/23 Procedure(s): US OB transvaginal Accession Number(s): [id number] cc: Ole Osman D.O.; Jas Hyde M.D. The [place] [id number] Patient Name: JACKIE APONTE MRN: [id number] date: 2000 Sex: F Assigned Patient Location: US Current Patient Location: US Accession/Order Number: [id number] Exam Date: 09/07/2023 10:39 Report Date: 09/07/2023 [...] Signed By: 09/07/23 1142 DD/ 1140 TD/TT: Strap Machine Operator Automatic: Procedure Note Radiology, Radiologist, MD - 09/07/2023 The [place] [id number] Ultrasound Report Signed Patient: JACKIE APONTE LMR#: [id number] : 2000Acct:[id number] Age/Sex: 23 / FADM Date: 09/07/23 Loc: US Attending Dr: Ole Osman D.O. Ordering Physician: Ole Osman D.O. Date of Service: 09/07/23 Procedure(s): US OB transvaginal Accession Number(s): [id number] cc: Ole Osman D.O.; Jas Hyde M.D. [place] [id number] Patient Name: JACKIE APONTE MRN: [id number] date: 2000 Sex: F Assigned Patient Location: US Current Patient Location: US Accession/Order Number: [id number] Exam Date: 09/07/2023 10:39 Report Date: 09/07/2023 [...] M.D. Signed By:09/07/23 1142 DD/ 1140 TD/TT: Strap Machine Operator Automatic: us Ole Osman DO [facility] Final Result documented in this encounter Visit Diagnoses Not on filedocumented in this encounter Care Teams Woodworking Belt Sander Relationship Specialty Start Date End Date Jas Hyde MD [address] [place] [address] PCP - General Family Medicine 09/07/23 documented as of this encounter
--- OUTSIDE RECORDS SUMMARY | 2025-05-21 12:56 | XMS_ITS | Encounter Summary ---
Author Organization [facility] Address [address] [facility] [place] [address] Care Team Providers Care Ends Breakage Clerk Name Role Phone Jas Hyde MD Primary Care Provider [phone] Encounter Details Date Type Department Care Team (Late Contact Info) Description 04/10/2024 Abstract [facility] T[facility]NER [address] [facility] [place] [address] Chyna Burroughs PA [address] [facility] [place] [address] Social History Tobacco Use Types Packs/Day Years [...] PM EDT Office Visit RADHA TURNER [address] [facility] [place] [address] Chyna Burroughs PA [address] [facility] [place] [address] documented as of this encounter Visit Diagnoses Not on filedocumented in this encounter Care Teams Ends Breakage Clerk Relationship Specialty Start Date End Date Jas Hyde MD [address] [place] [address] PCP - General Family Medicine 09/07/23 documented as of this encounter
--- OUTSIDE RECORDS SUMMARY | 2025-05-21 12:56 | XMS_ITS | Encounter Summary ---
Author Organization [facility] Address [address] [place] [address] Care Team Providers Care Special Effects Artist Name Role Phone Jas Hyde MD Primary Care Provider [phone] Encounter Details Date Type Department Care Team (Late st Contact Info) Description 03/03/2024 Abstract [facility] TURNER [address] [facility] [place] [phone] Melissa Roth LPN [address] [place] [address] Social History Tobacco Use Types Packs/Day Years [...] PM EDT Office Visit RADHA TURNER [address] [facility] [place] [phone] Chyna Burroughs PA [address] [facility] [place] [address] documented as of this encounter Visit Diagnoses Not on filedocumented in this encounter Care Teams Special Effects Artist Relationship Specialty Start Date End Date Jas Hyde MD [address] [facility] [place] [address] PCP - General Family Medicine 09/07/23 documented as of this encounter
--- OUTSIDE RECORDS SUMMARY | 2025-05-21 12:56 | XMS_ITS | Encounter Summary ---
Author Organization [facility] Address [address] [place] [address] Care Team Providers Care Proposal Analyst Name Role Phone Jas Hyde MD Primary Care Provider [phone] Encounter Details Date Type Department Care Team (Late st Contact Info) Description 02/13/2024 Abstract [facility] TURNER [address] [facility] [place] [address] Antwan Osman DO [address] [facility] [address] [place], [place] [phone] Social History Tobacco Use Types Packs/Day Years [...] EDT Office Visit RADHA TURNER [address] [facility] [place] [phone] Chyna Burroughs PA [address] [facility] [place] [address] documented as of this encounter Visit Diagnoses Not on filedocumented in this encounter Care Teams Proposal Analyst Relationship Specialty Start Date End Date Jas Hyde MD [address] [facility] [place] [address] PCP - General Family Medicine 09/07/23 documented as of this encounter
--- OUTSIDE RECORDS SUMMARY | 2025-05-21 12:56 | XMS_ITS | Encounter Summary ---
Author Organization [facility] Address [address] [place] [address] Care Team Providers Care Tray Delivery Aide Name Role Phone Jas Hyde MD Primary Care Provider [phone] Encounter Details Date Type Department Care Team (Late st Contact Info) Description 02/28/2024 Clinisync Result Encounter [facility] External Department Unsolicited Ole Osman DO [address] [facility] [address] [place], [facility] Social History Tobacco Use Types Packs/Day Years [...] Office Visit RADHA TURNER [address] [facility] [place] [phone] Chyna Burroughs PA [address] [facility] [address] [place], [facility]11 documented as of this encounter Procedures Procedure Name Priority Date/Time Associated Diagnosis Comments US OB GROWTH 02/28/2024 7:17 AM EDT documented in this encounter Results * US OB GROWTH (02/28/2024 7:17 AM EDT) Anatomical Region Laterality Modality Other 02/28/2024 7:17 AM EDT Narrative 02/28/2024 7:19 [place] [address] Ultrasound Report Signed Patient: JACKIE APONTE MR#: [id number] : 2000 Acct:[id number] Age/Sex: 23 / F ADM Date: 02/27/24 Loc: NOMS Attending Dr: Ole Osman D.O. Ordering Physician: Ole Osman D.O. Date of Service: 02/27/24 Procedure(s): US OB growth Accession Number(s): [id number] cc: Ole Osman D.O.; Jas Hyde M.D. The [address] [address] Patient Name: JACKIE APONTE MRN: [id number] date: 2000 Sex: F Assigned Patient Location: [facility] Current Patient Location: Accession/Order Number: [id number] Exam Date: 02/27/2024 14:06 Report Date: 02/28/2024 [...] IMPRESSION: Normal interval growth Electronically authenticated by: AJME AC Date: 02/28/2024 07:17 Dictated By: Jame Ac M.D. Signed By: 02/28/24718 DD/ 6 TD/TT: Tiedown Operator: Procedure Note Radiology, Radiologist, - 02/28/2024 [place] [address] Ultrasound Report Signed Patient: JACKIE APOTNE LMR#: [id number] : 2000Acct:[id number] Age/Sex: 23 / FADM Date: 02/27/24 Loc: NOMS Attending Dr: Ole Osman D.O. Ordering Physician: Ole Osman D.O. Date of Service: 02/27/24 Procedure(s): US OB growth Accession Number(s): [id number] cc: Ole Osman D.O.; Jas Hyde M.D. The [place] [address] Patient Name: JACKIE APONTE MRN: [facility]:[id number] date: 2000 Sex: F Assigned Patient [facility] Current Patient Location: Accession/Order Number: [id number] Exam Date: 02/27/2024 14:06 Report Date: 02/28/2024 [...] Ac M.D. Signed By:02/28/24718 DD/ 6 TD/TT: Tiedown Operator: us Ole Dawson DO [facility] Final Result documented in this encounter Visit Diagnoses Not on filedocumented in this encounter Care Teams Tray Delivery Aide Relationship Specialty Start Date End Date Jas Hyde MD [address] [place] [address] PCP - General Family Medicine 09/07/23 documented as of this encounter
--- OUTSIDE RECORDS SUMMARY | 2025-05-21 12:56 | XMS_ITS | Encounter Summary ---
Author Organization [facility] Address [address] [place] [address] Care Team Providers Care Delimber Operator Name Role Phone Jas Hyde MD Primary Care Provider [phone] Encounter Details Date Type Department Care Team (Late st Contact Info) Description 03/28/2024 Abstract N[facility] TURNER [address] [facility] [place] [phone] Antwan Osman DO [address] [facility] [address] [place], [place] [address] Social History Tobacco Use Types Packs/Day Years [...] PM EDT Office Visit RADHA TURNER [address] [facility] [place] [phone] Chyna Burroughs PA [address] [facility] [place] [address] documented as of this encounter Visit Diagnoses Not on filedocumented in this encounter Care Teams Delimber Operator Relationship Specialty Start Date End Date Jas Hyde MD [address] [place] [facility] [place] [address] PCP - General Family Medicine 09/07/23 documented as of this encounter
--- OUTSIDE RECORDS SUMMARY | 2025-05-21 12:56 | XMS_ITS | Encounter Summary ---
Author Organization [facility] Address [address] [place] [address] Care Team Providers Care Customer Engineering Specialist Name Role Phone Jas Hyde MD Primary Care Provider [phone] Encounter Details Date Type Department Care Team (Late st Contact Info) Description 03/27/2024 Abstract [facility] TURNER [address] [facility] [place] [address] Antwan Osman DO [address] [facility] [address] [place], [place] [address] Social History Tobacco Use Types Packs/Day Years [...] PM EDT Office Visit RADHA TURNER [address] [facility] [place] [phone] Chyna Burroughs PA [address] [facility] [place] [address] documented as of this encounter Visit Diagnoses Not on filedocumented in this encounter Care Teams Customer Engineering Specialist Relationship Specialty Start Date End Date Jas Hyde MD [address] [facility] [place] [address] PCP - General Family Medicine 09/07/23 documented as of this encounter
--- OUTSIDE RECORDS SUMMARY | 2025-05-21 12:56 | XMS_ITS | Encounter Summary ---
Author Organization [facility] Address [address] [place] [address] Care Team Providers Care Spindle Sander Name Role Phone Jas Hyde MD Primary Care Provider [phone] Encounter Details Date Type Department Care Team (Late st Contact Info) Description 02/13/2024 Abstract [facility] TURNER [address] [facility] [address] Melissa Roth LPN [address] [facility] [place] [address] Social History Tobacco Use Types Packs/Day Years [...] Office Visit RADHA TURNER [address] [facility] [place] [address] Chyna Burroughs PA [address] [facility] [place] [address] documented as of this encounter Visit Diagnoses Not on filedocumented in this encounter Care Teams Spindle Sander Relationship Specialty Start Date End Date Jas Hyde MD [address] [facility] [place] [address] PCP - General Family Medicine 09/07/23 documented as of this encounter
--- OUTSIDE RECORDS SUMMARY | 2025-05-21 12:56 | XMS_ITS | Patient Health Record ---
Author Organization [facility] in [place] Address [address] [place] [address] Care Team Providers Care Income Tax Analyst Name Role Phone Chong Hyde Primary Care Provider Ashanti Toscano Unavailable [phone] Allergies No Known Allergies Results Component Value Reference Range Notes UA DIP NONAUTO WO MICRO (810 02) - IN OFFICE Reviewed date:01/12/2025 03:22:49 PM Interpretation: Performing Lab: Notes/Report: COLOR light yellow CLARITY clear GLUCOSE neg BILIRUBIN neg KETONE neg SPECIFIC GRAVITY 1.010 BLOOD neg PH 5 PROTEIN neg UROBILINOGEN neg NITRITE neg LEUKOCYTE ESTERASE neg IGP,Aptima HPV,Age Gdln Reviewed date:01/12/2025 03:22:49 PM Interpretation: Performing Lab: Notes/Report: BRUSH-SPATULA CERVIX ENDOCERVIX [facility] , Age Gdln ACOG Testing Note . L-Low Normal,H-High Normal,LL-Alert Low,HH-Alert High Age Algo ACOG Jennifer... 21-29 01 01 =G [facility] Saline <-Panic Low,>-Panic High,A-Abnormal,AA-Critical Abnormal Source.............Cervix;End ocervix -- -- [address] [place] [address] -- No. of containers..01 ThinPrep Vial FLAG LEGEND: Performed at: TESTS RESULT FLAG UNITS REF RANGE LAB Delaney Busch MD, Clinician Provided Cytology Information IGP, rfx Aptima HPV ASCU Note . [facility] RESULT FLAG UNITS REF [facility] This liquid based ThinPrep(R) pap test was screened with DIAGNOSIS: 02 The HPV DNA reflex criteria were not met with this specimen FLAG LEGEND: L-Low Normal,H-High Normal,LL-Alert Low,HH-Alert High Performed at: Specimen adequacy: 02 Performed by: 02 The Pap smear is a screening test designed to aid in the should not be used as the sole means of detecting cervical Delaney Busch MD, [address] [place], [place] [id number] [address] [facility] [place] [place] [id number] -- the use of an image guided system. NEGATIVE FOR INTRAEPITHELIAL LESION OR MALIGNANCY. result therefore, no HPV testing was performed. Satisfactory for evaluation. Endocervical and/or squamous metaplastic <-Panic Low,>-Panic High,A-Abnormal,AA-Critical Abnormal . 02 02 [facility] Tip Stitcher: Delaney Busch MD, Phone: [phone] Performed at: =[facility] Charisse Jackson, Pilot Supervisor cancer. Both false-positive and false-negative reports do detection of premalignant and malignant conditions of the Test Methodology: Note 02 . Tip Stitcher: Delaney Busch MD, Phone: [phone] CELLULAR CHANGES ASSOCIATED WITH INFLAMMATION ARE PRESENT. -- cells (endocervical component) are present. Note: Note 02 -- [address] [place] [address] uterine cervix. It is not a diagnostic procedure and Performing Lab: see note LC - [facility] LB Reason For Referral No Information Medications Medication SIG (Take, Route, Frequency, Duration) Notes Start Date End Date Status Doxycycline Monohydrate 100 MG 1 tablet Orally bid; Duration: 10 days 05/18/2025 Active Mupirocin 2 % 1 application Technical Internship ally Twice a day; Duration: 5 days 05/18/2025 Active valACYclovir HCl 1 GM 1 tablet Orally ti d; Duration: 10 days 05/21/2025 Active Cefdinir 300 MG 2 capsule Orally onc e a day; Duration: 10 days 05/18/2025 Active levoFLOXacin 750 MG 1 tablet Orally Once a day; Duration: 10 day(s) 05/21/2025 Active Bactrim DS 800-160 MG 1 tablet Orally bi d; Duration: 10 days 05/21/2025 Active Social History Tobacco Use: Social History [...] Problem Status W/U Status Risk Notes Problem Irritable bowel syndrome (55402221) IBS (irritable bowel syndrome) (K58.9) Active confirmed Problem Folliculitis (69833631) Folliculitis (L73.9) Active confirmed Vital Signs Blood pressure diastolic 88 mm Hg 05/21/2025 Height 69.5 in 05/21/2025 Blood pressure systolic 124 mm Hg 05/21/2025 Weight 161.4 lbs 05/21/2025 BMI 23.49 kg/m2 05/21/2025 Encounters Encounter Location Date Provider Diagnosis [address] [address] 09/08/2024 Chong Hoy Flank pain R10.9 ; Acute non-recurrent sinusitis, unspecified location J01.90 and Nasal congestion R09.[address] [address] 03/10/2025 Ashanti Toscano BRBPR (bright red blood per rectum) K62.5 and IBS (irritable bowel syndrome) K58.[address] [address] 05/18/2025 Chong Hoy Folliculitis L73.[address] [address] 05/21/2025 Chong Hoy Folliculitis L73.9 Assessments Encounter Date Diagnosis (ICD Code) Assessment Notes Treatment Notes Treatment Clinical Notes Section Notes 09/08/2024 Flank pain (ICD-10 - R10.9) 03/10/2025 BRBPR (bright red blood per rectum) (ICD-10 - K62.5) continue monitor 03/10/2025 IBS (irritable bowel syndrome) (ICD-10 - K58.9) work on diet, stress levels handouts given on IBS fu if not improving 05/18/2025 Folliculitis (ICD-10 - L73.9) 05/21/2025 Folliculitis (ICD-10 - L73.9) 09/08/2024 Acute non-recurrent sinusitis, unspecified location (ICD-10 - J01.90) Rest and drink more liquids, especially water. You may use a humidifier or vaporizer to help keep the drainage moist. Mtwh-brm-elfjgwm Nasal Saline may help the stuffy and runny nose. Use Ibuprofen and or Tylenol as needed for fever, chills, body aches or pain. Children 5 years old should not be given pvoi-bjk-yxrrmlk cough and cold medications such as guaifenesin and dextromethorphan. If you're over age 5, you may try gcwa-duf-tkvvlqj cold medications such as guaifenesin and dextromethorphan, [...] Order Date US Lower Extremity RT 09/06/2023 HERPES SIMPLEX 1,2 IGM AB (IFA) 05/21/20 25 CBC AUTO DIFF 05/21/2025 Insurance Providers Payer Name Payer Address Payer Phone Subscriber Number Group Number Insured Name Patient Relationship to Insured Coverage Start Date Coverage End Date MMO [address] [place], [place] [id number] aJckie Aponte Self - patient is the insured 4 [employer] [address] [place] [address] [phone] Jackie Aponte Self - patient is the insured Medical (General) History Medical History History ICD Code Anxiety with depression F41.8 Congenital spondylolisthesis Q76.2 Back pain, lumbosacral M54.50 Essential tremor G25.0 LA (lymphadenopathy) R59.1 Pyelonephritis N12 Surgical History Surgery Date(Month/Year) 2023 Back Surgery
--- OUTSIDE RECORDS SUMMARY | 2025-05-21 12:56 | XMS_ITS | Encounter Summary ---
Author Organization [facility] Address [address] [place] [address] Care Team Providers Care Golf Course Ranger Name Role Phone Jas Hyde MD Primary Care Provider [phone] Encounter Details Date Type Department Care Team (Late st Contact Info) Description 04/22/2024 Abstract [facility] TURNER [address] [place] [phone] Antwan Osman DO [address] [facility] [address] [place], [place] [address] Social History Tobacco Use Types Packs/Day Years [...] PM EDT Office Visit RADHA TURNER [address] [facility] [place] [phone] Chyna Burroughs PA [address] [facility] [place] [address] documented as of this encounter Visit Diagnoses Not on filedocumented in this encounter Care Teams Golf Course Ranger Relationship Specialty Start Date End Date Jas Hyde MD [address] [facility] [place] [address] PCP - General Family Medicine 09/07/23 documented as of this encounter
--- OUTSIDE RECORDS SUMMARY | 2025-05-21 12:56 | XMS_ITS | Encounter Summary ---
Author Organization [facility] Address [address] [place] [address] Care Team Providers Care Teacher Name Role Phone Jas Hyde MD Primary Care Provider [phone] Encounter Details Date Type Department Care Team (Late st Contact Info) Description 12/18/2023 Clinisync Result Encounter [facility] External Department Unsolicited Ole Osman DO [address] [facility] [address] [place], [facility] Social History Tobacco Use Types Packs/Day Years [...] PM EDT Office Visit RADHA TURNER [address] [facility] [place] [phone] Chyna Burroughs PA [address] [place], [facility]11 documented as of this encounter Procedures Procedure Name Priority Date/Time Associated Diagnosis Comments US OB CERVICAL LENGTH 12/18/2023 3:31 PM EDT documented in this encounter Results * US OB CERVICAL LENGTH (12/18/2023 3:31 PM EDT) Anatomical Region Laterality Modality Other 12/18/2023 3:31 PM EDT Narrative 12/18/2023 3:33 [place] [address] Ultrasound Report Signed Patient: JACKIE APONTE MR#: [id number] : 2000 Acct:[id number] Age/Sex: 23 / F ADM Date: 12/18/23 Loc: [facility] Attending Dr: Ole Osman D.O. Ordering Physician: Ole Osman D.O. Date of Service: 12/18/23 Procedure(s): US OB cervical length Accession Number(s): [id number] cc: Ole Osman D.O.; Jas Hyde M.D. [address] [address] Patient Name: JACKIE APONTE MRN: [id number] date: 2000 Sex: F Assigned Patient Location: [facility] Current Patient Location: [facility] Accession/Order Number: [id number] Exam Date: 12/18/2023 14:08 Report Date: 12/18/2023 [...] Signed By: 12/18/23 1533 DD/ 1531 TD/TT: Estimator Project Manager: Procedure Note Radiology, Radiologist, - 12/19/2023 [place] [address] Ultrasound Report Signed Patient: JACKIE APONTE LMR#: [id number] : 2000Acct:[id number] Age/Sex: 23 / FADM Date: 12/18/23 Loc: [facility] Attending Dr: Ole Osman D.O. Ordering Physician: Ole Osman D.O. Date of Service: 12/18/23 Procedure(s): US OB cervical length Accession Number(s): [id number] cc: Ole Osman D.O.; Jas Hyde M.D. The [place] [address] Patient Name: JACKIE APONTE MRN: [id number] date: 2000 Sex: F Assigned Patient Location: [facility] Current Patient Location: [facility] Accession/Order Number: [id number] Exam Date: 12/18/2023 14:08 Report Date: 12/18/2023 [...] M.D. Signed By:12/18/23 1533 DD/ 1531 TD/TT: Estimator Project Manager: us [facility] Final Result documented in this encounter Visit Diagnoses Not on filedocumented in this encounter Care Teams Teacher Relationship Specialty Start Date End Date Jas Hyde MD [address] [place] [address] PCP - General Family Medicine 09/07/23 documented as of this encounter
--- OUTSIDE RECORDS SUMMARY | 2025-05-21 12:56 | XMS_ITS | Encounter Summary ---
Author Organization [facility] Address [address] [place] [address] Care Team Providers Care Police Captain Precinct Name Role Phone Jas Hyde MD Primary Care Provider [phone] Encounter Details Date Type Department Care Team (Late st Contact Info) Description 04/04/2024 Abstract [facility]a TURNER [address] [facility] [place] [address] Antwan Osman DO [address] [facility] [address] [place], [place] [id number] Social History Tobacco Use Types Packs/Day Years [...] PM EDT Office Visit RADHA TURNER [address] [facility] [place] [phone] Chyna Burroughs PA [address] [facility] [place] [address] documented as of this encounter Visit Diagnoses Not on filedocumented in this encounter Care Teams Police Captain Precinct Relationship Specialty Start Date End Date Jas Hyde MD [address] [facility] [place] [address] PCP - General Family Medicine 09/07/23 documented as of this encounter
--- OUTSIDE RECORDS SUMMARY | 2025-05-21 12:56 | XMS_ITS | Encounter Summary ---
Author Organization [facility] Address [address] [place] [address] Care Team Providers Care Director Of Preclinical Research Name Role Phone Jas Hyde MD Primary Care Provider [phone] Encounter Details Date Type Department Care Team (Late st Contact Info) Description 03/26/2024 Clinisync Result Encounter [facility] External Department Unsolicited Ole Osman DO [address] [facility] [address] [place], [facility]11 Social History Tobacco Use Types Packs/Day Years [...] PM EDT Office Visit RADHA TURNER [address] [place] [phone] Chyna Burroughs PA [address] [facility] [place] [address] documented as of this encounter Procedures Procedure Name Priority Date/Time Associated Diagnosis Comments US RENAL BI 03/26/2024 9:13 PM EDT documented in this encounter Results * US RENAL BI (03/26/2024 9:13 PM EDT) Anatomical Region Laterality Modality Other 03/26/2024 9:13 PM EDT Narrative 03/26/2024 9:15 [place] [address] Ultrasound Report Signed Patient: JACKIE APONTE MR#: [id number] : 2000 Acct:[id number] Age/Sex: 23 / F ADM Date: Loc: [facility] [address]: Ole Osman D.O. Ordering Physician: Ole Osman D.O. Date of Service: 03/26/24 Procedure(s): US renal BI Accession Number(s): [id number] cc: Ole Osman D.O.; Jas Hyde M.D. The [address] [address] Patient Name: JACKIE APONTE MRN: [id number] date: 2000 Sex: F Assigned Patient Location: [facility] Current Patient Location: [facility] Accession/Order Number: [id number] Exam Date: 03/26/2024 18:04 Report Date: 03/26/2024 [...] M.D. Signed By: 03/26/242114 DD/ 12 TD/TT: Shoulder Boner: Procedure Note Radiology, Radiologist, - 03/27/2024 The [place] [address] Ultrasound Report Signed Patient: JACKIE APONTE LMR#: [id number] : 2000Acct:[id number] Age/Sex: 23 / FADM Date: Loc: [facility] 254-[address]: Ole Osman D.O. Ordering Physician: Ole Osman D.O. Date of Service: 03/26/24 Procedure(s): US renal BI Accession Number(s): [id number] cc: Ole Osman D.O.; Jas Hyde M.D. [place] [address] Patient Name: JACKIE APONTE MRN: [id number] date: 2000 Sex: F Assigned Patient Location: [facility] Current Patient Location: [facility] Accession/Order Number: [id number] Exam Date: 03/26/2024 18:04 Report Date: 03/26/2024 [...] III, M.D. Signed By:03/26/242114 DD/ 12 TD/TT: Shoulder Boner: us Ole Osman DO [facility] Final Result documented in this encounter Visit Diagnoses Not on filedocumented in this encounter Care Teams Director Of Preclinical Research Relationship Specialty Start Date End Date Jas Hyde MD [address] [place] [address] PCP - General Family Medicine 09/07/23 documented as of this encounter
--- OUTSIDE RECORDS SUMMARY | 2025-05-21 12:56 | XMS_ITS | Encounter Summary ---
Author Organization [facility] Address [address] [place] [address] Care Team Providers Care Commodity Loan Clerk Name Role Phone Jas Hyde MD Primary Care Provider [phone] Encounter Details Date Type Department Care Team (Late st Contact Info) Description 12/18/2023 Clinisync Result Encounter [facility] External Department Unsolicited Ole Osman DO [address] [facility] [address] [place], [facility]11 Social History Tobacco Use Types Packs/Day [...] EDT Office Visit RADHA TURNER [address] [place] [phone] Chyna Burroughs PA [address] [facility] [address] [place], [facility]11 documented as of this encounter Procedures Procedure Name Priority Date/Time Associated Diagnosis Comments US OB ANATOMY 12/18/2023 3:31 PM EDT documented in this encounter Results * US OB ANATOMY (12/18/2023 3:31 PM EDT) Anatomical Region Laterality Modality Other 12/18/2023 3:31 PM EDT Narrative 12/18/2023 3:33 [place] [address] Ultrasound Report Signed Patient: JACKIE APONTE MR#: [id number] : 2000 Acct:[id number] Age/Sex: 23 / F ADM Date: 12/18/23 Loc: [facility] Attending Dr: Ole Osman D.O. Ordering Physician: Ole Osman D.O. Date of Service: 12/18/23 Procedure(s): US OB anatomy Accession Number(s): [id number] cc: Ole Osman D.O.; Jas Hyde M.D. The [address] [address] Patient Name: JACKIE APONTE MRN: [id number] date: 2000 Sex: F Assigned Patient Location: [facility] Current Patient Location: [facility] Accession/Order Number: [id number] Exam Date: 12/18/2023 14:08 Report Date: 12/18/2023 [...] Signed By: 12/18/23 1533 DD/ 1531 TD/TT: Agriculture Instructor: Procedure Note Radiology, Radiologist, - 12/19/2023 [place] [address] Ultrasound Report Signed Patient: JACKIE APONTE LMR#: [id number] : 2000Acct:[id number] Age/Sex: 23 / FADM Date: 12/18/23 Loc: [facility] Attending Dr: Ole Osman D.O. Ordering Physician: Ole Osman D.O. Date of Service: 12/18/23 Procedure(s): US OB anatomy Accession Number(s): [id number] cc: Ole Osman D.O.; Jas Hyde M.D. The [place] [address] Patient Name: JACKIE APONTE MRN: [facility]:[id number] date: 2000 Sex: F Assigned Patient Location: [facility] Current Patient Location: [facility] Accession/Order Number: [id number] Exam Date: 12/18/2023 14:08 Report Date: 12/18/2023 [...] Age by EDC: 22 weeks 3 days [place] by EDC: 04/19/2024 Age by current US: [...] Jame Ac M.D. Signed By:12/18/23 1533 DD/ 153 TD/TT: Agriculture Instructor: us Ole Dawson DO [facility] Final Result documented in this encounter Visit Diagnoses Not on filedocumented in this encounter Care Teams Commodity Loan Clerk Relationship Specialty Start Date End Date Jas Hyde MD [address] [place] [address] PCP - General Family Medicine 09/07/23 documented as of this encounter
--- OUTSIDE RECORDS SUMMARY | 2025-05-21 12:56 | XMS_ITS | Encounter Summary ---
Author Organization [facility] Address [address] [place] [address] Care Team Providers Care Social Scientist Name Role Phone Jas Hyde MD Primary Care Provider [phone] Encounter Details Date Type Department Care Team (Late st Contact Info) Description 09/06/2023 Clinisync Result Encounter [facility] External Department Unsolicited Ole Osman DO [address] [facility] [address] [place], [facility]11 Social History Tobacco Use Types Packs/Day Years [...] Office Visit RADHA TURNER [address] [facility] [place] [phone] Chyna Burroughs PA [address] [place] [address] documented as of this encounter Procedures Procedure Name Priority Date/Time Associated Diagnosis Comments VASC US LOWER EXTREMITY VENOUS DUPLEX RIGHT 09/06/2023 12:16 PM EST documented in this encounter Results * Vascular US lower extremity venous duplex right (09/06/2023 12:16 PM EST) Anatomical Region Laterality Modality Lower Extremities Ultrasound 09/06/2023 12:1 6 PM EST Narrative 09/06/2023 12:19 [place] [address] Ultrasound Report Signed Patient: JACKIE APONTE MR#: [id number] : 2000 Acct:[id number] Age/Sex: 23 / F ADM Date: 09/06/23 Loc: US Attending Dr: Ole Osman D.O. Ordering Physician: Ole Osman D.O. Date of Service: 09/06/23 Procedure(s): US venous doppler LE RT Accession Number(s): [id number] cc: Ole Osman D.O.; Jas Hyde M.D. The [place] [address] Patient Name: JACKIE APONTE MRN: [id number] date: 2000 Sex: F Assigned Patient Location: US Current Patient Location: US Accession/Order Number: [id number] Exam Date: 09/06/2023 10:30 Report Date: 09/06/2023 [...] Signed By: 09/06/23 1219 DD/ 1216 TD/TT: Swine Nutritionist: Procedure Note Radiology, Radiologist, MD - 09/06/2023 [place] [address] Ultrasound Report Signed Patient: JACKIE APONTE LMR#: [id number] : 2000Acct:[id number] Age/Sex: 23 / FADM Date: 09/06/23 Loc: US Attending Dr: Ole Osman D.O. Ordering Physician: Ole Osman D.O. Date of Service: 09/06/23 Procedure(s): US venous doppler LE RT Accession Number(s): [id number] cc: Ole Osman D.O.; Jas Hyde M.D. The [place] [address] Patient Name: JACKIE APONTE MRN: [id number] date: 2000 Sex: F Assigned Patient Location: US Current Patient Location: US Accession/Order Number: [id number] Exam Date: 09/06/2023 10:30 Report Date: 09/06/2023 [...] Merissa Lam M.D. Signed By:09/06/23 1219 DD/ 1216 TD/TT: Swine Nutritionist: us Ole Dawson DO IMG US PROCEDURES Final Result documented in this encounter Visit Diagnoses Not on filedocumented in this encounter Care Teams Social Scientist Relationship Specialty Start Date End Date Jas Hyde MD [address] [place] [address] PCP - General Family Medicine 09/07/23 documented as of this encounter
--- OUTSIDE RECORDS SUMMARY | 2025-05-21 12:56 | XMS_ITS | Encounter Summary ---
Author Organization [facility] Address [address] [place] [address] Care Team Providers Care Top Tile Decorator Name Role Phone Jas Hyde MD Primary Care Provider [phone] Encounter Details Date Type Department Care Team (Late st Contact Info) Description 03/27/2024 Clinisync Result Encounter [facility] External Department Unsolicited Ole Osman DO [address] [facility] [address] [place], [facility]11 Social History Tobacco Use Types Packs/Day Years [...] [address] [facility] [place] [phone] Chyna Burroughs PA [address] [facility] [address] [place], [facility]11 documented as of this encounter Procedures Procedure Name Priority Date/Time Associated Diagnosis Comments XR ABDOMEN 1V 03/27/2024 8:56 AM EDT documented in this encounter Results * XR ABDOMEN 1V (03/27/2024 8:56 AM EDT) Anatomical Region Laterality Modality Other 03/27/2024 8:56 AM EDT Narrative 03/27/2024 8:58 [place] [address] XRay Report Signed Patient: JACKIE APONTE MR#: [id number] : 2000 Acct:[id number] Age/Sex: 23 / F ADM Date: Loc: [facility] Attending Dr: Ole Osman D.O. Ordering Physician: Ole Osman D.O. Date of Service: 03/27/24 Procedure(s): XR abdomen 1V Accession Number(s): [id number] cc: Ole Osman D.O.; Jas Hyde M.D. The [place] [address] Patient Name: JACKIE APONTE MRN: [id number] date: 2000 Sex: F Assigned Patient Location: [facility] Current Patient Location: [facility] Accession/Order Number: [id number] Exam Date: 03/27/2024 08:30 Report Date: 03/27/2024 [...] M.D. Signed By: 03/27/24 0858 DD/ TD/TT: Hackler Doll Wigs: Procedure Note Radiology, Radiologist, - 03/27/2024 [place] [address] XRay Report Signed Patient: JACKIE APONTE LMR#: [id number] : 2000Acct:[id number] Age/Sex: 23 / FADM Date: Loc: [facility] [address]: Ole Osman D.O. Ordering Physician: Ole Osman D.O. Date of Service: 03/27/24 Procedure(s): XR abdomen 1V Accession Number(s): [id number] cc: Ole Osman D.O.; Jas Hyde M.D. [address] [address] Patient Name: JACKIE APONTE MRN: [facility]:[id number] date: 2000 Sex: F Assigned Patient Location: [facility] Current Patient Location: [facility] Accession/Order Number: [id number] Exam Date: 03/27/2024 08:30 Report Date: 03/27/2024 [...] Jame Ac M.D. Signed By:03/27/2458 DD/ TD/TT: Hackler Doll Wigs: Ole Osman DO [facility] Final Result documented in this encounter Visit Diagnoses Not on filedocumented in this encounter Care Teams Top Tile Decorator Relationship Specialty Start Date End Date Jas Hyde MD [address] [place] [address] PCP - General Family Medicine 09/07/23 documented as of this encounter
--- OUTSIDE RECORDS SUMMARY | 2025-05-21 12:56 | XMS_ITS | Encounter Summary ---
Author Organization [facility] Address [address] [facility] [place] [address] Care Team Providers Care Yard Inspector Name Role Phone Jas Hyde MD Primary Care Provider [phone] Encounter Details Date Type Department Care Team (Late st Contact Info) Description 01/20/2025 Orders Only [facility] TURNER [address] [place] [address] [place] [address] Melissa Roth LPN [address] [facility]11 Social History Tobacco Use Types Packs/Day Years [...] Description 01/12/2026 3:00 PM EDT Office Visit NOMMya TURNER [address] [facility] [place] [address] Chyna Burroughs PA [address] [place], [place] [address] documented as of this encounter Procedures Procedure Name Priority Date/Time Associated Diagnosis Comments PAP SMEAR Routine 01/08/2025 12:00 AM EDT documented in this encounter Results * Pap Smear (01/08/2025 12:00 AM EDT) Swab Cervical swab / Unknown Dawson Nurse [facility] B[facility] Ob LAB CYTOLOGY ORDERABLES Final Result EXTERNAL LAB documented in this encounter Visit Diagnoses Not on filedocumented in this encounter Care Teams Yard Inspector Relationship Specialty Start Date End Date Jas Hyde MD [address] [place] [address] PCP - General Family Medicine 09/07/23 documented as of this encounter
--- OUTSIDE RECORDS SUMMARY | 2025-05-21 12:56 | XMS_ITS | Encounter Summary ---
Author Organization [facility] Address [address] [place] [address] Care Team Providers Care Senior Executive Assistant Name Role Phone Jas Hyde MD Primary Care Provider [phone] Encounter Details Date Type Department Care Team (Late st Contact Info) Description 2024 Abstract [facility] [address] [place] [phone] Antwan Osman DO [address] [place], [place] [id number] Social History Tobacco Use Types Packs/Day Years [...] 01/12/2026 3:00 PM EDT Office Visit [facility] UTRNER [address] [place] [phone] Chyna Burroughs PA [address] [place] [address] documented as of this encounter Visit Diagnoses Not on filedocumented in this encounter Care Teams Senior Executive Assistant Relationship Specialty Start Date End Date Jas Hyde MD [address] [facility] [place] [phone] PCP - General Family Medicine 09/07/23 documented as of this encounter
[2025-05-21 13:48] LABS: Hematocrit 41.9 % (36.0-48.0); Hemoglobin 14.6 g/dL (12.0-16.0); Immature Granulocytes Abs Auto 0.01 10^3/uL (0.00-0.03); Immature Granulocytes Pct Auto 0.2 % (0.0-0.5); Lymphocytes Absolute Auto 2.7 10^3/uL (1.2-3.8); Mean Corpuscular HGB Conc 34.8 g/dL (29.9-35.2); Mean Corpuscular Hemoglobin 31.7 pg (26.7-34.0); Mean Corpuscular Volume 90.9 fL (81.0-99.0); Platelet Count 319 10^3/uL (150-450); Red Blood Count 4.61 10^6/uL (4.20-5.40); White Blood Count 5.9 10^3/uL (4.0-11.0)
--- OUTSIDE RECORDS SUMMARY | 2025-05-21 18:54 | XMS_ITS | CCD ---
Author Organization [facility]iniSyde Care Team Providers Care Net Developer Name Role Phone DR IVAN HYDE Admitting Unavailable YVES, DR LOVE Attending Unavailable YVES, DR LOVE Primary Care Unavailable YVES, DR LOVE Consulting Unavailable Radha Galdamez Unavailable ANA Galdamez Attending Provider NO FAMILY, PHYSICIAN Primary Care Provider Unava ilable Joseline Cr Unavailable Ivan Hyde MD Primary Care Provider [phone] Ivan Hyde MD Primary Care Provider [phone] CHYNA OWENS Attending Unavailable OLE OSMAN Attending Unavailable OLE OSMAN Attending Unavailable OLE OSMAN Attending Unavailable CHYNA OWENS Attending Unavailable CHYNA OWENS Attending Unavailable CHYNA OWENS Attending Unavailable Medications Current Medications Medication Drug Class(es) Dates Sig (Normalized) Sig (Original) cephalexin 500 mg oral capsule (1 source) Cephalosporin Antibacterial Start: 01-08-2025 End: 01-18-2025 take 1 capsule by mouth in the morning, then take 1 capsule by mouth in the evening, then take 1 capsule by mouth at bedtime cephalexin (Keflex) 500 MG capsule Indications: Yeast infection Take 1 capsule (500 mg) by mouth in the morning and 1 capsule (500 mg) in the evening and 1 capsule (500 mg) before bedtime. Do all this for 10 days. 30 capsule 01/08/2025 01/18/2025 Active norethindrone 0.35 mg oral tablet (2 sources) Start: 05-12-2024 End: 06-09-2024 take 1 tablet by mouth once daily, then take 1 tablet by mouth once daily norethindrone (Micronor) 0.35 MG tablet Indications: Encounter for initial prescription of contraceptive pills Take 1 tablet (0.35 mg) by mouth Daily for 28 days Take 1 tablet by mouth daily 28 tablet 11 05/12/2024 06/09/2024 Active Vit-Fe Fumarate-FA (PNV Plus Multivitamin) 27-1 MG [...] abdominal pain] Onset: 03-20-2022 Resolved: 03-20-2022 Episodic Contraceptive and procreative management (2 sources) Patient encounter status; Translations: [Encounter for initial prescription of contraceptive pills] 05-12-2024 Episodic Nausea and vomiting (3 sources) Nausea; Translations: [Nausea] Onset: 03-20-2022 Resolved: 03-20-2022 Episodic Other gastrointestinal disorders (4 sources) Diarrhea, unspecified; Translations: [DIARRHEA UNSPECIFIED] Onset: 10-22-2021 Episodic Other and delivery including normal (4 sources) First trimester ; Translations: [Encounter for [...] Test Name Value Interpretation Reference Range Facility IGP,APTIMA HPV,AGE GDLNon AGE GDLN ACOG TESTING Note . [facility] Comment on above: TESTS RESULT FLAG UN ITS REF RANGE LAB Clinician Provided Cytology Information Source.............Cervix;Endocervix No. of containers..01 ThinPrep Vial Age Algo ACOG Jennifer... -15 09 FLAG LEGEND: L-Low Normal,H-High Normal,LL-Alert Low,HH-Alert High <-Panic Low,>-Panic High,A-Abnormal,AA-Critical Abnormal Performed at: 01 =G [facility] [address] [place] [address] Delaney Busch MD, IGP, RFX APTIMA HPV ASCU Note . [facility] Comment on above: TESTS RESULT FLAG UN ITS REF RANGE LAB DIAGNOSIS: 02 NEGATIVE FOR INTRAEPITHELIAL LESION OR MALIGNANCY. CELLULAR CHANGES ASSOCIATED WITH INFLAMMATION ARE PRESENT. Specimen adequacy: 02 Satisfactory for evaluation. Endocervical and/or squamous metaplastic cells (endocervical component) are present. Performed by: Steph Jackson Outdoor Studies Professor . 02 Note: Note 02 The Pap smear is a screening test designed to aid in the detection of premalignant and malignant conditions of the uterine cervix. It is not a diagnostic procedure and should not be used as the sole means of detecting cervical cancer. Both false-positive and false-negative reports do occur. Test Methodology: Note 02 This liquid based ThinPrep(R) pap test was screened with the use of an image guided system. . 02 The HPV DNA reflex criteria were not met with this specimen result therefore, no HPV testing was performed. FLAG LEGEND: L-Low Normal,H-High Normal,LL-Alert Low,HH-Alert High <-Panic Low,>-Panic High,A-Abnormal,AA-Critical Abnormal Performed at: [address] [facility] [address] [id number] Delaney Busch MD, Performed at: =G - [facility] [address] [id number] Paint Dipper: Delaney Busch MD, Phone: [phone] Performed at: - [facility] [address] [id number] Paint Dipper: Delaney Busch MD, Phone: [phone] BRUSH-SPATULA CERVIX ENDOCERVIX [facility] Urinalysis macro (dipstick) panel (U)Ordered By: Eugenia Boucher on 10-04-2023 Bilirubin, UA Negative Negative - 4(70) +++ mg/dL [facility] Blood, UA Negative Negative - 50 Christiano/mcL [facility] Clarity, UA Clear [facility] Color, UA Yellow [facility] Glucose, UA Negative Negative - 1999(110) ++++ mg/dL [facility] Interpretation and review of laboratory results Abnormal [facility] Ketones, UA Negative Negative - 160(16) ++++ mg/dL [facility] Leukocytes, UA Trace Negative - 500+++ Shaquille/mcL [facility] Nitrite, UA Negative Negative - Positive [facility] pH, UA 6.0 5 - 9 [facility] Protein, UA Negative Negative - 1999(20) ++++ mg/dL [facility] Spec Grav, UA 1.025 1 - 1.03 [facility] Urobilinogen, UA 0.2 0.2 - 12 mg/dL [facility] COVID + FLU Quick Testingon 08-05-2023 SARS-CoV-2 (COVID-19) RNA SAL+probe Ql (Unsp spec) Negative [facility] Other COVID + FLU Quick Testing Negative [facility] Other Urine culture routineOrdered By: RADHA GALDAMEZ on 03-22-2022 Bacteria identified Cx Nom (U) Escherichia coli [facility] Test, Urineon 08-0 1-2022 Beta HCG ( test) Ql (U) Inconclusive [facility] Other SARS-CoV-2 (COVID-19) RNA NA A+probe Ql (Resp)on 03-20-2022 SARS-CoV-2 (COVID-19) RNA SAL+probe Ql (Unsp spec) Negative [facility] Other Urinalysis - AUTOMATEDon Appearance (U) CLOUDY [facility] Other Bilirubin Ql (U) Negative [facility] Other Color (U) rust-yellow [facility] Other Glucose Ql (U) Negative [facility] Other Hemoglobin Ql (U) TRACE-INTACT [facility] Other Ketones Ql (U) Negative [facility] Other Leukocyte esterase Test strip Ql (U) TRACE [facility] Other Nitrite Ql (U) Positive [facility] Other pH (U) 7.0 [pH] [facility] Other Protein Ql (U) Negative [facility] Other Specific gravity (U) [Rel density] 1.020 [facility] Other Urobilinogen (U) [Mass/Vol] 0.2 mg/dL [facility] Other Urinalysis - AUTOMATED [facility] Other Urine Cultureon 03-20-2022 Bacteria identified Cx Nom (U) ORGANISM: Escherichia coli (O:ESCCOL) [place] Count >100,000 Aerobic MAUREEN Charge (NUC86) ---- [...] RESISTANT TO ALL B-LACTAM DRUGS. PERFORMED BY: [place] [address] PATHOLOGIST EMAIL MARKETING ASSISTANT DEDE OSMAN M.D. [facility] Comment on above: Performed By: #### C UU #### [facility] [address] [place] [address] GI PANEL (PCR)on 10-22-2021 Adenovirus F 40/41 Not detected Normal NOT DETECTED [facility] Comment on above: Performed By: #### G IPANEL #### [facility] [address] [place] [address] Dr. Elenita Talamantes Astrovirus Not detected Normal NOT DETECTED [facility] Comment on above: Performed By: #### G IPANEL #### [facility] [address] [place] [address] Dr. Elenita Stover. Diff toxin A/B Not detected Normal NOT DETECTED [facility] Comment on above: Performed By: #### G IPANEL #### [facility] [address] [place] [address] Dr. Elenita Talamantes Campylobacter Not detected Normal NOT DETECTED [facility] Comment on above: Performed By: #### G IPANEL #### [facility] [address] [place] [address] Dr. Elenita Talamantes Cryptosporidium Not detected Normal NOT DETECTED [facility] Comment on above: Performed By: #### G IPANEL #### [facility] [address] [address] [address] Elenita Talamantes Cyclos. Cayetanensis Not detected Normal NOT DETECTED [facility] Comment on above: Performed By: #### G IPANEL #### [facility] [address] [place] [address] Dr. Elenita Talamantes E. Coli O157 Not Applicable Normal Not Applicable [facility] Comment on above: Performed By: #### G IPANEL #### [facility] [address] [place] [address] Dr. Elenita Talamantes E. histolytica Not detected Normal NOT DETECTED [facility] Comment on above: Performed By: #### G IPANEL #### [facility] [address] [place] [address] Dr. Elenita Talamantes EAEC Detected Abnormal NOT DETECTED [facility] Comment on above: Performed By: #### G IPANEL #### [facility] [address] [place] [address] Dr. Elenita Talamantes EIEC Not detected Normal NOT DETECTED [facility] Comment on above: Performed By: #### G IPANEL #### [facility] [address] [place] [address] Dr. Elenita Talamantes EPEC Detected Abnormal NOT DETECTED [facility] Comment on above: Performed By: #### G IPANEL #### [facility] [address] [place] [address] Dr. Elenita Talamantes ETEC Detected Abnormal NOT DETECTED [facility] Comment on above: Performed By: #### G IPANEL #### [facility] [address] [place] [address] Dr. Elenita Talamantes G. Lamblia Not detected Normal NOT DETECTED [facility] Comment on above: Performed By: #### G IPANEL #### [facility] [address] [address] [address] Elenita RODRÍGUEZ CONTROLS PASSED Normal The [facility] Comment on above: Performed By: #### G IPANEL #### [facility] [address] [address] [address] Elenita EDMONDS [facility] HEADER GI PANEL BACTERIA Normal [facility] Comment on above: Performed By: #### G IPANEL #### [facility] [address] [address] [address] Elenita BERMEO ECOLI GI PANEL DIARRHEAGENIC E.COLI / SHIGELLA Normal [facility] Comment on above: Performed By: #### G IPANEL #### [facility] [address] [address] [address] Elenita BERMEO INFO SEE BELOW Normal [facility] Comment on above: Result Comment: EAEC - Enteroaggregative E. Coli EPEC- Enteropathogenic E. Coli ETEC- Enterotoxigenic E. Coli lt/st STEC- Shigella-like toxin-producing E. Coli stx1/stx2 EIEC- Shigella/Enteroinvasive E. Coli Performed By: #### G IPANEL #### [facility] [address] [address] [address] Elenita BERMEO PARASITES GI PANEL PARASITES Normal [facility] Comment on above: Performed By: #### G IPANEL #### [facility] [address] [address] [address] Elenita BERMEO VIRUS GI PANEL VIRUSES Normal [facility] Comment on above: Performed By: #### G IPANEL #### [facility] [address] [address] [address] Elenita Talamantes Norovirus GI/GII Not detected Normal NOT DETECTED [facility] Comment on above: Performed By: #### G IPANEL #### [facility] [address] [address] [address] Elenita Talamantes P. Shigelloides Not detected Normal NOT DETECTED [facility] Comment on above: Performed By: #### G IPANEL #### [facility] [address] [place] [address] Dr. Elenita Talamantes Rotavirus A Not detected Normal NOT DETECTED [facility] Comment on above: Performed By: #### G IPANEL #### [facility] [address] [place] [address] Dr. Elenita Talamantes Salmonella Not detected Normal NOT DETECTED [facility] Comment on above: Performed By: #### G IPANEL #### [facility] [address] [place] [address] Dr. Elenita Talamantes Sapovirus Not detected Normal NOT DETECTED [facility] Comment on above: Performed By: #### G IPANEL #### [facility] [address] [place] [address] Dr. Elenita Talamantes STEC Not detected Normal NOT DETECTED [facility] Comment on above: Performed By: #### G IPANEL #### [facility] [address] [place] [address] Dr. Elenita Talamantes Vibrio Not detected Normal NOT DETECTED [facility] Comment on above: Performed By: #### G IPANEL #### [facility] [address] [place] [address] Dr. Elenita Talamantes Vibrio Cholera Not detected Normal NOT DETECTED [facility] Comment on above: Performed By: #### G IPANEL #### [facility] [address] [place] [address] Dr. Elenita Talamantes Y. Enterocolitica Not detected Normal NOT DETECTED [facility] Comment on above: Performed By: #### G IPANEL #### [facility] [address] [place] [address] Dr. Elenita Talamantes Ambulatory Clinical Summaryo n 02-28-2021 Ambulatory Clinical Summary {[id number] Normal [facility] Urology Office/Clinic Noteon 02-28-2021 Urology Office/Clinic [...] Lewis Kent, URL [address] [place] [phone] Additional Instructions: 6mos. f/u Patient Education I, [...] Protein Urine Dipstick: Negative (02/28/21 15:30:00) Specific [place] Urine Dipstick: 1.020 (02/28/21 15:30:00) Urine Appearance Urine Dipstick: Clear (02/28/21 15:30:00) Urine Color Urine Dipstick: Yellow (02/28/21 15:30:00) Urobilinogen Urine Dipstick: Normal 0.2-1 EU/dl (02/28/21 15:30:00) pH Urine Dipstick: 5 (02/28/21 15:30:00) Normal [facility] Comment on above: Result Comment: Elec tronically Signed By: Lewis GONZALEZ MD\.br\Date and Time Signed: 02/28/21 16:30 EDT\.br\Electronically Co-Signed By: Lyn Willis MA\.br\Date and Time Co-Signed: 02/28/21 16:26 EDT Coding Summary.on 10-27-2020 Coding Summary. CODING DATE: 10/27/2020 FINAL [facility] STATUS: Home (Routine DC) PAYOR: [...] CphT Date Saved: 10/27/2020 09:40 am Normal [facility] Coding Summary. CODING DATE: 10/27/2020 FINAL [facility] STATUS: Home (Routine DC) PAYOR: [...] Orr CphT Date Saved: 10/27/2020 09:39 am Normal [facility] Discharge Instructionson Discharge Instructions [id number]# 1.00CD:127 Normal [facility] NM Kidney Imaging w/ Flow w/ [...] (%): 14 Left Uptake (%): 38.9 Normal [facility] Consent for Procedure/Surger yon 10-19-2020 Consent for Procedure/Surgery [id number]# 1.00CD:127 [facility] Consent for Treatmenton Consent for Treatment [id number]#1 .00CD:127 [facility] IntraOperative Documentson 0 10-19-2020 IntraOperative Documents [id number]# 1.00CD:127 Normal [facility] Coding Summary.on 10-18-2020 Coding Summary. CODING DATE: 10/18/2020 FINAL [facility] STATUS: Home (Routine DC) PAYOR: Commercial Insurance [...] Charisse Rivers Date Saved: 10/18/2020 01:46 pm [facility] Consent for Treatmenton 09-21 Consent for Treatment [id number] .00CD:127 Normal [facility] Main OR Intraoperative Recor don 10-12-2020 Main OR Intraoperative Record IntraOp Document Type FTURO Summary Primary Physician: Lewis GONZALEZ MD Finalized Date/Time: 10/12/20 10:01:33 Pt. Name: JACKIE GONZALEZ /Sex: 2000 Female Med Rec #: [id number] Physician: Lewis GONZALEZ MD Financial #: [id number] Pt. Type: O Room/Bed: / Admit/Disch: 10/12/20 08:26:15 - Institution: Case Times FTURO Entry 1 Patient Times In Room 10/12/20 09:52:00 Out Room 10/12/20 10:01:00 Procedure Times Start 10/12/20 09:54:00 Stop 10/12/20 09:59:00 Anesthesia Times Last Modified By: Jarrod RAMOS, Chyna Arredondo 10/12/20 09:59:52 Case Attendance FTURO Entry 1 Entry 2 Entry 3 Case Attendee PANCHITO AGUIRRE, Lewis Quezada RN, Verena Garay RN, Chnya Arredondo Role Performed Surgeon - Primary Cellophane Casting Machine Repairer - Primary Cellophane Casting Machine Repairer - Primary Time In 10/12/20 09:52:00 10/12/20 09:52:00 10/12/20 09:52:00 Time Out 10/12/20 10:01:00 10/12/20 10:01:00 10/12/20 10:01:00 Procedure CYSTOSCOPY LOCAL WITH CYSTOSCOPY LOCAL WITH CYSTOSCOPY LOCAL WITH URETHRAL DILATION(.) URETHRAL DILATION(.) URETHRAL DILATION(.) Comments orientation Last Modified By: Jarrod RN, Chyna Garay RN, Chyna Garay RN, Chyna Arredondo 10/12/20 09:59:54 10/12/20 09:59:54 10/12/20 09:59:54 Entry 4 Entry 5 Case Attendee Miguel BENEFITS DIRECTOR, Carole Alexander BENEFITS DIRECTOR, Millie Stover Role Performed Scrub - Primary Scrub - Primary Time In 10/12/20 09:52:00 10/12/20 09:52:00 Time Out 10/12/20 10:01:00 10/12/20 10:01:00 Procedure CYSTOSCOPY LOCAL WITH CYSTOSCOPY LOCAL WITH URETHRAL DILATION(.) URETHRAL DILATION(.) Comments orientation Last Modified By: Chyna Garay RN, RN, Amy J 10/12/20 09:59:54 10/12/20 09:59:54 Surgical Procedures FTURO Entry 1 Procedure Description Procedure CYSTOSCOPY LOCAL WITH Modifiers . URETHRAL DILATION Surgeon Description CYSTOSCOPY WITH URETHRAL DILATION Primary Procedure Yes Primary Surgeon Lewis GONZALEZ MD Start 10/12/20 09:54:00 Stop 10/12/20 09:59:00 Anesthesia [...] (If Participants Damien RAMOS, Verena Price, Applicable) Jarrod RAMOS, Miguel Phipps BENEFITS DIRECTOR, Benjamin Bolanos CST, Millie Stover Time Out [...] By: Chyna Garay RN 10/12/20 10:01 Normal [facility] Main OR Preoperative Recordo n 10-12-2020 Main OR Preoperative Record Holding Area Document Type FTURO Summary Primary Physician: Lewis GONZALEZ MD Finalized Date/Time: 10/12/20 09:53:30 Pt. Name: JACKIE GONZALEZ /Sex: 2000 Female Med Rec #: [id number] Physician: Lewis GONZALEZ MD Financial #: [id number] Pt. Type: O Room/Bed: / Admit/Disch: 10/12/20 [...] 09:30 Chyna Garay RN 10/12/20 09:53 Normal [facility] Operative Reporton Operative Report Patient: JACKIE [...] urine. The Urethra was dilated to: 30 [place] w/ sounds. Devices Implanted: None. Removal: Cystoscope is removed, The patient tolerated it well. Postoperative Information Discharge: Patient is discharged home with antibiotic coverage, Follow up arranged. Normal [facility] Comment on above: Result Comment: Elec tronically Signed By: Lewis GONZALEZ MD\.br\Date and Time Signed: 10/12/20 10:02 EST Pre-Certification Formon Pre-Certification Form [id number]#1. 00CD:127 Normal [facility] Physician Referralon 021 Physician Referral [id number] .00CD:127 Normal [facility] Formson 10-05-2020 Forms [id number]#1. 00CD:127 Normal [facility] Ambulatory Clinical Summaryo n 10-04-2020 Ambulatory Clinical Summary {[id number]}CD:[id number] Normal [facility] Patient Educationon 10-04-19 21 Patient Education [...] Document Reviewed: 09/13/2012 ExitCare? Patient Information ?2013 [employer]. Normal [facility] Urology Office/Clinic Noteon 10-04-2020 Urology Office/Clinic Note Chief Complaint [place] due to recurrent UTI HPI Staff [place] due to recurrent UTI. Pt states that [...] kidney stones. PVR 99ml. Renal US/bladder At [facility] 08/2020. Dysuria: not at this time Incomplete [...] Information Lewis GONZALEZ MD [address] [place] [phone] Additional Instructions: scheduling Cysto/UD Patient Education Urinary [...] Oral met (more content not included)... Normal [facility] Comment on above: Result Comment: Elec tronically Signed By: Lewis GONZALEZ MD\.br\Date and Time Signed: 10/04/20 15:03 EST\.br\Electronically Co-Signed By: Lyn Willis MA\.br\Date and Time Co-Signed: 10/04/20 14:59 EST Coding Summary.on 09-09-2020 Coding Summary. CODING DATE: 09/09/2020 FINAL [facility] STATUS: Home (Routine DC) PAYOR: [...] Orr CphT Date Saved: 09/09/2020 06:00 pm [facility] US Retroperitoneal Completeo n 09-09-2020 US [...] La O M.D. Transcribed by: ROYAL Technologist: ADAM [facility] Consent for Treatmenton 08-20 Consent for Treatment [id number] .00CD:127 [facility] Consent for Treatment [id number]# 1.00CD:127 [facility] Physician Orderon 09-03-2020 Physician Order [id number] .00CD:127 [facility] Vital Signs Date Time Vital Sign Value Performing Clinician Facility 05-12-2024 11:02-0400 Body weight 69.91 kg Chyna VERGARA Work Phone: [facility] 05-12-2024 11:02-0400 Diastolic blood pressure 60 mm[Hg] Chyna VERGARA Work Phone: [facility] 05-12-2024 11:02-0400 Systolic blood pressure 106 mm[Hg] Chyna VERGARA Work Phone: [facility] 10-04-2023 10:19-0500 Body weight 71.22 kg Ole Dawson DO Work Phone: [facility] 10-04-2023 10:19-0500 Diastolic blood pressure 78 mm[Hg] Ole Dawson DO Work Phone: [facility] 10-04-2023 10:19-0500 Systolic blood pressure 124 mm[Hg] Ole Dawson DO Work Phone: [facility] 08-05-2023 14:35-0500 Body height 176.53 cm Joseline Shaye Other [facility] Other 08-05-2023 14:35-0500 Body mass index (BMI) [Ratio] 23.29 kg/m2 Joseline Shaye Other [facility] Other 08-05-2023 14:35-0500 Body temperature 98 [degF] Joseline Shaye Other [facility] Other 08-05-2023 14:35-0500 Body weight 72.58 kg Joseline Shaye Other [facility] Other 08-05-2023 14:35-0500 Respiratory rate 18 /min Joseline Shaye Other [facility] Other 08-05-2023 14:35-0500 SaO2% (BldA) [Mass fraction] 98 % Joseline Shaye Other [facility] Other 03-20-2022 18:20-0400 Body height 176.53 cm Radha Galdamez Other [facility] Other 03-20-2022 18:20-0400 Body mass index (BMI) [Ratio] 25.32 kg/m2 Radha Galdamez Other [facility] Other 03-20-2022 18:20-0400 Body temperature 98.4 [degF] Radha Galdamez Other [facility] Other 03-20-2022 18:20-0400 Body weight 78.93 kg Radha Galdamez Other [facility] Other 03-20-2022 18:20-0400 Respiratory rate 18 /min Radah Galdamez Other [facility] Other 03-20-2022 18:20-0400 SaO2% (BldA) [Mass fraction] 97 % Radha Galdamez Other [facility] Other Encounters Encounter Date Encounter Type Care Provider Facility Start: 01-08-2025 End: 01-13-2025 Clinisync Result Encounter Chyna VERGARA Work Phone: [facility] Unsolicited Start: 01-08-2025 End: 01-13-2025 Clinisync Result Encounter Chyna VERAGRA Work Phone: [facility] Unsolicited Start: 01-08-2025 End: 01-08-2025 ambulatory CHYNA OWENS Not Available Start: 05-12-2024 End: 05-12-2024 ambulatory CHYNA OWENS Not Available Start: 05-12-2024 End: 05-12-2024 care visit Chyna VERGARA Work Phone: [facility] Comment on above: 6 weeks f ollow-up; Encounter for initial prescription of contraceptive pills Start: 04-03-2024 End: 04-03-2024 ambulatory CHYNA OWENS Not Available Start: 03-13-2024 End: 03-13-2024 ambulatory CHYNA GRACIELA Not Available Start: 02-27-2024 End: 02-27-2024 ambulatory OLE DAWSON Not Available Start: 02-12-2024 End: 02-12-2024 ambulatory OLE DAWSON Not Available Start: 01-29-2024 End: 01-29-2024 ambulatory OLE DAWSON Not Available Start: 10-04-2023 End: 10-04-2023 flow sheet Ole Dawson DO Work Phone: [facility] Comment on above: First trimester preg arnaldo Start: 08-05-2023 End: 08-05-2023 ambulatory Joseline Shaye Other [facility] Other Start: 08-05-2023 Office outpatient vi sit 15 minutes Joseline Shaye [facility] Start: 03-20-2022 End: 03-20-2022 Departed Referred COMPUTER REPAIR INSTRUCTOR-C Radha Galdamez Work Phone: [facility] [place] Start: 03-20-2022 End: 03-20-2022 ambulatory Radha Galdamez Other [facility] Other Start: 03-20-2022 Office outpatient ne w 20 minutes Radha Galdamez [facility] Start: 10-22-2021 End: 10-23-[address] IVAN HYDE Facility:[facility]1 Procedures Date Procedure Procedure Detail Performing Clinician Start: 01-08-2025 IGP,APTIMA HPV,AGE GDLN Chyna VERGARA Work Phone: Start: 10-04-2023 Urnls dip stick/tabl et rgnt non-auto w/o micrscp Ole Dawson DO Work Phone: Urine culture COMPUTER REPAIR INSTRUCTOR-C Greta Galdamez Work Phone: Plan of Treatment Date Care Activity Detail Author Start: 01-12-2026 End: 01-12-2026 Patient encounter procedure 01/12/2026 3:00 PM EDT Office Visit [facility] [address] [place] [address] Chyna Owens PA [address] [place] [address] [facility] Start: 11-12-2024 End: 11-12-2024 Patient encounter procedure 11/12/2024 3:00 PM EDT Office Visit [facility] [address] [place] [id number] Chyna Owens PA [address], [place] [id number] [facility] Start: 11-05-2023 End: 11-05-2023 Patient encounter procedure 11/05/2023 3:30 PM EDT Routine [facility] [address] [place] [phone] Chyna Owens PA [address] [place] [address] [facility] Payers Date Payer Category Payer Unknown [id number] 2022 Private Health Insurance [id number] 2022 Unknown [id number] 2022 Unknown [id number] 2. [id number] 1998 Unknown [id number] 2.16.84 [id number] 1998 Unknown [id number] 2.16.84 [id number] 1998 Unknown [id number] 2.16.84 [id number] 1998 Unknown [id number] 2.16.84 [id number] 1998 Unknown [id number] 2.16.84 [id number] 1998 Unknown [id number] 2.16.84 [id number] 1998 Unknown [id number] 2.16.84 [id number] 1998 Unknown [id number] 2.16.84 [id number] 1959 Unknown [id number] Unknown [id number] 2.16. [id number] Social History Date Type Detail Facility Sex Assigned At [facility] Work Phone: Start: 2000 Sex Assigned At Female F [facility] Tobacco smoking status RIIS Tobacco smoking consumption unknown [facility] Start: 07-28-2023 [facility] Start: 2000 Sex Assigned At Not on file [facility] History of Present illness Narrative 05-12-2024 URSULA Talbert - 05/12/2024 10:30 AM EDT Note Date & Type Note Facility 05-12-2024 History of Presen t illness Narrative Reason for Appointment: Patient ID: Jackie Aponte is a 24 y.o. female who presents for Follow-up Patient presents today for Post Follow Up appointment. MEDICATIONS Current Outpatient Medications Medication Instructions norethindrone (MICRONOR) 0.35 mg, Oral, Daily, Take 1 tablet by mouth daily ALLERGIES No Known Allergies PROBLEMS Active Ambulatory Problems Diagnosis Date Noted No Active Ambulatory Problems Resolved Ambulatory Problems Diagnosis Date Noted No Resolved Ambulatory Problems No Additional Past Medical History HISTORY PAST MEDICAL HISTORY SOCIAL HISTORY History reviewed. No pertinent past medical history. Social History Tobacco Use Smoking status: Not on file Smokeless tobacco: Not on file Substance Use Topics Alcohol use: Not on file Drug use: Not on file FAMILY HISTORY No family history on file. SURGICAL HISTORY Past Surgical History: Procedure Laterality Date SECTION, LOW TRANSVERSE 03/26/2024 REVIEW OF SYSTEMS Review of Systems: Review of Systems Constitutional: Negative. HENT: Negative. Eyes: Negative. Respiratory: Negative. Cardiovascular: Negative. Gastrointestinal: Negative. Genitourinary: Negative. Musculoskeletal: Negative. Skin: Negative. Neurological: Negative. All other systems reviewed and are negative. Hematological: Negative. Endocrine: Negative. Allergic/Immunologic: Negative. OBJECTIVE Objective: Physical Exam Constitutional: Appearance: Normal appearance. She [...] weight on file to calculate BMI. BP: 106/60 No LMP recorded. ASSESSMENT & PLAN ICD-10-CM 1. 6 weeks follow-up Z39.2 2. Encounter for initial prescription of contraceptive pills Z30.011 norethindrone (Micronor) 0.35 MG tablet Post Follow Up: Patient is doing well. Patient presents today for 6 week visit. Patient is s/p delivery. Patient states depression but denies suicidal and homicidal ideations. All options were discussed with the patient regarding control and patient desires oral contraception . Follow Up: Patient is to return for annual unless needed otherwise. Documented by URSULA Talbert on behalf of: URSULA Talbert documented in this encounter [facility] History of Present illness Narrative 10-04-2023 [...] 11w5d with a Estimated Date of Delivery: 8/31/24. Patient presents today for a routine obstetrics [...] you develop chest pain, shortness of breath. [facility] Other Evaluation note 03-20-2022 Note Date & [...] Follow up with primary care provider or educational technology specialist if no improvement of symptoms. Mar, Abdominal pain, unspecified abdominal location (ICD-10 - R10.9) Mar, Other Recommend Retested for in 1 week. Call family planning clinic at [facility] Other History and physical note 10-19-2020 Note Date & Type Note Facility 10-19-2020 Note [id number] [id number] [facility] Clinical Note 10-12-2020 Note Date & [...] you have a fever over 100 degrees [facility] Evaluation note Note Date & Type Note Facility Evaluation note No assessment information availa [facility] Work Phone: Evaluation note Note Date & Type Note Facility Evaluation note Diagnosis First trimester state, incidental documented in this encounter [facility] Evaluation note Note Date & Type Note Facility Evaluation note Diagnosis 6 weeks follow-up Encounter for initial prescription of contraceptive pills documented in this encounter [facility] History general Narrative - Reported Note Date & Type Note Facility History general Narrative - Reported Type Surgical History Back Surgery 2006 Hospitalization History see above [facility] Other Summary Purpose Family History No Family [...] content) DATE CREATED AUTHOR 03/01/2021 Bull Schmidt [facility] DATE CREATED AUTHOR AUTHOR'S ORGANIZ ATION 12/07/2021 [facility] DATE CREATED AUTHOR AUTHOR'S ORGANIZ ATION 03/29/2022 [facility] DATE CREATED AUTHOR AUTHOR'S ORGANIZ ATION 01/15/2025 [facility] EPIC REASON FOR VISIT (unrecogniz ed section and content) Reason Comments Routine Visit Reason Comments Follow-up Care Teams (unrecognized sec tion and content) Team Status: Inactive Member Role Status Dates ANA Galdamez Attending Provider Active PHYSICIAN NO FAMILY Primary Care Provider Active Team Status: Active Member Role Status Dates PHYSICIAN NO FAMILY Primary Care Provider Active Net Developer Relationship Specialty Start Date End Date Ivan Hyde MD [address] [place] [address] PCP - General Family Medicine 09/07/23 Net Developer Relationship Specialty Start Date End Date Ivan Hyde MD [address] [place] [address] PCP - General Family Medicine 09/07/23 Net Developer Relationship Specialty Start Date End Date Ivan Hyde MD [address] [place] [address] PCP - General Family Medicine 09/07/23 Goals [...] BE BASED ON THE PRIMARY CLINICAL RECORDS. [facility]. provides no warranty or guarantee of the accuracy or completeness of information in this document.
[2025-05-23 06:09] LABS: HSV 1 IgG, Type Spec Non Reactive (Non Reactive); HSV 2 IgG, Type Spec Non Reactive (Non Reactive)
== END 2025-05-21 12:54 | disposition home or self-care (01) ==
LOC: LAB 12:54
PROVIDERS: PCP Family Medicine; Visit Provider Family Medicine
DX: L73.9 Follicular disorder, unspecified (principal); D50.9 Iron deficiency anemia, unspecified
CPT/HCPCS: 36415; 85025; 86695; 86696